=== PATIENT | female | born 1980 | race Caucasian/White ===

== ENCOUNTER → 2020-01-25 11:24 | Outpatient (BNVA) | payer OTHER, SELFPAY | PROVIDERS: PCP Internal Medicine; Referring Provider Internal Medicine; Visit Provider Advanced Practice Midwife | DX: Z71.2 Person consulting for explanation of examination or test findings (principal) | CPT/HCPCS: 99212 ==

== ENCOUNTER 2020-03-11 12:07 | Outpatient (REF) | payer OTHER, SELFPAY | END 2020-03-11 12:08 | disposition home or self-care (01) | LOC: HO.LAB 12:07 | PROVIDERS: Visit Provider Internal Medicine | DX: Z20.828 Contact with and (suspected) exposure to other viral communicable diseases (principal) | CPT/HCPCS: C9803; U0003 ==

== ENCOUNTER 2020-03-18 12:52 | Outpatient (REF) | payer OTHER, SELFPAY ==
--- NOTE | 2020-03-18 12:59 | XR_ITS ---
EXAMINATION: XR CHEST CLINICAL INFORMATION: Chest pain COMPARISON: None TECHNIQUE: 2 views of the chest were obtained. FINDINGS: No significant abnormality is noted involving the heart, lungs, mediastinum, bony thorax or soft tissues. XR/XR chest 2V IMPRESSION: Unremarkable examination.
== END 2020-03-18 12:53 | disposition home or self-care (01) ==
LOC: HO.HMGCX 12:52
PROVIDERS: Visit Provider Hospitalist
DX: R07.89 Other chest pain (principal)
CPT/HCPCS: 71046

== ENCOUNTER 2020-03-25 09:05 | Outpatient (REF) | payer OTHER, SELFPAY ==
--- NOTE | 2020-03-25 09:09 | XR_ITS ---
EXAMINATION: XR KNEE, RIGHT CLINICAL INFORMATION: Right lower leg injury. COMPARISON: None TECHNIQUE: Four views of the right knee. FINDINGS: No significant tricompartmental degenerative joint changes are seen. There is no acute fracture or dislocation. An eccentric, mildly expansile, sclerotic lesion is seen at the level the proximal fibular metadiaphysis. The cortex is intact. Mild prepatellar soft tissue swelling is seen. XR/XR knee RT 4V IMPRESSION: 1. Mild prepatellar soft tissue swelling. No acute right knee joint abnormality or significant degenerative changes. 2. 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 This could be monitored for change with tibia/fibular radiographs and 3-6 months.
== END 2020-03-25 09:06 | disposition home or self-care (01) ==
LOC: HO.HMGCX 09:05
PROVIDERS: PCP Internal Medicine; Visit Provider Nurse Practitioner Family
DX: S89.91XA Unspecified injury of right lower leg, initial encounter (principal)
CPT/HCPCS: 73564

== ENCOUNTER → 2020-04-28 08:45 | Outpatient (BNVA) | payer OTHER, SELFPAY | PROVIDERS: PCP Internal Medicine; Visit Provider Advanced Practice Midwife | DX: Z30.42 Encounter for surveillance of injectable contraceptive (principal) | CPT/HCPCS: 96372; J1050 ==

== ENCOUNTER → 2020-06-08 10:43 | Outpatient (BNVA) | payer OTHER, SELFPAY | PROVIDERS: PCP Internal Medicine; Visit Provider Nurse Practitioner ==

== ENCOUNTER 2020-06-13 16:29 | Outpatient (REF) | payer OTHER, SELFPAY | END 2020-06-13 16:30 | disposition home or self-care (01) | LOC: HO.HOSX 16:29 | PROVIDERS: Visit Provider Orthopaedic Surgery | DX: Z13.89 Encounter for screening for other disorder (principal) ==

== ENCOUNTER 2020-06-14 08:33 | Outpatient (REF) | payer OTHER, SELFPAY ==
--- NOTE | ~2020-06-14 | XR_ITS ---
EXAMINATION: XR WRIST, RIGHT CLINICAL INFORMATION: Right wrist pain. COMPARISON: None TECHNIQUE: PA, lateral, and oblique views of the right wrist. FINDINGS: The bones and soft tissues are normal. No fracture. Alignment is anatomic with normal joint spaces. No erosions or abnormal soft tissue calcifications. XR/XR wrist RT min 3V IMPRESSION: Unremarkable right wrist.
== END 2020-06-14 08:34 | disposition home or self-care (01) ==
LOC: HO.HOSX 08:33
PROVIDERS: PCP Internal Medicine; Visit Provider Orthopaedic Surgery
DX: M77.8 Other enthesopathies, not elsewhere classified (principal)
CPT/HCPCS: 20550; 73110; 99202; J1100

== ENCOUNTER 2020-07-01 11:06 | Outpatient (REF) | payer OTHER, SELFPAY | END 2020-07-01 11:07 | disposition home or self-care (01) | LOC: HO.LNP 11:06 | PROVIDERS: Visit Provider Hospitalist | DX: R30.0 Dysuria (principal) | CPT/HCPCS: 87086 ==

== ENCOUNTER → 2020-07-14 08:56 | Outpatient (BNVA) | payer OTHER, SELFPAY | PROVIDERS: PCP Internal Medicine; Visit Provider Advanced Practice Midwife | DX: Z30.42 Encounter for surveillance of injectable contraceptive (principal) | CPT/HCPCS: 96372; 99211; J1050 ==

== ENCOUNTER → 2020-10-04 08:49 | Outpatient (BNVA) | payer OTHER, SELFPAY | PROVIDERS: Visit Provider Advanced Practice Midwife | DX: Z30.42 Encounter for surveillance of injectable contraceptive (principal) | CPT/HCPCS: 96372; 99211 ==

== ENCOUNTER 2020-10-06 09:10 | Outpatient (REF) | payer OTHER, SELFPAY ==
--- NOTE | ~2020-10-06 | XR_ITS ---
EXAMINATION: XR RIBS, LEFT CLINICAL INFORMATION: Pain COMPARISON: Chest radiographs 03/08/2020 TECHNIQUE: 3 views of the left ribs were obtained. AP chest FINDINGS: Lungs are clear. No consolidation, pneumothorax, or pleural effusion. The cardiomediastinal silhouette and pulmonary vasculature are normal. Osseous structures are unremarkable. Ribs are intact. No fractures are identified. XR/XR ribs LT min 3V w CXR1V IMPRESSION: Unremarkable examination.
== END 2020-10-06 09:11 | disposition home or self-care (01) ==
LOC: HO.HMGCX 09:10
PROVIDERS: PCP Internal Medicine; Visit Provider Hospitalist
DX: R07.81 Pleurodynia (principal)
CPT/HCPCS: 71101

== ENCOUNTER → 2020-12-29 13:31 | Outpatient (BNVA) | payer OTHER, SELFPAY | PROVIDERS: PCP Internal Medicine; Visit Provider Advanced Practice Midwife | DX: Z30.42 Encounter for surveillance of injectable contraceptive (principal) | CPT/HCPCS: 96372; 99211 ==

== ENCOUNTER → 2021-03-06 11:50 | Outpatient (BNVA) | payer OTHER, SELFPAY | PROVIDERS: PCP Internal Medicine; Referring Provider Internal Medicine; Visit Provider Nurse Practitioner | DX: K82.8 Other specified diseases of gallbladder (principal); A04.8 Other specified bacterial intestinal infections; R10.11 Right upper quadrant pain | CPT/HCPCS: 99212 ==

== ENCOUNTER 2021-03-20 08:54 | Outpatient (REF) | payer OTHER, SELFPAY ==
--- NOTE | ~2021-03-20 | US_ITS ---
EXAMINATION: US ABDOMEN LIMITED CLINICAL INFORMATION: Gallbladder sludge. Right upper quadrant pain. COMPARISON: Ultrasound abdomen 05/05/2019. X-ray abdomen KUB 09/25/2018. CT abdomen and pelvis 02/17/2006. TECHNIQUE: Real-time imaging of the right upper quadrant abdominal viscera. FINDINGS: PANCREAS: The head of the pancreas is normal. The body and tail are not well visualized due to bowel gas. LIVER: Normal. The liver is normal in size. The liver contour is normal. Parenchymal echogenicity is normal. No focal hepatic lesion. There is no intrahepatic biliary duct dilatation seen. GALLBLADDER: The gallbladder is normal in size. There is minimal echogenic dependent material in the neck of the gallbladder. This is similar to previous exam. This may represent sludge. A gallbladder polyp cannot be excluded given this is similar in appearance. This measures approximately 6 x 12 mm. No gallstones are seen. The gallbladder wall is normal. There is no pericholecystic fluid. COMMON BILE DUCT: Normal in caliber measuring 0.6 cm in diameter. RIGHT KIDNEY: Normal. No hydronephrosis. No renal calculi or focal parenchymal lesions. The kidney measures 10.3 cm in maximum dimension. FREE FLUID: None. US/US abdomen limited IMPRESSION: Dependent echogenic material in the neck of the gallbladder, similar to prior exam April 2019. This may represent sludge. A gallbladder wall polyp cannot be excluded given its similar location to previous exam and ultrasound follow-up recommended. No gallstone seen. Limited visualization of the pancreas.
== END 2021-03-20 08:55 | disposition home or self-care (01) ==
LOC: HO.HMGCX 08:54
PROVIDERS: Visit Provider Nurse Practitioner
DX: R10.11 Right upper quadrant pain (principal); K82.8 Other specified diseases of gallbladder
CPT/HCPCS: 76705

== ENCOUNTER 2021-03-23 08:36 | Outpatient (REF) | payer OTHER, SELFPAY | END 2021-03-23 08:37 | disposition home or self-care (01) | LOC: HO.LAB 08:36 | PROVIDERS: PCP Internal Medicine; Visit Provider Internal Medicine | DX: Z20.822 Contact with and (suspected) exposure to COVID-19 (principal) | CPT/HCPCS: C9803; U0003; U0005 ==

== ENCOUNTER → 2021-03-24 10:59 | Outpatient (BNVA) | payer OTHER, SELFPAY | PROVIDERS: PCP Internal Medicine; Visit Provider Advanced Practice Midwife | DX: Z30.42 Encounter for surveillance of injectable contraceptive (principal) | CPT/HCPCS: 96372; 99211 ==

== ENCOUNTER → 2021-05-17 11:18 | Outpatient (BNVA) | payer OTHER, SELFPAY | PROVIDERS: PCP Internal Medicine; Visit Provider Orthopaedic Surgery | DX: M77.8 Other enthesopathies, not elsewhere classified (principal) | CPT/HCPCS: 99212; J1100 ==

== ENCOUNTER → 2021-06-21 10:29 | Outpatient (BNVA) | payer OTHER, SELFPAY | PROVIDERS: Visit Provider Advanced Practice Midwife | DX: Z01.419 Encounter for gynecological examination (general) (routine) without abnormal findings (principal); Z30.42 Encounter for surveillance of injectable contraceptive; Z12.39 Encounter for other screening for malignant neoplasm of breast | CPT/HCPCS: 96372 ==

== ENCOUNTER 2021-07-20 11:17 | Outpatient (REF) | payer OTHER, SELFPAY ==
--- NOTE | ~2021-07-20 | MM_ITS ---
EXAMINATION: MM SCREENING DIGITAL BREAST TOMOSYNTHESIS, BILATERAL CLINICAL INFORMATION: Screening. Asymptomatic. Age 40. No prior breast imaging. No known family history breast cancer. The lifetime risk of breast cancer based on the Tyrer-Cuzick Model is 7%. COMPARISON: None (current study represents initial baseline exam). TECHNIQUE: Digital breast tomosynthesis is performed in both the craniocaudal and mediolateral oblique views along with computer-aided detection (CAD). Synthesized 2D images are generated from the tomosynthesis. Additional right CC view is provided. FINDINGS: The breasts are almost entirely fatty (ACR BI-RADS breast composition Category a). Background stromal markings are normal. There are no significant masses, abnormal calcifications, or other abnormalities. Axillary nodes appear normal. Skin contours are smooth. MM/MM tomosynthesis screening BI IMPRESSION: No mammographic evidence of malignancy. ASSESSMENT: BI-RADS 1: Negative RECOMMENDATION: Routine annual mammography screening. This patient's information was entered into a reminder system with a target due date for their next mammogram.
== END 2021-07-20 11:18 | disposition home or self-care (01) ==
LOC: HO.MAMMO 11:17
PROVIDERS: Visit Provider Advanced Practice Midwife
DX: Z12.31 Encounter for screening mammogram for malignant neoplasm of breast (principal)
CPT/HCPCS: 77063; 77067

== ENCOUNTER 2022-02-06 08:23 | Outpatient (REF) | payer OTHER, SELFPAY ==
--- NOTE | ~2022-02-06 | MM_ITS ---
EXAMINATION: MM DIAGNOSTIC DIGITAL BREAST TOMOSYNTHESIS, BILATERAL US DIAGNOSTIC ULTRASOUND BREAST, BILATERAL CLINICAL INFORMATION: 41-year-old with bilateral anterior breast pain for several weeks. No erythema, palpable mass, or discharge. The lifetime risk of breast cancer based on the Tyrer-Cuzick Model is 10%. COMPARISON: Mammography: 07/20/2021 (baseline). TECHNIQUE: Digital breast tomosynthesis is performed in both the craniocaudal and mediolateral oblique views along with computer-aided detection (CAD). Synthesized 2D images are generated from the tomosynthesis. Ultrasound bilateral breasts is performed using grayscale imaging and color Doppler without and with harmonics. The bilateral breasts are imaged retroareolar and circumferential anterior breasts. FINDINGS: The breasts are almost entirely fatty (ACR BI-RADS breast composition Category a). Stromal markings are similar to baseline exam. There is no skin thickening or coarsening of the Ronan's ligaments. No interval mass or architectural abnormality or abnormal calcifications. The axilla are unremarkable. Skin contours are smooth. Ultrasound demonstrates no cystic or solid mass or architectural abnormality on either side. There is no skin thickening or edema tracking in soft tissue planes. No hyperemia on color Doppler. Results are discussed with the patient at time of visit. MM/MM tomosynthesis diagnostic BI IMPRESSION: -No mammographic evidence of malignancy or inflammatory changes. -Unremarkable bilateral breast ultrasound. ASSESSMENT: BI-RADS 1: Negative RECOMMENDATION: 1. Patient's bilateral breast pain should be managed based on the clinical impression. 2. Otherwise, routine annual screening mammography. This patient's information was entered into a reminder system with a target due date for their next mammogram.
== END 2022-02-06 08:24 | disposition home or self-care (01) ==
LOC: HO.MAMMO 08:23
PROVIDERS: PCP Internal Medicine; Visit Provider Internal Medicine
DX: N64.4 Mastodynia (principal)
CPT/HCPCS: 76642; 77062; 77066

== ENCOUNTER → 2022-09-05 09:36 | Outpatient (BNVA) | payer OTHER, SELFPAY | PROVIDERS: PCP Internal Medicine; Visit Provider Advanced Practice Midwife ==

== ENCOUNTER 2022-11-03 09:46 | Emergency (ER) | payer OTHER, SELFPAY ==
--- NOTE | ~2022-11-03 | US_ITS ---
EXAM: Pelvic Ultrasound CLINICAL INDICATION: Left-sided abdominal pain with COMPARISON: CT abdomen pelvis earlier today TECHNIQUE: The pelvis was evaluated using transabdominal and transvaginal imaging. The patient was not amenable to endovaginal interrogation. Color Doppler imaging and spectral analysis of the bilateral ovaries was also performed. FINDINGS: The uterus measures 8.2 x 3.9 x 4.0 cm in longitudinal by AP by transverse dimension. The endometrial stripe is not thickened and measures 0.8 cm. The left ovary measures approximately 1.8 x 2.7 x 1.7 cm and is normal. The right ovary measures approximately 2.7 x 2.0 x 1.8 cm and is also normal. Spectral analysis reveals normal arterial and venous waveforms in the bilateral ovaries. There are no abnormal adnexal masses. There is no free fluid in the pelvis. US/US pelvic ovarian doppler IMPRESSION: Unremarkable sonographic imaging of the pelvis.
--- NOTE | ~2022-11-03 | CT_ITS ---
EXAMINATION: CT ABDOMEN AND PELVIS WITHOUT CONTRAST CLINICAL INFORMATION: Left flank pain. Question stone. COMPARISON: Abdominal ultrasound March 20, [address] abdomen pelvis February 17, 2006 TECHNIQUE: Multidetector volumetric imaging was performed from the superior aspect of the liver through the pubic symphysis. Sagittal and coronal reformatted images were obtained on the technologist's workstation. This CT examination was performed using dose optimization techniques as appropriate, variously including the following: *Automated exposure control *Adjustment of mA and/or kV according to patient size (this includes techniques or standardized protocols for targeted exams where dose is matched to indication/reason for exam; i.e. extremities or head) *Use of iterative reconstruction technique DLP: 754 mGy-cm FINDINGS: Visualized lung bases are well aerated. The liver is normal in size but demonstrates diffusely decreased attenuation. A few small gallstones are noted dependently within an otherwise unremarkable appearing gallbladder. The pancreas, spleen and adrenal glands are unremarkable. Small inferior splenule. Symmetrically sized kidneys. No renal calculi or hydronephrosis of either kidney. 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 Postsurgical changes of the stomach consistent with gastric bypass. Normal caliber loops of small and large bowel. Normal appendix. Normal caliber abdominal aorta. No retroperitoneal lymphadenopathy. Surgical changes of the ventral abdominal wall. The bladder is normal in appearance. Unremarkable CT appearance of the uterus. No gross free pelvic fluid. No acute osseous abnormality. CT/CT abdomen pelvis wo IV con IMPRESSION: 1. No renal calculi or hydronephrosis of either kidney. 2. Diffusely decreased liver attenuation suggesting hepatic steatosis. Correlation with liver enzymes recommended. 3. Cholelithiasis. Fleischner guidelines were followed.
--- NOTE | ~2022-11-03 | US_ITS ---
EXAM: Pelvic Ultrasound CLINICAL INDICATION: Left-sided abdominal pain with COMPARISON: CT abdomen pelvis earlier today TECHNIQUE: The pelvis was evaluated using transabdominal and transvaginal imaging. The patient was not amenable to endovaginal interrogation. Color Doppler imaging and spectral analysis of the bilateral ovaries was also performed. FINDINGS: The uterus measures 8.2 x 3.9 x 4.0 cm in longitudinal by AP by transverse dimension. The endometrial stripe is not thickened and measures 0.8 cm. The left ovary measures approximately 1.8 x 2.7 x 1.7 cm and is normal. The right ovary measures approximately 2.7 x 2.0 x 1.8 cm and is also normal. Spectral analysis reveals normal arterial and venous waveforms in the bilateral ovaries. There are no abnormal adnexal masses. There is no free fluid in the pelvis. US/US pelvic and transvaginal IMPRESSION: Unremarkable sonographic imaging of the pelvis.
[2022-11-03 10:01] VITALS: BP 123/55; PULSE 87; RESP 18; TEMP 36.8; O2SAT 98; BMI 34.3
[2022-11-03 10:16] LABS: MANUAL DIFF FLAG NO
[2022-11-03 10:32] LABS: Alanine Aminotransferase 15 U/L (0-31); Albumin Level 3.9 g/dL (3.5-5.0); Alkaline Phosphatase 97 U/L (39-117); Anion Gap 16 (12-20); Aspartate Amino Transferase 18 U/L (5-31); Bilirubin Total 0.6 mg/dL (0.0-1.0); Blood Urea Nitrogen 8 mg/dL (9-16); Calcium 9.7 mg/dL (8.4-10.2); Carbon Dioxide 19 mmol/L (22-29); Chloride 108 mmol/L (96-108); Creatinine Clr Calc Pharmacy 112.5; Estimated Glomerular Filt Rate > 60; Glucose Random 91 mg/dL (60-115); Potassium 3.6 mmol/L (3.3-5.1); Sodium 139 mmol/L (135-145); Total Protein 7.4 g/dL (6.5-8.0)
[2022-11-03 10:35] LABS: Appearance Urine Clear; Color Urine Yellow; Glucose Urine UA Negative (Negative); Leukocyte Esterase Urine Negative (Negative); Nitrite Urine Negative (Negative); Specific Gravity - Urine <= 1.005 (1.005-1.025); Urine Blood Negative (Negative); Urine Ketones Negative (Negative); Urine Protein Negative (Neg-Trace)
[2022-11-03 10:36] LABS: Basophils Percent Auto 0.3 % (0-2); Eosinophils Percent Auto 0.5 % (0-4); Hematocrit 37.8 % (37.0-47.0); Hemoglobin 11.6 g/dl (12.0-16.0); Imm Gran Abs Auto 0.03 X10*3/uL (0.00-0.03); Imm Gran Pct Auto 0.4 % (0.0-0.4); Lymphocytes Absolute Auto 1.9 X10*3/uL (1.2-4.9); Lymphocytes Percent Auto 24.4 % (20-40); Mean Corpuscular HGB Conc 30.7 g/dl (31.0-35.0); Mean Corpuscular Hemoglobin 24.2 pg (27.0-33.0); Mean Corpuscular Volume 78.8 fL (80.0-98.0); Mean Platelet Volume 10.4 fL (9.4-12.3); Monocytes Absolute Auto 0.6 X10*3/uL (0.1-1.2); Monocytes Percent Auto 8.1 % (2-11); Neutrophils Absolute Auto 5.2 x10*3/uL (2.0-8.3); Neutrophils Percent Auto 66.3 % (45-73); Platelet Count 359 X10*3/uL (160-400); Red Cell Distribution Width 13.5 % (11.0-16.0); White Blood Count 7.8 X10*3/uL (4.8-10.8)
[2022-11-03 10:54] LABS: UPreg QC Valid YES; Urine Pregnancy NEGATIVE (NEGATIVE)
[2022-11-03 10:56] LABS: Bacteria Urine None Seen (None Seen); Hyaline Casts Urine 0-2 /LPF (0-2); RBC Urine 0-2 /HPF (0-2); Squamous Epithelial Cell Urine 0-2 /HPF (0-2); WBC Urine 0-5 /HPF (0-5)
[2022-11-03 11:14] VITALS: BP 120/44; PULSE 78; RESP 16; O2SAT 100
--- NOTE | 2022-11-03 11:17 | PC.NURSE ---
pt axox4, vss, respirations even and unlabored, sats 100% RA, skin warm and dry color appropriate to ethnicity. pt reports lower abd./L. sided flank pain x 3 days. denies/n/v/d. pt states blood in urine denies other urinary sx. pt denies recent abx use/hx kidney stones. +bs x 4. last bm today. no abd. distention, tenderness noted on lower abd. upon palpation. +flank tenderness to percussion on L. side. pt reports last period 09/27/22; reports not sexually active x 4 years. awaiting primary eval; call [facility] within reach.
--- NOTE | 2022-11-03 11:51 | ED_ITS ---
HPI - Abdominal Pain General Chief Complaint: Abdominal Pain Stated Complaint: sent from urgent care Time Seen by Provider: 11/03/22 11:26 Source: patient Mode of arrival: ambulatory Limitations: no limitations History of Present Illness HPI narrative: 42-year-old female with history a gallbladder disease and obesity presents today from urgent care for evaluation of the lower abdominal pain and left flank pain x4 days. She was evaluated at urgent care earlier today reporting a decreased urine stream, worsening lower abdominal pain with radiation to the left flank and blood upon wiping after urination and was advised to come to the ED for further workup concern of kidney stone versus obstruction. She has been taking Tylenol at home without relief. Denies chance of . Denies concern for STDs. Denies fatigue, weakness, fever, chills, chest pain, shortness of breath, nausea, vomiting, diarrhea, constipation, rash. Related Data Home Medications Medication Instructions Recorded Confirmed multivitamin (One-A-Day Essential 1 tab PO DAILY 01/25/20 05/24/22 tablet) Previous Rx's Medication Instructions Recorded cyclobenzaprine 10 mg tablet 10 mg PO BEDTIME PRN muscle spasm 11/03/22 #7 tabs ketorolac 10 mg tablet 10 mg PO TID PRN pain 5 days #15 11/03/22 tabs lidocaine 5 % topical patch 1 patch topical DAILY PRN pain #15 11/03/22 ea Allergies Allergy/AdvReac Type Severity Reaction Status Date / Time oxycodone Allergy Mild Nausea Verified 09/05/22 09:51 Review of Systems Review of Systems Constitutional : No Weight loss, No Fever, No Chills, No Fatigue, No Malaise ENT/Mouth : No sore throat, No Rhinorrhea Eyes: No Eye Pain, No Swelling, No Redness Cardiovascular : No Chest Pain, No SOB, No Dyspnea on Exertion, No Orthopnea, No Edema, No Palpitations Respiratory : No Cough, No Sputum, No Wheezing Gastrointestinal : no Nausea, No Vomiting, No Diarrhea, No Constipation, + abdominal Pain, No Hematochezia, No Melena Genitourinary : No Dysuria, No Urinary Frequency, + Hematuria, + urinary hesitancy + flank pain Musculoskeletal : No joint pain, No Myalgias, No Joint Swelling Skin : No Skin Lesions, No rash Neuro : No Weakness, No Numbness, No Dizziness, No Headache All other systems reviewed and are negative PMFSH Past Medical History Attestation statement: The following information was validated with the patient. Source: old records reviewed and nursing notes reviewed Medical History Depot contraception Environmental and seasonal allergies History of vitamin D deficiency Hx of iron deficiency Hx of menorrhagia Hx of non anemic vitamin B12 deficiency Hx of obesity Obesity (BMI 35.0-39.9 without comorbidity) Recurrent abdominal aortic aneurysm Surgical History History of esophagogastroduodenoscopy (EGD) (~03/2019) History of removal of laparoscopic gastric banding device Hx of abdominoplasty Hx of appendectomy Hx of gastric bypass Family History Family History Father Stroke HTN (hypertension) Diabetes mellitus Mother Diabetes mellitus with nephropathy Kidney failure HTN (hypertension) Brother Diabetes mellitus Sister Fibromyalgia Arthritis Depression Sister No problems noted. Son No problems noted. Son No problems noted. Son No problems noted. Daughter No problems noted. 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 Oriented X3.? No acute distress.? Head: Normocephalic, atraumatic, no step-offs or deformities Eyes: Pupils equal, round and reactive to light.? ENT: Pharynx normal.? Neck: Normal inspection.? Neck supple.? CVS: Normal heart rate and rhythm.? Pulses normal.? Respiratory: No respiratory distress.? Breath sounds normal.? Abdomen: Soft, nondistended tender to palpation to the left upper and left lower quadrant, no rebound tenderness or guarding, active bowel sounds throughout. ? Skin: Skin warm and dry.? Normal skin color.? Normal skin turgor.? Extremities: No lower extremity edema.? No calf ttp. 5/5 strength to bilateral upper and lower extremities Back: No midline tenderness, no C-spine tenderness, full range of motion, positive CVA tenderness to the left. Neuro: Oriented X 3.? No motor deficit.? No sensory deficit. CN 2-12 intact Course Reevaluation(s) Reevaluation #1: CBC notable for microcytic anemia. CMP without any electrolyte abnormalities re quiring intervention. UA without infection or blood. Urine negative. CT of the abdomen and pelvis without renal calculi or hydronephrosis of bilateral kidneys, decreased liver attenuation suggestive of hepatic steatosis, and cholelithiasis. Will refer patient to outpatient GI follow-up. Time: 12:46 Reevaluation #2: On re-evaluation patient states her abdominal pain is down to a 6/10 with medication. She was informed of her CT/ lab results and informed me that she missed her period this month however denies any chance of as she has not had intercourse in 2 years. Does not wish to be tested for . Discussed ordering a pelvic ultrasound to rule out pelvic pathology as patient reports blood when she wipes. Patient is agreeable to plan and will stay for pelvic ultrasound. Time: 13:42 Reevaluation #3: Unremarkable ultrasound pelvic and transvaginal. Normal venous and arterial flow bilaterally to ovaries. Cholelithiasis noted on abdominal CT however, negative Cagle's on exam unlikely acute cholecystitis. Plan is for discharge home with Toradol, Lidoderm patch and cyclobenzaprine likely musculoskeletal n ature peer Educated patient on diagnosis and treatment plan, answered all question, patient verbalizes understanding. At this time patient will be discharged home, advised to return with new or worsening symptoms. Educated on worrisome signs and symptoms and when to return. At this time I feel co mfortable discharge home. Time: 14:35 Medical Decision Making Medical Decision Making [facility] Narrative: 1154 42-year-old female presents from UC with lower abdominal pain, left flank pain x4 days. UC concern for kidney stone a versus obstruction. Physical exam notable for left lower and left upper tenderness to palpation, with left CVA tenderness, no rebound or guarding. Clinical suspicion for nephrolithiasis versus hydronephrosis versus UTI vs cystitis. Unlikely ovarian torsion, ruptured ovarian cyst, ectopic . No signs of appendicitis, cholecystitis, diverticulitis, obstruction, acute abdomen. Differential Diagnosis Differential Diagnoses: The differential diagnosis associated with the present ation includes Clinical suspicion for nephrolithiasis versus hydronephrosis versus UTI vs cystitis. Unlikely ovarian torsion, ruptured ovarian cyst, ectopic . No signs of appendicitis, cholecystitis, diverticulitis, obstruction, acute abdomen. Admission/Observation Consideration of admission/observation: Escalation of care including admission/observation considered Unlikely Lab Data MDM Lab Attestation statement: I reviewed the patient's lab results. 11/03/22 10:10 11/03/22 10:10 Labs: Lab Results 11/03/22 11/03/22 11/03/22 Range/Units 10:10 10:10 10:10 WBC 7.8 (4.8-10.8) X10*3/uL RBC 4.80 (4.20-5.50) X10*6/uL Hgb 11.6 L (12.0-16.0) g/dl Hct 37.8 (37.0-47.0) % MCV 78.8 L (80.0-98.0) fL MCH 24.2 L (27.0-33.0) pg MCHC 30.7 L (31.0-35.0) g/dl RDW 13.5 (11.0-16.0) % Plt Count 359 (160-400) X10*3/uL MPV 10.4 (9.4-12.3) fL Immature Gran % (Auto) 0.4 (0.0-0.4) % Neut % (Auto) 66.3 (45-73) % Lymph % (Auto) 24.4 (20-40) % [place] % (Auto) 8.1 (2-11) % Eos % (Auto) 0.5 (0-4) % Baso % (Auto) 0.3 (0-2) % Lymph # (Auto) 1.9 (1.2-4.9) X10*3/uL [place] # (Auto) 0.6 (0.1-1.2) X10*3/uL Eos # (Auto) 0.0 (0.0-0.4) X10*3/uL Baso # (Auto) 0.0 (0.0-0.2) X10*3/uL Abs Immat Gran (auto) 0.03 (0.00-0.03) X10*3/uL Absolute Neuts (auto) 5.2 (2.0-8.3) x10*3/uL Absolute Nucleated RBC 0.000 (0.0-0.012) X10*3/uL Nucleated RBC % (auto) 0.0 (0.0-0.2) /100WBC Sodium 139 (135-145) mmol/L Potassium 3.6 (3.3-5.1) mmol/L Chloride 108 (96-108) mmol/L Carbon Dioxide 19 L (22-29) mmol/L Anion Gap 16 (12-20) BUN 8 L (9-16) mg/dL Creatinine 0.71 (0.5-1.4) mg/dL Estim Creat Clear Calc 112.5 Estimated GFR > 60 Random Glucose 91 (60-115) mg/dL Calcium 9.7 (8.4-10.2) mg/dL Total Bilirubin 0.6 (0.0-1.0) mg/dL AST 18 (5-31) U/L ALT 15 (0-31) U/L Alkaline Phosphatase 97 (39-117) U/L Troponin I High Sens < 2.7 (<3.5-17.0) ng/L Total Protein 7.4 (6.5-8.0) g/dL Albumin 3.9 (3.5-5.0) g/dL Lipase 23 (8-78) U/L Urine Color Urine Appearance Urine pH (5.0-9.0) Ur Specific [place] (1.005-1.025) Urine Protein (Neg-Trace) mg/dL Urine Glucose (UA) (Negative) mg/dL Urine Ketones (Negative) mg/dL Urine Blood (Negative) Urine Nitrite (Negative) Ur Leukocyte Esterase (Negative) Urine RBC (0-2) /HPF Urine WBC (0-5) /HPF Ur Squamous Epith Cells (0-2) /HPF Urine Bacteria (None Seen) Hyaline Casts (0-2) /LPF Urine Test (NEGATIVE) 11/03/22 11/03/22 Range/Units 10:16 10:16 WBC (4.8-10.8) X10*3/uL RBC (4.20-5.50) X10*6/uL Hgb (12.0-16.0) g/dl Hct (37.0-47.0) % MCV (80.0-98.0) fL MCH (27.0-33.0) pg MCHC (31.0-35.0) g/dl RDW (11.0-16.0) % Plt Count (160-400) X10*3/uL MPV (9.4-12.3) fL Immature Gran % (Auto) (0.0-0.4) % Neut % (Auto) (45-73) % Lymph % (Auto) (20-40) % [place] % (Auto) (2-11) % Eos % (Auto) (0-4) % Baso % (Auto) (0-2) % Lymph # (Auto) (1.2-4.9) X10*3/uL [place] # (Auto) (0.1-1.2) X10*3/uL Eos # (Auto) (0.0-0.4) X10*3/uL Baso # (Auto) (0.0-0.2) X10*3/uL Abs Immat Gran (auto) (0.00-0.03) X10*3/uL Absolute Neuts (auto) (2.0-8.3) x10*3/uL Absolute Nucleated RBC (0.0-0.012) X10*3/uL Nucleated RBC % (auto) (0.0-0.2) /100WBC Sodium (135-145) mmol/L Potassium (3.3-5.1) mmol/L Chloride (96-108) mmol/L Carbon Dioxide (22-29) mmol/L Anion Gap (12-20) BUN (9-16) mg/dL Creatinine (0.5-1.4) mg/dL Estim Creat Clear Calc Estimated GFR Random Glucose (60-115) mg/dL Calcium (8.4-10.2) mg/dL Total Bilirubin (0.0-1.0) mg/dL AST (5-31) U/L ALT (0-31) U/L Alkaline Phosphatase (39-117) U/L Troponin I High Sens (<3.5-17.0) ng/L Total Protein (6.5-8.0) g/dL Albumin (3.5-5.0) g/dL Lipase (8-78) U/L Urine Color Yellow Urine Appearance Clear Urine pH 6.0 (5.0-9.0) Ur Specific [place] <= 1.005 (1.005-1.025) Urine Protein Negative (Neg-Trace) mg/dL Urine Glucose (UA) Negative (Negative) mg/dL Urine Ketones Negative (Negative) mg/dL Urine Blood Negative (Negative) Urine Nitrite Negative (Negative) Ur Leukocyte Esterase Negative (Negative) Urine RBC 0-2 (0-2) /HPF Urine WBC 0-5 (0-5) /HPF Ur Squamous Epith Cells 0-2 (0-2) /HPF Urine Bacteria None Seen (None Seen) Hyaline Casts 0-2 (0-2) /LPF Urine Test NEGATIVE (NEGATIVE) Independent Interpretation I performed an independent interpretation of an: Ultrasound and CT Scan Interpretation: CT abdomen pelvis without renal calculi or hydronephrosis, agree with radiologist's interpretation. Pelvic ultrasound without ovarian mass, agree with radiologist's interpretation. Radiology Impression Discussion of test interpretation with radiology: I have reviewed the radiologist's reading. Radiologist Impression: CT abdomen pelvis wo IV con IMPRESSION: 1.? No renal calculi or hydronephrosis of either kidney. 2.? Diffusely decreased liver attenuation suggesting hepatic steatosis. Correlation with liver enzymes recommended. US pelvic and transvaginal IMPRESSION: Unremarkable sonographic imaging of the pelvis. External Record Review External record reviewed: Inpatient record, Office record, Outpatient record, Prior outpatient labs, Prior outpatient radiology, Primary care record and Outside ED record Prescription Management I considered prescription management with: Pain Medication Chronic Conditions Patient?s care impacted by: Other (Anemia, gallbladder disease) Core Measures AMI core measures followed: Yes Measure exclusions: not indicated Medications Administered Discontinued Medications Generic Name Dose Route Start Last Admin Trade Name Freq PRN Reason Stop Dose Admin Acetaminophen 650 mg 11/03/22 14:31 11/03/22 14:55 Acetaminophen 325 Mg Tablet PO 11/03/22 14:32 650 mg ONCE ONE Administration Sodium Chloride 1,000 mls @ 999 mls/hr 11/03/22 12:00 11/03/22 14:06 Ns IV 11/03/22 13:00 Infused .Q1H1M ANITHA Infusion Ketorolac Tromethamine 15 mg 11/03/22 12:26 11/03/22 12:30 Ketorolac Tromethamine 15 Mg/Ml Vial IVPUSH 11/03/22 12:27 15 mg ONCE ONE Administration Lidocaine 1 patch 11/03/22 14:31 11/03/22 14:55 Lidocaine 4 % Patch Adh..Patch TRANSDERMA 11/03/22 14:32 1 patch ONCE ONE Administration Protocol Morphine Sulfate 4 mg 11/03/22 11:57 11/03/22 13:19 Morphine Sulfate 4 Mg/Ml Cartridge IVPUSH 11/03/22 11:58 Not Given ONCE ONE Protocol Ondansetron HCl 4 mg 11/03/22 11:57 11/03/22 12:30 Ondansetron Hcl 4 Mg/2 Ml Vial IVPUSH 11/03/22 11:58 4 mg ONCE ONE Administration Critical Care Time Critical Care Time Critical Care Time: No Discharge Plan Discharge Clinical Impression: Abdominal pain, Flank pain Patient Disposition: Home, Self-Care Instructions: Abdominal Pain (ED) Additional Instructions: Take your medications as prescribed. If you were prescribed antibiotics today, it is important that you take your medication to their entirety, do not skip any doses, do not finish them early. Follow-up with your primary care provider this week. Return to the emergency department with new or worsening symptoms. Such as fevers, chills, chest pain, shortness of breath, nausea, vomiting, dizziness, headache, vision changes, lethargy In case of emergency call 911 Toradol has been sent to your pharmacy, you tolerated this well in the department. Please take this as prescribed do not take this with ibuprofen, or other NSAIDs, do not mix this with alcohol. Side effects of this medication including increased risk for bleeding and possible kidney injury. ?CT/CT abdomen pelvis wo IV con IMPRESSION: 1.? No renal calculi or hydronephrosis of either kidney. 2.? Diffusely decreased liver attenuation suggesting hepatic steatosis. Correlation with liver enzymes recommended. 3.? Cholelithiasis. ? Fleischner guidelines were followed. US/US pelvic ovarian doppler IMPRESSION: Unremarkable sonographic imaging of the pelvis. ? Prescriptions: New cyclobenzaprine 10 mg tablet 10 mg PO BEDTIME PRN (Reason: muscle spasm) Qty: 7 0RF ketorolac 10 mg tablet 10 mg PO TID PRN (Reason: pain) 5 Days Qty: 15 0RF lidocaine 5 % adhesive patch,medicated 1 patch topical DAILY PRN (Reason: pain) Qty: 15 0RF Rx Instructions: leave on most painful area for up to 12 hrs No Action multivitamin [One-A-Day Essential] Tablet 1 tab PO DAILY Referrals: [facility] [place] [facility] [Provider Group] - 1 week [facility] [place] Urology Services [Provider Group] - 2 days Stand Alone Forms: Work/School Release Interventions: ED Discharge Assessment Last Done: 11/03/22 15:00 Discharge Date/Time: 11/03/22 15:03
[2022-11-03] MEDS: ondansetron HCL 4 MG/2 ML VIAL IVPUSH (12:30)
[2022-11-03] MEDS: 0.9 % Sodium Chloride 1,000 ML 999 ML IV (12:30)
[2022-11-03] MEDS: Ketorolac Tromethamine 15 MG/ML VIAL IVPUSH (12:30)
--- NOTE | 2022-11-03 12:40 | PC.NURSE ---
Pt did not want morphine d/t being nervous about driving home, pt given education we do ot know if she will be leaving yet vs chance of admission post scan reading, provider aware, new order placed for Toradol, morphine held for now. Will continue to monitor pain levels.
--- NOTE | 2022-11-03 13:41 | MHC.EDTECH ---
Brought patient a pillow and adjusted the bed for patient.
[2022-11-03] MEDS: Lidocaine 4 % Patch ADH..PATCH 1 PATCH TRANSDERMA (14:55)
[2022-11-03] MEDS: Acetaminophen 325 MG TABLET 650 MG PO (14:55)
[2022-11-03 14:58] VITALS: BP 122/71; PULSE 86; RESP 16; O2SAT 100
[2022-11-03 14:59] LABS: Lipase 23 U/L (8-78)
[2022-11-03 15:08] LABS: Troponin-I High Sensitivity < 2.7 ng/L (<3.5-17.0)
== END 2022-11-03 15:03 | disposition home or self-care (01) ==
PROVIDERS: Physician Assistant; Emergency Provider Student in an Organized Health Care Education/Training Program; PCP Internal Medicine
DX: R10.30 Lower abdominal pain, unspecified (principal); R10.9 Unspecified abdominal pain
CPT/HCPCS: 36415; 74176; 76830; 76856; 80053; 81001; 81025; 83690; 84484; 85025; 93975; 96361; 96374; 96375; 99284; 99285; J1885; J2405

== ENCOUNTER 2022-11-30 07:25 | Outpatient (AMB) | payer OTHER, SELFPAY ==
[2022-11-30 07:37] VITALS: BP 104/66; PULSE 82; O2SAT 100; BMI 34.5
--- NOTE | 2022-11-30 07:37 | MHC.PC.OV ---
Vital Signs 11/30/22 07:37 Height 5 ft 4 in Weight 201 lb BMI 34.5 BP 104/66 Blood Pressure Location Rt brachial Position Sitting Pulse 82 Pulse Source Pulse Oximeter Pulse Oximetry (%) 100 Oxygen Delivery Method Room Air Intake Visit Reasons: LT shoulder pain Intake Note: Pt is here today for a sick visit. Pt c/o L shoulder pain that goes down her arm for a month. Allergies oxycodone Allergy (Mild, Verified 11/30/22 07:47) Nausea Medication List - Last Reconciled 11/30/22 by Tracey Goff MD multivitamin (One-A-Day Essential tablet) 1 tab PO DAILY Tobacco use date assessed: 11/30/22 Dental Screening Dental Screen Date: 11/30/22 Did you have a dental visit in the last 12 months?: Yes Did you have a dental problem in the last 6 months where you did not have access to dental care?: No Was dental information given to patient?: Patient has dentist HPI LT shoulder pain HPI Details 42-year-old lady here today complaining of sudden onset left upper back pain accompanied by numbness and tingling going down left arm up to fingers, this has started approximately a month ago. No history of any strenuous activity, trauma no history of fall. Unable to raise left arm more than 90 degrees, unable to carry anything or left any thing heavy with her left hand due to pain, has pain with sometimes wakes her up at night described as a throbbing sensation on left upper back. Has been taking Motrin, try Tylenol arthritis, applied Aleve gel to left upper back and applied heat ice which has afforded only temporary relief. [facility] Medical History Depot contraception Environmental and seasonal allergies History of vitamin D deficiency Hx of iron deficiency Hx of menorrhagia Hx of non anemic vitamin B12 deficiency Hx of obesity Obesity (BMI 35.0-39.9 without comorbidity) Recurrent abdominal aortic aneurysm Shoulder blade pain Surgical History History of esophagogastroduodenoscopy (EGD) (~03/2019) History of removal of laparoscopic gastric banding device Hx of abdominoplasty Hx of appendectomy Hx of gastric bypass Family History Father Stroke HTN (hypertension) Diabetes mellitus Mother Diabetes mellitus with nephropathy Kidney failure HTN (hypertension) Brother Diabetes mellitus Sister Fibromyalgia Arthritis Depression Sister No problems noted. Son No problems noted. Son No problems noted. Son No problems noted. Daughter No problems noted. 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 1. Little interest or pleasure in doing things: not at all 2. Feeling down, depressed, or hopeless: not at all 3. Trouble falling or staying asleep, or sleeping too much: several days 4. Feeling tired or having little energy: several days 5. Poor appetite or overeating: not at all 6. Feeling bad about yourself - or that you are a failure or have let yourself or your family down: not at all 7. Trouble concentrating on things, such as reading the newspaper or watching television: not at all 8. Moving or speaking so slowly that other people could have noticed. Or the opposite - being so fidgety or restless that you have been moving around a lot more than usual: not at all 9. Thoughts that you would be better off or of hurting yourself in some way: not at all Total score: 2 Depression Screening Interpretation: Negative 84471 - PHQ-9 Billing: Yes Source: Developed by Drs. Kimani Powell, Tanya Maria, Shoaib Howe and colleagues, with an educational elodia from [employer]. Thrive Questionnaire Date Thrive assessed: 11/30/22 I am a: Patient What is your living situation today?: I have a steady place to live Within the past 12 months, did the food you bought not last and you didn't have the money to get more?: Never true Within the past 12 months, did you worry whether your food would run out before you got money to buy more?: Never true Do you have trouble paying for medicines?: No Do you have trouble getting transportation to medical appointments?: No Do you have trouble paying your heating and electricity bill?: No Do you have trouble taking care of your child, family member or friend?: No Do you have trouble with day-to-day activities such as bathing, preparing meals, shopping, managing finances, etc.?: No Are you currently unemployed and looking for a job?: No Are you interested in more education?: No AUDIT C Alcohol Use Questionnaire (AUDIT-C) 1. How often do you have a drink containing alcohol?: Never 3. How often do you have six or more drinks on one occasion?: Never Total Score: 0 SUE-7 AMB Questionnaire SUE-7 Date SUE - 7 assessed: 01/19/22 Source: Developed by Drs. Kimani Powell, Tanya Maria, Shoaib Howe and colleagues, with an educational elodia from [employer]. Review of Systems Const All systems reviewed & are unremarkable except as noted in HPI and below Physical exam (Primary Care) Vital Signs: Last Vital Signs Pulse 82 11/30/22 07:37 BP 104/66 11/30/22 07:37 Pulse Ox 100 11/30/22 07:37 Oxygen Delivery Method Room Air 11/30/22 07:37 BMI result Body Mass Index 34.5 Tobacco/Smoking Status: Tobacco use Status Tobacco use date assessed 11/30/22 11/30/22 07:41 Patient Tobacco Use Status Never used Tobacco 11/30/22 07:41 e-Cigarette/Vaping Use Never Used 11/30/22 07:41 PHQ-9: PHQ-9 Score PHQ-9: Total score 2 11/30/22 07:41 Depression Screening Interpretation: Negative Thrive Assessment: Date of Thrive Assessment Date Thrive assessed 01/19/22 11/30/22 07:41 Const Other: Alert oriented x3, no acute distress noted ambulatory normal gait Orientation/consciousness: patient oriented x3 HENMT Head: Yes normocephalic Neck Neck: Yes full ROM, Yes no lymphadenopathy and Yes supple Back/Spine/Pelvis Other: Swelling and tenderness on palpation over left trapezius and anterior border of left scapula Cervical Spine: cervical ROM normal and cervical muscular tenderness (Left) Skin General skin exam: no rashes or lesions noted Neuro General: patient oriented x3, gait normal, tone normal, Normal light touch and pain sensation and no focal motor deficits Extrem Other: Decreased abduction and forward extension, backward extension, of left arm due to pain, pain elicited on supination and pronation of left arm Assessment and Plan Assessment & Plan (1) Shoulder blade pain: Code(s): M89.8X1 - Other specified disorders of bone, shoulder Plan: X-ray left shoulder joint ordered, prescription sent for nabumetone 500 mg to take 1 every 12 hours with food or milk as needed for pain. Referred for physical therapy, also try applying Salonpas patch to affected area twice a day (2) Neck pain on left side: Code(s): M54.2 - Cervicalgia Plan: X-ray cervical spine ordered Rx nabumetone ordered, take as directed, referral to physical therapy done (3) Numbness and tingling in left arm: Code(s): R20.0 - Anesthesia of skin; R20.2 - Paresthesia of skin Orders: Orders XR cervical spine 2V Today M54.2 - Cervicalgia, M89.8X1 - Other specified disorders of bone, shoulder XR shoulder LT min 2V Today M89.8X1 - Other specified disorders of bone, shoulder PT Evaluation and Treatment Today M54.2 - Cervicalgia, M89.8X1 - Other specified disorders of bone, shoulder, R20.0 - Anesthesia of skin, R20.2 - Paresthesia of skin Medications: New nabumetone 500 mg PO BID PRN 30 tabs 0RF left ipper back pain Coding Level of Care Code Est Pt Level 3 (19943) Diagnoses Shoulder blade pain M89.8X1 Neck pain on left side M54.2 Numbness and tingling in left arm R20.0; R20.2
== END 2022-11-30 08:59 | disposition home or self-care (01) ==
PROVIDERS: PCP Internal Medicine; Visit Provider Internal Medicine
DX: M89.8X1 Other specified disorders of bone, shoulder (principal); M54.2 Cervicalgia; R20.0 Anesthesia of skin; R20.2 Paresthesia of skin
CPT/HCPCS: 99213

== ENCOUNTER 2022-12-03 09:32 | Outpatient (REF) | payer OTHER, SELFPAY ==
--- NOTE | ~2022-12-03 | XR_ITS ---
EXAMINATION: XR CERVICAL SPINE CLINICAL INFORMATION: Neck pain COMPARISON: None available. TECHNIQUE: 3 views of the cervical spine were obtained. FINDINGS: Straightening of the normal cervical lordosis. Visualization of C7 limited due to overlying soft tissues. Mild multilevel spondylosis. Cervical disc space heights are preserved. XR/XR cervical spine 2V IMPRESSION: Mild multilevel cervical spondylosis.
--- NOTE | ~2022-12-03 | XR_ITS ---
EXAMINATION: XR SHOULDER, LEFT CLINICAL INFORMATION: Left shoulder pain COMPARISON: 04/28/2018 TECHNIQUE: Three views of the left shoulder. FINDINGS: Mild to moderate osteoarthritis acromioclavicular joint. Glenohumeral alignment is anatomic. No abnormal soft tissue calcifications identified adjacent to the humeral head. XR/XR shoulder LT min 2V IMPRESSION: Kyul-[id number] osteoarthritis acromioclavicular joint.
== END 2022-12-03 09:33 | disposition home or self-care (01) ==
LOC: HO.HMGCX 09:32
PROVIDERS: PCP Internal Medicine; Visit Provider Internal Medicine
DX: M89.8X1 Other specified disorders of bone, shoulder (principal); M54.2 Cervicalgia
CPT/HCPCS: 72040; 73030

== ENCOUNTER 2022-12-21 07:48 | Outpatient (REF) | payer OTHER, SELFPAY ==
[2022-12-21 11:18] LABS: MANUAL DIFF FLAG NO
[2022-12-21 11:40] LABS: Basophils Percent Auto 0.5 % (0-2); Eosinophils Percent Auto 0.4 % (0-4); Hematocrit 37.7 % (37.0-47.0); Hemoglobin 11.5 g/dl (12.0-16.0); Imm Gran Abs Auto 0.03 X10*3/uL (0.00-0.03); Imm Gran Pct Auto 0.4 % (0.0-0.4); Lymphocytes Absolute Auto 1.9 X10*3/uL (1.2-4.9); Lymphocytes Percent Auto 23.4 % (20-40); Mean Corpuscular HGB Conc 30.5 g/dl (31.0-35.0); Mean Corpuscular Hemoglobin 24.1 pg (27.0-33.0); Mean Platelet Volume 11.1 fL (9.4-12.3); Monocytes Absolute Auto 0.4 X10*3/uL (0.1-1.2); Monocytes Percent Auto 5.3 % (2-11); Neutrophils Absolute Auto 5.6 x10*3/uL (2.0-8.3); Platelet Count 339 X10*3/uL (160-400); Red Blood Count 4.77 X10*6/uL (4.20-5.50); Red Cell Distribution Width 14.5 % (11.0-16.0); White Blood Count 7.9 X10*3/uL (4.8-10.8)
[2022-12-21 13:09] LABS: Folate 10.1 ng/mL (> or = 4.0); Vitamin B12 179 pg/mL (200-900)
[2022-12-21 15:44] LABS: Alanine Aminotransferase 14 U/L (0-31); Anion Gap 11 (12-20); Aspartate Amino Transferase 19 U/L (5-31); Blood Urea Nitrogen 8 mg/dL (9-16); Calcium 8.9 mg/dL (8.4-10.2); Carbon Dioxide 25 mmol/L (22-29); Chloride 106 mmol/L (96-108); Cholesterol 90 mg/dL (<200); Estimated Glomerular Filt Rate > 60; Glucose Fasting 113 mg/dL (60-99); HDL Cholesterol 34 mg/dL (>40); LDL Cholesterol Calculated 48 mg/dL (<100); Potassium 3.7 mmol/L (3.3-5.1); Sodium 138 mmol/L (135-145); TSH reflex Free T4 0.13 uIU/mL (0.32-4.0); Triglycerides 42 mg/dL (<150); Vitamin D 25-OH Total 22.7 ng/mL (>30)
[2022-12-21 16:42] LABS: Free T4 (Free Thyroxine) 0.79 ng/dL (0.71-1.85)
== END 2022-12-21 07:49 | disposition home or self-care (01) ==
LOC: HO.HMGCLDS 07:48
PROVIDERS: PCP Internal Medicine; Visit Provider Internal Medicine
DX: Z00.01 Encounter for general adult medical examination with abnormal findings (principal); E66.9 Obesity, unspecified; Z86.39 Personal history of other endocrine, nutritional and metabolic disease
CPT/HCPCS: 36415; 80048; 80061; 82306; 82607; 82746; 84439; 84443; 84450; 84460; 85025

== ENCOUNTER 2023-01-15 15:00 | Outpatient (RCR) | payer OTHER, SELFPAY ==
--- NOTE | 2022-12-21 09:16 | MHC.PT.EP ---
[facility] [place] Office [place] Office [place] Office [address] Chirag Reyes [address] [phone] F: [phone] F: [phone] F: [phone] F: [phone] Physical Therapy Plan of Care Date of Evaluation: 12/21/22 Date of Surgery: Diagnosis: This is a 42 yo female presenting to skilled PT with a script for shoulder blade pain, neck pain L side. Assessment: This is a 42 yo female presenting to skilled PT with a script for shoulder blade pain, neck pain L side. Patient reporting ongoing symptoms for about 3 months, no injury or trauma noted. Pain starts at the L upper trap and then radiates into the LUE to the wrist. Pain is described as achy at the UT and into the arm, numbness at the elbow and tingling in the fingers (all except the thumb). She has tried a muscle relaxer which was helpful to start but then this stopped being helpful. She has also tried pain patches and Motrin. Pain increases with UB ADLs, sleeping on the L side, lifting lightly, driving and arm hanging by the side. She is RHD. Assessment reveals pain that ranges from up to an 8/10 at the worst. Patient demos decreased L shoulder and cervical ROM, strength of L shoulder, TTP throughout [id number], UT and LUE/GHJ and impaired posture with forward head and rounded shoulders. She compensates with UT elevation during UE movements and holds arm in IR and adduction at times. Based on functional limitations, impaired QOL and pain tolerance patient is a good candidate for skilled PT 2x/wk for 4wks. Frequency and Duration: The patient will be seen 2x/wk for 4wks Short Term Goals: Demo I with HEP in 1 visit Centralize symptoms in 1 week Improve shoulder AROM by at least 10 degs in 2 wks Demo proper scapular recruitment with appropriate shoulder strengthening exercises in 2 wks Radiology Transcriptionist Goals: (in 4 wks) Improve shoulder and cervical nonpainful AROM to almost near equal B Demo at least 1 grade improvement in MMT for shoulder Improve SPADI and NDI by at least 10 points Improve overall functional QOL and sleep by at least 25% Treatment Plan: Modalities to reduce pain, spasms and effusion. Manual therapy to restore motion and function. Therapeutic exercise to improve strength and flexibility. Neuromuscular re-education for posture and balance. Therapeutic activities to return to functional activities of daily living. Electronically signed by: Brii Woods PT Please sign and return to therapist. Thank you for your referral.
--- NOTE | 2023-02-14 14:47 | MHC.PT.DC ---
[facility] [place] Office [place] Office [place] Office [address] Reyes [address] [phone] F: [phone] F: [phone] F: [phone] F: [phone] Physical Therapy Discharge Report Diagnosis: This is a 42 yo female presenting to skilled PT with a script for shoulder blade pain, neck pain L side. Date of Surgery: Date of Evaluation: 12/21/22 Date of Discharge: 02/14/23 Treatments to Date: 5 Cancellations to Date: 0 No Shows to Date: 0 Discharge Status: Patient Elected to Stop Discharge Summary: Patient came to 5 visits of PT, cancelled and no showed the remaining scheduled appointments. DC due to visit noncompliance/no more scheduled appointments. Chart was closed after 30 days and patient did not call or return to PT. Electronically signed by: Brii Woods PT Please sign and return to therapist. Thank you for your referral.
== END 2023-02-14 14:47 | disposition home or self-care (01) ==
LOC: HO.PTCHIC 15:00
PROVIDERS: PCP Internal Medicine; Visit Provider Internal Medicine
DX: M89.8X1 Other specified disorders of bone, shoulder (principal); M54.2 Cervicalgia; R20.2 Paresthesia of skin; R20.0 Anesthesia of skin; M25.512 Pain in left shoulder
CPT/HCPCS: 97014; 97110; 97140; 97162

== ENCOUNTER 2023-02-08 09:22 | Outpatient (AMB) | payer OTHER, SELFPAY ==
[2023-02-08 09:26] VITALS: BMI 34.5
--- NOTE | 2023-02-08 09:26 | A.OFFVIS_ITS ---
Intake Vital Signs 02/08/23 09:26 Height 5 ft 4 in Weight 201 lb BMI 34.5 Handedness Right Intake Visit Reasons: new prob- Pain in left shoulder Intake Note: Amber is a 42 year old right hand dominant female who presents today for a evaluation for her left shoulder pain. Patient reports ongoing pain for a couple months. She states going to PT since December for 6 weeks and she feels like it helped her. Patient reports that her pain goes from the posterior aspect of the shoulder down to her left ring and pinky finger making them feel numb, however her numbness is off and on. Allergies oxycodone Allergy (Mild, Verified 02/08/23 09:31) Nausea HPI new prob- Pain in left shoulder HPI Details 37-year-old right hand dominant female krzysztof lakhani presents in the office today for an evaluation of left shoulder pain. The patient reports ongoing pain for a couple of months. She confirms participating in physical therapy since 12/2022 for 6 weeks and feels it has helped her left shoulder. She claims her pain is radiating from posterior aspect of the left shoulder down to her ring and pinky fingers. She reports intermittent numbness in the ring and pinky digits. [facility] Medical History Depot contraception Environmental and seasonal allergies History of vitamin D deficiency Hx of iron deficiency Hx of menorrhagia Hx of non anemic vitamin B12 deficiency Hx of obesity Obesity (BMI 35.0-39.9 without comorbidity) Recurrent abdominal aortic aneurysm Shoulder blade pain Surgical History History of esophagogastroduodenoscopy (EGD) (~03/2019) History of removal of laparoscopic gastric banding device Hx of abdominoplasty Hx of appendectomy Hx of gastric bypass Family History Father Stroke HTN (hypertension) Diabetes mellitus Mother Diabetes mellitus with nephropathy Kidney failure HTN (hypertension) Brother Diabetes mellitus Sister Fibromyalgia Arthritis Depression Sister No problems noted. Son No problems noted. Son No problems noted. Son No problems noted. Daughter No problems noted. 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 Sexual orientation: Straight/Heterosexual Gender identity: Female Cognitive needs: No Hearing needs: No Vision needs: Yes Female Reproductive History Menstrual Age of Menarche: 14 Review of Systems Const All systems reviewed & are unremarkable except as noted in HPI and below Physical Exam Vital Signs: BMI result Body Mass Index 34.5 Const General: cooperative, healthy appearing and no acute distress Resp Effort & Inspection: normal respiratory effort and able to speak in complete sentences Cardio Rate: regular rate Peripheral pulses: Peripheral pulses 2+ throughout GI Palpation (GI): Soft to palpation Skin Lesions: no lesions Rashes: no rashes Extrem Other: Left shoulder: Normal to inspection. No ecchymosis, erythema, or edema. Full shoulder ROM in all planes. Pain with cross-body reach. 4/5 strength with empty can. Negative drop arm. Intermittent numbness and tingling in the thumb, ring, and middle fingers. Assessment & Plan Assessment & Plan (1) Numbness and tingling of left upper extremity: Code(s): R20.0 - Anesthesia of skin; R20.2 - Paresthesia of skin (2) Painful arc syndrome of left shoulder: Code(s): M75.102 - Unspecified rotator cuff tear or rupture of left shoulder, not specified as traumatic Plan Ms. Pritchett is a 37-year-old right hand dominant female who presents in the office today for an evaluation of left shoulder pain. The patient reports ongoing pain for a couple of months. She confirms participating in physical therapy since 12/2022 for 6 weeks and feels it has helped her left shoulder. She claims her pain is radiating from posterior aspect of the left shoulder down to her ring and pinky fingers. She reports intermittent numbness in the ring and pinky digits. The patient will be referred for an EMG study to further evaluate the integrity of the nerve. Follow up will be with physiatry after the EMG is obtained, or sooner if needed. X-rays of the left shoulder, obtained on 12/03/2022 which were reviewed by me, revealed no acute fracture or dislocation. Orders: Orders NE electromyogram (EMG) Today R20.0 - Anesthesia of skin, R20.2 - Paresthesia of skin Patient Instructions: Scribed for Chana Morrell PA-C by Ashley Rodeen, director medical safety, on 02/08/2023 at 9:27 am, EST. Coding Level of Care Code New Pt Level 4 (94041) Diagnoses Numbness and tingling of left upper extremity R20.0; R20.2 Painful arc syndrome of left shoulder M75.102
== END 2023-02-08 09:54 | disposition home or self-care (01) ==
PROVIDERS: PCP Internal Medicine; Visit Provider Physician Assistant
DX: R20.0 Anesthesia of skin (principal); R20.2 Paresthesia of skin; M75.102 Unspecified rotator cuff tear or rupture of left shoulder, not specified as traumatic
CPT/HCPCS: 99203

== ENCOUNTER 2023-02-08 15:39 | Outpatient (REF) | payer OTHER, SELFPAY ==
--- NOTE | ~2023-02-08 | MM_ITS ---
EXAMINATION: MM SCREENING DIGITAL BREAST TOMOSYNTHESIS, BILATERAL CLINICAL INFORMATION: Screening. Asymptomatic. COMPARISON: Mammography: This study is compared with prior exams dating back to 2021. TECHNIQUE: Digital breast tomosynthesis is performed in both the craniocaudal and mediolateral oblique views along with computer-aided detection (CAD). Synthesized 2D images are generated from the tomosynthesis. FINDINGS: The breasts are almost entirely fatty (ACR BI-RADS breast composition Category a). There are no significant masses, abnormal calcifications, or other abnormalities. MM/MM tomosynthesis screening BI IMPRESSION: No mammographic evidence of malignancy. ASSESSMENT: BI-RADS BI-RADS 1 - Negative RECOMMENDATION: Routine annual mammography screening. 1 year F/U This examination should not preclude the clinical evaluation of a suspicious palpable abnormality. This patient's information was entered into a reminder system with a target due date for their next mammogram.
== END 2023-02-08 15:40 | disposition home or self-care (01) ==
LOC: HO.MAMMO 15:39
PROVIDERS: PCP Internal Medicine; Visit Provider Advanced Practice Midwife
DX: Z12.31 Encounter for screening mammogram for malignant neoplasm of breast (principal)
CPT/HCPCS: 77063; 77067; 99202

== ENCOUNTER → 2023-02-08 15:45 | Outpatient (BNV) | payer OTHER, SELFPAY | PROVIDERS: PCP Internal Medicine; Visit Provider Radiology Diagnostic Radiology | DX: Z12.31 Encounter for screening mammogram for malignant neoplasm of breast (principal) | CPT/HCPCS: 77063; 77067 ==

== ENCOUNTER 2023-03-14 08:56 | Outpatient (REF) | payer OTHER, SELFPAY ==
--- NOTE | 2023-03-14 09:00 | EMG_ITS ---
Left median and ulnar motor and sensory studies were performed. Left radial sensory study was performed and median and lateral antecubital brachial sensory studies were performed. Needle examination was performed. IMPRESSION: Mild left ulnar neuropathy across cubital tunnel. MD RADHA Masters/JERRY / [id number]
== END 2023-03-14 08:57 | disposition home or self-care (01) ==
LOC: HO.NEURO 08:56
PROVIDERS: PCP Internal Medicine; Visit Provider Physician Assistant
DX: R20.0 Anesthesia of skin (principal); R20.2 Paresthesia of skin
CPT/HCPCS: 95886; 95910

== ENCOUNTER 2023-03-21 08:34 | Outpatient (AMB) | payer OTHER, SELFPAY ==
--- NOTE | 2023-03-21 08:36 | A.OFFVIS_ITS ---
Intake Vital Signs 03/21/23 08:39 Height 5 ft 4 in Weight 201 lb BMI 34.5 Intake Visit Reasons: OV- EMG Review LT shoulder Intake Note: Amber is a 42 year old female who presents today for a EMG review of her left shoulder. Allergies oxycodone Allergy (Mild, Verified 03/21/23 08:37) Nausea HPI OV- EMG Review LT shoulder HPI Details 42-year-old right hand dominant female w lesvia presents in the office today for a follow up of left shoulder pain and review of her EMG study. The patient has a history of completing 6 weeks of physical therapy which she states gave he r some relief. [facility] Medical History Depot contraception Environmental and seasonal allergies History of vitamin D deficiency Hx of iron deficiency Hx of menorrhagia Hx of non anemic vitamin B12 deficiency Hx of obesity Obesity (BMI 35.0-39.9 without comorbidity) Recurrent abdominal aortic aneurysm Shoulder blade pain Surgical History History of esophagogastroduodenoscopy (EGD) (~03/2019) History of removal of laparoscopic gastric banding device Hx of abdominoplasty Hx of appendectomy Hx of gastric bypass Family History Father Stroke HTN (hypertension) Diabetes mellitus Mother Diabetes mellitus with nephropathy Kidney failure HTN (hypertension) Brother Diabetes mellitus Sister Fibromyalgia Arthritis Depression Sister No problems noted. Son No problems noted. Son No problems noted. Son No problems noted. Daughter No problems noted. 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 Sexual orientation: Straight/Heterosexual Gender identity: Female Cognitive needs: No Hearing needs: No Vision needs: Yes Female Reproductive History Menstrual Age of Menarche: 14 Review of Systems Const All systems reviewed & are unremarkable except as noted in HPI and below Physical Exam Vital Signs: BMI result Body Mass Index 34.5 Const General: cooperative, healthy appearing and no acute distress Resp Effort & Inspection: normal respiratory effort and able to speak in complete sentences Cardio Rate: regular rate Peripheral pulses: Peripheral pulses 2+ throughout GI Palpation (GI): Soft to palpation Skin Lesions: no lesions Rashes: no rashes Extrem Other: Left shoulder: Normal to inspection. No ecchymosis, erythema, or edema. Full sh oulder ROM in all planes. Pain with cross-body reach. 4/5 strength with empty can. Negative drop arm. Intermittent numbness and tingling in the thumb, ring, and middle fingers. Capillary refill is brisk. Assessment & Plan Assessment & Plan (1) Cubital tunnel syndrome on left: Code(s): G56.22 - Lesion of ulnar nerve, left upper limb Plan Ms. Paz is a 42-year-old right hand dominant female who presents in the office today for a follow up of left shoulder pain and review of her EMG study. The patient has a history of completing 6 weeks of physical therapy which she states gave her some relief. We discussed the role of surgical intervention of left cubital tunnel release. I will place a referral to physiatry for further evaluation of her left shoulder numbness and tingling. In the event physiatry does not have an alternative solution then the patient can call the office and we will schedule her with Dr. De Los Santos for further discussion of surgical intervention. Follow up will be PRN, or sooner if needed. EMG of the left shoulder, obtained on 03/14/2023, revealed: Mild left ulnar neuropathy across cubital tunnel. Patient Instructions: Scribed for Chana Morrell PA-C by Ashley Dimas medical reviewer, on 03/21/2023 at 9:03 am, EST. Coding Level of Care Code Est Pt Level 3 (08895) Diagnoses Cubital tunnel syndrome on left G56.22
[2023-03-21 08:39] VITALS: BMI 34.5
== END 2023-03-21 09:43 | disposition home or self-care (01) ==
PROVIDERS: PCP Internal Medicine; Visit Provider Physician Assistant
DX: G56.22 Lesion of ulnar nerve, left upper limb (principal)
CPT/HCPCS: 99213

== ENCOUNTER → 2023-03-21 08:34 | Outpatient (BNVA) | payer OTHER, SELFPAY | PROVIDERS: PCP Internal Medicine; Visit Provider Physician Assistant | DX: G56.22 Lesion of ulnar nerve, left upper limb (principal) | CPT/HCPCS: 99212 ==

== ENCOUNTER 2023-04-24 09:05 | Outpatient (AMB) | payer OTHER, SELFPAY ==
[2023-04-24 09:09] VITALS: BMI 34.5
--- NOTE | 2023-04-24 09:09 | MHC.OFFVIS ---
Intake Vital Signs 04/24/23 09:09 Height 5 ft 4 in Weight 201 lb BMI 34.5 Intake Visit Reasons: OV- Pain in left shoulder Intake Note: Amber is a 42 year old right hand female who presents today for a follow up of her left shoulder. She was last seen with Chana for an EMG review. The role of Cubital Tunnel Release was discussed for her present symptoms, but she is not interested in surgical intervention just yet. She has completed physical therapy with no significant improvements, she would like to discuss other conservative treatment options Allergies oxycodone Allergy (Mild, Verified 03/21/23 08:37) Nausea Medication List - Last Reconciled 04/24/23 by Bita Rubio MD multivitamin (One-A-Day Essential tablet) 1 tab PO DAILY HPI HPI Comments History of Present Illness Details Was seen by Chana CARLOS for left shoulder pain. Then sent for EMG, done by Dr. Metz, showing left ulnar neuropathy. Denies inciting injuries. Started in October, woke up, usually lies down on left shoulder. [place] numb . Pain progressed, to point that ROM limited. ROM has seemed to improve except for strapping bra and taking off shirt. Points to back of shoulder down to upper arm. She also has numbness on medial elbow down to 4th and 5th digits. 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 Treatment done so far: therapy - Dec-2022 She is right handed. Caters. [facility] Medical History Depot contraception Environmental and seasonal allergies History of vitamin D deficiency Hx of iron deficiency Hx of menorrhagia Hx of non anemic vitamin B12 deficiency Hx of obesity Obesity (BMI 35.0-39.9 without comorbidity) Recurrent abdominal aortic aneurysm Shoulder blade pain Surgical History History of esophagogastroduodenoscopy (EGD) (~03/2019) History of removal of laparoscopic gastric banding device Hx of abdominoplasty Hx of appendectomy Hx of gastric bypass Family History Father Stroke HTN (hypertension) Diabetes mellitus Mother Diabetes mellitus with nephropathy Kidney failure HTN (hypertension) Brother Diabetes mellitus Sister Fibromyalgia Arthritis Depression Sister No problems noted. Son No problems noted. Son No problems noted. Son No problems noted. Daughter No problems noted. 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 MSK: Inspection reveals appropriate head and neck positioning. No pain with palpation over the neck musculature. Tender left upper trapezius, subacromial area, deltoid. Cervical ROM was full. Spurling's sign negative. Bilateral shoulder ROM despite pain on left. No ligamentous laxity or crepitance. No increased effusion. Hawkin's test is positive left. Negative left empty can sign. Negative drop sign. No joint effusion noted. No deformity noted. No intrinsic hand weakness noted. No atrophy noted. Reymundo test negative. Carpal compression test negative. Tinel sign positive left elbow. Strength is 5/5 in all muscle groups tested. No increased tone noted. Neurological: Neurologic examination of the upper and lower extremities was nonfocal with intact sensation, muscle stretch reflexes and without focal motor deficits . Galarza?s negative bilaterally. Gait is non-antalgic without loss of balance. Office Procedures Joint Injection/Drain Joint Injection/Drain Details: Consent was obtained. The distal, lateral, and posterior edges of the left acromion are palpated. Area is cleansed with betadine solution. A [25] gauge needle is inserted just inferior to the posterolateral edge of the acromion. The needle is directed toward the opposite chest. A solution containing [40 mg] Kenalog and [3 ml] of 2% Lidocaine is injected. Patient tolerated procedure well without complications. Post-injection instructions given. Primary Site: left shoulder Injected: 40 mg of, Kenalog and with 3 mL of (2% lidocaine) Procedure: The patient tolerated the procedure well Coding 24502 - Large joint Procedure code (CPT) selection complete Results Reviewed Results Reviewed: I independently reviewed results of the following: Left shoulder xray - shows normal GH EMG done by Dr. Metz-slow left ulnar motor nerve conduction velocity across the elbow, drop in amplitude above the elbow, signifying ulnar neuropathy at the elbow left I reviewed records from the following: Orthopedic Assessment & Plan Assessment & Plan (1) Impingement syndrome of left shoulder region: Code(s): M75.42 - Impingement syndrome of left shoulder (2) Subacromial bursitis of left shoulder joint: Code(s): M75.52 - Bursitis of left shoulder (3) Tendinitis of left rotator cuff: Code(s): M75.82 - Other shoulder lesions, left shoulder (4) DJD of left AC (acromioclavicular) joint: Code(s): M19.012 - Primary osteoarthritis, left shoulder (5) Cubital tunnel syndrome on left: Code(s): G56.22 - Lesion of ulnar nerve, left upper limb Plan I think she has 2 things going on here. First she is probably impinging her left shoulder, causing some tendinitis or bursitis. She has done physical therapy for this. We could trial steroid injection to lessen the inflammation. Patient was eager to proceed. Secondary, she does have symptoms of ulnar neuropathy at the elbow, as seen on EMG. Would recommend she sees Dr. De Los Santos, as she was inquiring about surgical options. She also mentions recurrence of right wrist pain, for which she had injection done by Dr. De Los Santos in 2021. She did tolerate left shoulder injection without complications. Assessment and plan discussed with patient, and patient was agreeable. All questions were answered thoroughly. Bita Rubio MD, DANIA Board Certified, [place] [employer] and [employer] (ABPMR) Board Certified, [place] [employer] Electro[employer] (ABEM) Orders: Orders AMB Joint Injection/Aspiration Today M19.012 - Primary osteoarthritis, left shoulder, M75.42 - Impingement syndrome of left shoulder, M75.52 - Bursitis of left shoulder, M75.82 - Other shoulder lesions, left shoulder Coding Level of Care Code New Pt Level 4 (16558) Diagnoses Impingement syndrome of left shoulder region M75.42 Subacromial bursitis of left shoulder joint M75.52 Tendinitis of left rotator cuff M75.82 DJD of left AC (acromioclavicular) joint M19.012 Cubital tunnel syndrome on left G56.22 CPT Codes Coding - 11023 Large joint: 85782 - Large joint ([id number])
== END 2023-04-24 09:42 | disposition home or self-care (01) ==
PROVIDERS: PCP Internal Medicine; Visit Provider Physical Medicine & Rehabilitation
DX: M75.42 Impingement syndrome of left shoulder (principal); M75.52 Bursitis of left shoulder; M75.82 Other shoulder lesions, left shoulder; M19.012 Primary osteoarthritis, left shoulder; G56.22 Lesion of ulnar nerve, left upper limb
CPT/HCPCS: 20610; 99204

== ENCOUNTER → 2023-04-24 09:05 | Outpatient (BNVA) | payer OTHER, SELFPAY | PROVIDERS: PCP Internal Medicine; Visit Provider Physical Medicine & Rehabilitation | DX: M75.42 Impingement syndrome of left shoulder (principal); M75.52 Bursitis of left shoulder; M75.82 Other shoulder lesions, left shoulder; M19.012 Primary osteoarthritis, left shoulder; G56.22 Lesion of ulnar nerve, left upper limb | CPT/HCPCS: 20610; 99202; J3301 ==

== ENCOUNTER 2023-05-07 09:49 | Outpatient (AMB) | payer OTHER, SELFPAY ==
[2023-05-07 09:56] VITALS: BP 110/76; PULSE 85; TEMP 36.2; O2SAT 99; BMI 34.2
--- NOTE | 2023-05-07 09:56 | MHC.OFFWIV ---
Intake Vital Signs 05/07/23 09:56 Height 5 ft 4 in Weight 199 lb BMI 34.2 BP 110/76 Blood Pressure Location Lt brachial Position Sitting Pulse 85 Pulse Source Pulse Oximeter Temp 97.2 F Temp Source Temporal Artery Scan Pulse Oximetry (%) 99 Oxygen Delivery Method Room Air Intake Visit Reasons: ETS/cough([phone]) Intake Note: pt is here today for cough started 4 days ago Patient Tobacco Use Status: Never used Tobacco Allergies oxycodone Allergy (Mild, Verified 05/07/23 09:56) Nausea Do you need a note to return to daycare/school/sports/work: No HPI HPI Comments History of Present Illness Details Patient is a 42-year-old female in today for a sick visit. Patient states that over the past week she has developed chest tightness, cough, and the feeling like she needs to take a deep breath after speaking at length. Patient has distant history of childhood asthma. Has not tried using any medication for relief. Denies chest pain, dyspnea on exertion, dizziness, numbness, nausea, vomiting, diarrhea. [facility] Medical History Shoulder blade pain Obesity (BMI 35.0-39.9 without comorbidity) Environmental and seasonal allergies Recurrent abdominal aortic aneurysm Depot contraception History of vitamin D deficiency Hx of non anemic vitamin B12 deficiency Hx of iron deficiency Hx of menorrhagia Hx of obesity Surgical History Hx of abdominoplasty History of removal of laparoscopic gastric banding device History of esophagogastroduodenoscopy (EGD) (~03/2019) Hx of gastric bypass Hx of appendectomy Family History Father Stroke HTN (hypertension) Diabetes mellitus Mother Diabetes mellitus with nephropathy Kidney failure HTN (hypertension) Brother Diabetes mellitus Sister Fibromyalgia Arthritis Depression Sister No problems noted. Son No problems noted. Son No problems noted. Son No problems noted. Daughter No problems noted. 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 Sexual orientation: Straight/Heterosexual Gender identity: Female Cognitive needs: No Hearing needs: No Vision needs: Yes Female Reproductive History Menstrual Age of Menarche: 14 Review of Systems Const Details: Constitutional : No Weight loss, No Fever, No Chills, No Fatigue, No Malaise ENT/Mouth : No sore throat, No Rhinorrhea Eyes: No Eye Pain, No Swelling, No Redness Cardiovascular : No Chest Pain, No SOB, No Dyspnea on Exertion, No Orthopnea, No Edema, No Palpitations Respiratory : Admits Cough, No Sputum, Admits Wheezing Gastrointestinal : No Nausea, No Vomiting, No Diarrhea, No Constipation, No abdominal Pain, No Hematochezia, No Melena Genitourinary : No Dysuria, No Urinary Frequency, No Hematuria, Musculoskeletal : No joint pain, No Myalgias, No Joint Swelling Skin : No Skin Lesions, No rash Neuro : No Weakness, No Numbness, No Dizziness, No Headache Psych : No Anxiety/Panic, No Depression Heme/Lymph: No Bruising, No Bleeding,No Lymphadenopathy Endocrine : No Polyuria, No Polydipsia All other systems reviewed and are negative Physical Exam Vital Signs: Last Vital Signs Temp 97.2 F 05/07/23 09:56 Pulse 85 05/07/23 09:56 BP 110/76 05/07/23 09:56 Pulse Ox 99 05/07/23 09:56 Oxygen Delivery Method Room Air 05/07/23 09:56 BMI result Body Mass Index 34.2 Vital signs reviewed and stable Const Other: Appearance: Alert.? Oriented X3.? No acute distress.? ENT: Pharynx normal.?TM intact and pearly fulton. Neck: Normal inspection.? Neck supple. Full ROM. ? CVS: Normal heart rate and rhythm.? Pulses normal.? Respiratory: No respiratory distress.? Bilateral wheeze of upper lobes. Deep breathes triggered cough. ? Back: No midline tenderness, no C-spine tenderness, full range of motion, no CVA tenderness bilaterally Neuro: Oriented X 3.? No motor deficit.? No sensory deficit. CN 2-12 intact Office Procedures Nebulizer Treatment Nebulizer Treatment [id number] RX initial, or Nebulizer Subsequent Treatment Assessment & Plan Assessment & Plan (1) Reactive airway disease: Comment: Patient likely has reactive airway disease. Will also obtain upper respiratory viral swab. Will prescribe albuterol inhaler, prednisone, benzonatate. Patient has been educated on signs of worsening symptoms and when to report back to the walk-in or when to present to the emergency room. Patient had in office nebulizer treatment with good effect. Code(s): J45.909 - Unspecified asthma, uncomplicated Qualifiers: Asthma severity: mild Asthma persistence: intermittent Asthma complication type: uncomplicated Qualified Code(s): J45.20 - Mild intermittent asthma, uncomplicated Plan: Take your medications as prescribed. If you were prescribed antibiotics today, it is important that you take your medication to their entirety, do not skip any doses, do not finish them early. Follow-up with your primary care provider this week. Return to the emergency department with new or worsening symptoms. Such as fevers, chills, chest pain, shortness of breath, nausea, vomiting, dizziness, headache, vision changes, lethargy In case of emergency call 911 Plan Follow-up with PCP. Orders: Orders SARS-CoV2/FLU/RSV Today J06.9 - Acute upper respiratory infection, unspecified Medications: New prednisone 40 mg (2 x 20 mg) PO DAILY 10 tabs 0RF albuterol sulfate 90 mcg/actuation 2 puffs inhalation Q6H PRN 6.7 grams 0RF shortness of breath or wheezing benzonatate 100 mg PO BID PRN 30 caps 0RF cough Coding Level of Care Code Est Pt Level 3 (45820) Diagnoses Mild intermittent reactive airway disease without complication J45.20 Asthma severity: mild Asthma persistence: intermittent Asthma complication type: uncomplicated CPT Codes Nebulizer Treatment - Nebulizer Treatment, initial or subsequent: [id number]/[id number] RX initial, or Nebulizer Subsequent Treatment ([id number]) Time Spent (min) 30
== END 2023-05-07 11:32 | disposition home or self-care (01) ==
PROVIDERS: PCP Internal Medicine; Visit Provider Nurse Practitioner Primary Care
DX: J45.20 Mild intermittent asthma, uncomplicated (principal)
CPT/HCPCS: 94640; 99213; J7620

== ENCOUNTER 2023-05-07 14:16 | Outpatient (REF) | payer OTHER, SELFPAY ==
[2023-05-07 14:59] LABS: Influenza A PCR NEGATIVE (Negative); Influenza B PCR NEGATIVE (Negative); Resp Syncy Virus RNA Qual PCR NEGATIVE (Negative); SARS COV2 PCR INHOUSE NEGATIVE (Negative)
== END 2023-05-07 14:17 | disposition home or self-care (01) ==
LOC: HO.HMGCLNP 14:16
PROVIDERS: Visit Provider Nurse Practitioner Primary Care
DX: J06.9 Acute upper respiratory infection, unspecified (principal); Z11.52 Encounter for screening for COVID-19
CPT/HCPCS: 0241U

== ENCOUNTER 2023-05-22 10:10 | Outpatient (AMB) | payer OTHER, SELFPAY ==
[2023-05-22 10:30] VITALS: BP 100/70; PULSE 84; O2SAT 98; BMI 33.5
--- NOTE | 2023-05-22 10:30 | A.OFFPC_ITS ---
Vital Signs 05/22/23 10:30 Height 5 ft 4 in Weight 195 lb BMI 33.5 BP 100/70 Blood Pressure Location Rt brachial Position Sitting Pulse 84 Pulse Source Pulse Oximeter Pulse Oximetry (%) 98 Oxygen Delivery Method Room Air Intake Visit Reasons: Lt arm on going issues/ wgt concerns resched. Intake Note: Pt is here today discuss on going Lt arm pain/ also wgt concerns Allergies oxycodone Allergy (Mild, Verified 05/22/23 10:57) Nausea Medication List - Last Reconciled 05/22/23 by Tracey Goff MD albuterol sulfate 90 mcg/actuation 2 puffs inhalation Q6H PRN Tobacco use date assessed: 05/22/23 Dental Screening Dental Screen Date: 05/22/23 Did you have a dental visit in the last 12 months?: Yes Did you have a dental problem in the last 6 months where you did not have access to dental care?: No Was dental information given to patient?: Patient has dentist HPI Lt arm on going issues/ wgt concerns resched. HPI Details 42-year-old lady here today for follow-u p. She states that the pain on her left upper arm is starting to improve, denies any accompanying weakness. Complains of difficulty with losing weight. She has had gastric bypass and had removal of gastric banding in the past . She goes to the gym, has been following a healthy diet, but unable to lose any more. Would like to see if she can try Wegovy. Is still also having nocturnal cough accompanied by occasional wheezing. Has been using her albuterol inhaler which affords only temporary relief. Cough is usually triggered by inhaling certain fragrances, with moderate exertion, her or sudden changes in temperature. Has history of childhood asthma. [facility] Medical History (Updated 05/23/23 @ 01:14 by Tracey Goff MD) Impingement syndrome of left shoulder region Cubital tunnel syndrome on left Vaccine refused by patient Mild intermittent asthma Iron deficiency anemia Obesity (BMI 35.0-39.9 without comorbidity) Environmental and seasonal allergies Recurrent abdominal aortic aneurysm Depot contraception History of vitamin D deficiency Hx of non anemic vitamin B12 deficiency Hx of iron deficiency Hx of menorrhagia Hx of obesity Surgical History Hx of abdominoplasty History of removal of laparoscopic gastric banding device History of esophagogastroduodenoscopy (EGD) (~03/2019) Hx of gastric bypass Hx of appendectomy Family History Father Stroke HTN (hypertension) Diabetes mellitus Mother Diabetes mellitus with nephropathy Kidney failure HTN (hypertension) Brother Diabetes mellitus Sister Fibromyalgia Arthritis Depression Sister No problems noted. Son No problems noted. Son No problems noted. Son No problems noted. Daughter No problems noted. 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 1. Little interest or pleasure in doing things: not at all 2. Feeling down, depressed, or hopeless: not at all 3. Trouble falling or staying asleep, or sleeping too much: not at all 4. Feeling tired or having little energy: not at all 5. Poor appetite or overeating: not at all 6. Feeling bad about yourself - or that you are a failure or have let yourself or your family down: not at all 7. Trouble concentrating on things, such as reading the newspaper or watching television: not at all 8. Moving or speaking so slowly that other people could have noticed. Or the opposite - being so fidgety or restless that you have been moving around a lot more than usual: not at all 9. Thoughts that you would be better off or of hurting yourself in some way: not at all Total score: 0 Depression Screening Interpretation: Negative Depression Screening Done: Yes 02135 - PHQ-9 Billing: Yes Source: Developed by Drs. Kimani Powell, Tanya Maria, Shoaib Howe and colleagues, with an educational elodia from [employer]. Thrive Questionnaire Date Thrive assessed: 05/22/23 I am a: Patient What is your living situation today?: I have a steady place to live Within the past 12 months, did the food you bought not last and you didn't have the money to get more?: Never true Within the past 12 months, did you worry whether your food would run out before you got money to buy more?: Never true Do you have trouble paying for medicines?: No Do you have trouble getting transportation to medical appointments?: No Do you have trouble paying your heating and electricity bill?: No Do you have trouble taking care of your child, family member or friend?: No Do you have trouble with day-to-day activities such as bathing, preparing meals, shopping, managing finances, etc.?: No Are you currently unemployed and looking for a job?: No Are you interested in more education?: No THRIVE Score: 0 AUDIT C Alcohol Use Questionnaire (AUDIT-C) 1. How often do you have a drink containing alcohol?: Never Total Score: 0 SUE-7 AMB Questionnaire SUE-7 Date SUE - 7 assessed: 05/22/23 Feeling nervous, anxious, or on edge: 0 = Not at all Not being able to stop or control worryin = Not at all Worrying too much about different things: 0 = Not at all Trouble relaxin = Not at all Being so restless that it is hard to sit still: 0 = Not at all Becoming easily annoyed or irritable: 0 = Not at all Feeling afraid as if something awful might happen: 0 = Not at all Total SUE-7 score (0-4 normal; 5-9 mild; 10-14 moderate; 15-21 severe): 0 Source: Developed by Drs. Kimani Powell, Tanya Maria, Shoaib Howe and colleagues, with an educational elodia from [employer]. SUE-7 Assessment Billing SUE-7 Assessment Tool: SUE-7 Assessment 33272 Review of Systems Const Denies fever(s), Denies headache(s) and Denies weakness Eyes Denies change in vision ENT Denies dizziness, Denies headache(s), Denies nasal congestion and Denies nasal discharge Card Denies chest pain, Denies lightheadedness, Denies palpitations and Denies dyspnea Resp Denies dyspnea GI Denies abdominal pain, Denies change in bowel habits and Denies heartburn Denies urinary frequency, Denies dysuria and Denies urinary urgency Musc Reports as per HPI Skin/Breast Denies breast pain, Denies breast mass, Denies lesions and Denies rash Neuro Denies dizziness, Denies headache(s) and Denies weakness Psych Reports no additional complaints Endo Denies polydipsia, Denies polyuria and Denies palpitations Francois/Lymph Denies easy bruising Aller/Immun Denies seasonal rhinorrhea Physical exam (Primary Care) Vital Signs: Last Vital Signs Pulse 84 05/22/23 10:30 BP 100/70 05/22/23 10:30 Pulse Ox 98 05/22/23 10:30 Oxygen Delivery Method Room Air 05/22/23 10:30 BMI result Body Mass Index 33.5 Tobacco/Smoking Status: Tobacco use Status Tobacco use date assessed 05/22/23 05/22/23 10:35 Patient Tobacco Use Status Never used Tobacco 05/22/23 10:31 e-Cigarette/Vaping Use Never Used 05/22/23 10:31 PHQ-9: PHQ-9 Score PHQ-9: Total score 0 05/22/23 11:15 Depression Screening Interpretation: Negative Thrive Assessment: Date of Thrive Assessment Date Thrive assessed 05/22/23 05/22/23 10:38 Const Other: Alert oriented x3, no acute distress noted ambulatory normal gait Orientation/consciousness: patient oriented x3 [facility] Head: Yes normocephalic Eyes General: appearance normal, both eyes and all related structures Neck Neck: Yes full ROM, Yes no lymphadenopathy and Yes supple Resp Effort & Inspection: normal respiratory effort and able to speak in complete sentences Auscultation: clear to auscultation bilaterally Cardio Rate: regular rate Rhythm: regular rhythm Heart sounds: S1 normal heart sound present and S2 normal heart sound present GI Palpation (GI): Soft to palpation, nontender, no guarding and no masses Back/Spine/Pelvis Back: No back tenderness Skin General skin exam: no rashes or lesions noted Neuro General: patient oriented x3, gait normal, tone normal, Normal light touch and pain sensation and no focal motor deficits Extrem General: Yes full ROM, Yes no joint enlargement, Yes no clubbing, cyanosis or edema, Yes no calf tenderness and Yes normal gait Assessment and Plan Assessment & Plan (1) History of vitamin D deficiency: Code(s): Z86.39 - Personal history of other endocrine, nutritional and metabolic disease Plan: Will check vitamin-D left (2) Fatigue: Code(s): R53.83 - Other fatigue Plan: , vitamin-D, B12 folic acid TSH ordered (3) Mild intermittent asthma: Code(s): J45.20 - Mild intermittent asthma, uncomplicated Plan: Started on Dulera 100-5 mcg per actuation, to start initially with 2 puffs at night, patient instructed on proper use of inhaler and may increased to 2 inhalations in the morning and 2 inhalations at night depending on her symptoms. Has albuterol inhaler as a rescue for episodes of bronchospasm and wheezing. Patient advised to get flu vaccine COVID and pneumonia vaccine but declined (4) Iron deficiency anemia: Code(s): D50.9 - Iron deficiency anemia, unspecified Qualifiers: Iron deficiency anemia type: chronic blood loss Qualified Code(s): D50.0 - Iron deficiency anemia secondary to blood loss (chronic) Plan: Check CBC with differential in a profile (5) Vaccine refused by patient: Code(s): Z28.20 - Immunization not carried out because of patient decision for unspecified reason (6) Obesity (BMI 35.0-39.9 without comorbidity): Code(s): E66.9 - Obesity, unspecified Plan: Prescribed Wegovy 0.25 mg, injected subcutaneously once a week. Directed on proper use of medication, discussed possible side effects of medication, reinforced importance of still following healthy eating habits and getting regular exercise. follow-up in 4 weeks Orders: Orders Hemoglobin A1c 05/22/23 D50.9 - Iron deficiency anemia, unspecified, D53.1 - Other megaloblastic anemias, not elsewhere classified, R53.83 - Other fatigue, Z86.39 - Personal history of other endocrine, nutritional and metabolic disease Thyroid Peroxidase Antibodies 05/22/23 D50.9 - Iron deficiency anemia, unspecified, D53.1 - Other megaloblastic anemias, not elsewhere classified, R53.83 - Other fatigue, Z86.39 - Personal history of other endocrine, nutritional and metabolic disease Vitamin B12 and Folate 05/22/23 D50.9 - Iron deficiency anemia, unspecified, D53.1 - Other megaloblastic anemias, not elsewhere classified, R53.83 - Other fatigue, Z86.39 - Personal history of other endocrine, nutritional and metabolic disease Vitamin D 25-OH Total 05/22/23 D50.9 - Iron deficiency anemia, unspecified, D53.1 - Other megaloblastic anemias, not elsewhere classified, R53.83 - Other fatigue, Z86.39 - Personal history of other endocrine, nutritional and metabolic disease Basic Metabolic Panel Fasting 05/22/23 D50.9 - Iron deficiency anemia, unspecified, D53.1 - Other megaloblastic anemias, not elsewhere classified, R53.83 - Other fatigue, Z86.39 - Personal history of other endocrine, nutritional and metabolic disease Lipid Panel 05/22/23 D50.9 - Iron deficiency anemia, unspecified, D53.1 - Other megaloblastic anemias, not elsewhere classified, R53.83 - Other fatigue, Z86.39 - Personal history of other endocrine, nutritional and metabolic disease Thyroid Stimulating Hormone 05/22/23 D50.9 - Iron deficiency anemia, unspecified, D53.1 - Other megaloblastic anemias, not elsewhere classified, R53.83 - Other fatigue, Z86.39 - Personal history of other endocrine, nutritional and metabolic disease Free T4 (Free Thyroxine) 05/22/23 D50.9 - Iron deficiency anemia, unspecified, D53.1 - Other megaloblastic anemias, not elsewhere classified, R53.83 - Other fatigue, Z86.39 - Personal history of other endocrine, nutritional and metabolic disease Complete Blood Count Auto Diff 05/22/23 D50.9 - Iron deficiency anemia, unspec ified, D53.1 - Other megaloblastic anemias, not elsewhere classified, R53.83 - Other fatigue, Z86.39 - Personal history of other endocrine, nutritional and metabolic disease IRON PROFILE 05/22/23 D50.9 - Iron deficiency anemia, unspecified, D53.1 - Other megaloblastic anemias, not elsewhere classified, R53.83 - Other fatigue, Z86.39 - Personal history of other endocrine, nutritional and metabolic disease Medications: New semaglutide (weight loss) (Erendira) administer weeks 1 through 4 of therapy 0.25 mg (0.5 mL) subcut QWEEK 2 mL 0RF mometasone-formoterol 100-5 mcg/actuation (Dulera) 2 puffs inhalation Q12H 8.8 grams 0RF Coding Level of Care Code Est Pt Level 4 (18137) Diagnoses History of vitamin D deficiency Z86.39 Fatigue R53.83 Mild intermittent asthma J45.20 Iron deficiency anemia due to chronic blood loss D50.0 Iron deficiency anemia type: chronic blood loss Vaccine refused by patient Z28.20 Obesity (BMI 35.0-39.9 without comorbidity) E66.9 Additional Codes SUE-7 Assessment Billing - SUE-7 Assessment Tool: SUE-7 Assessment [id number] ([id number])
== END 2023-05-22 11:20 | disposition home or self-care (01) ==
LOC: HO.HMGC 10:10
PROVIDERS: PCP Internal Medicine; Visit Provider Internal Medicine
DX: R53.83 Other fatigue (principal); Z86.39 Personal history of other endocrine, nutritional and metabolic disease; E66.9 Obesity, unspecified; Z68.33 Body mass index [BMI] 33.0-33.9, adult; J45.20 Mild intermittent asthma, uncomplicated; D50.0 Iron deficiency anemia secondary to blood loss (chronic); Z28.20 Immunization not carried out because of patient decision for unspecified reason
CPT/HCPCS: 99214

== ENCOUNTER 2023-06-17 08:30 | Outpatient (REF) | payer OTHER, SELFPAY ==
[2023-06-17 11:16] LABS: MANUAL DIFF FLAG NO
[2023-06-17 11:38] LABS: Basophils Percent Auto 0.5 % (0-2); Eosinophils Absolute Auto 0.1 X10*3/uL (0.0-0.4); Eosinophils Percent Auto 1.3 % (0-4); Hematocrit 34.4 % (37.0-47.0); Hemoglobin 10.2 g/dl (12.0-16.0); Imm Gran Abs Auto 0.01 X10*3/uL (0.00-0.03); Imm Gran Pct Auto 0.2 % (0.0-0.4); Lymphocytes Absolute Auto 1.4 X10*3/uL (1.2-4.9); Lymphocytes Percent Auto 22.1 % (20-40); Mean Corpuscular HGB Conc 29.7 g/dl (31.0-35.0); Mean Corpuscular Hemoglobin 22.6 pg (27.0-33.0); Mean Corpuscular Volume 76.1 fL (80.0-98.0); Mean Platelet Volume 10.6 fL (9.4-12.3); Monocytes Absolute Auto 0.4 X10*3/uL (0.1-1.2); Monocytes Percent Auto 7.1 % (2-11); Neutrophils Absolute Auto 4.3 x10*3/uL (2.0-8.3); Neutrophils Percent Auto 68.8 % (45-73); Platelet Count 383 X10*3/uL (160-400); Red Blood Count 4.52 X10*6/uL (4.20-5.50); Red Cell Distribution Width 14.8 % (11.0-16.0); White Blood Count 6.2 X10*3/uL (4.8-10.8)
[2023-06-17 12:06] LABS: Estimated Average Glucose 100 mg/dL; Hemoglobin A1c % 5.1 % (<6.0)
[2023-06-17 12:30] LABS: Vitamin B12 < 148 pg/mL (200-900)
[2023-06-17 13:01] LABS: Anion Gap 11 (12-20); Blood Urea Nitrogen 8 mg/dL (9-16); Calcium 8.8 mg/dL (8.4-10.2); Carbon Dioxide 26 mmol/L (22-29); Chloride 107 mmol/L (96-108); Cholesterol 100 mg/dL (<200); Estimated Glomerular Filt Rate > 60; Glucose Fasting 108 mg/dL (60-99); HDL Cholesterol 39 mg/dL (>40); Iron 21 mcg/dL (30-160); LDL Cholesterol Calculated 52 mg/dL (<100); Percent Iron Saturation 6 % (15-50); Potassium 3.6 mmol/L (3.3-5.1); Sodium 140 mmol/L (135-145); Total Iron Binding Capacity 377 mcg/dL (228-428); Triglycerides 45 mg/dL (<150); Unsaturated Iron Binding 356 ug/dL
[2023-06-17 13:03] LABS: Free T4 (Free Thyroxine) 0.83 ng/dL (0.71-1.85); Vitamin D 25-OH Total 9.5 ng/mL (>30)
[2023-06-18 22:43] LABS: Thyroid Peroxidase Antibodies <1 IU/mL (<9)
== END 2023-06-17 08:31 | disposition home or self-care (01) ==
LOC: HO.HMGCLDS 08:30
PROVIDERS: PCP Internal Medicine; Visit Provider Internal Medicine
DX: D53.1 Other megaloblastic anemias, not elsewhere classified (principal); R53.83 Other fatigue; D50.9 Iron deficiency anemia, unspecified; Z86.39 Personal history of other endocrine, nutritional and metabolic disease
CPT/HCPCS: 36415; 80048; 80061; 82306; 82607; 82746; 83036; 83540; 84439; 84443; 85025; 86376

== ENCOUNTER 2023-06-19 09:51 | Outpatient (AMB) | payer OTHER, SELFPAY ==
[2023-06-19 10:08] VITALS: BMI 33.5
--- NOTE | 2023-06-19 10:08 | MHC.OFFVIS ---
Intake Vital Signs 06/19/23 10:08 Height 5 ft 4 in Weight 195 lb BMI 33.5 Intake Visit Reasons: OV- RT Hand CTS Intake Note: Amber 42 yr old female presents today for her right hand CTS/cubital. States she has numbness and tinging mainly in her pinky and ring finger and is on and off thought out the past 20+ years. Currently its not as bad as it was when seen with Dr. Nicole on 04/24/23. No EMG done for her right hand. Hx of right hand tendonitis in April. Patient also had an EMG of her left hand. Allergies oxycodone Allergy (Mild, Verified 05/22/23 10:57) Nausea HPI OV- RT Hand CTS HPI Details Amber is a 42 year old right hand dominant woman who presents with complaints of numbness, tingling & cramping in her right hand. Her current complaint is of numbness in the right small finger and ulnar-sided in the hand. This began perhaps 2 months ago. She also had pain and cramping in the ulnar aspect of her hand but that has improved and is not bothering her today. She has a hx of right ECU tendinitis, and received an injected by ri on 05/17/21, with good relief. 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 She had a left NCS performed, showing left cubital tunnel syndrome. She denies having trouble with numbness in the ulnar aspect of the left hand at this time. [facility] Medical History (Updated 06/19/23 @ 11:00 by Octavio Lin) Cubital tunnel syndrome on left Impingement syndrome of left shoulder region Vaccine refused by patient Mild intermittent asthma Iron deficiency anemia Obesity (BMI 35.0-39.9 without comorbidity) Environmental and seasonal allergies Recurrent abdominal aortic aneurysm Depot contraception History of vitamin D deficiency Hx of non anemic vitamin B12 deficiency Hx of iron deficiency Hx of menorrhagia Hx of obesity Surgical History Hx of abdominoplasty History of removal of laparoscopic gastric banding device History of esophagogastroduodenoscopy (EGD) (~03/2019) Hx of gastric bypass Hx of appendectomy Family History Father Stroke HTN (hypertension) Diabetes mellitus Mother Diabetes mellitus with nephropathy Kidney failure HTN (hypertension) Brother Diabetes mellitus Sister Fibromyalgia Arthritis Depression Sister No problems noted. Son No problems noted. Son No problems noted. Son No problems noted. Daughter No problems noted. 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 Sexual orientation: Straight/Heterosexual Gender identity: Female Cognitive needs: No Hearing needs: No Vision needs: Yes Female Reproductive History Menstrual Age of Menarche: 14 Review of Systems Const All systems reviewed & are unremarkable except as noted in HPI and below Physical Exam Vital Signs: BMI result Body Mass Index 33.5 Const General: cooperative, healthy appearing and no acute distress Orientation/consciousness: patient oriented x3 HEENT Head: Yes normocephalic and Yes atraumatic Eyes EOM: EOMs intact bilaterally Resp Effort & Inspection: normal respiratory effort and able to speak in complete sentences Cardio Jugular venous distension: no JVD Skin General skin exam: turgor normal Rashes: no rashes Neuro General: patient oriented x3 Extrem Other: Evaluation of Right Upper Extremity: The patient is alert, oriented, and in no acute distress Neuro: Normal sensation in the median nerve distribution. Decreased subjective sensation in the ulnar nerve distribution of her right hand today in clinic No thenar or intrinsic wasting Good APB muscle belly firing and good finger cross Vascular: Cap refill brisk ROM: She can make a fist and extend all her digits No locking or catching She can hold her right wrist extended against resistance without pain. No tenderness along the radial or ulnar wrist extensors. No tenderness anywhere about the right wrist. Skin: No lacerations or abrasions. General: No Ecchymosis. No Erythema or evidence of infection. Nerve Conduction Study: Left side only IMPRESSION: Mild left ulnar neuropathy across cubital tunnel. Fern Metz MD 03/14/2023 Psych Appearance: grossly normal Affect: normal affect Attitude: cooperative Assessment & Plan Assessment & Plan (1) Cubital tunnel syndrome on left: Code(s): G56.22 - Lesion of ulnar nerve, left upper limb (2) Numbness and tingling in right hand: Code(s): R20.0 - Anesthesia of skin; R20.2 - Paresthesia of skin Plan Assessment & Plan: 1. Right hand numbness In the ulnar nerve distribution Symptoms intermittent & occasional, though with numbness in the ulnar nerve distribution today. I ordered a NCS of her right side to assess for peripheral nerve compression She will follow up when completed for review 2. Right wrist ECU tendinitis, S/P injection Date of Injection: 05/17/21 Completely resolved 3. Left Cubital tunnel syndrome, mild She denies having any problems with numbness and tingling in her left hand. I educated her about cubital tunnel syndrome. if she begins to develop symptoms that are intermittent, but daily, she can follow up to discuss treatment options. Scribed for Cherrie De Los Santos MD by Octavio Lin, pesticide use medical coordinator, on 06/19/23 at 11:05 AM, EST. Orders: Orders NE nerve conduction velocity Today R20.0 - Anesthesia of skin, R20.2 - Paresthesia of skin Coding Level of Care Code Est Pt Level 3 (14798) Diagnoses Cubital tunnel syndrome on left G56.22 Numbness and tingling in right hand R20.0; R20.2
== END 2023-06-19 11:05 | disposition home or self-care (01) ==
PROVIDERS: PCP Internal Medicine; Visit Provider Orthopaedic Surgery
DX: M79.641 Pain in right hand (principal); G56.22 Lesion of ulnar nerve, left upper limb; R20.0 Anesthesia of skin; R20.2 Paresthesia of skin
CPT/HCPCS: 99213

== ENCOUNTER → 2023-06-19 09:51 | Outpatient (BNVA) | payer OTHER, SELFPAY | PROVIDERS: PCP Internal Medicine; Visit Provider Orthopaedic Surgery | DX: G56.22 Lesion of ulnar nerve, left upper limb (principal); M77.8 Other enthesopathies, not elsewhere classified; R20.0 Anesthesia of skin; R20.2 Paresthesia of skin | CPT/HCPCS: 99212 ==

== ENCOUNTER 2023-06-20 11:19 | Outpatient (AMB) | payer OTHER, SELFPAY ==
--- NOTE | 2023-06-20 11:30 | A.OFFPC_ITS ---
Vital Signs 06/20/23 11:33 Height 5 ft 4 in Weight 196 lb BMI 33.6 BP 100/70 Blood Pressure Location Rt brachial Position Sitting Pulse 71 Pulse Source Pulse Oximeter Pulse Oximetry (%) 99 Oxygen Delivery Method Room Air Intake Visit Reasons: f/u labs Intake Note: Pt is here today for her lab f/u Allergies oxycodone Allergy (Mild, Verified 06/20/23 16:25) Nausea Medication List - Last Reconciled 06/20/23 by Tracey Goff MD albuterol sulfate 90 mcg/actuation 2 puffs inhalation Q6H PRN BD Integra Syringe (syringe with needle, safety) Use IM once a week, then once a month thereafter NS cholecalciferol (vitamin D3) 1,250 mcg PO QWEEK 3 months cyanocobalamin (vitamin B-12) Inject 1 mL once a week for 4 weeks, then once a month thereafter 1 week ferrous sulfate 325 mg PO DAILY mometasone-formoterol 100-5 mcg/actuation (Dulera) 2 puffs inhalation Q12H Wegovy (semaglutide (weight loss)) 0.25 mg (0.5 mL) subcut QWEEK NS Tobacco use date assessed: 06/20/23 Dental Screening Dental Screen Date: 06/20/23 Did you have a dental visit in the last 12 months?: Yes Did you have a dental problem in the last 6 months where you did not have access to dental care?: No Was dental information given to patient?: Patient has dentist HPI f/u labs HPI Details 42-year-old lady here today for follow-u p. She has history of anemia, with recent labs showing mild anemia with low iron levels, was also noted that her vitamin B12 is very low and swell as her vitamin-D. Has been experiencing intermittent episodes of numbness tingling in her fingers and lower extremities. He started taking we go be on last visit here but has just been taking it every other week. Would like to continue has not had any adverse effects from taking the medication. Has been combining this with a healthy diet, but admits to not getting any regular exercise lately. No weight loss noted. Has mild intermittent asthma, now better controlled since starting Dulera inhaler [facility] Medical History (Updated 06/20/23 @ 16:39 by Tracey Goff MD) Vitamin D deficiency Vitamin B12 deficiency Iron deficiency anemia Cubital tunnel syndrome on left Impingement syndrome of left shoulder region Vaccine refused by patient Mild intermittent asthma Obesity (BMI 35.0-39.9 without comorbidity) Environmental and seasonal allergies Recurrent abdominal aortic aneurysm Depot contraception History of vitamin D deficiency Hx of non anemic vitamin B12 deficiency Hx of iron deficiency Hx of menorrhagia Surgical History Hx of abdominoplasty History of removal of laparoscopic gastric banding device History of esophagogastroduodenoscopy (EGD) (~03/2019) Hx of gastric bypass Hx of appendectomy Family History Father Stroke HTN (hypertension) Diabetes mellitus Mother Diabetes mellitus with nephropathy Kidney failure HTN (hypertension) Brother Diabetes mellitus Sister Fibromyalgia Arthritis Depression Sister No problems noted. Son No problems noted. Son No problems noted. Son No problems noted. Daughter No problems noted. 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 Depression Screening Interpretation: Negative Depression Screening Done: Yes Source: Developed by Drs. Kimani Powell, Tanya Maria, Shoaib Howe and colleagues, with an educational elodia from [employer]. Thrive Questionnaire Date Thrive assessed: 05/22/23 SUE-7 AMB Questionnaire SUE-7 Date SUE - 7 assessed: 05/22/23 Source: Developed by Drs. Kimani Powell, Tanya Maria, Shoaib Howe and colleagues, with an educational elodia from [employer]. ACT Questionnaire In the past 4 weeks, how much of the time did your asthma keep you from getting as much done at work, school or at home?: Some of the time During the past 4 weeks, how often have you had shortness of breath?: 1-2 times a week During the past 4 weeks, how often did your asthma symptoms wake you up at night or earlier than usual in the morning?: Once a week During the past 4 weeks, how often have you had to use your rescue inhaler or nebulizer medication?: 2-3 times a week How would you rate your asthma control during the past 4 weeks?: Somewhat controlled Score: 16 Review of Systems Const Reports fatigue, Denies fever(s), Denies headache(s), Reports lethargy, Reports malaise and Denies weakness Eyes Denies change in vision ENT Denies headache(s), Denies nasal congestion and Denies nasal discharge Card Denies chest pain, Denies lightheadedness, Denies palpitations and Denies dyspnea Resp Details: Some shortness of breath on moderate exertion Denies dyspnea GI Denies abdominal pain, Denies change in bowel habits and Denies heartburn Denies urinary frequency, Denies dysuria and Denies urinary urgency Neuro Details: Occasional lightheadedness Denies headache(s) and Denies weakness Endo Reports fatigue, Denies polydipsia, Denies polyuria and Denies palpitations Francois/Lymph Denies easy bruising Aller/Immun Denies seasonal rhinorrhea Physical exam (Primary Care) Vital Signs: Last Vital Signs Pulse 71 06/20/23 11:33 BP 100/70 06/20/23 11:33 Pulse Ox 99 06/20/23 11:33 Oxygen Delivery Method Room Air 06/20/23 11:33 BMI result Body Mass Index 33.6 Tobacco/Smoking Status: Tobacco use Status Tobacco use date assessed 06/20/23 06/20/23 11:34 Patient Tobacco Use Status Never used Tobacco 06/20/23 11:30 e-Cigarette/Vaping Use Never Used 06/20/23 11:30 Depression Screening Interpretation: Negative Thrive Assessment: Date of Thrive Assessment Date Thrive assessed 05/22/23 06/20/23 11:30 Const Other: Alert oriented x3, no acute distress noted ambulatory normal gait Orientation/consciousness: patient oriented x3 HENMT Head: Yes normocephalic Eyes General: appearance normal, both eyes and all related structures Neck Neck: Yes full ROM, Yes no lymphadenopathy and Yes supple Resp Effort & Inspection: normal respiratory effort and able to speak in complete sentences Auscultation: clear to auscultation bilaterally Cardio Rate: regular rate Rhythm: regular rhythm Heart sounds: S1 normal heart sound present and S2 normal heart sound present GI Palpation (GI): Soft to palpation, nontender, no guarding and no masses Neuro General: patient oriented x3, gait normal, tone normal, Normal light touch and pain sensation and no focal motor deficits Extrem General: Yes full ROM, Yes no joint enlargement, Yes no clubbing, cyanosis or edema, Yes no calf tenderness and Yes normal gait Results Reviewed Results Reviewed: Name: Amber Paz Age/Sex: 42/F : 1980 Unit#: [id number] Attend Dr: Tracey Goff MD Re06/17/23 Status: DEP REF Location: [facility] Disch: SPEC : [id number] MONICA: 06/17/23 STATUS: COMP REQ : [id number] RECD: 06/17/[address]: Tracey Goff MD COMP: 06/17/23 ENTERED: 06/17/[address] [facility] [address]: ORDERED: CBC Auto Diff Test Result Flag Reference WBC 6.2 4.8-10.8 X10*3/uL RBC 4.52 4.20-5.50 X10*6/uL HGB 10.2 L 12.0-16.0 g/dl HCT 34.4 L 37.0-47.0 % MCV 76.1 L 80.0-98.0 fL MCH 22.6 L 27.0-33.0 pg MCHC 29.7 L 31.0-35.0 g/dl RDW 14.8 11.0-16.0 % PLT 383 160-400 X10*3/uL MPV 10.6 9.4-12.3 fL Neut Pct Auto 68.8 45-73 % ImGran Pct Auto 0.2 0.0-0.4 % Lymp Pct Auto 22.1 20-40 % [place] Pct Auto 7.1 2-11 % Eos Pct Auto 1.3 0-4 % Baso Pct Auto 0.5 0-2 % NRBC Pct Auto 0.0 0.0-0.2 /100WBC ANC Neut Abs # 4.3 2.0-8.3 x10*3/uL ImGran Abs Auto 0.01 0.00-0.03 X10*3/uL Lymph Abs Auto 1.4 1.2-4.9 X10*3/uL [place] Abs Auto 0.4 0.1-1.2 X10*3/uL Eos Abs Auto 0.1 0.0-0.4 X10*3/uL Baso Abs Auto 0.0 0.0-0.2 X10*3/uL NRBC Abs Auto 0.000 0.0-0.012 X10*3/uL ENTERED: 06/17/[address] [facility] [address]: ORDERED: Met Prof Fast, IRON PROF, Lipid Panel, Vitamin D 25-OH, Free T4, TSH Test Result Flag Reference Sodium 140 135-145 mmol/L Potassium 3.6 3.3-5.1 mmol/L CL 107 96-108 mmol/L CO2 26 22-29 mmol/L Gap 11 L 12-20 BUN 8 L 9-16 mg/dL Creat 0.72 0.5-1.4 mg/dL EGFR > 60 NOTE: For -[place] individuals, multiply the result by 1.210. Chronic Kidney Disease: Estimated GFR < 60 mL/min/1.73m2 Severe Kidney Disease: Estimated GFR < 15 mL/min/1.73m2 FBS 108 H 60-99 mg/dL A fasting glucose from 100-125 mg/dl is considered impaired (pre-diabetes). CA 8.8 8.4-10.2 mg/dL Iron 21 L 30-160 mcg/dL TIBC 377 228-428 mcg/dL Saturation 6 L 15-50 % UIBC 356 ug/dL Triglyceride 45 <150 mg/dL Desirable Triglyceride: less than 150 mg/dL Borderline High Triglyceride 150-199 mg/dL High Triglyceride: 200-499 mg/dL Very High Triglyceride: greater than or equal to 5OO mg/dL Cholesterol 100 <200 mg/dL Desirable Cholesterol: less than 200 mg/dL Borderline High Cholesterol: 200-239 mg/dL High Cholesterol: greater than 239 mg/dL LDL Calculated 52 <100 mg/dL Desirable LDL: less than 100 mg/dL Near Optimal/Above Optimal LDL: 110-129 mg/dL Borderline High LDL: 130-159 mg/dL High LDL: 160-189 mg/dL Very High LDL: greater than or equal to 190 mg/dL HDL 39 L >40 mg/dL Desirable HDL: greater than 40 mg/dL Note: This HDL assay may give artificially low results in patients with liver disease. Vit D 25-OH Tot 9.5 L >30 ng/mL Health Based Reference Values* < 20 ng/mL Deficient 20-30 ng/mL Insufficient > 30 ng/mL Sufficient *Melissa RAI. N Engl J Med. 2007;357:266-280 Care must be taken in interpreting Vitamin D results from different laboratories and methodologies. Published data demonstrated that results from patients undergoing hemodialysis may show a negative bias when tested with various automated 25-OH vitamin D assays when compared to LC-MS/MS. When testing samples from patients whose predominant form of Vitamin D is Vitamin D2, such as patients receiving Vitamin D2 supplementation, results that are subtherapeutic should be confirmed with another method such as LC-MS/MS. Free T4 0.83 0.71-1.85 ng/dL TSH 3rd Gen. 0.40 0.32-4.0 uIU/mL Laboratory Tests 06/17/23 08:34 Estimat Average Glucose 100 Hemoglobin A1c % 5.1 Assessment and Plan Assessment & Plan (1) Vitamin D deficiency: Code(s): E55.9 - Vitamin D deficiency, unspecified Plan: Started on cholecalciferol 50890 units per capsule to take once a week for the next 3 months, with 1 refill, repeat another vitamin-D level in 3 month (2) Vitamin B12 deficiency: Code(s): E53.8 - Deficiency of other specified B group vitamins Plan: Will start her on vitamin B12 injections a 1000 units per mL, inject 1 mL IM to thighs, upper arm once a week for the next 4 weeks and then once a month thereafter. Rotate sitesRepeat another vitamin B12 level in 3 month (3) Iron deficiency anemia: Code(s): D50.9 - Iron deficiency anemia, unspecified Qualifiers: Iron deficiency anemia type: chronic blood loss Qualified Code(s): D50.0 - Iron deficiency anemia secondary to blood loss (chronic) Plan: Started on ferrous sulfate 325 mg per tablet take 1 tablet once a day, take it with vitamin-C or orange juice for better absorption, repeat another CBC and iron profile in 3 month (4) Mild intermittent asthma: Code(s): J45.20 - Mild intermittent asthma, uncomplicated Plan: Better controlled on Dulera, uses albuterol as needed, patient does not want to get any vaccination (5) Obesity (BMI 35.0-39.9 without comorbidity): Code(s): E66.9 - Obesity, unspecified Plan: Continued on we go be at the same dose 0.25 mg injected once a week as directed, combined this with diet and exercise for weight loss, follow-up in 3 months Orders: Orders Vitamin B12 and Folate 3 Months D50.9 - Iron deficiency anemia, unspecified, E53.8 - Deficiency of other specified B group vitamins, E55.9 - Vitamin D deficiency, unspecified Vitamin D 25-OH Total 3 Months D50.9 - Iron deficiency anemia, unspecified, E53.8 - Deficiency of other specified B group vitamins, E55.9 - Vitamin D deficiency, unspecified Complete Blood Count Auto Diff 3 Months D50.9 - Iron deficiency anemia, unspecified, E53.8 - Deficiency of other specified B group vitamins, E55.9 - Vitamin D deficiency, unspecified IRON PROFILE 3 Months D50.9 - Iron deficiency anemia, unspecified, E53.8 - Deficiency of other specified B group vitamins, E55.9 - Vitamin D deficiency, unspecified Hemoglobin A1c 3 Months D50.9 - Iron deficiency anemia, unspecified, E53.8 - Deficiency of other specified B group vitamins, E55.9 - Vitamin D deficiency, unspecified Glucose Fasting 3 Months D50.9 - Iron deficiency anemia, unspecified, E53.8 - Deficiency of other specified B group vitamins, E55.9 - Vitamin D deficiency, unspecified Medications: New ferrous sulfate 325 mg PO DAILY 90 tabs 1RF D50.9 - Iron deficiency anemia, unspecified, E53.8 - Deficiency of other specified B group vitamins, E55.9 - Vitamin D deficiency, unspecified cholecalciferol (vitamin D3) 1,250 mcg PO QWEEK 3 months 13 caps 1RF E55.9 - Vitamin D deficiency, unspecified cyanocobalamin (vitamin B-12) Inject 1 mL once a week for 4 weeks, then once a month thereafter 1 week 10 mL 1RF E53.8 - Deficiency of other specified B group vitamins BD Integra Syringe (syringe with needle, safety) Use IM once a week, then once a month thereafter 100 ea 0RF NS E53.8 - Deficiency of other specified B group vitamins Changed From semaglutide (weight loss) (Wegovy) administer weeks 1 through 4 of therapy 0.25 mg (0.5 mL) subcut QWEEK 2 mL 0RF To Wegovy (semaglutide (weight loss)) administer weeks 1 through 4 of therapy 0.25 mg (0.5 mL) subcut QWEEK 2 mL 2RF NS Coding Level of Care Code Est Pt Level 4 (27920) Diagnoses Vitamin D deficiency E55.9 Vitamin B12 deficiency E53.8 Iron deficiency anemia due to chronic blood loss D50.0 Iron deficiency anemia type: chronic blood loss Mild intermittent asthma J45.20 Obesity (BMI 35.0-39.9 without comorbidity) E66.9
[2023-06-20 11:33] VITALS: BP 100/70; PULSE 71; O2SAT 99; BMI 33.6
== END 2023-06-20 12:28 | disposition home or self-care (01) ==
PROVIDERS: PCP Internal Medicine; Visit Provider Internal Medicine
DX: E55.9 Vitamin D deficiency, unspecified (principal); E66.9 Obesity, unspecified; Z68.33 Body mass index [BMI] 33.0-33.9, adult; E53.8 Deficiency of other specified B group vitamins; D50.0 Iron deficiency anemia secondary to blood loss (chronic); J45.20 Mild intermittent asthma, uncomplicated
CPT/HCPCS: 99214

== ENCOUNTER 2023-07-05 08:39 | Outpatient (REF) | payer OTHER, SELFPAY ==
--- NOTE | 2023-07-05 08:42 | EMG_ITS ---
Chief complaint: Right wrist pain . Reason for referral: Evaluate for ulnar neuropathy Referred by: Dr. De Los Santos Procedure done: Right upper extremity NCS/EMG Precautions and/or limitations: None The limb temperature was monitored continuously and remained between 32-36 degrees C during the performance of the NCS. Nerve Conduction Studies Anti Sensory Summary Table ?Stim Site NR Onset (ms) Norm Onset (ms) Peak (ms) Norm Peak (ms) O-P Amp (?V) Norm O-P Amp Site1 Site2 Delta-0 (ms) Dist (cm) Mani (m/s) Norm Mani (m/s) Right Median Anti Sensory (2nd Digit) Wrist ? 2.3 3.0 <3.6 66.0 >10 Wrist 2nd Digit 2.3 14.0 61 Right Ulnar Anti Sensory (5th Digit) Wrist ? 2.4 3.0 <3.7 36.8 >15.0 Wrist 5th Digit 2.4 14.0 58 Motor Summary Table ?Stim Site NR Onset (ms) Norm Onset (ms) O-P Amp (mV) Norm O-P Amp iAmp (mV) Amp (1st) (%) Site1 Site2 Delta-0 (ms) Dist (cm) Mani (m/s) Norm Mani (m/s) Right Median Motor (Abd Poll Brev) Wrist ? 3.0 <3.9 11.1 >4.5 12.6 100.0 Elbow Wrist 4.0 21.0 53 >45 Elbow ? 7.0 10.0 11.7 90.1 Right Ulnar Motor (Abd Dig Minimi) Wrist ? 2.3 <3.0 10.3 >5 12.5 100.0 B Elbow Wrist 4.1 20.0 49 >45 B Elbow ? 6.4 9.3 11.5 90.3 A Elbow B Elbow 1.7 10.0 59 >45 A Elbow ? 8.1 8.3 10.5 80.6 Comparison Summary Table ?Stim Site NR Peak (ms) Norm Peak (ms) P-T Amp (?V) Site1 Site2 Delta-P (ms) Norm Delta (ms) Right Median/Radial Dig I Comparison (Digit 1 - 10cm) Median ? 2.3 <2.9 151.4 Median Radial 0.1 Radial ? 2.4 <2.8 37.0 EMG ?Side Muscle Nerve Root Ins Act Fibs Psw Amp Dur Poly Recrt Int Pat Comment Right 1stDorInt Ulnar C8-T1 Nml Nml Nml Nml Nml 0 Nml Complete Right FlexCarRad Median C6-7 Nml Nml Nml Nml Nml 0 Nml Complete Right Biceps Musculocut C5-6 Nml Nml Nml Nml Nml 0 Nml Complete Right Triceps Radial C6-7-8 Nml Nml Nml Nml Nml 0 Nml Complete Right Deltoid Axillary C5-6 Nml Nml Nml Nml Nml 0 Nml Complete FINDINGS: All motor and sensory nerves tested showed normal latencies, amplitudes and conduction velocities. Concentric needle EMG was performed in selected muscles of the right upper extremity. Study did not reveal signs of electric abnormalities as shown in the table below. IMPRESSION: 1. This is a normal study. 2. There is no electrodiagnostic evidence for median neuropathy, ulnar neuropathy, brachial plexopathy, or cervical radiculopathy. Thank you for your kind referral. Bita Rubio MD, DANIA Board Certified, [place] Board [employer] Physical [employer] and Rehabilitation (ABPMR) Board Certified, [place] Board of Electrodiagnostic Medicine (ABEM) CODIN [id number] MTDD
== END 2023-07-05 08:40 | disposition home or self-care (01) ==
LOC: HO.NEURO 08:39
PROVIDERS: PCP Internal Medicine; Visit Provider Orthopaedic Surgery
DX: R20.0 Anesthesia of skin (principal); R20.2 Paresthesia of skin
CPT/HCPCS: 95886; 95909

== ENCOUNTER → 2023-07-05 08:42 | Outpatient (BNV) | payer OTHER, SELFPAY | PROVIDERS: PCP Internal Medicine; Visit Provider Physical Medicine & Rehabilitation | DX: M25.531 Pain in right wrist (principal) | CPT/HCPCS: 95886; 95909 ==

== ENCOUNTER 2023-09-13 09:29 | Outpatient (AMB) | payer OTHER, SELFPAY ==
--- NOTE | 2023-09-13 09:36 | A.OFFVIS_ITS ---
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 Doing well with no concerns. She tries to eat healthy and stays active with exercise. Regular monthly menses, HMB 3-4/6d took Depo for a long time due to heavy menstrual bleeding and it worked well. She had IUD in the past in twice it had fallen out. She denies any contraindications to control such as: migraines with aura, history of DVT or pulmonary emboli, high blood pressure, liver disease, thrombolic disorders, Lupus, +TIESHA, breast cancer, or smoking. Currently is not sexually active. She denies vaginal itching and irritation. STI screening offered; she declines. Denies family history of breast, ovarian or colon cancer. Last pap smear 2019, negative. Mammogram: 2022. [facility] Medical History Vitamin D deficiency Vitamin B12 deficiency Iron deficiency anemia Cubital tunnel syndrome on left Impingement syndrome of left shoulder region Vaccine refused by patient Mild intermittent asthma Obesity (BMI 35.0-39.9 without comorbidity) Environmental and seasonal allergies Recurrent abdominal aortic aneurysm Depot contraception History of vitamin D deficiency Hx of non anemic vitamin B12 deficiency Hx of iron deficiency Hx of menorrhagia Surgical History Hx of abdominoplasty History of removal of laparoscopic gastric banding device History of esophagogastroduodenoscopy (EGD) (~03/2019) Hx of gastric bypass Hx of appendectomy Family History Father Stroke HTN (hypertension) Diabetes mellitus Mother Diabetes mellitus with nephropathy Kidney failure HTN (hypertension) Brother Diabetes mellitus Sister Fibromyalgia Arthritis Depression Sister No problems noted. Son No problems noted. Son No problems noted. Son No problems noted. Daughter No problems noted. 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[employer] Sexual orientation: Straight/Heterosexual Gender identity: Female Cognitive needs: No Hearing needs: No Vision needs: Yes Female Reproductive History Menstrual Age of Menarche: 14 Date of last menstrual period: 08/27/23 control method: none Total pregnancies: 4 Full term: 4 Number of Living Children: 4 Date of last pap smear: 12/24/19 Date of Mammogram: 02/08/23 Review of Systems Const All systems reviewed & are unremarkable except as noted in HPI and below Reports as per HPI Eyes Reports no additional complaints ENT Reports no additional complaints Card Reports no additional complaints Resp Reports no additional complaints GI Reports as per HPI and Reports no additional complaints Reports as per HPI Musc Reports no additional complaints Skin/Breast Reports as per HPI Neuro Reports no additional complaints Psych Reports no additional complaints Endo Reports no additional complaints Francois/Lymph Reports no additional complaints Aller/Immun Reports no additional complaints Physical Exam Vital Signs: Last Vital Signs BP 104/60 09/13/23 09:38 BMI result Body Mass Index 32.1 Const General: cooperative, healthy appearing, no acute distress, well developed and alert Orientation/consciousness: patient oriented x3 HEENT Head: Yes normal to inspection Eyes General: appearance normal, both eyes and all related structures Neck Neck: Yes normal visual inspection Thyroid: Thyroid normal Chest Chest palpation & inspection: normal inspection of the chest and other (no puckering, dimpling, peau de orange, retraction, discharge, masses) Breast/axilla inspection: normal inspection of the breasts Breast/axilla palpation: normal palpation of the breasts Resp Effort & Inspection: normal respiratory effort GI Inspection: Yes normal to inspection Palpation (GI): Soft to palpation Rectal Exam - Female: deferred General: Yes bladder normal to palpation External Female Exam: normal external appearance and normal appearance of the urethra Speculum Exam - Vagina: normal appearance of the vagina, normal palpation and normal vaginal discharge Speculum Exam - Cervix: normal appearance of the cervix and normal palpation Bimanual exam- vagina & uterus: normal bimanual exam, normal palpation, uterine size normal, bladder normal to palpation, normal palpation and non-tender Bimanual Exam- Adnexa, other: no masses Skin General skin exam: no rashes or lesions noted Rashes: no rashes Neuro General: patient oriented x3 Cognition (Neuro): normal cognition Extrem General: Yes normal to inspection Psych Attitude: cooperative Thought process: Normal thought process present Assessment & Plan Assessment & Plan (1) Encounter for well woman exam with routine gynecological exam: Code(s): Z01.419 - Encounter for gynecological examination (general) (routine) without abnormal findings Category: Medical (2) BCP ( control pills) initiation: Code(s): Z30.011 - Encounter for initial prescription of contraceptive pills Plan Discussed: Current recommendations for pap smears per ASCCP guidelines. Breast awareness and periodic breast exams. Maintain a healthy lifestyle including a well balanced diet and routine exercise. Use condoms for STI and prevention. control hormone use warnings: go to ER if and loss of vision, blindness, severe headache, chest pain or difficulty breathing, severe abdominal pain, or any pain or swelling in an extremity. Pill check in person 3 months. Mammogram yearly. Patient verbalizes understanding and agrees to the plan of care. She was given opportunity to ask questions and all questions were answered to the best of my ability. RTO in one year for annual fire prevention chief examination. This note is constructed using voice recognition software. While every effort has been made to ensure accuracy, hanging flags decorator errors may have been included. Orders: Orders MM tomosynthesis screening BI Today Z12.31 - Encounter for screening mammogram for malignant neoplasm of breast Medications: New levonorgestrel-ethinyl estrad 0.15 mg-30 mcg (91) (Jolessa) 1 tab PO DAILY 91 ea 0RF Coding Level of Care Code Est Pt Prev Care 40-64y(50514) Diagnoses Encounter for well woman exam with routine gynecological exam Z01.419 BCP ( control pills) initiation Z30.011
[2023-09-13 09:38] VITALS: BP 104/60; BMI 32.1
== END 2023-09-13 10:34 | disposition home or self-care (01) ==
PROVIDERS: Visit Provider Advanced Practice Midwife
DX: Z01.419 Encounter for gynecological examination (general) (routine) without abnormal findings (principal); Z30.011 Encounter for initial prescription of contraceptive pills
CPT/HCPCS: 99396

== ENCOUNTER → 2023-09-13 09:29 | Outpatient (BNVA) | payer OTHER, SELFPAY | PROVIDERS: Visit Provider Advanced Practice Midwife | DX: Z01.419 Encounter for gynecological examination (general) (routine) without abnormal findings (principal); Z30.011 Encounter for initial prescription of contraceptive pills | CPT/HCPCS: 99396 ==

== ENCOUNTER 2023-09-24 10:59 | Outpatient (AMB) | payer OTHER, SELFPAY ==
[2023-09-24 11:34] VITALS: BP 100/70; PULSE 87; O2SAT 98; BMI 33.0
--- NOTE | 2023-09-24 11:34 | MHC.PC.OV ---
Vital Signs 09/24/23 11:34 Height 5 ft 4 in Weight 192 lb BMI 33.0 BP 100/70 Blood Pressure Location Lt brachial Position Sitting Pulse 87 Pulse Source Pulse Oximeter Pulse Oximetry (%) 98 Oxygen Delivery Method Room Air Intake Visit Reasons: F/UP anemia,b12, vit d deficiency/weight loss Intake Note: Pt is here today for her f/u anemia,B12 vit D def and weigh loss Allergies oxycodone Allergy (Mild, Verified 09/25/23 03:33) Nausea Medication List - Last Reconciled 09/25/23 by Tracey Goff MD albuterol sulfate 90 mcg/actuation 2 puffs inhalation Q6H PRN BD Integra Syringe (syringe with needle, safety) Use IM once a week, then once a month thereafter NS cyanocobalamin (vitamin B-12) Inject 1 mL once a week for 4 weeks, then once a month thereafter 1 week ferrous sulfate 325 mg PO DAILY levonorgestrel-ethinyl estrad 0.15 mg-30 mcg (91) (Jolessa) 1 tab PO DAILY mometasone-formoterol 100-5 mcg/actuation (Dulera) 2 puffs inhalation Q12H Wegovy (semaglutide (weight loss)) 0.5 mg (0.5 mL) subcut QWEEK 3 days NS Tobacco use date assessed: 09/24/23 Dental Screening Dental Screen Date: 09/24/23 Did you have a dental visit in the last 12 months?: Yes Did you have a dental problem in the last 6 months where you did not have access to dental care?: No Was dental information given to patient?: Patient has dentist HPI F/UP anemia,b12, vit d deficiency/weight loss HPI Details [age] year old lady here today for follow-up on her anemia, vitamin B12 vitamin-D deficiency. Has been taking her iron supplements, and trying to incorporate more green leafy vegetables in her diet. She has been feeling well, with no new complaints at present time. Also here today for follow-up on her weight after being on me COVID now for at least 4 months. Currently taking only 0.25 mg once weekly. Has lost approximately 9 lb since beginning of the year. Would like to see if she can go higher on the dose. Has been compliant with her diet and gets regular exercise. Denies any side effects from taking the medication. Requesting titers to be checked for MMR, varicella and hepatitis-B , which she needs to submit to her work. [facility] Medical History Vitamin D deficiency Vitamin B12 deficiency Iron deficiency anemia Cubital tunnel syndrome on left Impingement syndrome of left shoulder region Vaccine refused by patient Mild intermittent asthma Obesity (BMI 35.0-39.9 without comorbidity) Environmental and seasonal allergies Recurrent abdominal aortic aneurysm [place] contraception History of vitamin D deficiency Hx of non anemic vitamin B12 deficiency Hx of iron deficiency Hx of menorrhagia Surgical History Hx of abdominoplasty History of removal of laparoscopic gastric banding device History of esophagogastroduodenoscopy (EGD) (~03/2019) Hx of gastric bypass Hx of appendectomy Family History Father Stroke HTN (hypertension) Diabetes mellitus Mother Diabetes mellitus with nephropathy Kidney failure HTN (hypertension) Brother Diabetes mellitus Sister Fibromyalgia Arthritis Depression Sister No problems noted. Son No problems noted. Son No problems noted. Son No problems noted. Daughter No problems noted. 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 Depression Screening Interpretation: Negative Depression Screening Done: Yes Source: Developed by Drs. Kimani Powell, Shoaib Cloud and colleagues, with an educational elodia from [employer]. Thrive Questionnaire Date Thrive assessed: 05/22/23 SUE-7 AMB Questionnaire SUE-7 Date SUE - 7 assessed: 05/22/23 Source: Developed by Drs. Kimani Powell, Shoaib Cloud and colleagues, with an educational elodia from [employer]. Review of Systems Const All systems reviewed & are unremarkable except as noted in HPI and below Reports as per HPI Eyes Reports no additional complaints ENT Reports no additional complaints Card Reports no additional complaints Resp Reports no additional complaints GI Reports as per HPI and Reports no additional complaints Reports as per HPI Musc Reports no additional complaints Skin/Breast Reports as per HPI Neuro Reports no additional complaints Psych Reports no additional complaints Endo Reports no additional complaints Francois/Lymph Reports no additional complaints Aller/Immun Reports no additional complaints Physical exam (Primary Care) Vital Signs: Last Vital Signs Pulse 87 09/24/23 11:34 BP 100/70 09/24/23 11:34 Pulse Ox 98 09/24/23 11:34 Oxygen Delivery Method Room Air 09/24/23 11:34 BMI result Body Mass Index 33.0 Tobacco/Smoking Status: Tobacco use Status Tobacco use date assessed 09/24/23 09/24/23 11:39 Patient Tobacco Use Status Never used Tobacco 09/24/23 11:34 e-Cigarette/Vaping Use Never Used 09/24/23 11:34 Depression Screening Interpretation: Negative Thrive Assessment: Date of Thrive Assessment Date Thrive assessed 05/22/23 09/24/23 11:34 Const Other: Alert oriented x3, no acute distress noted ambulatory normal gait Orientation/consciousness: patient oriented x3 [facility] Head: Yes normocephalic Eyes General: appearance normal, both eyes and all related structures Neck Neck: Yes full ROM, Yes no lymphadenopathy and Yes supple Resp Effort & Inspection: normal respiratory effort and able to speak in complete sentences Auscultation: clear to auscultation bilaterally Cardio Rate: regular rate Rhythm: regular rhythm Heart sounds: S1 normal heart sound present and S2 normal heart sound present GI Palpation (GI): Soft to palpation, nontender, no guarding and no masses Neuro General: patient oriented x3, gait normal, tone normal, Normal light touch and pain sensation and no focal motor deficits Extrem General: Yes full ROM, Yes no joint enlargement, Yes no clubbing, cyanosis or edema, Yes no calf tenderness and Yes normal gait Assessment and Plan Assessment & Plan (1) Immunity status testing: Code(s): Z01.84 - Encounter for antibody response examination (2) Iron deficiency anemia: Code(s): D50.9 - Iron deficiency anemia, unspecified Qualifiers: Iron deficiency anemia type: chronic blood loss Qualified Code(s): D50.0 - Iron deficiency anemia secondary to blood loss (chronic) (3) Vitamin D deficiency: Code(s): E55.9 - Vitamin D deficiency, unspecified (4) Vitamin B12 deficiency: Code(s): E53.8 - Deficiency of other specified B group vitamins (5) Obesity (BMI 35.0-39.9 without comorbidity): Code(s): E66.9 - Obesity, unspecified Plan Patient reminded to get her fasting labs done, already ordered together with her labs to check for titers for MMR, varicella and hepatitis-B . Will continue on Wegovy with dose increased 0.5 mg injected subcutaneously once a week. Continue with adherence to healthy eating diet and getting regular exercise. Orders: Orders MMR IgG Measles Mumps Rubella 09/24/23 Z01.84 - Encounter for antibody response examination Hepatitis B Surface Antibody 09/24/23 Z01.84 - Encounter for antibody response examination Varicella IgG Antibody 09/24/23 Z01.84 - Encounter for antibody response examination Medications: Changed From Wegovy (semaglutide (weight loss)) administer weeks 1 through 4 of therapy 0.25 mg (0.5 mL) subcut QWEEK 2 mL 2RF NS To Wegovy (semaglutide (weight loss)) administer weeks 1 through 4 of therapy 0.5 mg (0.5 mL) subcut QWEEK 3 days 2 mL 4RF NS Coding Level of Care Code Est Pt Level 4 (63361) Diagnoses Immunity status testing Z.84 Iron deficiency anemia due to chronic blood loss D50.0 Iron deficiency anemia type: chronic blood loss Vitamin D deficiency E55.9 Vitamin B12 deficiency E53.8 Obesity (BMI 35.0-39.9 without comorbidity) E66.9
== END 2023-09-24 16:51 | disposition home or self-care (01) ==
PROVIDERS: PCP Internal Medicine; Visit Provider Internal Medicine
DX: D50.0 Iron deficiency anemia secondary to blood loss (chronic) (principal); Z01.84 Encounter for antibody response examination; E66.9 Obesity, unspecified; Z68.33 Body mass index [BMI] 33.0-33.9, adult; E55.9 Vitamin D deficiency, unspecified; E53.8 Deficiency of other specified B group vitamins
CPT/HCPCS: 99214

== ENCOUNTER 2023-09-27 10:18 | Outpatient (REF) | payer OTHER, SELFPAY ==
[2023-09-27 10:31] LABS: MANUAL DIFF FLAG NO
[2023-09-27 10:59] LABS: Basophils Percent Auto 0.7 % (0-2); Eosinophils Percent Auto 0.5 % (0-4); Hematocrit 30.6 % (37.0-47.0); Hemoglobin 9.2 g/dl (12.0-16.0); Imm Gran Abs Auto 0.01 X10*3/uL (0.00-0.03); Imm Gran Pct Auto 0.2 % (0.0-0.4); Lymphocytes Absolute Auto 1.8 X10*3/uL (1.2-4.9); Lymphocytes Percent Auto 30.4 % (20-40); Mean Corpuscular HGB Conc 30.1 g/dl (31.0-35.0); Mean Corpuscular Hemoglobin 21.5 pg (27.0-33.0); Mean Corpuscular Volume 71.5 fL (80.0-98.0); Mean Platelet Volume 10.6 fL (9.4-12.3); Monocytes Absolute Auto 0.5 X10*3/uL (0.1-1.2); Monocytes Percent Auto 7.9 % (2-11); Neutrophils Absolute Auto 3.6 x10*3/uL (2.0-8.3); Neutrophils Percent Auto 60.3 % (45-73); Platelet Count 400 X10*3/uL (160-400); Red Blood Count 4.28 X10*6/uL (4.20-5.50); Red Cell Distribution Width 15.6 % (11.0-16.0); White Blood Count 5.9 X10*3/uL (4.8-10.8)
[2023-09-27 11:09] LABS: Estimated Average Glucose 105 mg/dL; Hemoglobin A1c % 5.3 % (<6.0)
[2023-09-27 12:01] LABS: Glucose Fasting 91 mg/dL (60-99); Iron 17 mcg/dL (30-160); Percent Iron Saturation 4 % (15-50); Total Iron Binding Capacity 398 mcg/dL (228-428); Unsaturated Iron Binding 381 ug/dL
[2023-09-27 12:23] LABS: Folate 12.7 ng/mL (> or = 4.0); Vitamin B12 176 pg/mL (200-900)
[2023-09-27 12:25] LABS: Vitamin D 25-OH Total 17.6 ng/mL (>30)
[2023-09-29 22:53] LABS: TS Negative Control Passed; TS Panel A 0; TS Panel B 0; TS Positive Control Passed; TSpotTB Negative (Negative)
[2023-09-30 08:45] LABS: HBS Num1 10.39 mIU/mL (0-7.99)
[2023-09-30 10:59] LABS: HBS Num2 10.55 mIU/mL (0-7.99); HBS Num3 11.16 mIU/mL (0-7.99); ~Hepatitis B Surface Antibody GRAYZONE (Nonreactive)
[2023-09-30 21:34] LABS: Rubella IgG Antibody 3.79 Index; Rubeola IgG (Measles) <13.50 AU/mL
== END 2023-09-27 10:19 | disposition home or self-care (01) ==
LOC: HO.LAB 10:18
PROVIDERS: PCP Internal Medicine; Visit Provider Registered Nurse
DX: Z02.1 Encounter for pre-employment examination (principal); Z01.84 Encounter for antibody response examination; D50.9 Iron deficiency anemia, unspecified; E55.9 Vitamin D deficiency, unspecified; E53.8 Deficiency of other specified B group vitamins
CPT/HCPCS: 36415; 82306; 82607; 82746; 82947; 83036; 83540; 85025; 86481; 86706; 86735; 86762; 86765; 86787

== ENCOUNTER 2023-09-27 10:19 | Outpatient (REF) | payer OTHER, SELFPAY | END 2023-09-27 10:20 | disposition home or self-care (01) | LOC: HO.LAB 10:19 | PROVIDERS: PCP Internal Medicine; Visit Provider Internal Medicine | DX: Z13.89 Encounter for screening for other disorder (principal) ==

== ENCOUNTER 2023-10-07 08:21 | Outpatient (AMB) | payer OTHER, SELFPAY ==
--- NOTE | 2023-10-07 08:49 | AM.OFFVISNUR ---
Intake Visit Reasons: vaccines Intake Note: Pt arrived for MMR and Hep B vaccines. Allergies oxycodone Allergy (Mild, Verified 09/25/23 03:33) Nausea Assessment & Plan Assessment & Plan Orders: Orders MMR Immunization Today Z23 - Encounter for immunization Hepatitis B Adult Immunization Today Z23 - Encounter for immunization
== END 2023-10-07 09:26 | disposition home or self-care (01) ==
PROVIDERS: PCP Internal Medicine; Visit Provider Internal Medicine
DX: Z23 Encounter for immunization (principal)
CPT/HCPCS: 90471; 90472; 90707; 90746

== ENCOUNTER 2024-01-31 12:12 | Outpatient (REF) | payer OTHER, SELFPAY ==
[2024-02-01 08:26] LABS: HBS Num1 > 1000.00 mIU/mL (0-7.99); ~Hepatitis B Surface Antibody REACTIVE (Nonreactive)
== END 2024-01-31 12:13 | disposition home or self-care (01) ==
LOC: HO.LAB 12:12
PROVIDERS: PCP Internal Medicine; Visit Provider Internal Medicine
DX: Z78.9 Other specified health status (principal)
CPT/HCPCS: 36415; 86706; 86765

== ENCOUNTER 2024-03-22 03:41 | Emergency (ER) | payer OTHER, SELFPAY ==
--- NOTE | ~2024-03-22 | CT_ITS ---
EXAMINATION: CT ABDOMEN AND PELVIS WITHOUT CONTRAST CLINICAL INFORMATION: Left flank pain COMPARISON: CT abdomen and pelvis 11/03/2022. TECHNIQUE: Multidetector volumetric imaging was performed from the superior aspect of the liver through the pubic symphysis. Sagittal and coronal reformatted images were obtained on the technologist's workstation. This CT examination was performed using dose optimization techniques as appropriate, variously including the following: *Automated exposure control *Adjustment of mA and/or kV according to patient size (this includes techniques or standardized protocols for targeted exams where dose is matched to indication/reason for exam; i.e. extremities or head) *Use of iterative reconstruction technique DLP: 657 mGy-cm FINDINGS: LUNG BASES: The visualized lung bases are unremarkable. LIVER, GALLBLADDER, AND BILIARY TREE: The liver is normal in size, shape, and attenuation. No focal hepatic lesion or biliary ductal dilatation is present. Punctate hyperdensity and associated gas is noted dependently within the gallbladder lumen and is consistent with partially visualized cholelithiasis. No pericholecystic fluid collections or inflammatory changes noted. PANCREAS: Unremarkable. SPLEEN: Unremarkable. ADRENAL GLANDS: Unremarkable. KIDNEYS AND URETERS: No hydronephrosis or perinephric inflammatory changes. No nephrolithiasis. No ureteral calculi identified. note is made of scattered pelvic phleboliths which are distinct from the course of the ureters. Canal note made of a duplicated collecting system in the left renal pelvis. A single left renal moiety is present. BLADDER: Partially decompressed GASTROINTESTINAL TRACT: Suture material is present at the base of the cecum. The appendix is not visualized. Findings may represent prior appendectomy. No free intraperitoneal fluid or gas collections noted. No inflammatory changes of the sigmoid mesentery or small bowel mesentery visualized. An enterocolic Jossie-en-Y gastric bypass is identified. ABDOMINAL WALL: Scattered lower abdominal wall surgical clips are present. No abdominal wall intestinal hernias. LYMPH NODES: Normal. VASCULAR: Minimal scattered calcific atherosclerotic plaques. PELVIC VISCERA: The exophytic partially calcified 1 cm focus is noted along the left lateral aspect of the uterine fundus and may represent calcified, exophytic degenerated uterine fibroid are noted adjacent inflammatory changes. The uterus is otherwise normal in appearance. No adnexal lesions. OSSEOUS STRUCTURES: No suspicious skeletal lesions. CT/CT abdomen pelvis wo IV con IMPRESSION: 1. No acute abnormalities identified. No urolithiasis. No hydronephrosis. 2. Cholelithiasis. 3. Status post Jossie-en-Y gastric bypass. 4. 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 Electronically signed by: Seferino Nevarez MD 03/22/2024 06:32 AM AMIN[facility]
[2024-03-22 03:52] VITALS: BP 109/40; PULSE 91; RESP 18; TEMP 36.6; O2SAT 100; BMI 31.0
--- NOTE | 2024-03-22 05:09 | PC.NURSE ---
this rn to bedside pt calm and cooperative ambulatory denies new needs at this time awaiting to be seen by ed provider
[2024-03-22 06:32] LABS: MANUAL DIFF FLAG NO
[2024-03-22 06:33] LABS: Basophils Percent Auto 0.4 % (0-2); Eosinophils Percent Auto 0.1 % (0-4); Hematocrit 27.4 % (37.0-47.0); Hemoglobin 8.1 g/dl (12.0-16.0); Imm Gran Abs Auto 0.03 X10*3/uL (0.00-0.03); Imm Gran Pct Auto 0.4 % (0.0-0.4); Lymphocytes Percent Auto 13.9 % (20-40); Mean Corpuscular HGB Conc 29.6 g/dl (31.0-35.0); Mean Corpuscular Hemoglobin 20.3 pg (27.0-33.0); Mean Corpuscular Volume 68.7 fL (80.0-98.0); Monocytes Absolute Auto 0.6 X10*3/uL (0.1-1.2); Monocytes Percent Auto 7.4 % (2-11); Neutrophils Absolute Auto 5.8 x10*3/uL (2.0-8.3); Neutrophils Percent Auto 77.8 % (45-73); Platelet Count 326 X10*3/uL (160-400); Red Blood Count 3.99 X10*6/uL (4.20-5.50); Red Cell Distribution Width 16.6 % (11.0-16.0); White Blood Count 7.4 X10*3/uL (4.8-10.8)
[2024-03-22 06:39] LABS: Appearance Urine Clear; Color Urine Dark Yellow; Glucose Urine UA Negative (Negative); Leukocyte Esterase Urine Trace (Negative); Nitrite Urine Negative (Negative); Specific Gravity - Urine >= 1.030 (1.005-1.025); UMIC TRIGGER UACC YES; Urine Blood Negative (Negative); Urine Ketones Trace mg/dL (Negative); Urine Protein Trace mg/dL (Neg-Trace)
[2024-03-22 06:42] LABS: Bacteria Urine None Seen (None Seen); Hyaline Casts Urine 0-2 /LPF (0-2); RBC Urine 0-2 /HPF (0-2); WBC Urine 0-5 /HPF (0-5)
[2024-03-22 06:55] LABS: Alanine Aminotransferase 137 U/L (0-31); Albumin Level 3.7 g/dL (3.5-5.0); Alkaline Phosphatase 128 U/L (39-117); Anion Gap 9 (12-20); Aspartate Amino Transferase 370 U/L (5-31); Bilirubin Direct 0.2 mg/dL (0.0-0.5); Bilirubin Total 0.4 mg/dL (0.0-1.0); Blood Urea Nitrogen 12 mg/dL (9-16); Calcium 8.2 mg/dL (8.4-10.2); Carbon Dioxide 23 mmol/L (22-29); Chloride 110 mmol/L (96-108); Creatinine Clr Calc Pharmacy 105.8; Estimated Glomerular Filt Rate > 60; Glucose Random 101 mg/dL (60-115); Potassium 4.2 mmol/L (3.3-5.1); Sodium 138 mmol/L (135-145); Total Protein 6.9 g/dL (6.5-8.0)
--- NOTE | 2024-03-22 07:05 | ED.BACK ---
HPI - Back Pain/Injury General Chief Complaint: Back Pain/Injury Stated Complaint: back pain Time Seen by Provider: 03/22/24 05:03 Source: patient Mode of arrival: ambulatory Limitations: no limitations History of Present Illness ED Provider: Dr. Leyla Junior HPI Narrative: Patient comes to the emergency room complaining of left back pain. Patient states it started approximately 5 days ago. Patient denies hematuria or dysuria. Patient states that maybe she pulled a muscle lifting an air conditioning unit. No obvious injuries at the time Related Data Previous Rx's ?Medication ?Instructions ?Recorded albuterol sulfate 90 mcg/actuation 2 puff inhalation Q6H PRN 05/31/23 aerosol inhaler shortness of breath or wheezing #6.7 grams BD Integra Syringe 3 mL 25 gauge x #100 ea 06/25/23 1 (syringe with needle, safety) levonorgestrel 0.15 mg-ethinyl 1 tab PO DAILY #91 ea 09/13/23 estradiol 30 mcg tablets,3 mos pack(91) (Jolessa) Wegovy 0.5 mg/0.5 mL subcutaneous 0.5 mg (0.5 mL) subcut QWEEK 3 09/24/23 pen injector (semaglutide (weight days #2 mL loss)) cholecalciferol (vitamin D3) 1,250 1,250 mcg PO QWEEK 3 months #13 10/01/23 mcg (50,000 unit) capsule caps mometasone-formoterol HFA 100 2 puff inhalation Q12H #26.4 grams 11/25/23 mcg-5 mcg/actuation aerosol inhaler (Dulera) ferrous sulfate 325 mg (65 mg 325 mg PO DAILY #90 tabs 12/02/23 iron) tablet,delayed release cyanocobalamin (vitamin B-12) 1,000 mcg IM .COMPLEX 1 week #10 mL 01/08/24 1,000 mcg/mL injection solution cyclobenzaprine 5 mg tablet 5 mg PO TID PRN muscle spasm #10 03/22/24 tabs Allergies Allergy/AdvReac Type Severity Reaction Status Date / Time oxycodone Allergy Mild Nausea Verified 03/22/24 03:58 Review of Systems Review of Systems: Constitutional : No Weight loss, No Fever, No Chills, No Night Sweats, No Fatigue, No Malaise ENT/Mouth : No Hearing loss, No Ear Pain, No Nasal Congestion, No Sinus Pain, No Hoarseness, No sore throat, No Rhinorrhea, No Swallowing Difficulty Eyes: No Eye Pain, No Swelling, No Redness, No Foreign Body, No Discharge, No Vision Changes Cardiovascular : No Chest Pain, No SOB, No Dyspnea on Exertion, No Orthopnea, No Edema, No Palpitations Respiratory : No Cough, No Sputum, No Wheezing, No Smoke Exposure, No Dyspnea Gastrointestinal : No Nausea, No Vomiting, No Diarrhea, No Constipation, No abdominal Pain, No Hematochezia, No Melena Genitourinary : no irregular bleeding, No Dysuria, No Urinary Frequency, No Hematuria, No Urinary Incontinence, No Urgency, No Flank Pain, No Urinary Flow Changes, No Hesitancy Musculoskeletal : Complaining of musculoskeletal pain in the back on the left side, radiating towards her left flank, No joint pain, No Myalgias, No Joint Swelling Skin : No Skin Lesions, No rash Neuro : No Weakness, No Numbness, No Paresthesias, No Loss of Consciousness, No Dizziness, No Headache Psych : No Anxiety/Panic, No Depression, No SI/HI/AH/VH, No Social Issues, Heme/Lymph: No Bruising, No Bleeding,No Lymphadenopathy Endocrine : No Polyuria, No Polydipsia, No Temperature Intolerance PMFSH Past Medical History Medical History Vitamin D deficiency Vitamin B12 deficiency Iron deficiency anemia Cubital tunnel syndrome on left Impingement syndrome of left shoulder region Vaccine refused by patient Mild intermittent asthma Obesity (BMI 35.0-39.9 without comorbidity) Environmental and seasonal allergies Recurrent abdominal aortic aneurysm [place] contraception History of vitamin D deficiency Hx of non anemic vitamin B12 deficiency Hx of iron deficiency Hx of menorrhagia Surgical History Hx of abdominoplasty History of removal of laparoscopic gastric banding device History of esophagogastroduodenoscopy (EGD) (~03/2019) Hx of gastric bypass Hx of appendectomy Family History Family History Father Stroke HTN (hypertension) Diabetes mellitus Mother Diabetes mellitus with nephropathy Kidney failure HTN (hypertension) Brother Diabetes mellitus Sister Fibromyalgia Arthritis Depression Sister No problems noted. Son No problems noted. Son No problems noted. Son No problems noted. Daughter No problems noted. 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 Oriented X3. No acute distress. Eyes: Pupils equal, round and reactive to light. ENT: Pharynx normal. Neck: Normal inspection. Neck supple. No lymph nodes noted. No crepitus CVS: Normal heart rate and rhythm. Pulses normal. Normal S1 and S2 Respiratory: No respiratory distress. Breath sounds normal. No Wheezing. No rales Abdomen: Soft and nontender. No rigidity. No distention. Back: Pain to palpation on the left side of the back and CVA tenderness on the left. Skin: Skin warm and dry. Normal skin color. Normal skin turgor. Extremities: No lower extremity edema. No Lacerations. No Rash Neuro: Oriented X 3. No motor deficit. No sensory deficit. Moving all extremities. No slurred speech. CN 2 through 12 grossly intact Psych: calm, cooperative, normal affect Medical Decision Making Medical Decision Making MDM Narrative: My interpretation of labs: It was noted that patient has a hemoglobin level of 8.1. Over last year and a half, hemoglobin has gradually been dropping. Patient states that she is aware of this, takes iron at home. Patient will follow-up with the primary care physician. Also, it was noted that patient's AST is almost a double of ALT. Patient denies drinking alcohol other than occasionally. Patient denies any right upper quadrant pain or epigastric pain. CT scan: No acute abnormality Differential Diagnosis Differential Diagnoses: The differential diagnosis associated with the presentation includes (Ureterolithiasis, pyelonephritis, musculoskeletal pain) Lab Data MDM Lab Attestation statement: I reviewed the patient's lab results. 03/22/24 06:26 03/22/24 06:26 Labs: Lab Results 03/22/24 03/22/24 Range/Units 06:26 06:34 WBC 7.4 (4.8-10.8) X10*3/uL RBC 3.99 L (4.20-5.50) X10*6/uL Hgb 8.1 L (12.0-16.0) g/dl Hct 27.4 L (37.0-47.0) % MCV 68.7 L (80.0-98.0) fL MCH 20.3 L (27.0-33.0) pg MCHC 29.6 L (31.0-35.0) g/dl RDW 16.6 H (11.0-16.0) % Plt Count 326 (160-400) X10*3/uL MPV 10.0 (9.4-12.3) fL Immature Gran % (Auto) 0.4 (0.0-0.4) % Neut % (Auto) 77.8 H (45-73) % Lymph % (Auto) 13.9 L (20-40) % [place] % (Auto) 7.4 (2-11) % Eos % (Auto) 0.1 (0-4) % Baso % (Auto) 0.4 (0-2) % Lymph # (Auto) 1.0 L (1.2-4.9) X10*3/uL [place] # (Auto) 0.6 (0.1-1.2) X10*3/uL Eos # (Auto) 0.0 (0.0-0.4) X10*3/uL Baso # (Auto) 0.0 (0.0-0.2) X10*3/uL Abs Immat Gran (auto) 0.03 (0.00-0.03) X10*3/uL Absolute Neuts (auto) 5.8 (2.0-8.3) x10*3/uL Absolute Nucleated RBC 0.000 (0.0-0.012) X10*3/uL Nucleated RBC % (auto) 0.0 (0.0-0.2) /100WBC Sodium 138 (135-145) mmol/L Potassium 4.2 (3.3-5.1) mmol/L Chloride 110 H (96-108) mmol/L Carbon Dioxide 23 (22-29) mmol/L Anion Gap 9 L (12-20) BUN 12 (9-16) mg/dL Creatinine 0.71 (0.5-1.4) mg/dL Estim Creat Clear Calc 105.8 Estimated GFR > 60 Random Glucose 101 (60-115) mg/dL Calcium 8.2 L D (8.4-10.2) mg/dL Total Bilirubin 0.4 (0.0-1.0) mg/dL Direct Bilirubin 0.2 (0.0-0.5) mg/dL AST 370 H (5-31) U/L ALT 137 H (0-31) U/L Alkaline Phosphatase 128 H (39-117) U/L Total Protein 6.9 (6.5-8.0) g/dL Albumin 3.7 (3.5-5.0) g/dL Urine Color Dark Yellow Urine Appearance Clear Urine pH 6.0 (5.0-9.0) Ur Specific [place] >= 1.030 H (1.005-1.025) Urine Protein Trace (Neg-Trace) mg/dL Urine Glucose (UA) Negative (Negative) mg/dL Urine Ketones Trace (Negative) mg/dL Urine Blood Negative (Negative) Urine Nitrite Negative (Negative) Ur Leukocyte Esterase Trace H (Negative) Urine RBC 0-2 (0-2) /HPF Urine WBC 0-5 (0-5) /HPF Ur Squamous Epith Cells 3-5 (0-2) /HPF Urine Bacteria None Seen (None Seen) Hyaline Casts 0-2 (0-2) /LPF Independent Interpretation I performed an independent interpretation of an: CT Scan Radiology Impression Discussion of test interpretation with radiology: I have reviewed the radiologist's reading. Radiologist Impression: 1. No acute abnormalities identified. No urolithiasis. No hydronephrosis. 2. Cholelithiasis. 3. Status post Jossie-en-Y gastric bypass. 4. 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 Critical Care Time Critical Care Time Critical Care Time: Yes Total Critical Care Time: 35 Attestation: I have personally provided critical care time. Time includes review of lab data, radiology results, discussion with consultants, and monitoring for potential decompensation. Intervention performed as documented. Discharge Plan Discharge Clinical Impression: Musculoskeletal back pain Patient Disposition: Home, Self-Care Instructions: Back Pain (ED) Additional Instructions: Please follow-up with your primary care physician tomorrow. If you have any worsening or new symptoms, please return to the emergency room or call 911 Prescriptions: New cyclobenzaprine 5 mg tablet 5 mg PO TID PRN (Reason: muscle spasm) Qty: 10 0RF No Action albuterol sulfate 90 mcg/actuation HFA aerosol inhaler 2 puff inhalation Q6H PRN (Reason: shortness of breath or wheezing) Qty: 6.7 0RF (DME) BD Integra Syringe 3 mL 25 gauge x 1 syringe See Rx Instructions .Route Qty: 100 0RF Rx Instructions: Use IM once a week, then once a month thereafter cholecalciferol (vitamin D3) 1,250 mcg (50,000 unit) capsule 1,250 mcg PO QWEEK 90 Days Qty: 13 0RF Dulera 100-5 mcg/actuation HFA aerosol inhaler 2 puff inhalation Q12H Qty: 26.4 1RF ferrous sulfate 325 mg (65 mg iron) tablet,delayed release (DR/EC) 325 mg PO DAILY Qty: 90 1RF cyanocobalamin (vitamin B-12) 1,000 mcg/mL solution 1,000 mcg IM .COMPLEX 7 Days Qty: 10 1RF Rx Instructions: Inject 1 mL once a week for 4 weeks, then once a month thereafter Wegovy 0.5 mg/0.5 mL pen injector 0.5 mg subcut QWEEK 3 Days Qty: 2 4RF Rx Instructions: administer weeks 1 through 4 of therapy levonorgestrel-ethinyl estrad [Jolessa] 0.15 mg-30 mcg (91) tablets,dose pack,3 month 1 tab PO DAILY Qty: 91 0RF Print Language: Mongolian
[2024-03-22 07:10] LABS: HCG Quantitative < 2 mIU/mL
[2024-03-22 07:16] VITALS: BP 106/41; PULSE 75; RESP 18; TEMP 36.5; O2SAT 99
[2024-03-22] MEDS: Ketorolac Tromethamine 30 MG/ML VIAL IM (07:21)
[2024-03-22 07:28] VITALS: BP 106/41; PULSE 75; RESP 18; TEMP 36.5; O2SAT 99
== END 2024-03-22 07:35 | disposition home or self-care (01) ==
PROVIDERS: Emergency Provider Emergency Medicine
DX: M54.50 Low back pain, unspecified (principal); R10.2 Pelvic and perineal pain; Z98.84 Bariatric surgery status; Z79.899 Other long term (current) drug therapy
CPT/HCPCS: 36415; 74176; 80048; 80076; 81001; 84702; 85025; 96372; 99284; J1885

== ENCOUNTER 2024-05-23 07:17 | Outpatient (REF) | payer MEDICAID, SELFPAY ==
--- OUTSIDE RECORDS SUMMARY | 2024-05-23 07:21 | XMS_ITS | Clinical Summary ---
Author Organization [facility] Address [address] [place] [address] Care Team Providers Care Power Saw Operator Name Role Phone Jennifer Sotomayor APRN Primary Care Provider Allergies Active Allergy Reactions Criticality Noted Date Comments Oxycodone-Acetaminophen Palpitations,Photosensitivity High 05/03/2017 Medications Medication Sig Dispensed Refills Start Date End Date Status Cyanocobalamin (NASCOBAL) 500 MCG/0.1ML SOLN spray or apply inside Nose once a week. 0 Active fluticasone (FLONASE) 50 MCG/ACT nasal spray fluticasone 50 mcg/actuation nasal spray,suspension 0 Active lidocaine (LIDODERM) 5 % Place onto the skin as needed. 0 03/13/2018 Active Multiple Vitamins-Minerals (MULTIVITAMIN ADULT) CHEW Chew by mouth daily. 0 Active trimethoprim-polym yxin b (POLYTRIM) ophthalmic solution 1 drop as needed. 0 10/07/2017 Active thiamine 100 MG tablet Take 100 mg by mouth daily. 0 04/23/2018 Active Multiple Vitamins-Minerals (ZINC PO) Take by mouth. 0 Active cetirizine (ZyrTEC ALLERGY) 10 MG tablet Take 10 mg by mouth daily. 0 Active Pyridoxine HCl (B-6) 100 MG TABS Take 1 tablet by mouth daily. 90 tablet 0 10/06/2018 Active Zinc 50 MG TABS Take 1 tablet by mouth daily. 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 07/12/2018 S/P gastric bypass ([facility], 04/05/2018) 2018 Gastric bypass status for obesity with J-tube (1 ) 04/17/2018 Type 2 diabetes mellitus wit hout complication, without long-term current use of insulin 12/02/2017 Back pain 12/02/2017 Iron deficiency anemia secon delgado to inadequate dietary iron intake 09/26/2017 Hiatal hernia with GERD 05/24/2017 Hx of laparoscopic adjustabl e gastric banding ([facility], 2010) 05/24/2017 [facility] 05/24/2017 Obesity (BMI 30-39.9) 02/09/2016 Resolved Problems Problem Noted Date Diagnosed Date Resolved Date Pain of jejunostomy tube site 04/25/2018 07/02/2018 Adult BMI 39.0-39.9 kg/sq m 03/19/2018 04/25/2018 H. pylori infection 12/23/2017 04/25/19 19 RUQ abdominal pain 09/23/2017 9 Severe obesity (BMI 35.0-35. 9 with comorbidity) 05/24/2017 04/25/2018 Mechanical dysphagia 05/24/2017 019 Obstructive sleep apnea 05/24/201704/08 Complication of gastric band procedure 05/24/2017 07/02/2018 GERD (gastroesophageal reflux disease) 01/01/2011 07/02/2018 Family History Medical History Relation Name Comments Diabetes Brother Hypertension Brother Obesity Brother Sleep apnea Brother Diabetes Father Heart disease Father Hyperlipidemia Father Hypertension Father Obesity Father Stroke Father Diabetes Mother Heart disease Mother Hyperlipidemia Mother Hypertension Mother Stroke Mother Diabetes Sister Fibromyalgia Sister Relation Name Status Comments Brother Alive Daughter Alive Father Alive Mother Alive Sister Alive Son 1 Alive Son 2 Alive Son 3 Alive Social History Tobacco Use Types Packs/Day Years Used Date Smoking Tobacco: Never Smokeless Tobacco: Never Alcohol Use Standard Drinks/Week Comments No 0 (1 standard drink = 0.6 oz pur e alcohol) Sex and Gender Information Value Date Recorded Sex Assigned at Female 03/21/2018 1:35 PM EST Gender Identity Female 03/28/2018 4:08 PM EST Sexual Orientation Not on file Last Filed Vital Signs Vital Sign Reading Time Taken Comments Blood Pressure 92/70 10/06/2018 9:26 AM EDT Pulse 88 10/06/2018 9:26 AM EDT Temperature 37 ??C (98.6 ??F) 10/06/2018 9:26 AM EDT Respiratory Rate 16 08/26/2018 3:28 PM EDT Oxygen Saturation 99% 10/06/2018 9:26 AM EDT Inhaled Oxygen Concentration - - Weight 78.4 kg (172 lb 14.4 oz) 10/06/2018 9:26 AM EDT Height 162.6 cm (5' 4 ) 10/06/2018 9:26 AM EDT Body Mass Index 29.68 10/06/2018 9:26 AM EDT Plan of Treatment Health Maintenance Due Date Last Done Comments Hepatitis B Vaccines (1 of 3 - 3-dose series) 1980 Hepatitis C Screening 1980 COVID-19 Vaccine (#1) 05/04/1981 Pneumococcal Vaccine (1 of 2 - PCV) 1986 Depression Screening 1992 Preventative Health Evaluation 1998 Cervical Cancer Screening (Pap Smear) 2001 BMI Counseling 05/19/2019 05/19/2018 DTap / Tdap / Td (2 - Td or Tdap) 12/18/2022 12/18/2012 Influenza Vaccine (#1) 2023 2, 01/01/2011 RSV Ped < 20 months Aged Out No longe r eligible based on patient's age to complete this topic Medical Devices Implanted Type Area Retort Setter Device Identifier Shelf Expiration Date Model / Serial / Lot Kit Evicel 40sq Cm 2ml Sealant Fibrin Tissue Closure - [id number] - [id number] Implanted:Qty: 1 on 04/05/2018 by Vinayak Deutsch Jr., MD at [facility] [place] [facility] [place] N/A: Abdomen [employer] 07/08/2019 [id number] / / [id number] Advance Directives For more information, please contact: [phone] Latest Code Status on File Code Status Date Activated Date Inactivated Comments Full Code 04/03/2018 7:45 PM 04/13/2018 2:27 AM This code status was ascertained in the following way: discussion with patient . Care Teams Power Saw Operator Relationship Specialty Start Date End Date Jennifer Sotomayor APRN PCP - General Internal Medicine 12/23/17
--- OUTSIDE RECORDS SUMMARY | 2024-05-23 07:21 | XMS_ITS | Data Portability ---
Author Organization [place] - [facility], [facility] Address [address] [place] [address] Assessment No assessment recorded. Plan of Treatment Reminders Order Date Submit Date Provider Last Modified By Organization Details Last Modified Time Details Appointments None recorded. Lab test, urine 2018 019 [email or web address] 1 In-Office Order, Internal Use Only DO Not Attach Compendium DO Not Attach Compendium, Do Not Delete/merge, [id number] 09:36:35 urinalysis , dipstick 2018 019 [email or web address] 6 In-Office Order, Internal Use Only DO Not Attach Compendium DO Not Attach Compendium, Do Not Delete/merge, [id number] 9 09:13:27 beta-HCG, quantitati ve, serum or plasma 2018 019 [facility], [address] [place], [address] 9 09:05:07 Referral None recorded. Procedures None recorded. Surgeries None recorded. Imaging None recorded. Medication Orders medroxypro gesterone 150 mg/mL intramuscu lar syringe 2018 019 [email or web address] [id number], [address] [place], [address], 9 09:52:47 medroxypro gesterone 150 mg/mL intramuscu lar suspension 2018 019 [email or web address] [id number], [address] [place], [address], 9 09:36:35 medroxypro gesterone 150 mg/mL intramuscu lar syringe 2018 019 [email or web address] 6 Not available 9 09:57:49 Depo-Prove ra 150 mg/mL intramuscu lar syringe 2018 019 INTERFACE [id number], [address] [place], [address], 9 09:13:22 Depo-Prove ra 150 mg/mL intramuscu lar suspension 2017 018 [email or web address] [id number], [address] [place], [address], 9 08:41:42 Patient TargetsNo targets recorded. Patient InstructionsNo instructions recorded. Reason for Referral None Reported. Results Created Date Observation Date Name Description Value Unit Range Abnormal Flag Note LastModifiedBy Organization Detail LastModifiedTime 11/15/1911/14/2018 pregn sommer test, urine Result negati ve Not Available In-Office Order Internal Use Only DO Not Attach Compendium DO Not Attach Compendium, Do Not Delete/merge, [id number] 11/14/2018 08:48:13 09/12/19 18 09/12/2017 beta- HCG, quant itati ve, serum or plasm a beta-HCG, quantitative <5 mIU/m L <5 Not Available [facility] [address] [place], [address] 09/12/2017 10:21:14 06/25/19 19 06/24/2018 urina lysis , dipst ick Interpretati on negati ve Not Available In-Office Order Internal Use Only DO Not Attach Compendium DO Not Attach Compendium, Do Not Delete/merge, [id number] 06/24/2018 08:47:52 08/13/19 19 08/13/2018 beta- HCG, quant itati ve, serum or plasm a beta-HCG, quantitative <5 mIU/m L <5 Not Available [facility] [address] [facility] [place], [address] 08/13/2018 09:05:07 Result Notes None recorded. Problems Name Problem SNOMED Code Status Onset Date Resolution Date Notes Provider Name and Address Organization Details Recorded Time Abscess of Bartholin' s gland 07147523 Active 2017 s/p I&D of Bartholins x 2 (2011, 2016) FRANC SANDHU, DO [address] [facility], [address] Floor, [place], [address] [place] [address] 8 10:31:57 Diabetes mellitus 52340277 Active 2017 Type 2 Andreina Hale [facility], [facility] 8 08:22:08 Depressive disorder 36025679 Active 2017 Andreina Hale null, [facility] 8 08:22:27 Acid reflux 776288803 Active 2017 Andreina Hale null, [facility] 8 08:22:51 Problem Notes None recorded. Procedures Surgical History Date Name Laterality Status Provider Name and Address Organization Details Recorded Time 04/05/20 18 Gastric Bypass completed Kristi Alas [facility] 06/24/2018 08:44:34 05/28/19 18 D6A-RLI completed Sierrablair Rand [facility] 05/28/2017 09:06:24 05/28/19 18 Date of Last Pap Smear completed Kristi Alas [facility] 06/23/2018 11:41:04 04/08/19 15 Abdominoplasty completed Sierra Rand [facility] 05/28/2017 09:04:06 04/08/19 14 Appendectomy completed Sierra Rand [facility] 05/28/2017 09:03:53 04/08/19 11 Other completed Sierra Rand [facility] 05/28/2017 09:03:39 Imaging Results None recorded. Procedure Notes None recorded. Medical Equipment None Reported. Allergies Allergen ID Allergen Name Allergen Category Reaction Reaction Severity Criticality Documentation Date Start Date Code Code System Note Provider Name and Address Organization Details Recorded Time 7197867 acetamino phen / oxycodone medicatio n hives Not available Not available 05/28/2017 38887 3 RxNorm Sierra Rand [facility], [place] - [facility] 8 09:00:49 Medications Name Sig Start Date Stop Date Status Note LastModified by Organization Details LastModified Time BD Luer-Igor Syringe 3 mL 23 x 1 01/29 completed Not Available Not Available Not Available cyclobenz aprine 10 mg tablet active Not Available Not Available No t Available methocarb genny 500 mg tablet 09/13 completed Not Available Not Available Not Available promethaz ine-DM 6.25 mg-15 mg/5 mL oral syrup active Not Available Not Available Not Available prednison e 10 mg tablet 01/29 completed Not Available Not Available Not Available Carafate 100 mg/mL oral suspensio n 01/29 completed Not Available Not Available Not Available loperamid e 2 mg capsule active Not Available Not Available Not Available cetirizin e 10 mg tablet active Not Available Not Available Not Available fluconazo le 150 mg tablet Take 1 tablet by oral route for 1 day. 09/13 completed Not Available Not Available Not Available sulfameth oxazole 400 mg-trimet hoprim 80 mg tablet 01/29 completed Not Available Not Available Not Available hydrocodo ne 5 mg-acetam inophen 325 mg tablet 01/29 completed Not Available Not Available Not Available promethaz ine 25 mg rectal supposito ry 01/29 completed Not Available Not Available Not Available fluconazo le 200 mg tablet 01/29 completed Not Available Not Available Not Available ondansetr on HCl 4 mg tablet active Not Available Not Available No t Available clonazepa m 0.5 mg tablet active Not Available Not Available Not Available thiamine HCl (vitamin B1) 100 mg tablet active Not Available Not Available No t Available metronida zole 500 mg tablet 01/29 completed Not Available Not Available Not Available ciproflox acin 500 mg tablet 01/29 completed Not Available Not Available Not Available sulfameth oxazole 800 mg-trimet hoprim 160 mg tablet 09/13 completed Not Available Not Available Not Available ofloxacin 0.3 % ear drops 09/13 completed Not Available Not Available Not Available amoxicill in 875 mg tablet 01/29 completed Not Available Not Available Not Available vitamin A 3,000 mcg (10,000 unit) capsule active Not Available Not Available Not Available dexametha sone 2 mg tablet active Not Available Not Available Not Available hydrocodo ne 7.5 mg-acetam inophen 325 mg tablet 01/29 completed Not Available Not Available Not Available pantopraz ole 40 mg tablet,de layed release active Not Available Not Available Not Available cyanocoba carolina (vit B-12) 1,000 mcg/mL injection solution 01/29 completed Not Available Not Available Not Available ferrous sulfate 325 mg (65 mg iron) tablet 06/24 completed Not Available Not Available Not Available dexametha sone 4 mg tablet 09/13 completed Not Available Not Available Not Available lidocaine 5 % topical patch 01/29 completed Not Available Not Available Not Available polymyxin B sulfate 10,000 unit-trim ethoprim 1 mg/mL eye drops 01/29 completed Not Available Not Available Not Available fluoxetin e 10 mg capsule 09/13 completed Not Available Not Available Not Available Senna Laxative 8.6 mg tablet 06/24 completed Not Available Not Available Not Available ergocalci ferol (vitamin D2) 1,250 mcg (50,000 unit) capsule active Not Available Not Available Not Available fluticaso ne propionat e 50 mcg/actua tion nasal spray,candelario pension 09/13 completed Not Available Not Available Not Available medroxypr ogesteron e 150 mg/mL intramusc ular suspensio n Inject 1 mL every 3 months by intramus cular route. 2018 active Not Available Not Available Not Avai lable doxycycli ne hyclate 100 mg tablet 01/29 completed Not Available Not Available Not Available naproxen 500 mg tablet 01/29 completed Not Available Not Available Not Available enoxapari n 40 mg/0.4 mL subcutane ous syringe active Not Available Not Available Not Available medroxypr ogesteron e 150 mg/mL intramusc ular syringe Inject 1 mL every 3 months by intramus cular route. 2018 active Not Available Not Available Not Avai lable hydrocodo ne 7.5 mg-acetam inophen 325 mg/15 mL oral solution 01/29 completed Not Available Not Available Not Available amoxicill in 500 mg-clarit hromycin 500 mg-lansop razole 30 mg combo pack 01/29 completed Not Available Not Available Not Available Fiber Therapy Laxative (psyllium husk) 0.52 gram capsule 06/24 completed Not Available Not Available Not Available iron active infusion s Not Available Not Available Not Available multivita min active Not Available Not Available Not Available hydrocodo ne 5 mg-acetam inophen 300 mg tablet 01/29 completed Not Available Not Available Not Available ProAir HFA 90 mcg/actua tion aerosol inhaler 01/29 completed Not Available Not Available Not Available Nascobal 500 mcg/spray nasal spray active Not Available Not Available Not Available Symbicort 160 mcg-4.5 mcg/actua tion HFA aerosol inhaler active Not Available Not Available Not Available B12 active Not Available Not Availa ble Not Available BD Ultra-Fin e Juanita Pen Needle 32 gauge x 5/32 06/24 completed Not Available Not Available Not Available Vitron-C 65 mg iron-125 mg tablet,de layed release 01/29 completed Not Available Not Available Not Available Victoza 3-Jim 0.6 mg/0.1 mL (18 mg/3 mL) subcutane ous pen injector 09/13 completed Not Available Not Available Not Available Pazeo 0.7 % eye drops 01/29 completed Not Available Not Available Not Available Vitals Date Recorded Body height Body mass index (BMI) Body weight Systolic blood pressure Diastolic blood pressure Provider Name and Address Organization Details Last Updated DateTime 09/13/2017 163.83 cm 37.7 kg/m2 192170.1 g 110 mm[Hg] 76 mm[Hg] Sierra Rand [facility] 8 12:57:58 Date Recorded Body height Body mass index (BMI) Body weight Systolic blood pressure Diastolic blood pressure Provider Name and Address Organization Details Last Updated DateTime 06/24/2018 163.83 cm 31.8 kg/m2 93106.37 g 122 mm[Hg] 68 mm[Hg] Kristi Alas [facility] 9 08:41:32 Date Recorded Body height Body mass index (BMI) Body weight Systolic blood pressure Diastolic blood pressure Provider Name and Address Organization Details Last Updated DateTime 02/11/2019 163.83 cm 31.4 kg/m2 44421.18 g 120 mm[Hg] 78 mm[Hg] Alma Archer [facility] 9 09:38:28 Social History Question Answer Notes LastModified by [employer] Details LastModified Time Tobacco Smoking Status Never Smoker Sierra Stinsonalbina [place], [place] - [facility] 05/27/2017 06:44:00 What Is Your Level Of Alcohol Consumption? None Information not available 05/28/2017 Does Your Partner Physically Hurt You Or Threaten To Hurt You? No Information not available 05/27/2017 Has Your Partner Forced You To Have Sex Or Perform Sex Acts When You Did Not Want To? No Information not available 05/27/2017 Does Your Partner Insult, Scream At Or Talk Down To You? No Information not available 05/27/2017 Does Your Partner Control You Or Any Part Of Your Life? No Information not available 05/27/2017 Are You Afraid Of Your Partner? No Information not available 05/27/2017 Drug Use? No Information no t available 05/27/2017 Do You Feel Safe At Home? Yes Information not available 05/27/2017 What Was The Date Of Your Most Recent Tobacco Screening? 06/24/2018 Information not available 10/29/2018 Sex: Unknown Functional Status Question Answer Note LastModified by [employer] Details LastModified Time What is your exercise level? Occasional Information not available 05/27/2017 Mental Status None recorded. Family History Relationship Description Onset Age of this Age Resolved Age Notes LastModified by Organization Details LastModified Time Father Malignant tumor of colon 76 cbinette Not available 2017 09:01:54 Father Diabetes mellitus cbinette Not available 2017 09:02:09 Father Hypertensive disorder cbinette Not available 2017 09:02:23 Mother Diabetes mellitus cbinette Not available 2017 09:02:09 Mother Hypertensive disorder cbinette Not available 2017 09:02:23 Mother Heart disease cbinette Not available 2017 09:02:32 Mother Hyperlipidem ia cbinette Not available 2017 09:02:40 Sister Diabetes mellitus cbinette Not available 2017 09:02:51 Medical History Condition Response Other N *No Diseases or Conditions N Breast Cancer N Blood clots N Benign breast disease N Colon cancer N Depression Y Lung Disease N Defects or Inherited Disease N Anesthesia Complications N Headaches/Migraines N Have you ever been on isolation N Anxiety Disorder N HSV N Arthritis N Infertility N Abnormal pap N Interstitial Cystitis N Acid Reflux (GERD) Y Cancer N Stroke N Endometriosis N Fibromyalgia N Spina Bifida N HIV N Heart Problems N Sexual Dysfunction N Autoimmune disorder N Thyroid Problems N Kidney or Bladder Problems N GI Problems N Eating Disorder N Anemia N Multiple Sclerosis N Psychiatric Illness N Ovarian Cancer N Diabetes Y Blood Transfusions N Bladder disease N History of MRSA N Abnormal Uterine Bleeding N Hyperlipidemia N BrCa positive N Diverticulitis N Abuse/Domestic Violence N Asthma N Hepatitis N Hypertension N Osteoporosis N Thrombophilias N Gynecological History Statement/Question Response Benign Breast Disease N Flow Heavy Date of Last Mammogram Date of LMP 06/06/2018 Breast Biopsy N IPV Screen Done 06/24/2018 [facility] Biopsy N Post Menopausal Bleeding STIs/STDs N PID N Cervical Cancer N History of Endometrial Biopsy? N If Post Menopausal, Age at Menopause Ovarian Cancer N Date of Last Colonoscopy Breast Cancer N Date of last DEXA Bladder Problems N Abnormal Uterine Bleeding N Last HPV Result Negative Abnormal Pap N Infertility N Breast Ultrasound N Leep N Sexual Orientation heterosexual HPV Vaccine N Duration of Flow (days) 7 Endometriosis N Age at First Child Fibroids N Uterine Cancer N Current Control Method None Sexually Active? Y Sexual Problems? N Date of Last Pap Smear 05/28/2017 Hormone Replacement Therapy Obstetrics History GPAL:G 4 P 4 0 0 4 Type Value Full Term 4 Living 4 Total 4 Past Encounters Encounter ID Performer Location Encounter Start Date Encounter Closed Date Diagnosis/Indication Diagnosis SNOMED-CT Code Diagnosis ICD10 Code Diagnosis Note [id number] FRANC SANDHU DO [facility] [address] [place] [address] 05/28/2017 08:56:05 05/29/2017 10:21:03 Gynecologic examination 20767696 Z01.419 Normal NON DESTRUCTIVE TESTER 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 CA Risk Assessment reviewed at length - normal risk. Return for annual in one year. Vaginitis 57106065 N76.0 One day vaginal itching, will check Affirm, treat any positive findings. Venereal d isease screening 750208105 Z11.3 GC/CL, Affirm sent today. Lab slip given for serum screening. Menorrhagia 730448263 N9 2.0 Periods heavier and more painful x 1 year. Will schedule pelvic USN for evaluation . Patient planning to begin depo for contracept ion, aware this will help with cycle control as well. Contraception care 42718 5005 Z30.40 Reviewed available forms of contracept ion (OCPs, patch, Nuvaring, Nexplanon, Mirena/Darnell la/Kyleena /Liletta, Paraguard, DMPA) as well as risks and benefits of each. Patient has tried OCPs in the past but forgets to take these, has had 2 IUDs but these were expelled both times. Has used Depo in the past, liked this method, wishes to restart. Risks/bene fits/side effects reviewed, aware of risk to bone density, advised to begin calcium, vit D. One year prescribed . Patient to return with next period for first injection. [id number] RICHAR POOLE APRN [address] [place] [address] 06/11/2017 10:23:03 06/12/2017 11:10:42 Uses depot contraception 801543274 Z30.42 Here for Depo F/up 12 weeks [id number] RICHAR POOLE APRN [facility] [address] [place] [address] 09/13/2017 12:50:01 09/16/2017 08:01:09 Contraception care 302164221 Z30.40 F/up 12 weeks for Depo [id number] FRANC SANDHU DO [facility] [address] [place] [address] 06/24/2018 08:32:59 06/24/2018 10:37:22 Gynecologic examination 87209590 Z01.419 Normal NON DESTRUCTIVE TESTER exam - pap deferred (pap/HPV neg 05/2017), reviewed self breast exam. CA Risk Assessment reviewed at length - normal risk. Return for annual in one year. Amenorrhea 60136550 N91. 2 Planning depo injection, LMP 06/06/18, may wait until next menses for injection or may go to lab to confirm negative BHCG then return for injection. Contraception care 97312 5005 Z30.40 Reviewed available forms of contracept ion (OCPs, patch, Nuvaring, Nexplanon, Mirena/Darnell la/Kyleena /Liletta, Paraguard, DMPA) as well as risks and benefits of each. Patient has tried OCPs in the past but forgets to take these, has had 2 IUDs but these were expelled both times. Has used Depo in the past, liked this method, wishes to restart. Risks/bene fits/side effects reviewed, aware of risk to bone density, advised to begin calcium, vit D. One year prescribed . [id number] FRANC SANDHU DO [address] [place] [address] 08/14/2018 09:32:52 08/15/2018 12:18:01 Surveillance of depot contraception done 5182305388 9104 Z30.42 [id number] HAIDER SMALL DO [address] [place] [address] 11/14/2018 08:44:33 11/20/2018 13:09:24 Surveillance of depot contraception done 0768231044 9104 Z30.42 Depo injection given. Negative Preg Test. [id number] RICHAR POOLE APRN [address] [place] [address] 02/11/2019 09:17:01 02/12/2019 08:08:49 Surveillance of depot contraception done 8585816546 9104 Z30.42 Depo 150mg given F/up 12 weeks for next injection Health Concerns Section Related Observation LastModified by Organization Detai ls LastModified Time None Recorded Concern Status LastModified by Organization Details LastModified Time None Recorded Advance Directives Directive None Recorded Payers Encounter Date Sequence Insurance Name Policy Number Policy Roth Covered Member ID Roth Member ID Guarantor Name 09/13/2017 1 [place] SAVAN[place]H Paz [id number] Amber Paz 06/24/2018 1 [place] Paz [id number] Amber Paz 08/14/2018 1 [place] Paz [id number] Amber Paz 11/14/2018 1 [place] Paz [id number] Amber Paz 02/11/2019 1 [place] Jesse Paz [id number] Amber Paz Notes Date Note Type Note Provider Name and Address Organization Details Recorded Time 06/24/2018 text/html [facility] Annual GYNReported bypatient.History:n o gynecologic complaints; no change in interval history Menstrual cycle:Normal menses Urinary symptoms:No hematuria; No incontinence Vulva:No genital lesion Vagina:Normal vaginal discharge Breast:No breast pain; No breast lump; No nipple discharge Current Contraception:Condo ms; Requests testing for sexually transmitted infections Sexual activity:No sexual complaints; No pain during intercourse; Normal libido Menopausal symptoms:No menopausal symptoms; Normal vaginal lubrication Psychological symptoms:No depression; No anxiety; No PMDD Preventive measures:Encourage self breast examination; Encourage regular exercise; Followed with Q3 year pap smear and high risk HPV typingNotes:New patient here for annual exam. No NON DESTRUCTIVE TESTER complaints. + sexually active, using condoms, interested in restarting depo (used this years ago with good results). Periods regular Q 4 weeks (two periods in Mar 2018 but these were 25 days apart) no IMB, pelvic pain, vaginal discharge. Periods continue to be heavy, unchanged from previous, s/p normal pelvic USN 06/2017. Has 4 children, ages 21, 18, 13 and 11. 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 FRANC SANDHU, [address] [facility], [address] [place] [address], [phone], [place] - [facility] 06/24/2018 09:13:24 02/11/2019 text/html Patient present for depo provera injection, administered and tolerated well. TR CARTON LINER RICHAR POOLE APRN [address] [facility], [address] [place] [address], [phone], [place] - [facility] 02/11/2019 10:54:51 OBGyn Episode No OBEpisode recorded.
--- OUTSIDE RECORDS SUMMARY | 2024-05-23 07:21 | XMS_ITS | Clinical Summary ---
Author Organization [facility] Address [address] [place] [address] Care Team Providers Care Janitor Supervisor Name Role Phone Brock Downing Primary Care Provider [phone] Allergies Active Allergy Reactions Criticality Noted Date Comments Oxycodone-Acetaminophen Benign arrhythmia High 05/03 Medications Medication Sig Dispensed Refills Start Date End Date Status Multiple Vitamins-Minerals (MULTIVITAMIN WITH MINERALS) tablet Take 1 tablet by mouth daily. Active ferrous gluconate (FERGON) 324 MG tablet Take 324 mg by mouth every morning with breakfast. Take 2 hours before or 4 hours after acid reducers. Active trimethoprim-polymyxin b (POLYTRIM) ophthalmic solutionIndications:Ac circle conjunctivitis of right eye, unspecified acute conjunctivitis type Administer 1 drop to the right eye every 4 (four) hours. 1 drop in eye every 4 hours for 7-10 days 10 mL 10/07/2017 Active trimethoprim-polymyxin b (POLYTRIM) ophthalmic solutionIndications:Ac circle conjunctivitis of right eye, unspecified acute conjunctivitis type Administer 1 drop to the right eye every 4 (four) hours. 1 drop in eye every 4 hours for 7-10 days 10 mL 10/22/2017 Active PANTOprazole (PROTONIX) 40 MG EC tablet Take 40 mg by mouth. 04/17/2018 Active thiamine (thiamine) 100 MG tablet Take 100 mg by mouth. 04/23/2018 Active ondansetron (ZOFRAN) 4 MG tablet Take 4 mg by mouth every 4 (four) hours as needed. 05/05/2018 Active cetirizine (ZyrTEC) 10 MG tablet Take 10 mg by mouth. Active fluticasone (FloNASE) 50 mcg/spray nasal spray fluticasone 50 mcg/actuation nasal spray,suspension Active lidocaine (LIDODERM) 5 % patch Place on the skin. 03/13/2018 Active Ergocalciferol (VITAMIN D2 PO) Take by mouth. Activ e Cyanocobalamin 500 MCG/0.1ML Solution into each nostril. Active Multiple Vitamins-Minerals (MULTIVITAMIN ADULT) Chew Tab Chew. Active Social History Tobacco Use Types Packs/Day Years Used Date Smoking Tobacco: Never Smokeless Tobacco: Never Tobacco Cessation:Counseling Given: Yes Alcohol Use Standard Drinks/Week Comments No 0 (1 standard drink = 0.6 oz pur e alcohol) AUDIT-C Answer Date Recorded Frequency of Alcohol Consumption Never 10/07/2017 Average Number of Drinks Not on file 018 Frequency of Binge Drinking Not on file 05/2017 Sex and Gender Information Value Date Recorded Sex Assigned at Not on file Gender Identity Not on file Sexual Orientation Not on file Last Filed Vital Signs Vital Sign Reading Time Taken Comments Blood Pressure 117/81 05/23/2018 6:47 PM EST Pulse 141 05/23/2018 6:47 PM EST Temperature 36.8 ??C (98.3 ??F) 05/23/2018 6:47 PM ES T Respiratory Rate 18 05/03/2017 3:25 PM EST Oxygen Saturation 97% 05/23/2018 6:47 PM EST Inhaled Oxygen Concentration - - Weight 98.9 kg (218 lb) 10/22/2017 11:23 AM EDT Height 162.6 cm (5' 4 ) 10/22/2017 11:23 AM EDT Body Mass Index 37.42 10/22/2017 11:23 AM EDT Plan of Treatment Health Maintenance Due Date Last Done Comments Hepatitis C Virus Screening 1980 HIV Screening 1993 DTaP/Tdap/Td Vaccines (1 - Tdap) 11/02/1999 Hepatitis B Vaccines (1 of 3 - 19+ 3-dose series) 11/02/1999 Pap Smear (Ages 21-65) 2001 Mammogram 2020 Influenza Vaccine 11/07/2023 COVID-19 Vaccine ( - 2023-2 5 season) 2023 HPV Vaccines Aged Out No longer eligi ble based on patient's age to complete this topic Pneumococcal Vaccine: Pediat lidia (0-5 Years) and At-Risk Patients (6 to 49 Years) Aged Out No longer eligible b ased on patient's age to complete this topic Care Teams Janitor Supervisor Relationship Specialty Start Date End Date Brock Downing DO [address] [facility] [address] [place] [address] PCP - General Internal Medicine 10/30/16
--- OUTSIDE RECORDS SUMMARY | 2024-05-23 07:21 | XMS_ITS | Clinical Summary ---
Author Organization [email or web address] Address [address] [facility] [address] [place] [address] Care Team Providers Care Bindery Machine Feeder Offbearer Name Role Phone Unavailable Primary Care Provider Unavailabl e Immunizations Name Administration Dates Next Due Pfizer Covid-19 Vaccine 12+ Bivalent 03/27/2022 Social History Tobacco Use Types Packs/Day Years Used Date Smoking Tobacco: Never Assessed Comments Unknown Sex and Gender Information Value Date Recorded Sex Assigned at Female 03/27/2022 1:14 PM EST Legal Sex Female 1:12 PM EST Gender Identity Female 03/27/2022 1:14 PM EST Sexual Orientation Choose not to disclose 2021 1:14 PM EST Plan of Treatment Health Maintenance Due Date Last Done Comments Depression Screening 1980 HIV Screening 1980 Lipid Panel 1980 SDOH Screening 1980 Alcohol/Substance Use Screening 1992 Tobacco Screening 1992 Family Planning (PISQ) 11/02/1995 DTaP/Tdap/Td Vaccines (6 - Tdap) 06/17/1996 06/16/1996, 11/06/1986, 07/08/1983, Additional history exists Hepatitis C Screening 1998 Pap Smear 2001 Cervical Cancer Screening 2010 HPV/Cotest 2010 Mammogram 2020 COVID-19 Vaccine ( season) 2023 03/27/2022 Influenza Vaccine (#1) 2023 Zoster Vaccines (1 of 2) 2030 RSV Patients and Patients Aged 60 years or older (1 - 1-dose 75+ series) 11/02/2055 IPV Vaccines Completed 11/06/1986, 04/0 04/1983, 12/07/1981, Additional history exists Hepatitis B Vaccines Completed 06/16/1996, 12/10/1995, 11/08/1995 HIB Vaccines Aged Out No longer eligi ble based on patient's age to complete this topic HPV Vaccines Aged Out No longer eligi ble based on patient's age to complete this topic Hepatitis A Vaccines Aged Out No long er eligible based on patient's age to complete this topic Meningococcal Vaccine Aged Out No almita richard eligible based on patient's age to complete this topic Pneumococcal Vaccine: Pediatrics (0 to 5 Years) and At-Risk Patients (6 to 49) Years) Aged Out No longer eligible based on patient's age to complete this topic RSV under 20 months Aged Out No longe r eligible based on patient's age to complete this topic Rotavirus Vaccines Aged Out No longer eligible based on patient's age to complete this topic Insurance [facility]
[2024-05-23 07:51] LABS: MANUAL DIFF FLAG NO
[2024-05-23 08:10] LABS: Basophils Percent Auto 0.7 % (0-2); Eosinophils Percent Auto 0.7 % (0-4); Hematocrit 30.2 % (37.0-47.0); Hemoglobin 8.8 g/dl (12.0-16.0); Imm Gran Abs Auto 0.02 X10*3/uL (0.00-0.03); Imm Gran Pct Auto 0.3 % (0.0-0.4); Lymphocytes Absolute Auto 1.7 X10*3/uL (1.2-4.9); Lymphocytes Percent Auto 27.4 % (20-40); Mean Corpuscular HGB Conc 29.1 g/dl (31.0-35.0); Mean Corpuscular Hemoglobin 20.5 pg (27.0-33.0); Mean Corpuscular Volume 70.2 fL (80.0-98.0); Mean Platelet Volume 10.3 fL (9.4-12.3); Monocytes Absolute Auto 0.5 X10*3/uL (0.1-1.2); Monocytes Percent Auto 7.6 % (2-11); Neutrophils Absolute Auto 3.9 x10*3/uL (2.0-8.3); Neutrophils Percent Auto 63.3 % (45-73); Platelet Count 397 X10*3/uL (160-400); Red Cell Distribution Width 16.3 % (11.0-16.0); White Blood Count 6.1 X10*3/uL (4.8-10.8)
[2024-05-23 08:38] LABS: Alanine Aminotransferase 15 U/L (0-31); Albumin Level 3.9 g/dL (3.5-5.0); Alkaline Phosphatase 94 U/L (39-117); Anion Gap 11 (12-20); Aspartate Amino Transferase 23 U/L (5-31); Bilirubin Total 0.3 mg/dL (0.0-1.0); Blood Urea Nitrogen 9 mg/dL (9-16); Calcium 8.6 mg/dL (8.4-10.2); Carbon Dioxide 25 mmol/L (22-29); Chloride 110 mmol/L (96-108); Estimated Glomerular Filt Rate > 60; Glucose Fasting 94 mg/dL (60-99); Iron 10 mcg/dL (30-160); Percent Iron Saturation 3 % (15-50); Potassium 3.9 mmol/L (3.3-5.1); Sodium 142 mmol/L (135-145); Total Iron Binding Capacity 375 mcg/dL (228-428); Total Protein 7.4 g/dL (6.5-8.0); Unsaturated Iron Binding 365 ug/dL
[2024-05-23 08:54] LABS: TSH reflex Free T4 0.67 uIU/mL (0.32-4.0); Vitamin D 25-OH Total 8.3 ng/mL (>30)
[2024-05-23 09:03] LABS: Folate 13.6 ng/mL (> or = 4.0); Vitamin B12 178 pg/mL (200-900)
[2024-05-25 16:13] LABS: Homocysteine 17.3 umol/L (<10.4)
[2024-05-26 21:29] LABS: Intrinsic Factor Antibodies Negative (Negative)
[2024-05-27 12:43] LABS: Methylmalonic Acid 2066 nmol/L (55-335)
== END 2024-05-23 07:18 | disposition home or self-care (01) ==
LOC: HO.HMGCLDS 07:17
PROVIDERS: PCP Internal Medicine; Visit Provider Internal Medicine
DX: R74.01 Elevation of levels of liver transaminase levels (principal); K80.20 Calculus of gallbladder without cholecystitis without obstruction; E66.9 Obesity, unspecified; E53.8 Deficiency of other specified B group vitamins; E55.9 Vitamin D deficiency, unspecified; D50.0 Iron deficiency anemia secondary to blood loss (chronic)
CPT/HCPCS: 36415; 80053; 82306; 82607; 82746; 83090; 83540; 83921; 84443; 85025; 86340

== ENCOUNTER 2024-05-25 13:10 | Outpatient (AMB) | payer SELFPAY ==
--- OUTSIDE RECORDS SUMMARY | 2024-05-25 13:12 | XMS_ITS | Clinical Summary ---
Author Organization [facility] Address [address] [place] [address] Care Team Providers Care Stage Producer Name Role Phone Jennifer Sotomayor APRN Primary [...] 0 11/14/2018 Active ergocalciferol (VITAMIN D2) capsule 56120 units TAKE ONE CAPSULE BY MOUTH ONE [...] Hx of laparoscopic adjustabl e gastric banding ([facility], 2010) 05/24/2017 [facility] 05/24/2017 Obesity (BMI 30-39.9) [...] this topic Medical Devices Implanted Type Area Buzzle Buffer Device Identifier Shelf Expiration Date Model / Serial / Lot Kit Evicel 40sq Cm 2ml Sealant Fibrin Tissue Closure - [id number] - [id number] Implanted:Qty: 1 on 04/05/2018 by Vinayak Deutsch Jr., MD at [facility] Med N/A: Abdomen [employer] 07/08/2019 [id number] / / [id number] Advance Directives For more information, please contact: [phone] Latest Code Status on File Code Status Date Activated Date Inactivated Comments Full Code 04/03/2018 7:45 PM 04/13/2018 2:27 AM This code status was ascertained in the following way: discussion with patient . Care Teams Stage Producer Relationship Specialty Start Date End Date Jennifer Sotomayor APRN PCP - General Internal Medicine 12/23/17
--- OUTSIDE RECORDS SUMMARY | 2024-05-25 13:12 | XMS_ITS | Clinical Summary ---
Author Organization [facility] Address [address] [place] [address] Care Team Providers Care Pediatric Cardiologist Name Role Phone Brock Downing Primary Care Provider [phone] Allergies Active Allergy Reactions Criticality Noted Date [...] reducers. Active trimethoprim-polymyxin b (POLYTRIM) ophthalmic solutionIndications:Ac [place] conjunctivitis of right eye, unspecified acute conjunctivitis type Administer 1 drop to the right eye every 4 (four) hours. 1 drop in eye every 4 hours for 7-10 days 10 mL 10/07/2017 Active trimethoprim-polymyxin b (POLYTRIM) ophthalmic solutionIndications:Ac [place] conjunctivitis of right eye, unspecified acute conjunctivitis [...] age to complete this topic Care Teams Pediatric Cardiologist Relationship Specialty Start Date End Date Brock Downing DO [address] [facility] [address] [place] [address] PCP - General Internal Medicine 10/30/16
--- OUTSIDE RECORDS SUMMARY | 2024-05-25 13:12 | XMS_ITS | Data Portability ---
Author Organization [place] [facility], [facility] Address [address] [place] [address] Assessment No assessment recorded. Plan of Treatment Reminders Order Date Submit Date Provider Last Modified By Organization Details Last Modified Time Details Appointments None recorded. Lab test, urine 2018 019 [email or web address] 1 In-Office Order, Internal Use Only DO Not Attach Compendium DO Not Attach Compendium, Do Not Delete/merge, [id number] 9 09:36:35 urinalysis , dipstick 2018 019 [email or web address] 6 In-Office Order, Internal Use Only DO Not Attach Compendium DO Not Attach Compendium, Do Not Delete/merge, [id number] 9 09:13:27 beta-HCG, quantitati ve, serum or plasma 2018 019 [facility], [address] [place], [address] 9 09:05:07 Referral None recorded. Procedures None recorded. Surgeries None recorded. Imaging None recorded. Medication Orders medroxypro gesterone 150 mg/mL intramuscu lar syringe 2018 019 [email or web address] [id number], [address] [place], [address], 9 09:52:47 medroxypro gesterone 150 mg/mL intramuscu lar suspension 2018 019 [email or web address] 1 [id number], [address] [place], [address], 9 09:36:35 medroxypro gesterone 150 mg/mL intramuscu lar syringe 2018 019 [email or web address] 6 Not available 9 09:57:49 Depo-Prove ra 150 mg/mL intramuscu lar syringe 2018 019 INTERFACE [id number], [address] [place], [address], 9 09:13:22 Depo-Prove ra 150 mg/mL intramuscu lar suspension 2017 018 [email or web address] [id number], [address] [place], [address], 9 08:41:42 Patient TargetsNo targets recorded. Patient InstructionsNo instructions recorded. Reason for Referral None Reported. Results Created Date Observation Date Name Description Value Unit Range Abnormal Flag Note LastModifiedBy Organization Detail LastModifiedTime 11/15/1911/14/2018 pregn sommer test, urine Result negati ve Not Available In-Office Order Internal Use Only DO Not Attach Compendium DO Not Attach Compendium, Do Not Delete/merge, [id number] 11/14/2018 08:48:13 09/12/19 18 09/12/2017 beta- HCG, quant itati ve, serum or plasm a beta-HCG, quantitative <5 mIU/m L <5 Not Available [facility] [address] [place], [address] 09/12/2017 10:21:14 06/25/19 19 06/24/2018 urina lysis , dipst ick Interpretati on negati ve Not Available In-Office Order Internal Use Only DO Not Attach Compendium DO Not Attach Compendium, Do Not Delete/merge, [id number] 06/24/2018 08:47:52 08/13/19 19 08/13/2018 beta- HCG, quant itati ve, serum or plasm a beta-HCG, quantitative <5 mIU/m L <5 Not Available [facility] [address] [facility], [place], [address] 08/13/2018 09:05:07 Result Notes None recorded. Problems Name Problem SNOMED Code Status Onset Date Resolution Date Notes Provider Name and Address Organization Details Recorded Time Abscess of Bartholin' s gland 09311024 Active 2017 s/p I&D of Bartholins x 2 (2011, 2016) FRANC SANDHU, DO [address] [facility], [address], [place], [address] [place] [address] 8 10:31:57 Diabetes mellitus 06283494 Active 2017 Type 2 Andreina Hale [facility], [facility] 8 08:22:08 Depressive disorder 92882062 Active 2017 Andreina Hale null, [facility] 8 08:22:27 Acid reflux 409419983 Active 2017 Andreina Hale null, [facility] 8 08:22:51 Problem Notes None recorded. Procedures Surgical History Date Name Laterality Status Provider Name and Address Organization Details Recorded Time 04/05/20 18 Gastric Bypass completed Kristi Alas [facility] 06/24/2018 08:44:34 05/28/19 18 H2E-AWA completed Sierrablair Rand [facility] 05/28/2017 09:06:24 05/28/19 18 Date of Last Pap Smear completed Kristi Alas [facility] 06/23/2018 11:41:04 04/08/19 15 Abdominoplasty completed Sierra Rand [facility] 05/28/2017 09:04:06 04/08/19 14 Appendectomy completed Sierra Rand [facility] 05/28/2017 09:03:53 04/08/19 11 Other completed Sierra [address] [facility] 05/28/2017 09:03:39 Imaging Results None recorded. Procedure Notes None recorded. Medical Equipment None Reported. Allergies Allergen ID Allergen Name Allergen Category Reaction Reaction Severity Criticality Documentation Date Start Date Code Code System Note Provider Name and Address Organization Details Recorded Time 3123365 acetamino phen / oxycodone medicatio n hives Not available Not available 05/28/2017 11264 3 RxNorm Sierra Rand [facility], [place] [facility] 8 09:00:49 Medications Name Sig Start Date [...] Updated DateTime 09/13/2017 163.83 cm 37.7 kg/m2 004967.1 g 110 mm[Hg] 76 mm[Hg] Sierra Rand [facility] 8 12:57:58 Date Recorded Body height Body mass index (BMI) Body weight Systolic blood pressure Diastolic blood pressure Provider Name and Address Organization Details Last Updated DateTime 06/24/2018 163.83 cm 31.8 kg/m2 52430.37 g 122 mm[Hg] 68 mm[Hg] Kristi Alas [facility] 9 08:41:32 Date Recorded Body height Body mass index (BMI) Body weight Systolic blood pressure Diastolic blood pressure Provider Name and Address Organization Details Last Updated DateTime 02/11/2019 163.83 cm 31.4 kg/m2 18384.18 g 120 mm[Hg] 78 mm[Hg] Alma Archer [facility] 9 09:38:28 Social History Question Answer Notes LastModified by [employer] Details LastModified Time Tobacco Smoking Status Never Smoker Sierra Stinsonalbina [place], [place] - [facility] 05/27/2017 06:44:00 What Is Your Level Of [...] Status Question Answer Note LastModified by Organizat [employer] Details LastModified Time What is your exercise [...] N Breast Cancer N Blood clots N Colon cancer N Benign breast disease N Lung Disease N Depression Y Defects or Inherited Disease N Anesthesia Complications N Headaches/Migraines N Have you ever been on isolation N Anxiety Disorder N HSV N Arthritis N Infertility N Interstitial Cystitis N Abnormal pap N Acid Reflux (GERD) Y Cancer N [...] SNOMED-CT Code Diagnosis ICD10 Code Diagnosis Note [id number] FRANC SANDHU DO WHG[address] [place] [address] 05/28/2017 08:56:05 05/29/2017 10:21:03 Gynecologic examination 96606427 Z01.419 Normal FINANCE LECTURER 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 CA Risk Assessment reviewed at length - normal risk. Return for annual in one year. Vaginitis 38220426 N76.0 One day vaginal itching, will check Affirm, treat any positive findings. Venereal d isease screening 538737601 Z11.3 GC/CL, Affirm sent today. Lab slip given for serum screening. Menorrhagia 914988320 N9 2.0 Periods heavier and more painful x 1 year. Will schedule pelvic USN for evaluation . Patient planning to begin depo for contracept ion, aware this will help with cycle control as well. Contraception care 53588 5005 Z30.40 Reviewed available forms of contracept [...] return with next period for first injection. [id number] RCIHAR POOLE APRN [address] [place] [address] 06/11/2017 10:23:03 06/12/2017 11:10:42 Uses depot contraception 823038738 Z30.42 Here for Depo F/up 12 weeks [id number] RICHAR POOLE APRN WHG[address] [place] [address] 09/13/2017 12:50:01 09/16/2017 08:01:09 Contraception care 677812870 Z30.40 F/up 12 weeks for Depo [id number] FRANC SANDHU DO [address] [place] [address] 06/24/2018 08:32:59 06/24/2018 10:37:22 Gynecologic examination 47690484 Z01.419 Normal FINANCE LECTURER exam - pap deferred (pap/HPV neg 05/2017), reviewed self breast exam. CA Risk Assessment reviewed at length - normal risk. Return for annual in one year. Amenorrhea 22789668 N91. 2 Planning depo injection, LMP 06/06/18, may wait until next menses for injection or may go to lab to confirm negative BHCG then return for injection. Contraception care 76872 5005 Z30.40 Reviewed available forms of contracept [...] calcium, vit D. One year prescribed . [id number] FRANC SANDHU DO [address] [place] [address] 08/14/2018 09:32:52 08/15/2018 12:18:01 Surveillance of depot contraception done 6923966434 9104 Z30.42 [id number] HAIDER SMALL DO [address] [place] [address] 11/14/2018 08:44:33 11/20/2018 13:09:24 Surveillance of depot contraception done 4806273175 9104 Z30.42 Depo injection given. Negative Preg Test. [id number] RICHAR POOLE APRN [address] [place] [address] 02/11/2019 09:17:01 02/12/2019 08:08:49 Surveillance of depot contraception done 2186031073 9104 Z30.42 Depo 150mg given F/up 12 weeks for next injection Health Concerns Section Related Observation LastModified by Organization Detai ls LastModified Time None Recorded Concern Status LastModified by Organization Details LastModified Time None Recorded Advance Directives Directive None Recorded Payers Encounter Date Sequence Insurance Name Policy Number Policy Roth Covered Member ID Roth Member ID Guarantor Name 09/13/2017 1 [place] SAV[place]H Paz [id number] Amber Paz 06/24/2018 1 [place] Paz [id number] Amber Paz 08/14/2018 1 [place] Paz [id number] Amber Paz 11/14/2018 1 [place] Paz [id number] Amber Paz 02/11/2019 1 [place] Jesse Paz [id number] Amber Paz Notes Date Note Type Note Provider Name and Address Organization Details Recorded Time 06/24/2018 text/html [facility] Annual GYNReported bypatient.History:n o gynecologic complaints; [...] typingNotes:New patient here for annual exam. No FINANCE LECTURER complaints. + sexually active, using condoms, interested [...] still not healing well. FRANC SANDHU, [address] [facility], [address] [place] [address], [address], [place] [facility] 06/24/2018 09:13:24 02/11/2019 text/html Patient present for depo provera injection, administered and tolerated well. TR SUPERVISOR REMELT RICHAR POOLE APRN [address] [facility], [address] [place] [address], [phone], [place] [facility] 02/11/2019 10:54:51 OBGyn Episode No OBEpisode recorded.
--- OUTSIDE RECORDS SUMMARY | 2024-05-25 13:12 | XMS_ITS | Clinical Summary ---
Author Organization [employer] Address [address] [facility] [address] [place] [address] Care Team Providers Care Reference Services Head Name Role Phone Unavailable Primary Care Provider [...] patient's age to complete this topic Insurance [facility]
--- OUTSIDE RECORDS SUMMARY | 2024-05-25 13:12 | XMS_ITS | Clinical Summary ---
Author Organization [employer] [facility] Address [address] [place] [address] Care Team Providers Care Child Study Team Director Name Role Phone Drea Mckeon MD Primary Care Provider Unava ilable Surgical History Surgery Date Site/Laterality Comments LAPAROSCOPIC GASTRIC BANDING 07/2011 PROCEDURE: LAP ADJUSTABLE GASTRIC BAND BELT ABDOMINOPLASTY 08/2013 PROCEDURE: HISTORICAL TUMMY TUCK; COMMENT: [facility] Family History Medical History Relation Name Comments Diabetes Brother 1 Arthritis Father Diabetes Father Hypertension Father Coronary artery disease Mother Diabetes Mother Hypertension Mother Other: CKD Mother Stroke Mother Breast cancer Neg Hx Colon cancer Neg Hx Ovarian cancer Neg Hx Uterine cancer Neg Hx Relation Name Status Comments Brother 1 Brother 2 Alive DM Daughter Alive 2004; Angelique; mimi casperhy Father Alive DM, HTN Maternal Grandfather Maternal Grandmother Mother DM, CKD, HTN, s troke, CAD, Arthritis/ Passed Jan 2014 Paternal Grandfather Paternal Grandmother Sister Alive x 2; fibromyalg ia Son 1 Alive 1997; [place]; mimi ealthy Son 2 Alive 1999; Shiraz calvo ild CP Son 3 Alive 2006; Adis; healthy Social History Tobacco Use Types Packs/Day Years Used Date Smoking Tobacco: Never Smokeless Tobacco: Never Alcohol Use Standard Drinks/Week Comments No 0 (1 standard drink = 0.6 oz pur e alcohol) Comments Unknown Sex and Gender Information Value Date Recorded Sex Assigned at Not on file Legal Sex Female 5:42 PM EST Gender Identity Not on file Sexual Orientation Not on file Obstetrics History Plan of Treatment Health Maintenance Due Date Last Done Comments Breast Cancer Screening 1980 Hepatitis B Vaccines (1 of 3 - 19+ 3-dose series) 11/02/1999 Cervical Cancer Screening: P ap Smear 2001 DTaP,Tdap,and Td Vaccines (3 - Td or Tdap) 12/18/2022 12/18/2012, 04/08/2008 COVID-19 Vaccine (1 - 2023-2 5 season) 2023 Influenza Vaccine (#1) 2023 2, 01/01/2011 HIB Vaccines Aged Out No longer eligi ble based on patient's age to complete this topic HPV Vaccines Aged Out No longer eligi ble based on patient's age to complete this topic Hepatitis A Vaccines Aged Out No long er eligible based on patient's age to complete this topic IPV Vaccines Aged Out No longer eligi ble based on patient's age to complete this topic MMR Vaccines Aged Out No longer eligi ble based on patient's age to complete this topic Meningococcal ACWY Vaccine Aged Out N o longer eligible based on patient's age to complete this topic Meningococcal B Vacine Aged Out No lo nger eligible based on patient's age to complete this topic Pneumococcal Vaccine: Pediatrics (0 to 5 Years) and At-Risk Patients (6 to 64 Years) Aged Out No longer eligible b ased on patient's age to complete this topic RSV Immunization Patients Under 20 months Aged Out No longer eligible b ased on patient's age to complete this topic Varicella Vaccines Aged Out No longer eligible based on patient's age to complete this topic Medical Devices Implanted Type Area Complementary Health Therapists Device Identifier Shelf Expiration Date Model / Serial / Lot Kit Evicel 40sq Cm 2ml Sealant Fibrin Tissue Closure - [id number] Implanted:Qty: 1 on 04/05/2018 by Vinayak Deutsch MD N/A: Abdomen [employer] 07/08/2019 [id number] / / [id number] Care Teams Child Study Team Director Relationship Specialty Start Date End Date Drea Mckeon MD PCP - General Internal Medicine 05/04/11
[2024-05-25 13:14] VITALS: BP 100/70; PULSE 83; RESP 15; TEMP 36.7; O2SAT 99; BMI 31.6
--- NOTE | 2024-05-25 13:14 | A.OFFPC_ITS ---
Vital Signs 05/25/24 13:14 Height 5 ft 4 in Weight 184 lb BMI 31.6 BP 100/70 Blood Pressure Location Rt brachial Position Sitting Respiration 15 Pulse 83 Pulse Source Pulse Oximeter Temp 98.1 F Temp Source Oral Pulse Oximetry (%) 99 Oxygen Delivery Method Room Air Intake Visit Reasons: [facility] f/u Intake Note: Pt is here today f/u [facility] Allergies oxycodone Allergy (Mild, Verified 06/01/24 00:01) Nausea Medication List - Last Reconciled 06/01/24 by Tracey Goff MD BD Integra Syringe (syringe with needle, safety) Use IM once a week, then once a month thereafter NS cholecalciferol (vitamin D3) 1,250 mcg PO QWEEK 3 months cyanocobalamin (vitamin B-12) 1,000 mcg IM QWEEK 3 months ferrous sulfate 325 mg PO DAILY Tobacco use date assessed: 05/25/24 Dental Screening Dental Screen Date: 05/25/24 HPI [facility] f/u HPI Details 43-year-old lady with history of Jossie-en -Y surgery in 2019, here today for follow-up. She was seen at the ER 03/2024 complaining of back pain on the left side. She was found to be anemic and elevation in transaminase levels, and a CT of the abdomen and pelvis done during that time showed presence of cholelithiasis. At that time patient denies any abdominal pain but at present she has been experiencing intermittent episodes of epigastric and right upper quadrant pain sometimes radiating to right upper back. She also has been experiencing intermittent episodes of nausea after eating. She had repeat fasting labs done 05/23/2024 she had which still showed p resence of microcytic hypochromic anemia, low iron levels, low vitamin B12 levels , elevated methylmalonic acid and homocystine levels , with normal free T4 and folic acid levels. Liver enzymes have normalized [facility] Medical History (Updated 06/01/24 @ 00:16 by Tracey Goff MD) Cholelithiasis Vitamin D deficiency Vitamin B12 deficiency Iron deficiency anemia Cubital tunnel syndrome on left Impingement syndrome of left shoulder region Vaccine refused by patient Mild intermittent asthma Obesity (BMI 35.0-39.9 without comorbidity) Environmental and seasonal allergies Recurrent abdominal aortic aneurysm Depot contraception History of vitamin D deficiency Hx of non anemic vitamin B12 deficiency Hx of menorrhagia Surgical History Hx of abdominoplasty History of removal of laparoscopic gastric banding device History of esophagogastroduodenoscopy (EGD) (~03/2019) Hx of gastric bypass Hx of appendectomy Family History Father Stroke HTN (hypertension) Diabetes mellitus Mother Diabetes mellitus with nephropathy Kidney failure HTN (hypertension) Brother Diabetes mellitus Sister Fibromyalgia Arthritis Depression Sister No problems noted. Son No problems noted. Son No problems noted. Son No problems noted. Daughter No problems noted. 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 1. Little interest or pleasure in doing things: not at all 2. Feeling down, depressed, or hopeless: not at all 3. Trouble falling or staying asleep, or sleeping too much: not at all 4. Feeling tired or having little energy: not at all 5. Poor appetite or overeating: not at all 6. Feeling bad about yourself - or that you are a failure or have let yourself or your family down: not at all 7. Trouble concentrating on things, such as reading the newspaper or watching television: not at all 8. Moving or speaking so slowly that other people could have noticed. Or the opposite - being so fidgety or restless that you have been moving around a lot more than usual: not at all 9. Thoughts that you would be better off or of hurting yourself in some way: not at all Total score: 0 Depression Screening Interpretation: Negative Depression Screening Done: Yes 15917 - PHQ-9 Billing: Yes Source: Developed by Drs. Kimani L. SherryTanya herman Kurt Kroenke and colleagues, with an educational elodia from [employer]. Thrive Questionnaire Date Thrive assessed: 05/25/24 I am a: Patient What is your living situation today?: I have a steady place to live Within the past 12 months, did the food you bought not last and you didn't have the money to get more?: Never true Within the past 12 months, did you worry whether your food would run out before you got money to buy more?: Never true Do you have trouble paying for medicines?: No Do you have trouble getting transportation to medical appointments?: No Do you have trouble paying your heating and electricity bill?: No Do you have trouble taking care of your child, family member or friend?: No Do you have trouble with day-to-day activities such as bathing, preparing meals, shopping, managing finances, etc.?: No Are you currently unemployed and looking for a job?: No Are you interested in more education?: No THRIVE Score: 0 AUDIT C Alcohol Use Questionnaire (AUDIT-C) 1. How often do you have a drink containing alcohol?: Never Total Score: 0 SUE-7 AMB Questionnaire SUE-7 Date SUE - 7 assessed: 05/25/24 Feeling nervous, anxious, or on edge: 0 = Not at all Not being able to stop or control worryin = Not at all Worrying too much about different things: 0 = Not at all Trouble relaxin = Not at all Being so restless that it is hard to sit still: 0 = Not at all Becoming easily annoyed or irritable: 0 = Not at all Feeling afraid as if something awful might happen: 0 = Not at all Total SUE-7 score (0-4 normal; 5-9 mild; 10-14 moderate; 15-21 severe): 0 Source: Developed by Drs. Kimani Powell, Shoaib Cloud and colleagues, with an educational elodia from [employer]. SUE-7 Assessment Billing SUE-7 Assessment Tool: SUE-7 Assessment 83131 Review of Systems Const Reports fatigue and Denies fever(s) Eyes Reports no additional complaints ENT Reports no additional complaints Card Denies chest pain, Denies rapid heart rate, Denies irregular heart rhythm, Reports lightheadedness (Occasional) and Reports dyspnea on exertion Resp Denies cough and Reports dyspnea on exertion GI Reports as per HPI and Denies melena Reports menorrhagia and Reports dysmenorrhea Musc Reports no additional complaints Skin/Breast Reports as per HPI Neuro Reports no additional complaints Psych Reports no additional complaints Endo Reports no additional complaints and Reports fatigue Francois/Lymph Reports no additional complaints Aller/Immun Reports no additional complaints Physical exam (Primary Care) Vital Signs: Last Vital Signs Temp 98.1 F 05/25/24 13:14 Pulse 83 05/25/24 13:14 Resp 15 05/25/24 13:14 BP 100/70 05/25/24 13:14 Pulse Ox 99 05/25/24 13:14 Oxygen Delivery Method Room Air 05/25/24 13:14 BMI result Body Mass Index 31.6 Tobacco/Smoking Status: Tobacco use Status Tobacco use date assessed 05/25/24 05/25/24 13:16 Patient Tobacco Use Status Never used Tobacco 05/25/24 13:16 e-Cigarette/Vaping Use Never Used 05/25/24 13:16 PHQ-9: PHQ-9 Score PHQ-9: Total score 0 05/25/24 14:06 Depression Screening Interpretation: Negative Thrive Assessment: Date of Thrive Assessment Date Thrive assessed 05/25/24 05/25/24 13:23 Const Other: Alert oriented x3, no acute distress noted ambulatory normal gait Orientation/consciousness: patient oriented x3 HENMD Head: Yes normocephalic Eyes Other: Pale palpebral conjunctivae, anicteric General: appearance normal, both eyes and all related structures Neck Neck: Yes full ROM, Yes no lymphadenopathy and Yes supple Resp Effort & Inspection: normal respiratory effort and able to speak in complete sentences Auscultation: clear to auscultation bilaterally Cardio Rate: regular rate Rhythm: regular rhythm Heart sounds: S1 normal heart sound present and S2 normal heart sound present GI Palpation (GI): Soft to palpation, Tenderness to palpation present (GI) in the epigastrum and in the RUQ, no guarding and no masses Back/Spine/Pelvis Back: No back tenderness Skin General skin exam: no rashes or lesions noted Neuro General: patient oriented x3, gait normal, tone normal, Normal light touch and pain sensation and no focal motor deficits Extrem General: Yes full ROM, Yes no joint enlargement, Yes no clubbing, cyanosis or edema, Yes no calf tenderness and Yes normal gait Results Reviewed Results Reviewed: Name: Amber Paz Age/Sex: 43/F : 1980 Unit#: [id number] Attend Dr: Tracey Goff MD Re05/23/24 Status: DEP REF Location: [facility] Disch: SPEC : [id number] MONICA: 05/23/24 STATUS: COMP REQ : [id number] RECD: 05/23/[address]: Tracey Goff MD COMP: 05/23/24 ENTERED: 05/23/[address]: ORDERED: CMP Fast, IRON PROF, Vitamin D 25-OH, TSH Rflx Test Result Flag Reference Sodium 142 135-145 mmol/L Potassium 3.9 3.3-5.1 mmol/L CL 110 H 96-108 mmol/L CO2 25 22-29 mmol/L Gap 11 L 12-20 BUN 9 9-16 mg/dL Creat 0.68 0.5-1.4 mg/dL eGFR > 60 Chronic Kidney Disease: Estimated GFR < 60 mL/min/1.73m2 Severe Kidney Disease: Estimated GFR < 15 mL/min/1.73m2 FBS 94 60-99 mg/dL CA 8.6 8.4-10.2 mg/dL Iron 10 L 30-160 mcg/dL TIBC 375 228-428 mcg/dL Saturation 3 L 15-50 % UIBC 365 ug/dL Total Bili 0.3 0.0-1.0 mg/dL AST (GOT) 23 5-31 U/L ALT (GPT) 15 0-31 U/L Protein, Total 7.4 6.5-8.0 g/dL Alb 3.9 3.5-5.0 g/dL Alk Phos 94 39-117 U/L Vit D 25-OH Tot 8.3 L >30 ng/mL Health Based Reference Values* < 20 ng/mL Deficient 20-30 ng/mL Insufficient > 30 ng/mL Sufficient *Melissa RAI. N Engl J Med. 2007;357:266-280 Care must be taken in interpreting Vitamin D results from different laboratories and methodologies. Published data demonstrated that results from patients undergoing hemodialysis may show a negative bias when tested with various automated 25-OH vitamin D assays when compared to LC-MS/MS. When testing samples from patients whose predominant form of Vitamin D is Vitamin D2, such as patients receiving Vitamin D2 supplementation, results that are subtherapeutic should be confirmed with another method such as LC-MS/MS. TSH 0.67 0.32-4.0 uIU/mL Name: Amber Paz Age/Sex: 43/F : 1980 Unit#: [id number] Attend Dr: Tracey Goff MD Re05/23/24 Status: DEP REF Location: [facility] Disch: SPEC : [id number] MONICA: 05/23/24 STATUS: COMP REQ : [id number] RECD: 05/23/[address] [facility] [address]: Tracey Goff MD COMP: 05/23/24 ENTERED: 05/23/[address] [facility] [address]: ORDERED: CBC Auto Diff Test Result Flag Reference WBC 6.1 4.8-10.8 X10*3/ uL RBC 4.30 4.20-5.50 X10*6/uL HGB 8.8 L 12.0-16.0 g/dl HCT 30.2 L 37.0-47.0 % MCV 70.2 L 80.0-98.0 fL MCH 20.5 L 27.0-33.0 pg MCHC 29.1 L 31.0-35.0 g/dl RDW 16.3 H 11.0-16.0 % PLT 397 160-400 X10*3/uL MPV 10.3 9.4-12.3 fL Neut Pct Auto 63.3 45-73 % ImGran Pct Auto 0.3 0.0-0.4 % Lymp Pct Auto 27.4 20-40 % Baker Pct Auto 7.6 2-11 % Eos Pct Auto 0.7 0-4 % Baso Pct Auto 0.7 0-2 % NRBC Pct Auto 0.0 0.0-0.2 /100WBC ANC Neut Abs # 3.9 2.0-8.3 x10*3/uL ImGran Abs Auto 0.02 0.00-0.03 X10*3/uL Lymph Abs Auto 1.7 1.2-4.9 X10*3/uL Baker Abs Auto 0.5 0.1-1.2 X10*3/uL Eos Abs Auto 0.0 0.0-0.4 X10*3/uL Baso Abs Auto 0.0 0.0-0.2 X10*3/uL NRBC Abs Auto 0.000 0.0-0.012 X10*3/uL Laboratory Tests 05/23/24 07:49 Vitamin B12 178 L Methylmalonic Acid 2066 H 25-OH Vitamin D Total 8.3 L Folate 13.6 Homocysteine 17.3 H Coding Level of Care Code Est Pt Level 4 (50612) Diagnoses Vitamin B12 deficiency E53.8 Vitamin D deficiency E55.9 Cholelithiasis K80.20 Iron deficiency anemia due to chronic blood loss D50.0 Iron deficiency anemia type: chronic blood loss Additional Codes PHQ-9 - 19143 - PHQ-9 Billing: Yes ([id number]) SUE-7 Assessment Billing - SUE-7 Assessment Tool: SUE-7 Assessment 30472 ([id number]) Assessment & Plan Assessment & Plan (1) Vitamin B12 deficiency: Comment: With high methylmalonic acid and homocystine level Code(s): E53.8 - Deficiency of other specified B group vitamins Category: Medical Plan: Will start vitamin B12 supplementation with injecting a 1000 mcg or 1 mL IM a week for the next 4 weeks and then monthly thereafter schedule nurse visit for teaching regarding injections (2) Vitamin D deficiency: Code(s): E55.9 - Vitamin D deficiency, unspecified Category: Medical Plan: Prescription sent for cholecalciferol 20326 units per capsule to take once a week for the next 3 months. Once finished taking prescription, to take [id number] vitamin D3 at 1000 units daily (3) Cholelithiasis: Code(s): K80.20 - Calculus of gallbladder without cholecystitis without obstruction Category: Medical Plan: Surgical consult obtained (4) Iron deficiency anemia: Code(s): D50.9 - Iron deficiency anemia, unspecified Category: Medical Qualifiers: Iron deficiency anemia type: chronic blood loss Qualified Code(s): D50.0 - Iron deficiency anemia secondary to blood loss (chronic) Plan: Likely brought about by her numerous gastric surgery. Prescription sent for ferrous sulfate 325 mg to be taken 1 tablet once a day, advised to take it with orange juice or vitamin-C tablets for better absorption. Takes stool softeners if medication makes her constipated. Orders: Referrals General Surgery Referral K80.20 - Calculus of gallbladder without cholecystitis without obstruction Medications: New cyanocobalamin (vitamin B-12) Inject 1000 mcg or 1 mL intramuscularly once a week for 4 weeks and then once a month thereafter 1,000 mcg IM QWEEK 3 months 10 mL 1RF E53.8 - Deficiency of other specified B group vitamins cholecalciferol (vitamin D3) 1,250 mcg PO QWEEK 3 months 13 caps 1RF E55.9 - Vitamin D deficiency, unspecified Refilled ferrous sulfate 325 mg PO DAILY 90 tabs 1RF D50.9 - Iron deficiency anemia, unspecified, E53.8 - Deficiency of other specified B group vitamins, E55.9 - Vitamin D deficiency, unspecified BD Integra Syringe (syringe with needle, safety) Use IM once a week, then once a month thereafter 100 ea 0RF NS E53.8 - Deficiency of other specified B group vitamins
== END 2024-05-25 14:13 | disposition home or self-care (01) ==
PROVIDERS: PCP Internal Medicine; Visit Provider Internal Medicine
DX: E53.8 Deficiency of other specified B group vitamins (principal); E55.9 Vitamin D deficiency, unspecified; K80.20 Calculus of gallbladder without cholecystitis without obstruction; D50.0 Iron deficiency anemia secondary to blood loss (chronic)

== ENCOUNTER → 2024-05-25 13:10 | Outpatient (BNVA) | payer OTHER, SELFPAY | PROVIDERS: PCP Internal Medicine; Visit Provider Internal Medicine | DX: E53.8 Deficiency of other specified B group vitamins (principal); E55.9 Vitamin D deficiency, unspecified; D50.0 Iron deficiency anemia secondary to blood loss (chronic); K80.20 Calculus of gallbladder without cholecystitis without obstruction | CPT/HCPCS: 96127; 99212 ==

== ENCOUNTER 2024-06-09 09:32 | Outpatient (AMB) | payer OTHER, SELFPAY ==
--- NOTE | 2024-06-09 09:36 | A.OFFVIS_ITS ---
Intake Visit Reasons: Calculus of GB Intake Note: Patient referred by pcp Dr. Goff for Cholelithiasis. Patient c/o: RUQ pain that spreads to back. ABD/ pelvis CT: 03-22-2024 Air Bag Builder Required: No Accompanied by: Self / Same As Patient Allergies oxycodone Allergy (Mild, Verified 06/09/24 09:42) Nausea HPI Comments Details: Patient presents with several bouts/episodes of epigastric/right upper quadrant pain radiating around to her back. It is going on for few months time. Because of progression of symptoms she underwent CT scan of the abdomen and pelvis was demonstrates cholelithiasis. Patient has never been jaundiced before. She otherwise tolerating a diet. She has regular bowel habits. Patient was status post sleeve gastrectomy as well as having a jejunostomy tube placed at that time which has since removed 8 weeks postprocedure. Chart was reviewed and patient evaluated COUNTS INCLUDE 234 BEDS AT THE [facility] Medical History (Updated 06/01/24 @ 00:16 by Tracey Goff MD) Vitamin D deficiency Vitamin B12 deficiency Iron deficiency anemia Cubital tunnel syndrome on left Impingement syndrome of left shoulder region Vaccine refused by patient Mild intermittent asthma Obesity (BMI 35.0-39.9 without comorbidity) Environmental and seasonal allergies Recurrent abdominal aortic aneurysm [place] contraception History of vitamin D deficiency Hx of non anemic vitamin B12 deficiency Hx of menorrhagia Surgical History Hx of abdominoplasty History of removal of laparoscopic gastric banding device History of esophagogastroduodenoscopy (EGD) (~03/2019) Hx of gastric bypass Hx of appendectomy Family History Father Stroke HTN (hypertension) Diabetes mellitus Mother Diabetes mellitus with nephropathy Kidney failure HTN (hypertension) Brother Diabetes mellitus Sister Fibromyalgia Arthritis Depression Sister No problems noted. Son No problems noted. Son No problems noted. Son No problems noted. Daughter No problems noted. 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 Multiple scars well healed Assessment & Plan Assessment & Plan (1) Recurrent biliary colic: Code(s): K80.50 - Calculus of bile duct without cholangitis or cholecystitis without obstruction Category: Surgical (2) Cholelithiasis: Code(s): K80.20 - Calculus of gallbladder without cholecystitis without obstruction Category: Surgical Plan Risks, benefits, alternatives laparoscopic possible open cholecystectomy reviewed with the patient and included but not limited to bleeding, infection, recurrence of symptoms, numbness, pain, scarring, bowel or bile duct injury or leak and the patient wishes to proceed. All questions answered. Arrangements will be made for this on a day which is convenient for her. Coding Level of Care Code New Pt Level 5 (47219) Diagnoses Recurrent biliary colic K80.50 Cholelithiasis K80.20
--- OUTSIDE RECORDS SUMMARY | 2024-06-09 10:41 | XMS_ITS | Clinical Summary ---
Author Organization [employer] [facility] Address [address] [place] [address] Care Team Providers Care Nutrition Partner Name Role Phone Drea Mckeon MD Primary Care Provider Unava ilable Surgical History Surgery Date Site/Laterality Comments LAPAROSCOPIC GASTRIC BANDING 07/2011 PROCEDURE: LAP ADJUSTABLE GASTRIC BAND BELT ABDOMINOPLASTY 08/2013 PROCEDURE: HISTORICAL TUMMY TUCK; COMMENT: [facility] Family History Medical History Relation Name Comments [...] this topic Medical Devices Implanted Type Area Range Aide Device Identifier Shelf Expiration Date Model / Serial / Lot Kit Evicel 40sq Cm 2ml Sealant Fibrin Tissue Closure - [id number] Implanted:Qty: 1 on 04/05/2018 by Vinayak Deutsch MD N/A: Abdomen [employer] 07/08/2019 [id number] / / [id number] Care Teams Nutrition Partner Relationship Specialty Start Date End Date Drea Mckeon MD PCP - General Internal Medicine 05/04/11
--- OUTSIDE RECORDS SUMMARY | 2024-06-09 10:42 | XMS_ITS | Clinical Summary ---
Author Organization [employer] Address [address] [place] [address] Care Team Providers Care Airframe Technical Officer Name Role Phone Unavailable Primary Care Provider [...] Tobacco Screening 1992 Family Planning (PISQ) 11/02/1995 Hepatitis C Screening 1998 Pap Smear 2001 Cervical Cancer Screening 2010 HPV/Cotest 2010 Mammogram 2020 COVID-19 Vaccine ( season) 2023 03/27/2022, 08/11/2020, 07/20/2020 Influenza Vaccine (#1) 2023 , 05/23/2020, 03/06/2015, Additional history exists DTaP/Tdap/Td Vaccines (8 - Td or Tdap) 04/23/2029 04/23/2019, 12/18/2012, 04/08/2008, Additional history exists Zoster Vaccines (1 of 2) 2030 RSV Patients and Patients Aged 60 years or older (1 - 1-dose 75+ series) 11/02/2055 IPV Vaccines Completed 11/06/1986, 0404/1983, 12/07/1981, Additional history exists Hepatitis B Vaccines Completed 10/07/2023, 06/16/1996, 12/10/1995, Additional history exists HIB Vaccines Aged Out No longer eligi [...] patient's age to complete this topic Insurance [facility]
--- OUTSIDE RECORDS SUMMARY | 2024-06-09 10:42 | XMS_ITS | Clinical Summary ---
Author Organization [facility] Address [address] [place] [address] Care Team Providers Care Bleach Boiler Puller Name Role Phone Brock Downing Primary Care Provider [phone] Allergies Active Allergy Reactions Criticality Noted Date [...] reducers. Active trimethoprim-polymyxin b (POLYTRIM) ophthalmic solutionIndications:[place] conjunctivitis of right eye, unspecified acute conjunctivitis type Administer 1 drop to the right eye every 4 (four) hours. 1 drop in eye every 4 hours for 7-10 days 10 mL 10/07/2017 Active trimethoprim-polymyxin b (POLYTRIM) ophthalmic solutionIndications:[place] conjunctivitis of right eye, unspecified acute conjunctivitis [...] age to complete this topic Care Teams Bleach Boiler Puller Relationship Specialty Start Date End Date Brock Downing DO [address] [place] [address] PCP - General Internal Medicine 10/30/16
--- OUTSIDE RECORDS SUMMARY | 2024-06-09 10:42 | XMS_ITS | Data Portability ---
Author Organization [place] - [facility], [facility] Address [address] [place] [address] Assessment No assessment recorded. Plan of Treatment Reminders Order Date Submit Date Provider Last Modified By Organization Details Last Modified Time Details Appointments None recorded. Lab test, urine 2018 019 [email or web address] 1 In-Office Order, Internal Use Only DO Not Attach Compendium DO Not Attach Compendium, Do Not Delete/merge, [id number] 9 09:36:35 urinalysis , dipstick 2018 019 [email or web address] 6 In-Office Order, Internal Use Only DO Not Attach Compendium DO Not Attach Compendium, Do Not Delete/merge, [id number] 9 09:13:27 beta-HCG, quantitati ve, serum or plasma 2018 019 [facility], [address] [place], [address] 9 09:05:07 Referral None recorded. Procedures None recorded. Surgeries None recorded. Imaging None recorded. Medication Orders medroxypro gesterone 150 mg/mL intramuscu lar syringe 2018 019 [email or web address] [facility], [address] [place], [address], 9 09:52:47 medroxypro gesterone 150 mg/mL intramuscu lar suspension 2018 019 [email or web address] 1 [facility], [address] [place], [address], 9 09:36:35 medroxypro gesterone 150 mg/mL intramuscu lar syringe 2018 019 [email or web address] 6 Not available 9 09:57:49 Depo-Prove ra 150 mg/mL intramuscu lar syringe 2018 019 INTERFACE [facility], [address] [place], [address], 9 09:13:22 Depo-Prove ra 150 mg/mL intramuscu lar suspension 2017 018 [email or web address] [facility], [address] [place], [address], 9 08:41:42 Patient TargetsNo targets recorded. Patient InstructionsNo instructions recorded. Reason for Referral None Reported. Results Created Date Observation Date Name Description Value Unit Range Abnormal Flag Note LastModifiedBy Organization Detail LastModifiedTime 11/15/1911/14/2018 pregn sommer test, urine Result negati ve Not Available In-Office Order Internal Use Only DO Not Attach Compendium DO Not Attach Compendium, Do Not Delete/merge, [id number] 11/14/2018 08:48:13 09/12/19 18 09/12/2017 beta- HCG, quant itati ve, serum or plasm a beta-HCG, quantitative <5 mIU/m L <5 Not Available [facility] [address] [place], [address] 09/12/2017 10:21:14 06/25/19 19 06/24/2018 urina lysis , dipst ick Interpretati on negati ve Not Available In-Office Order Internal Use Only DO Not Attach Compendium DO Not Attach Compendium, Do Not Delete/merge, [id number] 06/24/2018 08:47:52 08/13/19 19 08/13/2018 beta- HCG, quant itati ve, serum or plasm a beta-HCG, quantitative <5 mIU/m L <5 Not Available [facility] [address] [facility], [place], [address] 08/13/2018 09:05:07 Result Notes None recorded. Problems Name Problem SNOMED Code Status Onset Date Resolution Date Notes Provider Name and Address Organization Details Recorded Time Abscess of Bartholin' s gland 36634865 Active 2017 s/p I&D of Bartholins x 2 (2011, 2016) FRANC SANDHU, DO [address] [facility], 3rd Floor, [place], [address] [place] [address] 8 10:31:57 Diabetes mellitus 87332371 Active 2017 Type 2 Andreina Hale [facility], [facility] 8 08:22:08 Depressive disorder 76376752 Active 2017 Andreina Hale null, [facility] 8 08:22:27 Acid reflux 673422142 Active 2017 Andreina Hale null, [facility] 8 08:22:51 Problem Notes None recorded. Procedures Surgical History Date Name Laterality Status Provider Name and Address Organization Details Recorded Time 04/05/20 18 Gastric Bypass completed Kristi Alas [facility] 06/24/2018 08:44:34 05/28/19 18 [id number] completed Sierrablair Rand [facility] 05/28/2017 09:06:24 05/28/19 18 Date of Last Pap Smear completed Kristi Alas [facility] 06/23/2018 11:41:04 04/08/19 15 Abdominoplasty completed Sierra Rand [facility] 05/28/2017 09:04:06 04/08/19 14 Appendectomy completed Sierra Rand [facility] 05/28/2017 09:03:53 04/08/19 11 Other completed Sierra Rnad [facility] 05/28/2017 09:03:39 Imaging Results None recorded. Procedure Notes None recorded. Medical Equipment None Reported. Allergies Allergen ID Allergen Name Allergen Category Reaction Reaction Severity Criticality Documentation Date Start Date Code Code System Note Provider Name and Address Organization Details Recorded Time 1408597 acetamino phen / oxycodone medicatio n hives Not available Not available 05/28/2017 79885 3 RxNorm Sierra Rand [facility], [place] - [facility] 8 09:00:49 Medications Name Sig Start [...] Updated DateTime 09/13/2017 163.83 cm 37.7 kg/m2 911396.1 g 110 mm[Hg] 76 mm[Hg] Sierra Rand [facility] 8 12:57:58 Date Recorded Body height Body mass index (BMI) Body weight Systolic blood pressure Diastolic blood pressure Provider Name and Address Organization Details Last Updated DateTime 06/24/2018 163.83 cm 31.8 kg/m2 06547.37 g 122 mm[Hg] 68 mm[Hg] Kristi Alas [facility] 9 08:41:32 Date Recorded Body height Body mass index (BMI) Body weight Systolic blood pressure Diastolic blood pressure Provider Name and Address Organization Details Last Updated DateTime 02/11/2019 163.83 cm 31.4 kg/m2 22671.18 g 120 mm[Hg] 78 mm[Hg] Alma Archer [facility] 9 09:38:28 Social History Question Answer Notes LastModified by [employer] Details LastModified Time Tobacco Smoking Status Never Smoker Sierra Stinsonalbina [place], [place] - [facility] 05/27/2017 06:44:00 What Is Your Level [...] Status Question Answer Note LastModified by Organizat [employer] Details LastModified Time What is your exercise [...] Other N *No Diseases or Conditions N Blood clots N Breast Cancer N Benign breast disease N Colon cancer N Lung Disease N Depression Y Defects or Inherited Disease N Anesthesia Complications N Headaches/Migraines N Have you ever been on isolation N Anxiety Disorder N Arthritis N HSV N Infertility N Interstitial Cystitis N Abnormal pap N Acid Reflux (GERD) Y Cancer N Stroke N Endometriosis N Fibromyalgia N Spina Bifida N HIV N Heart Problems N Sexual Dysfunction N Autoimmune disorder N Thyroid Problems N Kidney or Bladder Problems N GI Problems N Eating Disorder N Anemia N Multiple Sclerosis N Psychiatric Illness N Diabetes Y Ovarian Cancer N Blood Transfusions N Bladder disease N History of MRSA N Abnormal Uterine Bleeding N Hyperlipidemia N BrCa positive N Abuse/Domestic Violence N Diverticulitis N Asthma N Hepatitis N Hypertension N [...] SNOMED-CT Code Diagnosis ICD10 Code Diagnosis Note [id number] FRANC SANDHU DO WHG[address] [place] [address] 05/28/2017 08:56:05 05/29/2017 10:21:03 Gynecologic examination 71707947 Z01.419 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 CA Risk Assessment reviewed at length - normal risk. Return for annual in one year. Vaginitis 47335680 N76.0 One day vaginal itching, will check Affirm, treat any positive findings. Venereal d isease screening 049106238 Z11.3 GC/CL, Affirm sent today. Lab slip given for serum screening. Menorrhagia 731691854 N9 2.0 Periods heavier and more painful x 1 year. Will schedule pelvic USN for evaluation . Patient planning to begin depo for contracept ion, aware this will help with cycle control as well. Contraception care 58299 5005 Z30.40 Reviewed available forms of contracept [...] return with next period for first injection. [id number] RICHAR POOLE APRN [address] [facility] [address] 06/11/2017 10:23:03 06/12/2017 11:10:42 Uses depot contraception 989224269 Z30.42 Here for Depo F/up 12 weeks [id number] RICHAR POOLE APRN WH[address] [facility] [address] 09/13/2017 12:50:01 09/16/2017 08:01:09 Contraception care 190669424 Z30.40 F/up 12 weeks for Depo [id number] FRANC SANDHU DO WH[address] [facility] [address] 06/24/2018 08:32:59 06/24/2018 10:37:22 Gynecologic examination 00821136 Z01.419 Normal PAD MACHINE FEEDER exam - pap deferred (pap/HPV neg 05/2017), reviewed self breast exam. CA Risk Assessment reviewed at length - normal risk. Return for annual in one year. Amenorrhea 46769674 N91. 2 Planning depo injection, LMP 06/06/18, may wait until next menses for injection or may go to lab to confirm negative BHCG then return for injection. Contraception care 49218 5005 Z30.40 Reviewed available forms of contracept [...] calcium, vit D. One year prescribed . [id number] FRANC SANDHU DO [address] [place] [address] 08/14/2018 09:32:52 08/15/2018 12:18:01 Surveillance of depot contraception done 6738740760 9104 Z30.42 [id number] HAIDER SMALL DO [address] [place] [address] 11/14/2018 08:44:33 11/20/2018 13:09:24 Surveillance of depot contraception done 5950237990 9104 Z30.42 Depo injection given. Negative Preg Test. [id number] RICHAR POOLE APRN [address] [place] [address] 02/11/2019 09:17:01 02/12/2019 08:08:49 Surveillance of depot contraception done 1680368222 9104 Z30.42 Depo 150mg given F/up 12 weeks for next injection Health Concerns Section Related Observation LastModified by Organization Detai ls LastModified Time None Recorded Concern Status LastModified by Organization Details LastModified Time None Recorded Advance Directives Directive None Recorded Payers Encounter Date Sequence Insurance Name Policy Number Policy Roth Covered Member ID Roth Member ID Guarantor Name 09/13/2017 1 [place] SAVAN[place]H Paz [id number] Amber Paz 06/24/2018 1 [place] Paz [id number] Amber Paz 08/14/2018 1 [place] Paz [id number] Amber Paz 11/14/2018 1 [place] Paz [id number] Amber Paz 02/11/2019 1 [place] Jesse Paz [id number] Amber Paz Notes Date Note Type Note Provider Name and Address Organization Details Recorded Time 06/24/2018 text/html [facility] Annual GYNReported bypatient.History:n o gynecologic complaints; no [...] typingNotes:New patient here for annual exam. No PAD MACHINE FEEDER complaints. + sexually active, using condoms, interested [...] reports she is still not healing well. FARNC SANDHU, 175 [facility], [address] [place] [address], [address], [place] - [facility] 06/24/2018 09:13:24 02/11/2019 text/html Patient present for depo provera injection, administered and tolerated well. TR COMMERCIAL DRONE PILOT RICHAR POOLE APRN [address] [facility], [address] [place] [address], [address], [place] - [facility] 02/11/2019 10:54:51 OBGyn Episode No OBEpisode recorded.
--- OUTSIDE RECORDS SUMMARY | 2024-06-09 10:42 | XMS_ITS | Clinical Summary ---
Author Organization [facility] Address [address] [place] [address] Care Team Providers Care Receptionist Doctor'S Office Name Role Phone Jennifer Sotomayor APRN Primary [...] 0 11/14/2018 Active ergocalciferol (VITAMIN D2) capsule 28256 units TAKE ONE CAPSULE BY MOUTH ONE [...] Hx of laparoscopic adjustabl e gastric banding ([facility], 2010) 05/24/2017 [facility] of [facility]aro [facility] 05/24/2017 Obesity (BMI 30-39.9) [...] this topic Medical Devices Implanted Type Area Steel Handler Device Identifier Shelf Expiration Date Model / Serial / Lot Kit Evicel 40sq Cm 2ml Sealant Fibrin Tissue Closure - [id number] - [id number] Implanted:Qty: 1 on 04/05/2018 by Vinayak Deutsch Jr., [place] at [facility] Med N/A: Abdomen [employer] 07/08/2019 [id number] / / [id number] Advance Directives For more information, please contact: [phone] Latest Code Status on File Code Status Date Activated Date Inactivated Comments Full Code 04/03/2018 7:45 PM 04/13/2018 2:27 AM This code status was ascertained in the following way: discussion with patient . Care Teams Receptionist Doctor'S Office Relationship Specialty Start Date End Date Jennifer Sotomayor APRN PCP - General Internal Medicine 12/23/17
== END 2024-06-09 09:55 | disposition home or self-care (01) ==
PROVIDERS: PCP Internal Medicine; Referring Provider Internal Medicine; Visit Provider Surgery
DX: K80.50 Calculus of bile duct without cholangitis or cholecystitis without obstruction (principal); K80.20 Calculus of gallbladder without cholecystitis without obstruction
CPT/HCPCS: 99204

== ENCOUNTER → 2024-06-09 09:32 | Outpatient (BNVA) | payer OTHER, SELFPAY | PROVIDERS: PCP Internal Medicine; Referring Provider Internal Medicine; Visit Provider Surgery | DX: K80.50 Calculus of bile duct without cholangitis or cholecystitis without obstruction (principal); K80.20 Calculus of gallbladder without cholecystitis without obstruction | CPT/HCPCS: 99202 ==

== ENCOUNTER 2024-07-02 08:56 | Day surgery (SDC) | payer OTHER, SELFPAY ==
--- OUTSIDE RECORDS SUMMARY | 2024-06-12 06:45 | XMS_ITS | Clinical Summary ---
Author Organization [facility] Address [address] [facility] [address] [place] [address] Care Team Providers Care Computer Graphic Designer Name Role Phone Unavailable Primary Care Provider [...] patient's age to complete this topic Insurance [facility]
--- OUTSIDE RECORDS SUMMARY | 2024-06-12 06:45 | XMS_ITS | Data Portability ---
Author Organization [place] - [facility]'s [facility], [facility] Address [address] [place] [address] Assessment No assessment recorded. Plan of Treatment Reminders Order Date Submit Date Provider Last Modified By Organization Details Last Modified Time Details Appointments None recorded. Lab test, urine 2018 019 [email or web address] 1 In-Office Order, Internal Use Only DO Not Attach Compendium DO Not Attach Compendium, Do Not Delete/merge, [id number] 9 09:36:35 urinalysis , dipstick 2018 019 [email or web address] 6 In-Office Order, Internal Use Only DO Not Attach Compendium DO Not Attach Compendium, Do Not Delete/merge, [id number] 9 09:13:27 beta-HCG, quantitati ve, serum or plasma 2018 019 [facility], [address] [place], [address] 9 09:05:07 Referral None recorded. Procedures None recorded. Surgeries None recorded. Imaging None recorded. Medication Orders medroxypro gesterone 150 mg/mL intramuscu lar syringe 2018 019 [email or web address] [facility], [address] [place], [address], 9 09:52:47 medroxypro gesterone 150 mg/mL intramuscu lar suspension 2018 019 [email or web address] 1 [facility], [address] [place], [address], 9 09:36:35 medroxypro gesterone 150 mg/mL intramuscu lar syringe 2018 019 [email or web address] 6 Not available 9 09:57:49 Depo-Prove ra 150 mg/mL intramuscu lar syringe 2018 019 INTERFACE [facility], [address] [place], [address], 9 09:13:22 Depo-Prove ra 150 mg/mL intramuscu lar suspension 2017 018 [email or web address] [facility], [address] [place], [address], 9 08:41:42 Patient TargetsNo targets recorded. Patient InstructionsNo instructions recorded. Reason for Referral None Reported. Results Created Date Observation Date Name Description Value Unit Range Abnormal Flag Note LastModifiedBy Organization Detail LastModifiedTime 11/15/1911/14/2018 pregn sommer test, urine Result negati ve Not Available In-Office Order Internal Use Only DO Not Attach Compendium DO Not Attach Compendium, Do Not Delete/merge, [id number] 11/14/2018 08:48:13 09/12/19 18 09/12/2017 beta- HCG, quant itati ve, serum or plasm a beta-HCG, quantitative <5 mIU/m L <5 Not Available [facility] [address] [place], [address] 09/12/2017 10:21:14 06/25/19 19 06/24/2018 urina lysis , dipst ick Interpretati on negati ve Not Available In-Office Order Internal Use Only DO Not Attach Compendium DO Not Attach Compendium, Do Not Delete/merge, [id number] 06/24/2018 08:47:52 08/13/19 19 08/13/2018 beta- HCG, quant itati ve, serum or plasm a beta-HCG, quantitative <5 mIU/m L <5 Not Available [facility] [address] [facility], [place], [address] 08/13/2018 09:05:07 Result Notes None recorded. Problems Name Problem SNOMED Code Status Onset Date Resolution Date Notes Provider Name and Address Organization Details Recorded Time Abscess of Bartholin' s gland 80012831 Active 2017 s/p I&D of Bartholins x 2 (2011, 2016) FRANC SANDHU, DO 175 [facility], 3rd Floor, [place], [address] [place] [address] 8 10:31:57 Diabetes mellitus 49302663 Active 2017 Type 2 Andreina Hale [facility], [facility] 8 08:22:08 Depressive disorder 98879990 Active 2017 Andreina Hale null, [facility] 8 08:22:27 Acid reflux 502148785 Active 2017 Andreina Hale null, [facility] 8 08:22:51 Problem Notes None recorded. Procedures Surgical History Date Name Laterality Status Provider Name and Address Organization Details Recorded Time 04/05/20 18 Gastric Bypass completed Kristi Alas [facility] 06/24/2018 08:44:34 05/28/19 18 [id number] completed Sierrablair Rand [facility] 05/28/2017 09:06:24 05/28/19 18 Date of Last Pap Smear completed Kristi Alas [facility] 06/23/2018 11:41:04 04/08/19 15 Abdominoplasty completed Sierra Rand [facility] 05/28/2017 09:04:06 04/08/19 14 Appendectomy completed Sierra Rand [facility] 05/28/2017 09:03:53 04/08/19 11 Other completed Sierra Rand [facility] 05/28/2017 09:03:39 Imaging Results None recorded. Procedure Notes None recorded. Medical Equipment None Reported. Allergies Allergen ID Allergen Name Allergen Category Reaction Reaction Severity Criticality Documentation Date Start Date Code Code System Note Provider Name and Address Organization Details Recorded Time 3935348 acetamino phen / oxycodone medicatio n hives Not available Not available 05/28/2017 46495 3 RxNorm Sierra Rand [facility], [place] - [facility] 8 09:00:49 Medications Name Sig Start [...] Updated DateTime 09/13/2017 163.83 cm 37.7 kg/m2 818573.1 g 110 mm[Hg] 76 mm[Hg] Sierra Rand [facility] 8 12:57:58 Date Recorded Body height Body mass index (BMI) Body weight Systolic blood pressure Diastolic blood pressure Provider Name and Address Organization Details Last Updated DateTime 06/24/2018 163.83 cm 31.8 kg/m2 52325.37 g 122 mm[Hg] 68 mm[Hg] Kristi Alas [facility] 9 08:41:32 Date Recorded Body height Body mass index (BMI) Body weight Systolic blood pressure Diastolic blood pressure Provider Name and Address Organization Details Last Updated DateTime 02/11/2019 163.83 cm 31.4 kg/m2 23588.18 g 120 mm[Hg] 78 mm[Hg] Alma Archer [facility] 9 09:38:28 Social History Question Answer Notes LastModified by [employer] Details LastModified Time Tobacco Smoking Status Never Smoker Sierra Stinsonalbina [place], [place] - [facility] 05/27/2017 06:44:00 What Is Your Level [...] Status Question Answer Note LastModified by Organizat [employer] Details LastModified Time What is your exercise [...] SNOMED-CT Code Diagnosis ICD10 Code Diagnosis Note [id number] FRANC SANDHU DO WHG[address] [place] [address] 05/28/2017 08:56:05 05/29/2017 10:21:03 Gynecologic examination 15557353 Z01.419 Normal PRACTICAL NURSING TEACHER 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 CA Risk Assessment reviewed at length - normal risk. Return for annual in one year. Vaginitis 64544726 N76.0 One day vaginal itching, will check Affirm, treat any positive findings. Venereal d isease screening 127829866 Z11.3 GC/CL, Affirm sent today. Lab slip given for serum screening. Menorrhagia 421680152 N9 2.0 Periods heavier and more painful x 1 year. Will schedule pelvic USN for evaluation . Patient planning to begin depo for contracept ion, aware this will help with cycle control as well. Contraception care 32378 5005 Z30.40 Reviewed available forms of contracept [...] return with next period for first injection. [id number] RICHAR POOLE APRN [address] [place] [address] 06/11/2017 10:23:03 06/12/2017 11:10:42 Uses depot contraception 065580299 Z30.42 Here for Depo F/up 12 weeks [id number] RICHAR POOLE APRN WH[address] [place] [address] 09/13/2017 12:50:01 09/16/2017 08:01:09 Contraception care 222198494 Z30.40 F/up 12 weeks for Depo [id number] FRANC SANDHU DO WHG[address] [place] [address] 06/24/2018 08:32:59 06/24/2018 10:37:22 Gynecologic examination 74853870 Z01.419 Normal PRACTICAL NURSING TEACHER exam - pap deferred (pap/HPV neg 05/2017), reviewed self breast exam. CA Risk Assessment reviewed at length - normal risk. Return for annual in one year. Amenorrhea 96935812 N91. 2 Planning depo injection, LMP 06/06/18, may wait until next menses for injection or may go to lab to confirm negative BHCG then return for injection. Contraception care 46925 5005 Z30.40 Reviewed available forms of contracept [...] calcium, vit D. One year prescribed . [id number] FRANC SANDHU DO G[address] [place] [address] 08/14/2018 09:32:52 08/15/2018 12:18:01 Surveillance of depot contraception done 4949632519 9104 Z30.42 [id number] HAIDER SMALL DO G5 [address] [place] [address] 11/14/2018 08:44:33 11/20/2018 13:09:24 Surveillance of depot contraception done 5406196438 9104 Z30.42 Depo injection given. Negative Preg Test. [id number] RICHAR POOLE APRN G[address] [place] [address] 02/11/2019 09:17:01 02/12/2019 08:08:49 Surveillance of depot contraception done 2617543575 9104 Z30.42 Depo 150mg given F/up 12 weeks for next injection Health Concerns Section Related Observation LastModified by Organization Detai ls LastModified Time None Recorded Concern Status LastModified by Organization Details LastModified Time None Recorded Advance Directives Directive None Recorded Payers Encounter Date Sequence Insurance Name Policy Number Policy Roth Covered Member ID Roth Member ID Guarantor Name 09/13/2017 1 [place]AV[place]H Paz [id number] Amber Paz 06/24/2018 1 [place] Paz [id number] Amber Paz 08/14/2018 1 [place] Paz [id number] Amber Paz 11/14/2018 1 [place]AV[place] Paz [id number] Amber Paz 02/11/2019 1 [place] Jesse Paz [id number] Amber Paz Notes Date Note Type Note Provider Name and Address Organization Details Recorded Time 06/24/2018 text/html [facility] Annual GYNReported bypatient.History:n o gynecologic complaints; no [...] typingNotes:New patient here for annual exam. No PRACTICAL NURSING TEACHER complaints. + sexually active, using condoms, interested [...] still not healing well. FRANC SANDHU, 175 [facility], [address] [place] [address], [phone], [place] - [facility] 06/24/2018 09:13:24 02/11/2019 text/html Patient present for depo provera injection, administered and tolerated well. TR PEDIATRIC DENTAL ASSISTANT RICHAR POOLE APRN 175 [facility], [address] [place] [address], [address], [place] - [facility] 02/11/2019 10:54:51 OBGyn Episode No OBEpisode recorded.
--- OUTSIDE RECORDS SUMMARY | 2024-06-12 06:45 | XMS_ITS | Clinical Summary ---
Author Organization [facility] Address [address] [place] [address] Care Team Providers Care Horse Exerciser Name Role Phone Jennifer Sotomayor APRN Primary [...] 0 11/14/2018 Active ergocalciferol (VITAMIN D2) capsule 31277 units TAKE ONE CAPSULE BY MOUTH ONE [...] Hx of laparoscopic adjustabl e gastric banding ([facility], 2010) 05/24/2017 [facility] 05/24/2017 Obesity (BMI 30-39.9) [...] this topic Medical Devices Implanted Type Area Lab Aide Device Identifier Shelf Expiration Date Model / Serial / Lot Kit Evicel 40sq Cm 2ml Sealant Fibrin Tissue Closure - [id number] - [id number] Implanted:Qty: 1 on 04/05/2018 by Vinayak Deutsch Jr., MD at [facility] and Med N/A: Abdomen [employer] 07/08/2019 [id number] / / [id number] Advance Directives For more information, please contact: [phone] Latest Code Status on File Code Status Date Activated Date Inactivated Comments Full Code 04/03/2018 7:45 PM 04/13/2018 2:27 AM This code status was ascertained in the following way: discussion with patient . Care Teams Horse Exerciser Relationship Specialty Start Date End Date Jennifer Sotomayor APRN PCP - General Internal Medicine 12/23/17
--- OUTSIDE RECORDS SUMMARY | 2024-06-12 06:45 | XMS_ITS | Clinical Summary ---
Author Organization [facility] Address [address] [place] [address] Care Team Providers Care State Epidemiologist Name Role Phone Brock Downing Primary Care Provider [phone] Allergies Active Allergy Reactions Criticality Noted Date [...] reducers. Active trimethoprim-polymyxin b (POLYTRIM) ophthalmic solutionIndications:Ac [place] conjunctivitis of right eye, unspecified acute conjunctivitis type Administer 1 drop to the right eye every 4 (four) hours. 1 drop in eye every 4 hours for 7-10 days 10 mL 10/07/2017 Active trimethoprim-polymyxin b (POLYTRIM) ophthalmic solutionIndications:Ac [place] conjunctivitis of right eye, unspecified acute conjunctivitis [...] age to complete this topic Care Teams State Epidemiologist Relationship Specialty Start Date End Date Brock Downing DO [address] [facility] [address] [place] [address] PCP - General Internal Medicine 10/30/16
--- NOTE | 2024-07-01 08:13 | P.HPSUR_ITS ---
Pre-Procedural Eval Section A - 24 Hr Update-Section A only Date of Service: 07/02/24 The patient is an INPATIENT: No Changes since office visit: No Cold of Flu in the past 2 weeks, No New Medical Problems, No Changes in Medication and No Patient answered all questions Section B - Complete if H&P > 30 days Chief Complaint: Calculus of bile duct without cholangitis Allergies: Allergies Allergy/AdvReac Type Severity Reaction Status Date / Time oxycodone Allergy Mild Nausea Verified 06/09/24 09:42 Review of Systems Sugical H&P ROS: Negative: Constitution, Cardiovascular, Respiratory, Neurological, Psychiatric, Hem-Onc, Allergic/Immunologic, Gastrointestinal, Genitourinary, Musculoskeletal, Integumentary, Endocrine and Eyes/Ear s/Nose/Throat Exam Surgical H&P Exam: Normal: HEENT, Normal: Heart, Normal: Lungs, Normal: Extremities, Normal: Abdomen, Normal: Skin and Normal: Neurological Plan I have reviewed the history and physical and performed a pertinent physical examination on my patient. No changes have occurred unless specified. Time Spent With Patient Time: Total time managing care of this patient today ____ minutes.
[2024-07-02] VITALS (11 sets, daily range): BP systolic 97–147; BP diastolic 47–74; PULSE 72–102; RESP 16–18; TEMP 36.5–36.9; O2SAT 95–129; BMI 38.6; BMI 31.2
[2024-07-02 09:29] LABS: UPreg QC Valid YES; Urine Pregnancy NEGATIVE (NEGATIVE)
[2024-07-02] MEDS: Lactated Ringers 1,000 ML 100 ML IVCONT (09:34)
--- NOTE | 2024-07-02 13:30 | HO.ANESPROP2 ---
Documented by User: Kelly Lyle NP 07/01/24 09:54 HPI - Anesthesia Eval Consult details Narrative: 43yo F for Cholecystectomy Laparoscopic Low H&H post gastric bypass 2018 - started on Fe and Vit B supplement by PCP at 05/2024 office visit [facility] Active Problems Active Problems: All Active Problems Recurrent biliary colic (Acute) Numbness and tingling in right hand (Acute) Numbness and tingling of left upper extremity (Acute) Cholelithiasis (Acute) Iron deficiency anemia (Acute) Vitamin D deficiency (Acute) Vitamin B12 deficiency (Acute) Vaccine refused by patient (Acute) Mild intermittent asthma (Acute) Obesity (BMI 35.0-39.9 without comorbidity) (Acute) Environmental and seasonal allergies (Acute) Past Medical History Medical History Vitamin D deficiency Vitamin B12 deficiency Vaccine refused by patient Mild intermittent asthma Iron deficiency anemia Impingement syndrome of left shoulder region Cubital tunnel syndrome on left Obesity (BMI 35.0-39.9 without comorbidity) Environmental and seasonal allergies Depot contraception History of vitamin D deficiency Hx of non anemic vitamin B12 deficiency Hx of menorrhagia Family History Family History Father Stroke HTN (hypertension) Diabetes mellitus Mother Diabetes mellitus with nephropathy Kidney failure HTN (hypertension) Brother Diabetes mellitus Sister Fibromyalgia Arthritis Depression Sister No problems noted. Son No problems noted. Son No problems noted. Son No problems noted. Daughter No problems noted. Surgical History Surgical History Cholelithiasis Hx of abdominoplasty History of removal of laparoscopic gastric banding device History of esophagogastroduodenoscopy (EGD) (~03/2019) Hx of gastric bypass (2019) Hx of appendectomy Social History Social History Household Members: Children Housing: House Are you a primary healthcare administrative assistant to a significant other at home: No Do you presently have visiting nurse or other home services: No Alcohol intake: never Patient Tobacco Use Status: Never used Tobacco e-Cigarette/Vaping Use: Never Used Have you been hit, kicked, punched, or otherwise hurt by someone within the past year? 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 Sexual orientation: Straight/Heterosexual Gender identity: Female Cognitive needs: No Hearing needs: No Vision needs: Yes Meds Allergies Allergy/AdvReac Type Severity Reaction Status Date / Time oxycodone Allergy Mild Nausea Verified 07/02/24 09:04 Exam Pertinent Lab Results Pertinent Lab Results: Laboratory Tests 05/23/24 07:49 WBC 6.1 Hgb 8.8 L Hct 30.2 L Plt Count 397 Sodium 142 Potassium 3.9 Chloride 110 H Carbon Dioxide 25 BUN 9 Creatinine 0.68 Assessment and Plan Assessment Anesthesia Assessment: Chart Reviewed Documented by User: Stefanie Bruner DO 07/02/24 14:16 PMFSH Past Medical History Medical History Vitamin D deficiency Vitamin B12 deficiency Vaccine refused by patient Mild intermittent asthma Iron deficiency anemia Impingement syndrome of left shoulder region Cubital tunnel syndrome on left Obesity (BMI 35.0-39.9 without comorbidity) Environmental and seasonal allergies Depot contraception History of vitamin D deficiency Hx of non anemic vitamin B12 deficiency Hx of menorrhagia Family History Family History Father Stroke HTN (hypertension) Diabetes mellitus Mother Diabetes mellitus with nephropathy Kidney failure HTN (hypertension) Brother Diabetes mellitus Sister Fibromyalgia Arthritis Depression Sister No problems noted. Son No problems noted. Son No problems noted. Son No problems noted. Daughter No problems noted. Family history of problems with anesthesia: No Surgical History Surgical History Cholelithiasis Hx of abdominoplasty History of removal of laparoscopic gastric banding device History of esophagogastroduodenoscopy (EGD) (~03/2019) Hx of gastric bypass (2019) Hx of appendectomy History of Problems with Anesthesia: No Social History Social History Household Members: Children Housing: House Are you a primary healthcare administrative assistant to a significant other at home: No Do you presently have visiting nurse or other home services: No Alcohol intake: never Patient Tobacco Use Status: Never used Tobacco e-Cigarette/Vaping Use: Never Used Have you been hit, kicked, punched, or otherwise hurt by someone within the past year? 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 Sexual orientation: Straight/Heterosexual Gender identity: Female Cognitive needs: No Hearing needs: No Vision needs: Yes Meds Allergies Allergy/AdvReac Type Severity Reaction Status Date / Time oxycodone Allergy Mild Nausea Verified 07/02/24 09:04 Exam Exam Date and Time: 07/02/24 1330 Height,Weight and Vital Signs: Vital Signs Temperature 98.0 F 07/02/24 09:44 Pulse Rate 72 07/02/24 09:44 Respiratory Rate 18 07/02/24 09:44 Blood Pressure 112/53 L 07/02/24 09:44 Pulse Oximetry 99 07/02/24 09:44 Oxygen Delivery Method Room Air 07/02/24 09:44 Temperature 98.0 F 07/02/24 09:44 Pulse Rate 72 07/02/24 09:44 Respiratory Rate 18 07/02/24 09:44 Blood Pressure 112/53 L 07/02/24 09:44 Pulse Oximetry 99 07/02/24 09:44 Oxygen Delivery Method Room Air 07/02/24 09:44 Height 5 ft 4 in Weight 82.554 kg Airway Mallampati Class: I TM Dist: >3cm Neck ROM: Full Loose/Missing/Broken Teeth: Yes (missing molars top left and bottom left jaw) Heart: S1S2 Lungs: CTAB Assessment and Plan Assessment Anesthesia Assessment: Anesthesia Plan Discussed and Chart Reviewed Final Anesthetic Review Family History of Problems with Anesthesia: No History of Problems with Anesthesia: No NPO: Yes ASA Class: II Final Preanesthetic Review: No Changes in Pt Med Stat, Meds/Allgs Chart Reviewed, Consent Obtained/Reviewed and Anes Risks/Benef Reviewed Patient Risk: Low Procedure Risk: Intermediate Anesthetic Plan Anesthetic Plan: GA and Agree w/ Assess. and Plan Disposition: Standard PACU
--- NOTE | 2024-07-02 14:34 | W.PM.OPN ---
Operative Note Operative Note Date of Service: 07/02/24 Narrative: Preoperative diagnosis: [] Symptomatic gallbladder Postop diagnosis: [] The same Procedure [] laparoscopic cholecystectomy Surgeon: [] Kal [employer] And [employer]ames Prescription Clerk: [] Miesha Type of Anesthesia: [] General Indication for surgery: [] Gallbladder with omental adhesions to it. Moderately intrahepatic gallbladder. Findings: [] Patient brought to the operating room, placed on operative table supine position, after an adequate level of general anesthesia was induced, the patient's abdomen was prepped and draped in usual sterile fashion. Using a supraumbilical curvilinear incision, Wei technique was used to insufflate abdominal cavity to 15 mm of CO2. Upper midline and right subcostal ports were placed under direct laparoscopic view, and the patient placed in reverse Trendelenburg position, and tilted to the left. Findings were as noted above. Gallbladder was grasped using laparoscopic graspers and retracted superiorly and laterally. Soft omental adhesions were swept off the gallbladder and the hilum was approached. Common bile duct, Cystic artery and cystic duct were each identified, the latter 2 were circumferentially skeletonized, traced directly into the gallbladder, and critical view obtained. Each was clipped proximally x2, distally x1, and transected. The gallbladder which was moderately intrahepatic was then cauterized from the gallbladder fossa using Bovie. Specimen placed in an Endo-Catch bag, and retrieved through the umbilical port. Abdominal cavity was copiously irrigated and secured hemostasis. All ports removed under direct laparoscopic view. Wounds were closed in the following manner; umbilical wound had its fascia reapproximated using interrupted 0 Vicryl sutures. Skin wounds were closed using subcuticular 4-0 Vicryl sutures followed by Steri-Strips and sterile dressings. Wounds were infiltrated 0.5% Marcaine at completion. Sponge, needle, and instrument counts reported correct. Patient tolerated the procedure well and emerged from anesthesia stable condition. EBL minimal
[2024-07-02] MEDS: fentaNYL citrate/PF 100 MCG/2 ML VIAL 50 MCG IVPUSH (15:15)
[2024-07-02] MEDS: Haloperidol Lactate 5 MG/ML VIAL 1 MG IVPUSH (15:25)
== END 2024-07-02 16:53 | disposition home or self-care (01) ==
PROVIDERS: Nurse Practitioner; PCP Internal Medicine; Visit Provider Surgery
PROC: 0FT44ZZ Resection of Gallbladder, Percutaneous Endoscopic Approach (ICD-10-PCS; CPT 47562; principal; 2024-07-02 11:50)
DX: K80.12 Calculus of gallbladder with acute and chronic cholecystitis without obstruction (principal); K82.8 Other specified diseases of gallbladder; Q44.1 Other congenital malformations of gallbladder; E55.9 Vitamin D deficiency, unspecified; E53.8 Deficiency of other specified B group vitamins; D50.9 Iron deficiency anemia, unspecified; J45.20 Mild intermittent asthma, uncomplicated; E66.9 Obesity, unspecified; Z79.899 Other long term (current) drug therapy; Z88.5 Allergy status to narcotic agent; Z98.84 Bariatric surgery status; Z90.3 Acquired absence of stomach [part of]
CPT/HCPCS: 47562; 81025; 88304; J0131; J0690; J1100; J1630; J1885; J2003; J2250; J2405; J2704; J2795; J3010; Q9967

== ENCOUNTER → 2024-07-02 08:56 | Outpatient (BNV) | payer OTHER, SELFPAY | PROVIDERS: PCP Internal Medicine; Visit Provider Surgery | DX: K81.2 Acute cholecystitis with chronic cholecystitis (principal) | CPT/HCPCS: 47562 ==

== ENCOUNTER 2024-07-13 10:38 | Outpatient (AMB) | payer OTHER, SELFPAY ==
--- NOTE | 2024-07-13 10:39 | A.OFFVIS_ITS ---
Intake Visit Reasons: S/P lap jd, poss open Intake Note: Patient here s/p laparoscopic cholecystectomy. Reports incision healing well. Patient c/o: steri strips in placed. Experienced severe pain for the first three days after surgery. Getting fatigue when walking. Surgery: 07-02-2024 Sales And Training Specialist Required: No Accompanied by: Self / Same As Patient Allergies oxycodone Allergy (Mild, Verified 07/13/24 10:44) Nausea HPI Comments Details: Patient was status post laparoscopic cholecystectomy. All things considered she is doing well patient was tolerating diet. Having regular bowel habits. He is increasing arterial level. Her incisional discomfort is slowly but steadily improving. [facility] Medical History Vitamin D deficiency Vitamin B12 deficiency Vaccine refused by patient Mild intermittent asthma Iron deficiency anemia Impingement syndrome of left shoulder region Cubital tunnel syndrome on left Obesity (BMI 35.0-39.9 without comorbidity) Environmental and seasonal allergies Depot contraception History of vitamin D deficiency Hx of non anemic vitamin B12 deficiency Hx of menorrhagia Surgical History (Updated 07/13/24 @ 11:07 by David Bowden MD) Cholelithiasis Hx of abdominoplasty History of removal of laparoscopic gastric banding device History of esophagogastroduodenoscopy (EGD) (~03/2019) Hx of gastric bypass (2018) Hx of appendectomy Family History Father Stroke HTN (hypertension) Diabetes mellitus Mother Diabetes mellitus with nephropathy Kidney failure HTN (hypertension) Brother Diabetes mellitus Sister Fibromyalgia Arthritis Depression Sister No problems noted. Son No problems noted. Son No problems noted. Son No problems noted. Daughter No problems noted. 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 All incisions clean dry and intact healing well Assessment & Plan Assessment & Plan (1) Status post laparoscopic cholecystectomy: Code(s): Z90.49 - Acquired absence of other specified parts of digestive tract Category: Medical Plan Patient was been given local instructions will otherwise follow-up p.r.n.. Note for work to commencing 1 week from now would be provided. All questions answered. Coding Level of Care Code Global (70451) Diagnoses Status post laparoscopic cholecystectomy Z90.49
--- OUTSIDE RECORDS SUMMARY | 2024-07-13 12:33 | XMS_ITS | Clinical Summary ---
Author Organization [employer] Address [address] [facility] [address] [place] [address] Care Team Providers Care Bobcat Operator Name Role Phone Unavailable Primary Care Provider [...] patient's age to complete this topic Insurance [facility] A[facility]
--- OUTSIDE RECORDS SUMMARY | 2024-07-13 12:33 | XMS_ITS | Clinical Summary ---
Author Organization [facility] Address [address] [place] [address] Care Team Providers Care Sewing Machine Repairer Name Role Phone Jennifer Sotomayor APRN Primary [...] 0 11/14/2018 Active ergocalciferol (VITAMIN D2) capsule 54098 units TAKE ONE CAPSULE BY MOUTH ONE [...] Hx of laparoscopic adjustabl e gastric banding ([facility], 2010) 05/24/2017 History of [facility]aro sc[facility] 05/24/2017 Obesity (BMI 30-39.9) [...] this topic Medical Devices Implanted Type Area Shredded Filler Cigar Maker Machine Device Identifier Shelf Expiration Date Model / Serial / Lot Kit Evicel 40sq Cm 2ml Sealant Fibrin Tissue Closure - [id number] - [id number] Implanted:Qty: 1 on 04/05/2018 by Vinayak Deutsch Jr., [place] at [facility] [place] [facility] [place] N/A: Abdomen [employer] 07/08/2019 [id number] / / [id number] Advance Directives For more information, please contact: [phone] Latest Code Status on File Code Status Date Activated Date Inactivated Comments Full Code 04/03/2018 7:45 PM 04/13/2018 2:27 AM This code status was ascertained in the following way: discussion with patient . Care Teams Sewing Machine Repairer Relationship Specialty Start Date End Date Jennifer Sotomayor APRN PCP - General Internal Medicine 12/23/17
--- OUTSIDE RECORDS SUMMARY | 2024-07-13 12:33 | XMS_ITS | Clinical Summary ---
Author Organization [facility] Address [address] [place] [address] Care Team Providers Care Desktop Publishing Specialist Name Role Phone Drea Mckeon MD Primary Care Provider Unava ilable Surgical History Surgery Date Site/Laterality Comments LAPAROSCOPIC GASTRIC BANDING 07/2011 PROCEDURE: LAP ADJUSTABLE GASTRIC BAND BELT ABDOMINOPLASTY 08/2013 PROCEDURE: HISTORICAL TUMMY TUCK; COMMENT: [facility] Family History Medical History Relation Name Comments [...] this topic Medical Devices Implanted Type Area Drive Away Driver Device Identifier Shelf Expiration Date Model / Serial / Lot Kit Evicel 40sq Cm 2ml Sealant Fibrin Tissue Closure - [id number] Implanted:Qty: 1 on 04/05/2018 by Vinayak Deutsch MD N/A: Abdomen [employer] 07/08/2019 [id number] / / [id number] Care Teams Desktop Publishing Specialist Relationship Specialty Start Date End Date Drea Mckeon MD PCP - General Internal Medicine 05/04/11
--- OUTSIDE RECORDS SUMMARY | 2024-07-13 12:34 | XMS_ITS | Clinical Summary ---
Author Organization [facility] Address [address] [place] [address] Care Team Providers Care Administrative Processor Name Role Phone Brock Downing Primary Care Provider [phone] Allergies Active Allergy Reactions Criticality Noted Date [...] reducers. Active trimethoprim-polymyxin b (POLYTRIM) ophthalmic solutionIndications:Ac [place] conjunctivitis of right eye, unspecified acute conjunctivitis type Administer 1 drop to the right eye every 4 (four) hours. 1 drop in eye every 4 hours for 7-10 days 10 mL 10/07/2017 Active trimethoprim-polymyxin b (POLYTRIM) ophthalmic solutionIndications:Ac [place] conjunctivitis of right eye, unspecified acute conjunctivitis [...] age to complete this topic Care Teams Administrative Processor Relationship Specialty Start Date End Date Brock Downing DO [address] [facility] [address] [place] [address] PCP - General Internal Medicine 10/30/16
--- OUTSIDE RECORDS SUMMARY | 2024-07-13 12:34 | XMS_ITS | Data Portability ---
Author Organization [place] - [facility], [facility] Address [id number] [place] [address] Assessment No assessment recorded. Plan of Treatment Reminders Order Date Submit Date Provider Last Modified By Organization Details Last Modified Time Details Appointments None recorded. Lab test, urine 2018 019 [email or web address] 1 In-Office Order, Internal Use Only DO Not Attach Compendium DO Not Attach Compendium, Do Not Delete/merge, [id number] 9 09:36:35 urinalysis , dipstick 2018 019 [email or web address] 6 In-Office Order, Internal Use Only DO Not Attach Compendium DO Not Attach Compendium, Do Not Delete/merge, [id number] 9 09:13:27 beta-HCG, quantitati ve, serum or plasma 2018 019 [facility], [address] [place], [address] 9 09:05:07 Referral None recorded. Procedures None recorded. Surgeries None recorded. Imaging None recorded. Medication Orders medroxypro gesterone 150 mg/mL intramuscu lar syringe 2018 019 [id number], [address] [place], [address], 9 09:52:47 medroxypro gesterone 150 mg/mL intramuscu lar suspension 2018 019 [email or web address] 1 [id number], [address] [place], [address], 9 09:36:35 medroxypro gesterone 150 mg/mL intramuscu lar syringe 2018 019 [email or web address] 6 Not available 9 09:57:49 Depo-Prove ra 150 mg/mL intramuscu lar syringe 2018 019 INTERFACE [id number], [address] [place], [address], 9 09:13:22 Depo-Prove ra 150 mg/mL intramuscu lar suspension 2017 018 [email or web address] [id number], [address] [place], [address], 9 08:41:42 Patient TargetsNo targets recorded. Patient InstructionsNo instructions recorded. Reason for Referral None Reported. Results Created Date Observation Date Name Description Value Unit Range Abnormal Flag Note LastModifiedBy Organization Detail LastModifiedTime 11/15/1911/14/2018 pregn sommer test, urine Result negati ve Not Available In-Office Order Internal Use Only DO Not Attach Compendium DO Not Attach Compendium, Do Not Delete/merge, [id number] 11/14/2018 08:48:13 09/12/19 18 09/12/2017 beta- HCG, quant itati ve, serum or plasm a beta-HCG, quantitative <5 mIU/m L <5 Not Available [facility] [address] [place], [address] 09/12/2017 10:21:14 06/25/19 19 06/24/2018 urina lysis , dipst ick Interpretati on negati ve Not Available In-Office Order Internal Use Only DO Not Attach Compendium DO Not Attach Compendium, Do Not Delete/merge, [id number] 06/24/2018 08:47:52 08/13/19 19 08/13/2018 beta- HCG, quant itati ve, serum or plasm a beta-HCG, quantitative <5 mIU/m L <5 Not Available [facility] [address] [facility] [place], [address] 08/13/2018 09:05:07 Result Notes None recorded. Problems Name Problem SNOMED Code Status Onset Date Resolution Date Notes Provider Name and Address Organization Details Recorded Time Abscess of Bartholin' s gland 87212945 Active 2017 s/p I&D of Bartholins x 2 (2011, 2016) FRANC SANDHU, DO [address] [facility], 3rd Floor, [place], [address] [place] [address] 8 10:31:57 Diabetes mellitus 67049890 Active 2017 Type 2 Andreina Hale [facility], [facility] 8 08:22:08 Depressive disorder 61522953 Active 2017 Andreina Hale null, [facility] 8 08:22:27 Acid reflux 956477591 Active 2017 Andreina Hale null, [facility] 8 08:22:51 Problem Notes None recorded. Procedures Surgical History Date Name Laterality Status Provider Name and Address Organization Details Recorded Time 04/05/20 18 Gastric Bypass completed Kristi Alas [facility] 06/24/2018 08:44:34 05/28/19 18 Z2G-GJC completed Sierrablair Rand [facility] 05/28/2017 09:06:24 05/28/19 18 Date of Last Pap Smear completed Kristi Alas [facility] 06/23/2018 11:41:04 04/08/19 15 Abdominoplasty completed Sierra Rand [facility] 05/28/2017 09:04:06 04/08/19 14 Appendectomy completed Sierra Rand [facility] 05/28/2017 09:03:53 04/08/19 11 Other completed Sierra Rand [facility] 05/28/2017 09:03:39 Imaging Results None recorded. Procedure Notes None recorded. Medical Equipment None Reported. Allergies Allergen ID Allergen Name Allergen Category Reaction Reaction Severity Criticality Documentation Date Start Date Code Code System Note Provider Name and Address Organization Details Recorded Time 1578278 acetamino phen / oxycodone medicatio n hives Not available Not available 05/28/2017 40469 3 RxNorm Sierra Rand [facility], [place] - [facility] 8 09:00:49 Medications Name Sig [...] Updated DateTime 09/13/2017 163.83 cm 37.7 kg/m2 822833.1 g 110 mm[Hg] 76 mm[Hg] Sierra Rand [facility] 8 12:57:58 Date Recorded Body height Body mass index (BMI) Body weight Systolic blood pressure Diastolic blood pressure Provider Name and Address Organization Details Last Updated DateTime 06/24/2018 163.83 cm 31.8 kg/m2 92192.37 g 122 mm[Hg] 68 mm[Hg] Kristi Alas [facility] 9 08:41:32 Date Recorded Body height Body mass index (BMI) Body weight Systolic blood pressure Diastolic blood pressure Provider Name and Address Organization Details Last Updated DateTime 02/11/2019 163.83 cm 31.4 kg/m2 12859.18 g 120 mm[Hg] 78 mm[Hg] Alma Archer [facility] 9 09:38:28 Social History Question Answer Notes LastModified by Tu [employer] Mi [employer] Details LastModified Time Tobacco Smoking Status Never Smoker Sierra Stinsonalbina [place], [place] - [facility] 05/27/2017 06:44:00 What Is Your [...] Status Question Answer Note LastModified by Organizat [employer] Details LastModified Time What is your exercise [...] SNOMED-CT Code Diagnosis ICD10 Code Diagnosis Note [id number] FRANC SANDHU DO WHG[address] [place] [address] 05/28/2017 08:56:05 05/29/2017 10:21:03 Gynecologic examination 54239817 Z01.419 Normal SENIOR TREASURY CONSULTANT 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 CA Risk Assessment reviewed at length - normal risk. Return for annual in one year. Vaginitis 39128322 N76.0 One day vaginal itching, will check Affirm, treat any positive findings. Venereal d isease screening 911275921 Z11.3 GC/CL, Affirm sent today. Lab slip given for serum screening. Menorrhagia 252144028 N9 2.0 Periods heavier and more painful x 1 year. Will schedule pelvic USN for evaluation . Patient planning to begin depo for contracept ion, aware this will help with cycle control as well. Contraception care 24667 5005 Z30.40 Reviewed available forms of contracept [...] return with next period for first injection. [id number] RICHAR POOLE APRN G[address] [facility] [address] 06/11/2017 10:23:03 06/12/2017 11:10:42 Uses depot contraception 445446083 Z30.42 Here for Depo F/up 12 weeks [id number] RICHAR POOLE APRN WHG[address] [facility] [address] 09/13/2017 12:50:01 09/16/2017 08:01:09 Contraception care 294395852 Z30.40 F/up 12 weeks for Depo [id number] FRANC SANDHU DO WHG[address] [facility] [address] 06/24/2018 08:32:59 06/24/2018 10:37:22 Gynecologic examination 26849772 Z01.419 Normal SENIOR TREASURY CONSULTANT exam - pap deferred (pap/HPV neg 05/2017), reviewed self breast exam. CA Risk Assessment reviewed at length - normal risk. Return for annual in one year. Amenorrhea 86731977 N91. 2 Planning depo injection, LMP 06/06/18, may wait until next menses for injection or may go to lab to confirm negative BHCG then return for injection. Contraception care 15205 5005 Z30.40 Reviewed available forms of contracept [...] calcium, vit D. One year prescribed . [id number] FRANC SANDHU DO G[address] [place] [address] 08/14/2018 09:32:52 08/15/2018 12:18:01 Surveillance of depot contraception done 5672279399 9104 Z30.42 [id number] HAIDER SMALL DO G5 [address] [place] [address] 11/14/2018 08:44:33 11/20/2018 13:09:24 Surveillance of depot contraception done 8194252019 9104 Z30.42 Depo injection given. Negative Preg Test. [id number] RICHAR POOLE APRN G[address] [place] [address] 02/11/2019 09:17:01 02/12/2019 08:08:49 Surveillance of depot contraception done 1834668538 9104 Z30.42 Depo 150mg given F/up 12 weeks for next injection Health Concerns Section Related Observation LastModified by Organization Detai ls LastModified Time None Recorded Concern Status LastModified by Organization Details LastModified Time None Recorded Advance Directives Directive None Recorded Payers Encounter Date Sequence Insurance Name Policy Number Policy Roth Covered Member ID Roth Member ID Guarantor Name 09/13/2017 1 [place] SAVAN[place]H Paz [id number] Amber Paz 06/24/2018 1 [place] P[place] [id number] mAber Paz 08/14/2018 1 [place]az [id number] Amber Paz 11/14/2018 1 [place] Paz [id number] Amber Paz 02/11/2019 1 [place] Jesse Paz [id number] Amber Paz Notes Date Note Type Note Provider Name and Address Organization Details Recorded Time 06/24/2018 text/html [facility] Annual GYNReported bypatient.History:n o gynecologic complaints; [...] typingNotes:New patient here for annual exam. No SENIOR TREASURY CONSULTANT complaints. + sexually active, using condoms, interested [...] still not healing well. FRANC SANDHU, [address] [facility], [address] [place] [address], [phone], [place] - [facility] 06/24/2018 09:13:24 02/11/2019 text/html Patient present for depo provera injection, administered and tolerated well. [employer] RICHAR POOLE APRN [address] [facility], [address] [place] [address], [phone], [place] - [facility] 02/11/2019 10:54:51 OBGyn Episode No OBEpisode recorded.
== END 2024-07-13 10:59 | disposition home or self-care (01) ==
LOC: HO.HGS 10:38
PROVIDERS: PCP Internal Medicine; Visit Provider Surgery
DX: Z90.49 Acquired absence of other specified parts of digestive tract (principal)
CPT/HCPCS: 99024

== ENCOUNTER → 2024-07-13 10:38 | Outpatient (BNVA) | payer OTHER, SELFPAY | PROVIDERS: PCP Internal Medicine; Visit Provider Surgery | DX: Z09 Encounter for follow-up examination after completed treatment for conditions other than malignant neoplasm (principal); Z90.49 Acquired absence of other specified parts of digestive tract | CPT/HCPCS: 99212 ==

== ENCOUNTER 2024-07-20 13:11 | Outpatient (AMB) | payer OTHER, SELFPAY ==
--- NOTE | 2024-07-20 13:45 | A.OFFPC_ITS ---
Vital Signs 07/20/24 13:46 Height 5 ft 4 in Weight 182 lb BMI 31.2 BP 100/62 Blood Pressure Location Rt brachial Position Sitting Respiration 16 Pulse 83 Pulse Source Pulse Oximeter Temp 97.4 F Temp Source Oral Pulse Oximetry (%) 96 Oxygen Delivery Method Room Air Intake Visit Reasons: Body pain Intake Note: Pt is here today c/o LUQ pain: patient states had gallbladder removed 2wks ago Allergies oxycodone Allergy (Mild, Verified 07/20/24 13:50) Nausea Medication List - Last Reconciled 07/21/24 by Tracey Goff MD BD Integra Syringe (syringe with needle, safety) Use IM once a week, then once a month thereafter NS cholecalciferol (vitamin D3) 1,250 mcg PO QWEEK 3 months cyanocobalamin (vitamin B-12) 1,000 mcg IM QWEEK 3 months ferrous sulfate 325 mg PO DAILY Tobacco use date assessed: 07/20/24 Dental Screening Dental Screen Date: 07/20/24 Did you have a dental visit in the last 12 months?: Yes Did you have a dental problem in the last 6 months where you did not have access to dental care?: Yes Was dental information given to patient?: Patient has dentist HPI Body pain HPI Details 43-year-old lady with history of choleli thiasis, status post laparoscopic cholecystectomy on 07/02/2024, has iron-deficiency anemia currently on ferrous sulfate supplements, vitamin B12 deficiency mild intermittent asthma, presents today complaining of severe abdominal pain mainly in lower quadrants, which is more pronounced on the left lower quadrant, which started about 10 days ago. Patient states that she has been passing gas, moving her bowels every other day , denies urinary symptoms, no fever, no chills, but has been feeling nauseous, but no episodes of vomiting reported. She has been taking Tylenol and ibuprofen which has not afforded complete resolution of pain. Patient states that pain has been progressively getting worse, sometimes making it difficult to walk. She was seen in the ER in 2022 with similar symptoms, and at that time CT of the abdomen and pelvis done which showed no renal calculi or hydronephrosis , hepatic steatosis, and cholelithiasis. Unremarkable findings pelvic and transvaginal ultrasound. [facility] Medical History (Updated 07/21/24 @ 02:26 by Tracey Goff MD) History of cholelithiasis Vitamin D deficiency Vitamin B12 deficiency Vaccine refused by patient Mild intermittent asthma Iron deficiency anemia Impingement syndrome of left shoulder region Cubital tunnel syndrome on left Obesity (BMI 35.0-39.9 without comorbidity) Environmental and seasonal allergies Depot contraception History of vitamin D deficiency Hx of non anemic vitamin B12 deficiency Hx of menorrhagia Surgical History (Updated 07/21/24 @ 02:26 by Tracey Goff MD) History of laparoscopic cholecystectomy Hx of abdominoplasty History of removal of laparoscopic gastric banding device History of esophagogastroduodenoscopy (EGD) (~03/2019) Hx of gastric bypass (2019) Hx of appendectomy Family History Father Stroke HTN (hypertension) Diabetes mellitus Mother Diabetes mellitus with nephropathy Kidney failure HTN (hypertension) Brother Diabetes mellitus Sister Fibromyalgia Arthritis Depression Sister No problems noted. Son No problems noted. Son No problems noted. Son No problems noted. Daughter No problems noted. 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 Kimani Powell, Tanya Maria, Shoaib Howe and colleagues, with an educational elodia from [employer]. Review of Systems Const All systems reviewed & are unremarkable except as noted in HPI and below Physical exam (Primary Care) Vital Signs: Last Vital Signs Temp 97.4 F 07/20/24 13:46 Pulse 83 07/20/24 13:46 Resp 16 07/20/24 13:46 BP 100/62 07/20/24 13:46 Pulse Ox 96 07/20/24 13:46 Oxygen Delivery Method Room Air 07/20/24 13:46 BMI result Body Mass Index 31.2 Tobacco/Smoking Status: Tobacco use Status Tobacco use date assessed 07/20/24 07/20/24 13:50 Patient Tobacco Use Status Never used Tobacco 07/20/24 13:50 e-Cigarette/Vaping Use Never Used 07/20/24 13:50 Thrive Assessment: Date of Thrive Assessment Date Thrive assessed 05/25/24 07/20/24 13:50 Const Orientation/consciousness: patient oriented x3 Eyes Other: Pale palpebral conjunctivae, anicteric General: appearance normal, both eyes and all related structures Neck Neck: Yes full ROM, Yes no lymphadenopathy and Yes supple Resp Effort & Inspection: normal respiratory effort and able to speak in complete sentences Auscultation: clear to auscultation bilaterally Cardio Rate: regular rate Rhythm: regular rhythm Heart sounds: S1 normal heart sound present and S2 normal heart sound present GI Palpation (GI): Soft to palpation, Tenderness to palpation present (GI) in the LLQ and in the RLQ, no guarding and no masses Percussion: Yes tympanic to percussion Auscultation: Hyperactive bowel sounds present General: Yes no CVA tenderness Back/Spine/Pelvis Back: no CVA tenderness and No back tenderness Skin General skin exam: no rashes or lesions noted Neuro General: patient oriented x3, gait normal, tone normal, Normal light touch and pain sensation and no focal motor deficits Extrem General: Yes full ROM, Yes no joint enlargement, Yes no clubbing, cyanosis or edema, Yes no calf tenderness and Yes normal gait Coding Level of Care Code Est Pt Level 4 (90623) Diagnoses Left lower quadrant abdominal pain R10.32 Assessment & Plan Assessment & Plan (1) Left lower quadrant abdominal pain: Code(s): R10.32 - Left lower quadrant pain Category: Medical Plan: Patient noted to be in bidb-tj-sksagepm pain distress, but afebrile, with stable vital signs. There has not been any improvement in her pain however with taking Tylenol or NSAIDs. Ordered a CBC with differential, comprehensive metabolic panel and a urinalysis with reflex culture and since sensitivity with results still pending. Patient states she is not , declined test ,stating she has not been sexually active. Attempted to get a stat CT of abdo men and pelvis scheduled but unable to get an appointment in a reasonable amount of time. She was advised to go to the ER if pain progressively gets worse especially if accompanied by nausea, vomiting chills or fever. Call the general surgery clinic and spoke with nurse as physician unavailable, and was able to get an appointment for patient to be seen tomorrow at 10:45 in the morning. Orders: Orders Complete Blood Count Auto Diff 07/20/24 R10.32 - Left lower quadrant pain UA CC w/rflx Micro + Cult 07/20/24 R10.32 - Left lower quadrant pain Comprehensive [place]. Panel Fast 07/20/24 R10.32 - Left lower quadrant pain Referrals General Surgery Referral R10.32 - Left lower quadrant pain
[2024-07-20 13:46] VITALS: BP 100/62; PULSE 83; RESP 16; TEMP 36.3; O2SAT 96; BMI 31.2
--- OUTSIDE RECORDS SUMMARY | 2024-07-20 15:08 | XMS_ITS | Clinical Summary ---
Author Organization [employer] Address [address] [facility] [address] [place] [address] Care Team Providers Care Pneumatic Tool Operator Name Role Phone Unavailable Primary Care [...] patient's age to complete this topic Insurance [facility]
--- OUTSIDE RECORDS SUMMARY | 2024-07-20 15:08 | XMS_ITS | Data Portability ---
Author Organization [place] - [facility], [facility] Address [id number] [place] [address] Assessment No assessment recorded. Plan of Treatment Reminders Order Date Submit Date Provider Last Modified By Organization Details Last Modified Time Details Appointments None recorded. Lab test, urine 2018 019 [email or web address] 1 In-Office Order, Internal Use Only DO Not Attach Compendium DO Not Attach Compendium, Do Not Delete/merge, [id number] 9 09:36:35 urinalysis , dipstick 2018 019 [email or web address] 6 In-Office Order, Internal Use Only DO Not Attach Compendium DO Not Attach Compendium, Do Not Delete/merge, [id number] 9 09:13:27 beta-HCG, quantitati ve, serum or plasma 2018 019 [facility], [address] [place], [address] 9 09:05:07 Referral None recorded. Procedures None recorded. Surgeries None recorded. Imaging None recorded. Medication Orders medroxypro gesterone 150 mg/mL intramuscu lar syringe 2018 019 [email or web address] [id number], [address] [place], [address], 9 09:52:47 medroxypro gesterone 150 mg/mL intramuscu lar suspension 2018 019 [email or web address] 1 [facility], [address] [place], [address], 9 09:36:35 medroxypro gesterone 150 mg/mL intramuscu lar syringe 2018 019 [email or web address] 6 Not available 9 09:57:49 Depo-Prove ra 150 mg/mL intramuscu lar syringe 2018 019 INTERFACE [facility], [address] [place], [address], 9 09:13:22 Depo-Prove ra 150 mg/mL intramuscu lar suspension 2017 018 [email or web address] [facility], [address] [place], [address], 9 08:41:42 Patient TargetsNo targets recorded. Patient InstructionsNo instructions recorded. Reason for Referral None Reported. Results Created Date Observation Date Name Description Value Unit Range Abnormal Flag Note LastModifiedBy Organization Detail LastModifiedTime 11/15/1911/14/2018 pregn sommer test, urine Result negati ve Not Available In-Office Order Internal Use Only DO Not Attach Compendium DO Not Attach Compendium, Do Not Delete/merge, [id number] 11/14/2018 08:48:13 09/12/19 18 09/12/2017 beta- HCG, quant itati ve, serum or plasm a beta-HCG, quantitative <5 mIU/m L <5 Not Available [facility] [address] [place], [address] 09/12/2017 10:21:14 06/25/19 19 06/24/2018 urina lysis , dipst ick Interpretati on negati ve Not Available In-Office Order Internal Use Only DO Not Attach Compendium DO Not Attach Compendium, Do Not Delete/merge, [id number] 06/24/2018 08:47:52 08/13/19 19 08/13/2018 beta- HCG, quant itati ve, serum or plasm a beta-HCG, quantitative <5 mIU/m L <5 Not Available [facility] [address] [facility] [place], [address] 08/13/2018 09:05:07 Result Notes None recorded. Problems Name Problem SNOMED Code Status Onset Date Resolution Date Notes Provider Name and Address Organization Details Recorded Time Abscess of Bartholin' s gland 74680949 Active 2017 s/p I&D of Bartholins x 2 (2011, 2016) FRANC SANDHU, DO [address] [facility], 3[address] Floor, [place], [address] [place] [address] 8 10:31:57 Diabetes mellitus 01548721 Active 2017 Type 2 Andreina Hale [facility], [facility] 8 08:22:08 Depressive disorder 28806752 Active 2017 Andreina Hale null, [facility] 8 08:22:27 Acid reflux 440124752 Active 2017 Andreina Hale null, [facility] 8 08:22:51 Problem Notes None recorded. Procedures Surgical History Date Name Laterality Status Provider Name and Address Organization Details Recorded Time 04/05/20 18 Gastric Bypass completed Kristi Alas [facility] 06/24/2018 08:44:34 05/28/19 18 A2W-QNI completed Sierrablair Rand [facility] 05/28/2017 09:06:24 05/28/19 18 Date of Last Pap Smear completed Kristi Alas [facility] 06/23/2018 11:41:04 04/08/19 15 Abdominoplasty completed Sierra Rand [facility] 05/28/2017 09:04:06 04/08/19 14 Appendectomy completed Sierra Rand [facility] 05/28/2017 09:03:53 04/08/19 11 Other completed Sierra Rand [facility] 05/28/2017 09:03:39 Imaging Results None recorded. Procedure Notes None recorded. Medical Equipment None Reported. Allergies Allergen ID Allergen Name Allergen Category Reaction Reaction Severity Criticality Documentation Date Start Date Code Code System Note Provider Name and Address Organization Details Recorded Time 5057755 acetamino phen / oxycodone medicatio n hives Not available Not available 05/28/2017 97224 3 RxNorm Sierra Rand [facility], [place] - [facility] 8 09:00:49 Medications Name Sig Start [...] Updated DateTime 09/13/2017 163.83 cm 37.7 kg/m2 746874.1 g 110 mm[Hg] 76 mm[Hg] Sierra Rand [facility] 8 12:57:58 Date Recorded Body height Body mass index (BMI) Body weight Systolic blood pressure Diastolic blood pressure Provider Name and Address Organization Details Last Updated DateTime 06/24/2018 163.83 cm 31.8 kg/m2 10715.37 g 122 mm[Hg] 68 mm[Hg] Kristi Alas [facility] 9 08:41:32 Date Recorded Body height Body mass index (BMI) Body weight Systolic blood pressure Diastolic blood pressure Provider Name and Address Organization Details Last Updated DateTime 02/11/2019 163.83 cm 31.4 kg/m2 36086.18 g 120 mm[Hg] 78 mm[Hg] Alma Archer [facility] 9 09:38:28 Social History Question Answer Notes LastModified by [employer] Details LastModified Time Tobacco Smoking Status Never Smoker Sierra Stinsonalbina [place], [place] - [facility] 05/27/2017 06:44:00 What Is Your Level [...] Status Question Answer Note LastModified by Organizat [employer] Details LastModified Time What is your exercise [...] SNOMED-CT Code Diagnosis ICD10 Code Diagnosis Note [id number] FRANC SANDHU DO WHG[address] [place] [address] 05/28/2017 08:56:05 05/29/2017 10:21:03 Gynecologic examination 30127846 Z01.419 Normal MOTOR CARRIER INSPECTOR 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 CA Risk Assessment reviewed at length - normal risk. Return for annual in one year. Vaginitis 55241823 N76.0 One day vaginal itching, will check Affirm, treat any positive findings. Venereal d isease screening 884171325 Z11.3 GC/CL, Affirm sent today. Lab slip given for serum screening. Menorrhagia 452981909 N9 2.0 Periods heavier and more painful x 1 year. Will schedule pelvic USN for evaluation . Patient planning to begin depo for contracept ion, aware this will help with cycle control as well. Contraception care 75437 5005 Z30.40 Reviewed available forms of contracept [...] return with next period for first injection. [id number] RICHAR POOLE APRN [address] [place] [address] 06/11/2017 10:23:03 06/12/2017 11:10:42 Uses depot contraception 090168316 Z30.42 Here for Depo F/up 12 weeks [id number] RICHAR POOLE APRN [address] [facility] [address] 09/13/2017 12:50:01 09/16/2017 08:01:09 Contraception care 182900359 Z30.40 F/up 12 weeks for Depo [id number] FRANC SANDHU DO [address] [facility] [place] [address] 06/24/2018 08:32:59 06/24/2018 10:37:22 Gynecologic examination 45638877 Z01.419 Normal MOTOR CARRIER INSPECTOR exam - pap deferred (pap/HPV neg 05/2017), reviewed self breast exam. CA Risk Assessment reviewed at length - normal risk. Return for annual in one year. Amenorrhea 61367290 N91. 2 Planning depo injection, LMP 06/06/18, may wait until next menses for injection or may go to lab to confirm negative BHCG then return for injection. Contraception care 52738 5005 Z30.40 Reviewed available forms of contracept [...] calcium, vit D. One year prescribed . [id number] FRANC SANDHU DO [address] [place] [address] 08/14/2018 09:32:52 08/15/2018 12:18:01 Surveillance of depot contraception done 5637798453 9104 Z30.42 [id number] HAIDER SMALL DO [address] [place] [address] 11/14/2018 08:44:33 11/20/2018 13:09:24 Surveillance of depot contraception done 7023772001 9104 Z30.42 Depo injection given. Negative Preg Test. [id number] RICHAR POOLE APRN G[address] [place] [address] 02/11/2019 09:17:01 02/12/2019 08:08:49 Surveillance of depot contraception done 2359392283 9104 Z30.42 Depo 150mg given F/up 12 weeks for next injection Health Concerns Section Related Observation LastModified by Organization Detai ls LastModified Time None Recorded Concern Status LastModified by Organization Details LastModified Time None Recorded Advance Directives Directive None Recorded Payers Encounter Date Sequence Insurance Name Policy Number Policy Roth Covered Member ID Roth Member ID Guarantor Name 09/13/2017 1 [place] SAV[place]H Paz [id number] Amber Paz 06/24/2018 1 [place] P[place] [id number] Amber Paz 08/14/2018 1 [place] Paz [id number] Amber Paz 11/14/2018 1 [place] Paz [id number] Amber Paz 02/11/2019 1 [place] Jesse Paz [id number] Amber Paz Notes Date Note Type Note Provider Name and Address Organization Details Recorded Time 06/24/2018 text/html [facility] Annual GYNReported bypatient.History:n o gynecologic complaints; [...] typingNotes:New patient here for annual exam. No MOTOR CARRIER INSPECTOR complaints. + sexually active, using condoms, interested [...] still not healing well. FRANC SANDHU, [address] [facility], [address] [place] [address], [phone], [place] - [facility] 06/24/2018 09:13:24 02/11/2019 text/html Patient present for depo provera injection, administered and tolerated well. 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
--- OUTSIDE RECORDS SUMMARY | 2024-07-20 15:08 | XMS_ITS | Clinical Summary ---
Author Organization [facility] Address [address] [place] [address] Care Team Providers Care Camp Guard Name Role Phone Brock Downing Primary Care Provider [phone] Allergies Active Allergy Reactions Criticality Noted Date [...] reducers. Active trimethoprim-polymyxin b (POLYTRIM) ophthalmic solutionIndications:Ac [place] conjunctivitis of right eye, unspecified acute conjunctivitis type Administer 1 drop to the right eye every 4 (four) hours. 1 drop in eye every 4 hours for 7-10 days 10 mL 10/07/2017 Active trimethoprim-polymyxin b (POLYTRIM) ophthalmic solutionIndications:Ac [place] conjunctivitis of right eye, unspecified acute conjunctivitis [...] age to complete this topic Care Teams Camp Guard Relationship Specialty Start Date End Date Brock Downing DO [address] [facility] [address] [place] [address] PCP - General Internal Medicine 10/30/16
--- OUTSIDE RECORDS SUMMARY | 2024-07-20 15:08 | XMS_ITS | Clinical Summary ---
Author Organization [facility] Address [address] [place] [address] Care Team Providers Care Steam Cleaning Machine Operator Name Role Phone Jennifer Sotomayor APRN [...] 0 11/14/2018 Active ergocalciferol (VITAMIN D2) capsule 97013 units TAKE ONE CAPSULE BY MOUTH ONE [...] Hx of laparoscopic adjustabl e gastric banding ([facility], 2010) 05/24/2017 History of removal [facility]aro scopic [facility] 05/24/2017 Obesity [...] this topic Medical Devices Implanted Type Area Construction Cost Estimator Device Identifier Shelf Expiration Date Model / Serial / Lot Kit Evicel 40sq Cm 2ml Sealant Fibrin Tissue Closure - [id number] - [id number] Implanted:Qty: 1 on 04/05/2018 by Vinayak Deutsch Jr[place] [facility] [place] N/A: Abdomen [employer] 07/08/2019 [id number] / / [id number] Advance Directives For more information, please contact: [phone] Latest Code Status on File Code Status Date Activated Date Inactivated Comments Full Code 04/03/2018 7:45 PM 04/13/2018 2:27 AM This code status was ascertained in the following way: discussion with patient . Care Teams Steam Cleaning Machine Operator Relationship Specialty Start Date End Date Jennifer Sotomayor APRN PCP - General Internal Medicine 12/23/17
--- OUTSIDE RECORDS SUMMARY | 2024-07-20 15:08 | XMS_ITS | Clinical Summary ---
Author Organization [facility] Address [address] [place] [address] Care Team Providers Care Gold Miner Name Role Phone Drea Mckeon MD Primary Care Provider Unava ilable Surgical History Surgery Date Site/Laterality Comments LAPAROSCOPIC GASTRIC BANDING 07/2011 PROCEDURE: LAP ADJUSTABLE GASTRIC BAND BELT ABDOMINOPLASTY 08/2013 PROCEDURE: HISTORICAL TUMMY TUCK; COMMENT: [facility] Family History Medical History Relation Name [...] or Tdap) 12/18/2022 12/18/2012, 04/08/2008 COVID-19 Vaccine (2023-2 5 season) 2023 Influenza Vaccine (Season Ended) 2024 01/03/2012, 01/01/2011 HIB Vaccines Aged Out No longer [...] age to complete this topic Meningococcal B Vaccine Aged Out No l onger eligible based on patient's age to complete [...] this topic Medical Devices Implanted Type Area Polishing Wheel Setter Device Identifier Shelf Expiration Date Model / Serial / Lot Kit Evicel 40sq Cm 2ml Sealant Fibrin Tissue Closure - [id number] Implanted:Qty: 1 on 04/05/2018 by Vinayak Deutsch MD N/A: Abdomen [employer] 07/08/2019 [id number] / / [id number] Care Teams Gold Miner Relationship Specialty Start Date End Date Drea Mckeon MD PCP - General Internal Medicine 05/04/11
== END 2024-07-20 15:08 | disposition home or self-care (01) ==
LOC: HO.HMCC 13:11
PROVIDERS: PCP Internal Medicine; Visit Provider Internal Medicine
DX: R10.32 Left lower quadrant pain (principal)

== ENCOUNTER 2024-07-20 13:11 | Outpatient (REF) | payer OTHER, SELFPAY ==
[2024-07-20 16:06] LABS: MANUAL DIFF FLAG NO
[2024-07-20 16:07] LABS: Appearance Urine Clear; Color Urine Yellow; Glucose Urine UA Negative (Negative); Leukocyte Esterase Urine Small (1+) (Negative); Nitrite Urine Negative (Negative); UMIC TRIGGER UACC YES; Urine Blood Negative (Negative); Urine Ketones Trace mg/dL (Negative); Urine Protein Negative (Neg-Trace)
[2024-07-20 16:11] LABS: Basophils Absolute Auto 0.1 X10*3/uL (0.0-0.2); Basophils Percent Auto 0.7 % (0-2); Eosinophils Absolute Auto 0.1 X10*3/uL (0.0-0.4); Eosinophils Percent Auto 0.9 % (0-4); Hematocrit 32.2 % (37.0-47.0); Hemoglobin 9.5 g/dl (12.0-16.0); Imm Gran Abs Auto 0.01 X10*3/uL (0.00-0.03); Imm Gran Pct Auto 0.1 % (0.0-0.4); Lymphocytes Absolute Auto 2.2 X10*3/uL (1.2-4.9); Lymphocytes Percent Auto 31.9 % (20-40); Mean Corpuscular HGB Conc 29.5 g/dl (31.0-35.0); Mean Corpuscular Hemoglobin 21.4 pg (27.0-33.0); Mean Corpuscular Volume 72.5 fL (80.0-98.0); Mean Platelet Volume 10.6 fL (9.4-12.3); Monocytes Absolute Auto 0.6 X10*3/uL (0.1-1.2); Monocytes Percent Auto 8.3 % (2-11); Neutrophils Percent Auto 58.1 % (45-73); Platelet Count 581 X10*3/uL (160-400); Red Blood Count 4.44 X10*6/uL (4.20-5.50); Red Cell Distribution Width 18.4 % (11.0-16.0); White Blood Count 6.9 X10*3/uL (4.8-10.8)
[2024-07-20 16:23] LABS: Bacteria Urine 1+ (None Seen); Hyaline Casts Urine 0-2 /LPF (0-2); RBC Urine 0-2 /HPF (0-2); UACC Culture Trigger YES; WBC Urine 0-5 /HPF (0-5)
[2024-07-20 16:24] LABS: Alanine Aminotransferase 15 U/L (0-31); Albumin Level 3.9 g/dL (3.5-5.0); Alkaline Phosphatase 80 U/L (39-117); Anion Gap 11 (12-20); Aspartate Amino Transferase 23 U/L (5-31); Bilirubin Total 0.4 mg/dL (0.0-1.0); Blood Urea Nitrogen 9 mg/dL (9-16); Calcium 8.9 mg/dL (8.4-10.2); Carbon Dioxide 24 mmol/L (22-29); Chloride 108 mmol/L (96-108); Estimated Glomerular Filt Rate > 60; Glucose Fasting 87 mg/dL (60-99); Potassium 3.8 mmol/L (3.3-5.1); Sodium 139 mmol/L (135-145); Total Protein 7.1 g/dL (6.5-8.0)
--- OUTSIDE RECORDS SUMMARY | 2024-07-20 16:36 | XMS_ITS | Clinical Summary ---
Author Organization [facility] Address [address] [place] [address] Care Team Providers Care Rayon Coner Name Role Phone Jennifer Sotomayor APRN Primary [...] 0 11/14/2018 Active ergocalciferol (VITAMIN D2) capsule 82390 units TAKE ONE CAPSULE BY MOUTH ONE [...] Hx of laparoscopic adjustabl e gastric banding ([facility], 2010) 05/24/2017 [facility] of [facility]aro [facility] 05/24/2017 Obesity (BMI 30-39.9) [...] this topic Medical Devices Implanted Type Area Steward/Stewardess Wine Device Identifier Shelf Expiration Date Model / Serial / Lot Kit Evicel 40sq Cm 2ml Sealant Fibrin Tissue Closure - [id number] - [id number] Implanted:Qty: 1 on 04/05/2018 by Vinayak Deutsch Jr., MD at [facility] and Med N/A: Abdomen [employer] 07/08/2019 [id number] / / [id number] Advance Directives For more information, please contact: [phone] Latest Code Status on File Code Status Date Activated Date Inactivated Comments Full Code 04/03/2018 7:45 PM 04/13/2018 2:27 AM This code status was ascertained in the following way: discussion with patient . Care Teams Rayon Coner Relationship Specialty Start Date End Date Jennifer Sotomayor APRN PCP - General Internal Medicine 12/23/17
--- OUTSIDE RECORDS SUMMARY | 2024-07-20 16:36 | XMS_ITS | Clinical Summary ---
Author Organization [facility] [employer] Address [address] [facility] [address] [place] [address] Care Team Providers Care Furniture Stainer Name Role Phone Unavailable Primary Care Provider [...] patient's age to complete this topic Insurance [facility]
--- OUTSIDE RECORDS SUMMARY | 2024-07-20 16:36 | XMS_ITS | Clinical Summary ---
Author Organization [facility] Address [address] [place] [address] Care Team Providers Care Developmental Writing Instructor Name Role Phone Brock Downing Primary Care Provider [phone] Allergies Active Allergy Reactions Criticality Noted Date [...] reducers. Active trimethoprim-polymyxin b (POLYTRIM) ophthalmic solutionIndications:Ac [place] conjunctivitis of right eye, unspecified acute conjunctivitis type Administer 1 drop to the right eye every 4 (four) hours. 1 drop in eye every 4 hours for 7-10 days 10 mL 10/07/2017 Active trimethoprim-polymyxin b (POLYTRIM) ophthalmic solutionIndications:Ac [place] conjunctivitis of right eye, unspecified acute conjunctivitis [...] age to complete this topic Care Teams Developmental Writing Instructor Relationship Specialty Start Date End Date Brock Downing DO [address] [facility] [address] [place] [address] PCP - General Internal Medicine 10/30/16
--- OUTSIDE RECORDS SUMMARY | 2024-07-20 16:36 | XMS_ITS | Clinical Summary ---
Author Organization [facility] Address [address] [place] [address] Care Team Providers Care Abrasive Coating Machine Operator Name Role Phone Drea Mckeon MD Primary Care Provider Unava ilable Surgical History Surgery Date Site/Laterality Comments LAPAROSCOPIC GASTRIC BANDING 07/2011 PROCEDURE: LAP ADJUSTABLE GASTRIC BAND BELT ABDOMINOPLASTY 08/2013 PROCEDURE: HISTORICAL TUMMY TUCK; COMMENT: [facility] Family History Medical History Relation Name [...] this topic Medical Devices Implanted Type Area Decaler Device Identifier Shelf Expiration Date Model / Serial / Lot Kit Evicel 40sq Cm 2ml Sealant Fibrin Tissue Closure - [id number] Implanted:Qty: 1 on 04/05/2018 by Vinayak Deutsch MD N/A: Abdomen [employer] 07/08/2019 [id number] / / [id number] Care Teams Abrasive Coating Machine Operator Relationship Specialty Start Date End Date Drea Mckeon MD PCP - General Internal Medicine 05/04/11
== END 2024-07-20 13:12 | disposition home or self-care (01) ==
LOC: HO.HMGCLDS 13:11
PROVIDERS: PCP Internal Medicine; Visit Provider Internal Medicine
DX: R10.32 Left lower quadrant pain (principal); D50.9 Iron deficiency anemia, unspecified; E53.8 Deficiency of other specified B group vitamins; J45.20 Mild intermittent asthma, uncomplicated; Z79.899 Other long term (current) drug therapy; Z90.49 Acquired absence of other specified parts of digestive tract
CPT/HCPCS: 36415; 80053; 81001; 85025; 87086; 99212

== ENCOUNTER 2024-07-21 | Outpatient (REF) | payer OTHER, SELFPAY ==
--- OUTSIDE RECORDS SUMMARY | 2024-10-02 14:18 | XMS_ITS | Clinical Summary ---
Author Organization [facility] Address [address] [place] [address] Care Team Providers Care Lead Web Developer Name Role Phone Drea Mckeon MD Primary Care Provider Unava ilable Surgical History Surgery Date Site/Laterality Comments LAPAROSCOPIC GASTRIC BANDING 07/2011 PROCEDURE: LAP ADJUSTABLE GASTRIC BAND BELT ABDOMINOPLASTY 08/2013 PROCEDURE: HISTORICAL TUMMY TUCK; COMMENT: [facility] Family History Medical History Relation Name [...] fibromyalg ia Son 1 Alive 1997; [place]; miim ealthy Son 2 Alive 1999; [place] calvo [...] this topic Medical Devices Implanted Type Area Heat Treat Puller Device Identifier Shelf Expiration Date Model / Serial / Lot Kit Evicel 40sq Cm 2ml Sealant Fibrin Tissue Closure - [id number] Implanted:Qty: 1 on 04/05/2018 by Vinayak Deutsch MD N/A: Abdomen [employer] 07/08/2019 [id number] / / [id number] Care Teams Lead Web Developer Relationship Specialty Start Date End Date Drea Mckeon MD PCP - General Internal Medicine 05/04/11
== END 2024-07-21 00:01 | disposition home or self-care (01) ==
LOC: CF
PROVIDERS: Visit Provider Surgery
DX: R10.32 Left lower quadrant pain (principal)
CPT/HCPCS: 99212

== ENCOUNTER 2024-07-21 10:08 | Outpatient (AMB) | payer OTHER, SELFPAY ==
--- NOTE | 2024-07-21 10:15 | A.OFFVIS_ITS ---
Vital Signs 07/21/24 10:18 Height 5 ft 4 in Weight 187 lb BMI 32.1 BP 118/63 Blood Pressure Location Lt brachial Position Sitting Pulse 82 Intake Visit Reasons: abd pain (request of PCP) Intake Note: Patient is seen in office for abdominal pain, post lap jd. Pt c/o: one week after her last visit, has increase pain and nausea, taking Tylenol for the pain. Party Planner Required: No Accompanied by: Self / Same As Patient Allergies oxycodone Allergy (Mild, Verified 07/21/24 10:18) Nausea HPI Comments Details: Patient was known to me status post relatively recent laparoscopic cholecystectomy. She presents here with 1 week history of left lower quadrant abdominal pain. She is unclear if it is the abdominal wall or with the entire abdomen causing her symptoms. Because of progression of these complaints, she was seen by a medical doctor who apparently ordered a CT scan which was scheduled for next week. Patient otherwise is tolerating her diet. Having regular bowel habits. She does not recall any abdominal wall trauma although she does do occasional heavy lifting Patient was past surgical history includes gastric bypass/partial gast[place] [facility] [place] roughly. She had a laparoscopic cholecystectomy as noted above roughly a month ago. No history of diverticular disease. Chart was reviewed and patient evaluated [facility] Medical History History of cholelithiasis Vitamin D deficiency Vitamin B12 deficiency Vaccine refused by patient Mild intermittent asthma Iron deficiency anemia Impingement syndrome of left shoulder region Cubital tunnel syndrome on left Obesity (BMI 35.0-39.9 without comorbidity) Environmental and seasonal allergies Depot contraception History of vitamin D deficiency Hx of non anemic vitamin B12 deficiency Hx of menorrhagia Surgical History History of laparoscopic cholecystectomy Hx of abdominoplasty History of removal of laparoscopic gastric banding device History of esophagogastroduodenoscopy (EGD) (~03/2019) Hx of gastric bypass (2018) Hx of appendectomy Family History Father Stroke HTN (hypertension) Diabetes mellitus Mother Diabetes mellitus with nephropathy Kidney failure HTN (hypertension) Brother Diabetes mellitus Sister Fibromyalgia Arthritis Depression Sister No problems noted. Son No problems noted. Son No problems noted. Son No problems noted. Daughter No problems noted. 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 Multiple scars. Patient was left lower quadrant what appears to be abdominal wall tenderness but no evidence of any guarding, rebound, or rigidity. Assessment & Plan Assessment & Plan (1) Left lower quadrant abdominal pain: Code(s): R10.32 - Left lower quadrant pain Category: Surgical (2) Abdominal wall pain in left lower quadrant: Code(s): R10.32 - Left lower quadrant pain Category: Surgical Plan As noted, patient has CT scan of the abdomen and pelvis ordered by her medical doctor. We will see if we can expedite this process and she will see me after the study. All questions answered. Precise etiology is unclear Coding Level of Care Code Est Pt Level 4 (65974) Diagnoses Left lower quadrant abdominal pain R10.32 Abdominal wall pain in left lower quadrant R10.32
[2024-07-21 10:18] VITALS: BP 118/63; PULSE 82; BMI 32.1
--- OUTSIDE RECORDS SUMMARY | 2024-07-21 11:55 | XMS_ITS | Clinical Summary ---
Author Organization [email or web address] Address [address] [facility] [address] [place] [address] Care Team Providers Care Personnel Scheduler Name Role Phone Unavailable Primary Care Provider [...] patient's age to complete this topic Insurance [facility] ACO
--- OUTSIDE RECORDS SUMMARY | 2024-07-21 11:55 | XMS_ITS | Clinical Summary ---
Author Organization [employer] [facility] Address [address] [place] [address] Care Team Providers Care Cement Production Plant Operator Name Role Phone Drea Mckeon MD Primary Care Provider Unava ilable Surgical History Surgery Date Site/Laterality Comments LAPAROSCOPIC GASTRIC BANDING 07/2011 PROCEDURE: LAP ADJUSTABLE GASTRIC BAND BELT ABDOMINOPLASTY 08/2013 PROCEDURE: HISTORICAL TUMMY TUCK; COMMENT: [facility] Family History Medical History Relation Name [...] this topic Medical Devices Implanted Type Area Hot Dip Galvanizer Device Identifier Shelf Expiration Date Model / Serial / Lot Kit Evicel 40sq Cm 2ml Sealant Fibrin Tissue Closure - [id number] Implanted:Qty: 1 on 04/05/2018 by Vinayak Deutsch MD N/A: Abdomen [employer] 07/08/2019 [id number] / / [id number] Care Teams Cement Production Plant Operator Relationship Specialty Start Date End Date Drea Mckeon MD PCP - General Internal Medicine 05/04/11
--- OUTSIDE RECORDS SUMMARY | 2024-07-21 11:55 | XMS_ITS | Clinical Summary ---
Author Organization [facility] Address [address] [place] [address] Care Team Providers Care Door Slinger Name Role Phone Brock Downing Primary Care Provider Allergies Active Allergy Reactions [...] reducers. Active trimethoprim-polymyxin b (POLYTRIM) ophthalmic solutionIndications:Ac [place] conjunctivitis of right eye, unspecified acute conjunctivitis type Administer 1 drop to the right eye every 4 (four) hours. 1 drop in eye every 4 hours for 7-10 days 10 mL 10/07/2017 Active trimethoprim-polymyxin b (POLYTRIM) ophthalmic solutionIndications:Ac [place] conjunctivitis of right eye, unspecified acute conjunctivitis [...] age to complete this topic Care Teams Door Slinger Relationship Specialty Start Date End Date Brock Downing DO [address] [facility] [address] [place] [address] PCP - General Internal Medicine 10/30/16
--- OUTSIDE RECORDS SUMMARY | 2024-07-21 11:55 | XMS_ITS | Clinical Summary ---
Author Organization [facility] Address [address] [place] [address] Care Team Providers Care Alum Plant Operator Name Role Phone Jennifer Sotomayor APRN [...] 0 11/14/2018 Active ergocalciferol (VITAMIN D2) capsule 96391 units TAKE ONE CAPSULE BY MOUTH ONE [...] Hx of laparoscopic adjustabl e gastric banding ([facility], 2010) 05/24/2017 [facility] 05/24/2017 Obesity (BMI [...] this topic Medical Devices Implanted Type Area Dining Room Coordinator Device Identifier Shelf Expiration Date Model / Serial / Lot Kit Evicel 40sq Cm 2ml Sealant Fibrin Tissue Closure - [id number] - [id number] Implanted:Qty: 1 on 04/05/2018 by Vinayak Deutsch Jr., MD at [facility] [place] and Med N/A: Abdomen [employer] 07/08/2019 [id number] / / [id number] Advance Directives For more information, please contact: [phone] Latest Code Status on File Code Status Date Activated Date Inactivated Comments Full Code 04/03/2018 7:45 PM 04/13/2018 2:27 AM This code status was ascertained in the following way: discussion with patient . Care Teams Alum Plant Operator Relationship Specialty Start Date End Date Jennifer Sotomayor APRN PCP - General Internal Medicine 12/23/17
== END 2024-07-21 10:34 | disposition home or self-care (01) ==
LOC: HO.HGS 10:08
PROVIDERS: PCP Internal Medicine; Visit Provider Surgery
DX: R10.32 Left lower quadrant pain (principal)
CPT/HCPCS: 99213

== ENCOUNTER 2024-08-05 12:13 | Outpatient (REF) | payer OTHER, SELFPAY ==
--- NOTE | ~2024-08-05 | CT_ITS ---
CLINICAL HISTORY: R10.32 - Left lower quadrant pain --- Additional Notes or Special Instructions: sev ere left lower quadrant pain CT abdomen and pelvis with contrast Comparison: None Findings: No consolidation or effusion. Unremarkable gallbladder and solid organs. There are no abnormal findings in the gallbladder fossa. No urolithiasis. No bowel obstruction, pneumoperitoneum, or pneumatosis. Pelvic contents unremarkable. Normal appendix. The bones are intact. IMPRESSION: No acute findings. This document has been electronically signed by: Nick Sandoval MD on 08/07/2024 08:12:24
--- OUTSIDE RECORDS SUMMARY | 2024-08-05 13:37 | XMS_ITS | Clinical Summary ---
Author Organization [facility] Address [address] [place] [address] Care Team Providers Care Currency Examiner Name Role Phone Drea Mckeon MD Primary Care Provider Unava ilable Surgical History Surgery Date Site/Laterality Comments LAPAROSCOPIC GASTRIC BANDING 07/2011 PROCEDURE: LAP ADJUSTABLE GASTRIC BAND BELT ABDOMINOPLASTY 08/2013 PROCEDURE: HISTORICAL TUMMY TUCK; COMMENT: [facility] Family History Medical History Relation [...] this topic Medical Devices Implanted Type Area Final Assembler Device Identifier Shelf Expiration Date Model / Serial / Lot Kit Evicel 40sq Cm 2ml Sealant Fibrin Tissue Closure - [id number] Implanted:Qty: 1 on 04/05/2018 by Vinayak Deutsch MD N/A: Abdomen [employer] 07/08/2019 [id number] / / [id number] Care Teams Currency Examiner Relationship Specialty Start Date End Date Drea Mckeon MD PCP - General Internal Medicine 05/04/11
--- OUTSIDE RECORDS SUMMARY | 2024-08-05 13:37 | XMS_ITS | Clinical Summary ---
Author Organization [facility] Address [address] [place] [address] Care Team Providers Care Bundler Name Role Phone Jennifer Sotomayor APRN Primary Care Provider [phone] Allergies Active Allergy Reactions Criticality Noted Date [...] 0 11/14/2018 Active ergocalciferol (VITAMIN D2) capsule 60623 units TAKE ONE CAPSULE BY MOUTH ONE [...] [facility] 05/24/2017 Obesity [...] this topic Medical Devices Implanted Type Area Plant Assigner Device Identifier Shelf Expiration Date Model / Serial / Lot Kit Evicel 40sq Cm 2ml Sealant Fibrin Tissue Closure - [id number] - [id number] Implanted:Qty: 1 on 04/05/2018 by Vinayak Deutsch Jr., MD at [place] and Med N/A: Abdomen [employer] 07/08/2019 [id number] / / [id number] Advance Directives For more information, please contact: [phone] Latest Code Status on File Code Status Date Activated Date Inactivated Comments Full Code 04/03/2018 7:45 PM 04/13/2018 2:27 AM This code status was ascertained in the following way: discussion with patient . Care Teams Bundler Relationship Specialty Start Date End Date Jennifer Sotomayor APRN PCP - General Internal Medicine 12/23/17
--- OUTSIDE RECORDS SUMMARY | 2024-08-05 13:37 | XMS_ITS | Clinical Summary ---
Author Organization [facility] Address [address] [place] [address] Care Team Providers Care Social Scientist Name Role Phone Brock Downing Primary Care Provider [phone] Allergies Active Allergy Reactions Criticality Noted Date Comments Oxycodone-Acetaminophen Benign arrhythmia High 05/03 Medications Multiple Vitamins-Minerals (MULTIVITAMIN WITH MINERALS) tablet Take 1 tablet by mouth daily. Active ferrous gluconate (FERGON) 324 MG tablet Take 324 mg by mouth every morning with breakfast. Take 2 hours before or 4 hours after acid reducers. Active trimethoprim-polym yxin b (POLYTRIM) ophthalmic solutionIndication s:Acute conjunctivitis of right eye, unspecified acute conjunctivitis type Administer 1 drop to the right eye every 4 (four) hours. 1 drop in eye every 4 hours for 7-10 days 10 mL 10/08/19 18 Active trimethoprim-polym yxin b (POLYTRIM) ophthalmic solutionIndication s:Acute conjunctivitis of right eye, unspecified acute conjunctivitis type Administer 1 drop to the right eye every 4 (four) hours. 1 drop in eye every 4 hours for 7-10 days 10 mL 10/23/19 18 Active PANTOprazole (PROTONIX) 40 MG EC tablet Take 40 mg by mouth. 04/17/19 19 Active thiamine (thiamine) 100 MG tablet Take 100 mg by mouth. 04/23/19 19 Active ondansetron (ZOFRAN) 4 MG tablet Take 4 mg by mouth every 4 (four) hours as needed. 05/05/19 19 Active cetirizine (ZyrTEC) 10 MG tablet Take 10 mg by mouth. Active fluticasone (FloNASE) 50 mcg/spray nasal spray fluticasone 50 mcg/actuation nasal spray,suspensio n Active lidocaine (LIDODERM) 5 % patch Place on the skin. 03/13/20 Active Ergocalciferol (VITAMIN D2 PO) Take by mouth. Active Cyanocobalamin 500 MCG/0.1ML Solution into each nostril. Active Multiple Vitamins-Minerals (MULTIVITAMIN ADULT) Chew Tab Chew. Acti ve Social History Tobacco Use Types Packs/Day Years Used Date Smoking Tobacco: Never Smokeless Tobacco: Never Tobacco Cessation:Counseling Given: Yes Alcohol Use Standard Drinks/Week Comments No 0 (1 standard drink = 0.6 oz pur e alcohol) AUDIT-C Answer Date Recorded Frequency of Alcohol Consumption Never 10/07/2017 Average Number of Drinks Not on file 018 Frequency of Binge Drinking Not on file 05/2017 Comments No Sex and Gender Information Value Date Recorded Sex Assigned at Not on file Legal Sex Female 12:57 PM EDT Gender Identity Not on file Sexual Orientation [...] patient's age to complete this topic Insurance [facility] Care Teams Social Scientist Relationship Specialty Start Date End Date Brock Downing DO [address] [address] PCP - General Internal Medicine 10/30/16
--- OUTSIDE RECORDS SUMMARY | 2024-08-05 13:37 | XMS_ITS | Clinical Summary ---
Author Organization [facility] Address [address] [facility] [address] [place] [address] Care Team Providers Care Gardener Florist Name Role Phone Unavailable Primary Care Provider [...] patient's age to complete this topic Insurance [facility]
[2024-08-05] MEDS: iohexoL 350 MG/ML 100 ML INFUS..BTL IV (14:50)
[2024-08-05] MEDS: Barium Sulfate Oral (Berry) 450 ML ORAL.SUSP PO ×2 (14:51)
== END 2024-08-05 12:14 | disposition home or self-care (01) ==
LOC: HO.CT 12:13
PROVIDERS: PCP Internal Medicine; Visit Provider Surgery
DX: R10.32 Left lower quadrant pain (principal)
CPT/HCPCS: 74177; Q9967

== ENCOUNTER → 2024-08-05 12:16 | Outpatient (BNV) | payer OTHER, SELFPAY | PROVIDERS: PCP Internal Medicine; Visit Provider Specialist | DX: R10.32 Left lower quadrant pain (principal) | CPT/HCPCS: 74177 ==

== ENCOUNTER 2024-09-28 10:53 | Emergency (ER) | payer OTHER, SELFPAY ==
--- NOTE | ~2024-09-28 | XR_ITS ---
EXAMINATION: XR WRIST, RIGHT CLINICAL INFORMATION: pain s/p fall COMPARISON: None available. TECHNIQUE: PA, lateral, oblique, and scaphoid views of the right wrist. FINDINGS: The bones and soft tissues are normal. No fracture. Alignment is anatomic with normal joint spaces. No erosions or abnormal soft tissue calcifications. XR/XR wrist RT min 3V IMPRESSION: Normal right wrist. Electronically signed by: Shawn Lim MD 09/28/2024 12:01 PM EDT
--- NOTE | ~2024-09-28 | XR_ITS ---
EXAMINATION: XR HAND, RIGHT CLINICAL INFORMATION: pain s/p fall COMPARISON: None available. TECHNIQUE: PA, lateral, and oblique views of the right hand. FINDINGS: Joint spaces are preserved. There are no erosions. No osteophytes are present. There is no joint diastases or malalignment. No fracture line is evident. XR/XR hand RT min 3V IMPRESSION: Unremarkable right hand. Electronically signed by: Braxton Gaitan MD 09/28/2024 12:02 PM EDT
[2024-09-28 11:30] VITALS: BP 101/30; PULSE 90; RESP 16; TEMP 36.1; O2SAT 100; BMI 31.4
--- NOTE | 2024-09-28 11:30 | ED_ITS ---
HPI - Extremity Injury (Upper) General Chief Complaint: Extremity Injury, Upper Stated Complaint: Injured Finger R Hand 1 Day Ago Time Seen by Provider: 09/28/24 16:02 Source: patient Mode of arrival: ambulatory Limitations: no limitations History of Present Illness ED Provider: HOMERO REILLY PA-C HPI narrative: 43 year old [id number] female with pmhx significant for anemia, asthma presents to the ED today for evaluation of right 3rd and 4th digit pain s/p FOOSH occurring last night. Reports attempting to catch herself with her right hand/wrist during a trip and fall. Reports immediately feeling a pain in her right 3rd and 4th digits. Noticed increased swelling on waking this morning. Reports taking Motrin this morning. Now having pain and tingling up into her wrist. Denies sustaining any other injury during the fall. Related Data Previous Rx's ?Medication ?Instructions ?Recorded BD Integra Syringe 3 mL 25 gauge x #100 ea 05/25/24 1 (syringe with needle, safety) cholecalciferol (vitamin D3) 1,250 1,250 mcg PO QWEEK 3 months #13 05/25/24 mcg (50,000 unit) capsule caps cyanocobalamin (vitamin B-12) 1,000 mcg IM QWEEK 3 mon ths #10 mL 05/25/24 1,000 mcg/mL injection solution ferrous sulfate 325 mg (65 mg 325 mg PO DAILY #90 tabs 05/25/24 iron) tablet,delayed release hydrocodone 5 mg-acetaminophen 325 1 tab PO Q4-6H PRN pain #30 tabs 07/21/24 mg tablet Allergies Allergy/AdvReac Type Severity Reaction Status Date / Time oxycodone Allergy Mild Nausea Verified 09/28/24 11:32 Review of Systems Review of Systems: Constitutional: No fever, chills, fatigue, night sweats, weight changes ENT/Mouth: No ear pain, hearing loss, nasal congestion, sinus pain, rhinorrhea, sore throat Eyes: No eye pain, swelling, redness, vision changes, discharge Cardio: No chest pain, palpitations, JERONIMO, orthopnea, peripheral edema Pulm: No SOB, cough, sputum, wheezing, dyspnea, hemoptysis GI: No nausea, vomiting, hematemesis, abdominal pain, diarrhea, constipation, hematochezia, melena : No irregular bleeding, dysuria, frequency, urgency, hesitancy, hematuria, flank pain, urinary flow changes, urinary incontinence or retention MSK: No back pain, neck pain, joint pain, myalgias, +right finger pain Skin: No lesions, rashes Neuro: No weakness, numbness, paresthesias, LOC, dizziness, headache Psych: No anxiety/panic, depression, SI/HI, AH/VH All other systems reviewed and are negative. [facility] Past Medical History Attestation statement: The following information was validated with the patient. Source: old records reviewed and nursing notes reviewed Medical History History of cholelithiasis Vitamin D deficiency Vitamin B12 deficiency Vaccine refused by patient Mild intermittent asthma Iron deficiency anemia Impingement syndrome of left shoulder region Cubital tunnel syndrome on left Obesity (BMI 35.0-39.9 without comorbidity) Environmental and seasonal allergies Depot contraception History of vitamin D deficiency Hx of non anemic vitamin B12 deficiency Hx of menorrhagia Surgical History History of laparoscopic cholecystectomy Hx of abdominoplasty History of removal of laparoscopic gastric banding device History of esophagogastroduodenoscopy (EGD) (~03/2019) Hx of gastric bypass (2019) Hx of appendectomy Family History Family History Father Stroke HTN (hypertension) Diabetes mellitus Mother Diabetes mellitus with nephropathy Kidney failure HTN (hypertension) Brother Diabetes mellitus Sister Fibromyalgia Arthritis Depression Sister No problems noted. Son No problems noted. Son No problems noted. Son No problems noted. Daughter No problems noted. 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 Skin: Warm, dry, intact. No rashes or lesions. Head: Normocephalic, atraumatic. EENT: Hearing is intact b/l. Conjunctiva clear. PERRLA. EOM intact. Moist mucous membranes.? Cardiac: Chest wall symmetric Lungs: Normal respiratory effort without accessory muscle use Ext: + noted swelling and ecchymoses to proximal aspect of right 3rd and 4th digits, decreased range of motion secondary to pain and swelling. Full ROM int act to right wrist. No overlying deformity. Finger strength intact. 2+ radial pulse intact. Neuro: AOx3. Normal speech. Ambulating with steady gait. Course Course Course Narrative: This is an RME: Additional HPI, ROS, PE not included below will be deferred to primary provider. RME assessment and note performed by: Mili Alonzo PA-C This is a 77-dlas-bex-female, with a hx of asthma, who presents to the ER with complaints of right wrist pain since yesterday. Tripped and fell on outstretched hand. TTP overlying the fourth digit exending over the dorsum of the right hand. mild TTP overlying the distal radius/ulna. strong radial pulse Plan: xrays, further ER eval needed Reevaluation(s) Reevaluation #1: X-ray right wrist without fracture. X-ray right hand initially read as no acute fracture. There was concern for possible proximal to middle phalanx fracture of right 4th digit. I spoke with radiologist Dr. Rush regarding read - he now notes avulsion fracture to volar base middle phalanx of 4th digit. > discussed results with patient. patient medicated with Tylenol and Toradol in the ED. finger splint placed. Advised to follow up with ortho outpatient. referral provided. Patient has remained stable throughout ED visit today. Discussed worrisome signs and symptoms and when to return to the ED. All questions answered at this time. Patient is agreeable with disposition and stable for discharge. Medications Administered Discontinued Medications Generic Name Dose Route Start Last Admin Trade Name Kayleen PRN Reason Stop Dose Admin Acetaminophen 975 mg 09/28/24 13:41 09/28/24 13:43 Acetaminophen 325 Mg Tablet PO 09/28/24 13:42 975 mg ONCE ONE Administration Medical Decision Making Medical Decision Making MDM Narrative: 43 year old female with pmhx significant for anemia, asthma presents to the ED today for evaluation of right 3rd and 4th digit pain s/p FOOSH occurring last night. vital signs stable. on exam, noted swelling and ecchymoses to proximal aspect of right 3rd and 4th digits, decreased range of motion secondary to pain and swelling. Full ROM intact to right wrist. No overlying deformity. Finger strength intact. 2+ radial pulse intact. Differential diagnosis includes finger fracture, contusion. Lower suspicion for ligament/tendon injury Plan for xrs, pain control, re-eval. Differential Diagnosis Differential Diagnoses: The differential diagnosis associated with the presentation includes As above Admission/Observation Not indicated Independent Interpretation I performed an independent interpretation of an: Plain X-Ray Interpretation: X-ray right wrist without fracture X-ray right hand with avulsion fracture to middle phalanx 4th digit Radiology Impression Discussion of test interpretation with radiology: I have reviewed the radiologist's reading. Radiologist Impression: Date of Service: 09/28/24 Procedure(s): XR hand RT min 3V Accession Number(s): [id number] cc: Tracey Goff MD; Mili Meneses~ ADDENDUM ADDENDUM #1 Addendum: There is an avulsion fracture involving the volar base of the middle phalanx of fourth digit. Communicated with [facility] Electronically signed by: Braxton Gaitan MD 09/28/2024 04:17 PM EDT Addendum Dictated By: Braxton Gaitan MD Addendum Signed By: <Electronically signed by Braxton Gaitan MD in [place]> 09/28/24 1617 Addendum Cosigned By: DD/ TD/TT: 09/28/24 EXAMINATION: XR HAND, RIGHT CLINICAL INFORMATION: pain s/p fall COMPARISON: None available. TECHNIQUE: PA, lateral, and oblique views of the right hand. FINDINGS: Joint spaces are preserved. There are no erosions. No osteophytes are present. There is no joint diastases or malalignment. No fracture line is evident. XR/XR hand RT min 3V IMPRESSION: Unremarkable right hand. Electronically signed by: Braxton Gaitan MD 09/28/2024 12:02 PM EDT RP External Record Review External record reviewed: Inpatient record Prescription Management I considered prescription management with: Pain Medication Social Determinants Patient?s care significantly limited by Social Determinants of Health including: Other Social Determinant of Health Procedures Orthopedic Splinting/Casting Injury #1: Side: right Upper Extremity Injury Location: finger Upper Extremity Immobilizer: aluminum form splint Critical Care Time Critical Care Time Critical Care Time: No Discharge Plan Discharge Clinical Impression: Finger fracture, right Patient Disposition: Home, Self-Care Instructions: Finger Fracture (ED) Additional Instructions: You were seen in the ED today for finger pain after a fall. You have a finger fracture. Please wear the finger splint 29/10. You may change the tape as needed. Make sure to wear the splint until you follow up with [facility] Orthopedic Team. Call them to establish care, they will not call you. Taken Tylenol and/or Ibuprofen as needed for pain. Rest and ice the finger as this can help with swelling and pain. Return with new or worsening symptoms. In the case of an emergency call 911. Prescriptions: No Action hydrocodone-acetaminophen 5-325 mg tablet 1 tab PO Q4-6H PRN (Reason: pain) Qty: 30 0RF Rx Instructions: Partial Fill upon patient request. cyanocobalamin (vitamin B-12) 1,000 mcg/mL solution 1,000 mcg IM QWEEK 90 Days Qty: 10 1RF Rx Instructions: Inject 1000 mcg or 1 mL intramuscularly once a week for 4 weeks and then once a month thereafter ferrous sulfate 325 mg (65 mg iron) tablet,delayed release (DR/EC) 325 mg PO DAILY Qty: 90 1RF cholecalciferol (vitamin D3) 1,250 mcg (50,000 unit) capsule 1,250 mcg PO QWEEK 90 Days Qty: 13 1RF (DME) BD Integra Syringe 3 mL 25 gauge x 1 syringe See Rx Instructions .Route Qty: 100 0RF Rx Instructions: Use IM once a week, then once a month thereafter Referrals: [facility] Orthopedic Surgeons [Provider Group] Tracey Goff MD [Primary Care Provider, Internal Medicine] Stand Alone Forms: Work/School Release Print Language: Nepali
[2024-09-28 13:40] VITALS: BP 105/36; PULSE 81; RESP 18; TEMP 36.1; O2SAT 99
[2024-09-28] MEDS: Acetaminophen 325 MG TABLET 975 MG PO (13:43)
[2024-09-28 16:10] VITALS: BP 106/51; PULSE 71; RESP 18; TEMP 36.7; O2SAT 98
[2024-09-28] MEDS: Ketorolac Tromethamine 30 MG/ML VIAL IM (16:45)
[2024-09-28 16:50] VITALS: BP 106/51; PULSE 71; RESP 18; TEMP 36.7; O2SAT 98
--- OUTSIDE RECORDS SUMMARY | 2024-09-28 17:22 | XMS_ITS | Clinical Summary ---
Author Organization [facility] Address [address] [place] [address] Care Team Providers Care Delivery And Installation Subcontractor Name Role Phone Drea Mckeon MD Primary Care Provider Unava ilable Surgical History Surgery Date Site/Laterality Comments LAPAROSCOPIC GASTRIC BANDING 07/2011 PROCEDURE: LAP ADJUSTABLE GASTRIC BAND BELT ABDOMINOPLASTY 08/2013 PROCEDURE: HISTORICAL TUMMY TUCK; COMMENT: [facility] Family History Medical History Relation [...] this topic Medical Devices Implanted Type Area International Affairs Vice President Device Identifier Shelf Expiration Date Model / Serial / Lot Kit Evicel 40sq Cm 2ml Sealant Fibrin Tissue Closure - [id number] Implanted:Qty: 1 on 04/05/2018 by Vinayak Deutsch MD N/A: Abdomen [employer] 07/08/2019 [id number] / / [id number] Care Teams Delivery And Installation Subcontractor Relationship Specialty Start Date End Date Drea Mckeon MD PCP - General Internal Medicine 05/04/11
== END 2024-09-28 16:51 | disposition home or self-care (01) ==
PROVIDERS: Emergency Provider Emergency Medicine; PCP Internal Medicine
DX: S62.622A Displaced fracture of middle phalanx of right middle finger, initial encounter for closed fracture (principal); M25.531 Pain in right wrist; X50.0XXA Overexertion from strenuous movement or load, initial encounter; X50.1XXA Overexertion from prolonged static or awkward postures, initial encounter; Y93.9 Activity, unspecified; Y92.9 Unspecified place or not applicable; Y99.8 Other external cause status
CPT/HCPCS: 29130; 73110; 73130; 96372; 99284; J1885

== ENCOUNTER → 2024-09-28 11:31 | Outpatient (BNV) | payer OTHER, SELFPAY | PROVIDERS: PCP Internal Medicine; Visit Provider Radiology Diagnostic Radiology | DX: M79.641 Pain in right hand (principal); M25.531 Pain in right wrist; W19.XXXA Unspecified fall, initial encounter | CPT/HCPCS: 73110 ==

== ENCOUNTER 2024-10-06 14:32 | Outpatient (REF) | payer OTHER, SELFPAY ==
--- NOTE | ~2024-10-06 | XR_ITS ---
EXAMINATION: XR HAND 3 OR MORE VIEWS RIGHT HISTORY: M79.641 - Pain in right hand COMPARISON: Comparison is made with the prior examination dated 09/28/2024. FINDINGS: Three views of the right hand are submitted. Osseous mineralization is normal. Again seen is a mildly displaced avulsion fracture of the base of the middle phalanx of the 4th finger. No additional fracture is seen. There is no dislocation. The joint spaces are preserved. The soft tissues are unremarkable. XR/XR hand RT min 3V IMPRESSION: Avulsion fracture of the base of the middle phalanx of the 4th finger without change. Electronically signed by: Kimani Negrete MD 10/06/2024 03:42 PM EDT
--- OUTSIDE RECORDS SUMMARY | 2024-10-06 15:38 | XMS_ITS | Clinical Summary ---
Author Organization [facility] Address [address] [place] [address] Care Team Providers Care Donor Services Team Leader Name Role Phone Drea Mckeon MD Primary Care Provider Unava ilable Surgical History Surgery Date Site/Laterality Comments LAPAROSCOPIC GASTRIC BANDING 07/2011 PROCEDURE: LAP ADJUSTABLE GASTRIC BAND BELT ABDOMINOPLASTY 08/2013 PROCEDURE: HISTORICAL TUMMY TUCK; COMMENT: [facility] Family History Medical History Relation Name [...] this topic Medical Devices Implanted Type Area Textiles And Clothing Teacher Device Identifier Shelf Expiration Date Model / Serial / Lot Kit Evicel 40sq Cm 2ml Sealant Fibrin Tissue Closure - [id number] Implanted:Qty: 1 on 04/05/2018 by Vinayak Deutsch MD N/A: Abdomen [employer] 07/08/2019 [id number] / / [id number] Care Teams Donor Services Team Leader Relationship Specialty Start Date End Date Drea Mckeon MD PCP - General Internal Medicine 05/04/11
--- OUTSIDE RECORDS SUMMARY | 2024-10-06 15:38 | XMS_ITS | Clinical Summary ---
Author Organization [facility] Address [address] [place] [address] Care Team Providers Care Help Desk Specialist Name Role Phone Jennifer Sotomayor APRN Primary [...] 0 11/14/2018 Active ergocalciferol (VITAMIN D2) capsule 37558 units TAKE ONE CAPSULE BY MOUTH ONE [...] Hx of laparoscopic adjustabl e gastric banding ([facility], 2010) 05/24/2017 History of removal [facility] laparo scopic [facility] 05/24/2017 Obesity (BMI [...] 88 10/06/2018 9:26 AM EDT Temperature 37 C (98.6 F) 10/06/2018 9:26 AM EDT Respiratory Rate 16 [...] Td or Tdap) 12/18/2022 12/18/2012 Influenza Vaccine (Season Ended) 2024 01/03/2012, 01/01/2011 RSV Ped < 20 months Aged Out No longe r eligible based on patient's age to complete this topic Medical Devices Implanted Type Area Speech Lang Path Therapist Device Identifier Shelf Expiration Date Model / Serial / Lot Kit Evicel 40sq Cm 2ml Sealant Fibrin Tissue Closure - [id number] - [id number] Implanted:Qty: 1 on 04/05/2018 by Vinayak Deutsch Jr., MD at [facility] and Med N/A: Abdomen [employer] 07/08/2019 [id number] / / [id number] Advance Directives For more information, please contact: [phone] Latest Code Status on File Code Status Date Activated Date Inactivated Comments Full Code 04/03/2018 7:45 PM 04/13/2018 2:27 AM This code status was ascertained in the following way: discussion with patient . Care Teams Help Desk Specialist Relationship Specialty Start Date End Date Jennifer Sotomayor APRN PCP - General Internal Medicine 12/23/17
--- OUTSIDE RECORDS SUMMARY | 2024-10-06 15:39 | XMS_ITS | Clinical Summary ---
Author Organization [facility] Address [address] [place] [address] Care Team Providers Care District Attorney Name Role Phone Brock Downing Primary Care Provider [phone] Allergies Active Allergy Reactions Criticality Noted Date [...] % patch Place on the skin. 03/13/20 18 Active Ergocalciferol (VITAMIN D2 PO) Take by [...] 141 05/23/2018 6:47 PM EST Temperature 36.8 C (98.3 F) 05/23/2018 6:47 PM EST Respiratory Rate 18 05/03/2017 3:25 PM EST [...] Pap Smear (Ages 21-65) 2001 Mammogram 2020 COVID-19 Vaccine ( - 2023-2 5 season) 2023 Influenza Vaccine 11/06/2024 HPV Vaccines Aged Out No longer eligi ble based on patient's age to complete this topic Pneumococcal Vaccine: Pediat lidia (0-5 Years) and At-Risk Patients (6 to 49 Years) Aged Out No longer eligible b ased on patient's age to complete this topic Insurance [facility] [id number] [place] [address] Care Teams District Attorney Relationship Specialty Start Date End Date Brock Downing DO [address] [facility] [address] [place] [id number] PCP - General Internal Medicine 10/30/16
--- OUTSIDE RECORDS SUMMARY | 2024-10-06 15:39 | XMS_ITS | Data Portability ---
Author Organization [place] - [facility], [facility] Address [id number] [place] [address] Assessment No assessment recorded. Plan of Treatment Reminders Order Date Submit Date Provider Last Modified By Organization Details Last Modified Time Details Appointments None recorded. Lab test, urine 2018 019 [email or web address] 1 In-Office Order, Internal Use Only DO Not Attach Compendium DO Not Attach Compendium, Do Not Delete/merge, [id number] 9 09:36:35 urinalysis , dipstick 2018 019 [email or web address] In-Office Order, Internal Use Only DO Not Attach Compendium DO Not Attach Compendium, Do Not Delete/merge, [id number] 9 09:13:27 beta-HCG, quantitati ve, serum or plasma 2018 019 [facility], [address] [place], [address] 9 09:05:07 Referral None recorded. Procedures None recorded. Surgeries None recorded. Imaging None recorded. Medication Orders medroxypro gesterone 150 mg/mL intramuscu lar syringe 2018 019 [email or web address] [id number], [address] [place], [address], 9 09:52:47 medroxypro gesterone 150 mg/mL intramuscu lar suspension 2018 019 [email or web address] 1 [facility], [address] [place], [address], 9 09:36:35 medroxypro gesterone 150 mg/mL intramuscu lar syringe 2018 019 [email or web address] 6 Not available 9 09:57:49 Depo-Prove ra 150 mg/mL intramuscu lar syringe 2018 019 INTERFACE [facility], [address] [place], [address], 9 09:13:22 Depo-Prove ra 150 mg/mL intramuscu lar suspension 2017 018 [email or web address] [facility], [address] [place], [address], 9 08:41:42 Patient TargetsNo targets recorded. Patient InstructionsNo instructions recorded. Reason for Referral None Reported. Results Created Date Observation Date Name Description Value Unit Range Abnormal Flag Note LastModifiedBy Organization Detail LastModifiedTime 11/15/1911/14/2018 pregn sommer test, urine Result negati ve Not Available In-Office Order Internal Use Only DO Not Attach Compendium DO Not Attach Compendium, Do Not Delete/merge, [id number] 11/14/2018 08:48:13 09/12/19 18 09/12/2017 beta- HCG, quant itati ve, serum or plasm a beta-HCG, quantitative <5 mIU/m L <5 Not Available [facility] [address] [place], [address] 09/12/2017 10:21:14 06/25/1906/24/2018 urina lysis , dipst ick Interpretati on negati ve Not Available In-Office Order Internal Use Only DO Not Attach Compendium DO Not Attach Compendium, Do Not Delete/merge, [id number] 06/24/2018 08:47:52 08/13/19 19 08/13/2018 beta- HCG, quant itati ve, serum or plasm a beta-HCG, quantitative <5 mIU/m L <5 Not Available [facility] [address], [place], [address] 08/13/2018 09:05:07 Result Notes None recorded. Problems Name Problem SNOMED Code Status Onset Date Resolution Date Notes Provider Name and Address Organization Details Recorded Time Abscess of Bartholin' s gland 50939791 Active 2017 s/p I&D of Bartholins x 2 (2011, 2016) FRANC SANDHU, DO [address] [facility], [address], [place], [address] [place] [address] 8 10:31:57 Diabetes mellitus 27192097 Active 2017 Type 2 Andreina Hale null, [facility] 8 08:22:08 Depressive disorder 24134428 Active 2017 Andreina Hale null, [facility] 8 08:22:27 Acid reflux 768936527 Active 2017 Andreina Alexia null, [facility] 8 08:22:51 Problem Notes None recorded. Procedures Surgical History Date Name Laterality Status Provider Name and Address Organization Details Recorded Time 04/05/20 18 Gastric Bypass completed Kristi Alas [facility] 06/24/2018 08:44:34 05/28/19 18 B4Y-GVE completed Sierra Rand [facility] 05/28/2017 09:06:24 05/28/19 18 Date of Last Pap Smear completed Kristi Alas [facility] 06/23/2018 11:41:04 04/08/19 15 Abdominoplasty completed Sierra Rand [facility] 05/28/2017 09:04:06 04/08/19 14 Appendectomy completed Sierra Rand [facility] 05/28/2017 09:03:53 04/08/19 11 Other completed Sierra Rand [facility] 05/28/2017 09:03:39 Imaging Results None recorded. Procedure Notes None recorded. Medical Equipment None Reported. Allergies Allergen ID Allergen Name Allergen Category Reaction Reaction Severity Criticality Documentation Date Start Date Code Code System Note Provider Name and Address Organization Details Recorded Time 6733110 acetamino phen / oxycodone medicatio n hives Not available Not available 05/28/2017 70073 3 RxNorm Sierra Rand [place], [place] - [facility] 8 09:00:49 Medications Name Sig [...] e Juanita Pen Needle 32 gauge x 32 06/24 completed Not Available Not Available Not [...] Updated DateTime 06/24/2018 163.83 cm 31.8 kg/m2 25607.37 g 122 mm[Hg] 68 mm[Hg] Kristi Alas [place] - [facility] 9 08:41:32 Date Recorded Body height Body mass index (BMI) Body weight Systolic blood pressure Diastolic blood pressure Provider Name and Address Organization Details Last Updated DateTime 09/13/2017 163.83 cm 37.7 kg/m2 004252.1 g 110 mm[Hg] 76 mm[Hg] Sierra Rand [facility] 8 12:57:58 Date Recorded Body height Body mass index (BMI) Body weight Systolic blood pressure Diastolic blood pressure Provider Name and Address Organization Details Last Updated DateTime 02/11/2019 163.83 cm 31.4 kg/m2 86336.18 g 120 mm[Hg] 78 mm[Hg] Alma Archer [facility] 9 09:38:28 Social History Question Answer Notes LastModified by Qwaya Details LastModified Time Tobacco Smoking Status Never Smoker Sierra Rand [facility], [facility] 05/27/2017 06:44:00 Does Your Partner Physically Hurt You Or [...] Functional Status Question Answer Note LastModified by Qwaya Details LastModified Time What is your level of alcohol consumption? None Information not available 05/28/2017 What is your exercise level? Occasional Information [...] N Blood clots N Breast Cancer N Colon cancer N Benign breast disease N Depression Y Lung Disease N Defects [...] N Sexual Dysfunction N Autoimmune disorder N Kidney or Bladder Problems N Thyroid Problems N GI Problems N Eating Disorder [...] SNOMED-CT Code Diagnosis ICD10 Code Diagnosis Note [id number] FRANC SANDHU DO [facility] [place] [address] 05/28/2017 08:56:05 05/29/2017 10:21:03 Gynecologic examination 86749001 Z01.419 Normal BUSINESS LAW TEACHER 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 CA Risk Assessment reviewed at length - normal risk. Return for annual in one year. Vaginitis 33143004 N76.0 One day vaginal itching, will check Affirm, treat any positive findings. Venereal d isease screening 117075442 Z11.3 GC/CL, Affirm sent today. Lab slip given for serum screening. Menorrhagia 675313392 N9 2.0 Periods heavier and more painful x 1 year. Will schedule pelvic USN for evaluation . Patient planning to begin depo for contracept ion, aware this will help with cycle control as well. Contraception care 60214 5005 Z30.40 Reviewed available forms of contracept [...] return with next period for first injection. [id number] RICHAR POOLE APRN [facility]G[address] [place] [address] 06/11/2017 10:23:03 06/12/2017 11:10:42 Uses depot contraception 333586870 Z30.42 Here for Depo F/up 12 weeks [id number] RICHAR POOLE APRN [facility] [place] [address] 09/13/2017 12:50:01 09/16/2017 08:01:09 Contraception care 866480044 Z30.40 F/up 12 weeks for Depo [id number] FRANC SANDHU DO G[address] [place] [address] 06/24/2018 08:32:59 06/24/2018 10:37:22 Gynecologic examination 74813603 Z01.419 Normal BUSINESS LAW TEACHER exam - pap deferred (pap/HPV neg 05/2017), reviewed self breast exam. CA Risk Assessment reviewed at length - normal risk. Return for annual in one year. Amenorrhea 32000823 N91. 2 Planning depo injection, LMP 06/06/18, may wait until next menses for injection or may go to lab to confirm negative BHCG then return for injection. Contraception care 26665 5004 Z30.40 Reviewed available forms of contracept ion [...] calcium, vit D. One year prescribed . [id number] FRANC SANDHU DO [facility] [address] [place] [address] 08/14/2018 09:32:52 08/15/2018 12:18:01 Surveillance of depot contraception done 7826742844 9104 Z30.42 [id number] HAIDER SMALL DO [facility] [address] [place] [address] 11/14/2018 08:44:33 11/20/2018 13:09:24 Surveillance of depot contraception done 0841465093 9104 Z30.42 Depo injection given. Negative Preg Test. [id number] RICHAR POOLE APRN G[address] [place] [address] 02/11/2019 09:17:01 02/12/2019 08:08:49 Surveillance of depot contraception done 8512216239 9104 Z30.42 Depo 150mg given F/up 12 weeks for next injection Health Concerns Section Related Observation LastModified by Organization Detai ls LastModified Time None Recorded Concern Status LastModified by Organization Details LastModified Time None Recorded Advance Directives Directive None Recorded Payers Insurance Date Sequence Insurance Name Policy Number Policy Roth Covered Member ID Roth Member ID Guarantor Name 02/08/2019 1 [place] JACOB Paz [id number] Amber Paz Notes Date Note Type Note Provider Name and Address Organization Details Recorded Time 06/24/2018 text/html [facility] Annual GYNReported bypatient.History:n o gynecologic complaints; [...] typingNotes:New patient here for annual exam. No BUSINESS LAW TEACHER complaints. + sexually active, using condoms, [...] still not healing well. FRANC SANDHU, [address] [facility], [address] [address], [phone], [facility] - [facility] 06/24/2018 09:13:24 02/11/2019 text/html Patient present for depo provera injection, administered and tolerated well. TR YANIRA POOLE, THREAD INSPECTOR [address] [facility], [address] [place] [address], [place], [address], [facility] - [facility] 02/11/2019 10:54:51 OBGyn Episode No OBEpisode recorded.
--- OUTSIDE RECORDS SUMMARY | 2024-10-06 15:39 | XMS_ITS | Clinical Summary ---
Author Organization [employer] Address [address] [facility] [address] [place] [address] Care Team Providers Care Edge Inker Uppers Name Role Phone Unavailable Primary Care Provider Unavailabl e Immunizations Immunization Administration Dates Next Due Pfizer Covid-19 Vaccine [...] 1980 Lipid Panel 1980 SDOH Screening 1980 Disability Screening 1980 Alcohol/Substance Use Screening 1992 Tobacco Screening 1992 Family Planning (PISQ) 11/02/1995 Hepatitis C Screening 1998 Pap Smear 2001 Cervical Cancer Screening 2010 HPV/Cotest 2010 Mammogram 2020 COVID-19 Vaccine ( season) 2023 03/27/2022, 08/11/2020, 07/20/2020 Influenza Vaccine (Season Ended) 2024 01/19/2022, 05/23/2020, 03/06/2015, Additional history exists DTaP/Tdap/Td Vaccines [...] Years) and At-Risk Patients (6 to 49) Years Aged Out No longer eligible based on patient's age to complete this topic RSV under 20 months Aged Out No longe r eligible based on patient's age to complete this topic Rotavirus Vaccines Aged Out No longer eligible based on patient's age to complete this topic Insurance [facility]
== END 2024-10-06 14:33 | disposition home or self-care (01) ==
LOC: HO.HOSX 14:32
DX: S63.43 Traumatic rupture of volar plate of finger at metacarpophalangeal and interphalangeal joint (principal); S62.604A Fracture of unspecified phalanx of right ring finger, initial encounter for closed fracture
CPT/HCPCS: 73130; 99202

== ENCOUNTER 2024-10-06 15:28 | Outpatient (AMB) | payer OTHER, SELFPAY ==
[2024-10-06 15:36] VITALS: BMI 31.6
--- NOTE | 2024-10-06 15:36 | MHC.OFFVIS ---
Vital Signs 10/06/24 15:36 Height 5 ft 4 in Weight 184 lb BMI 31.6 Intake Visit Reasons: FC-Rt 3rd and 4th digit FOOSH fx Intake Note: Amber is a 43 year old right hand dominant female who presents today for a fracture care visit for her right hand 3rd and 4th digit FOOSH injury. She was seen at [facility] on 09/28/24. She attempted to stop her fall with her right hand out. She reports immediately feeling a pain in her right 3rd and 4th digits of the hand after her fall. Reports pain and tingling up into her right wrist. Denies sustaining any other injury during the fall. States she is now having CTS that comes and goes thought out the day. Allergies acetaminophen (From Percocet) Allergy (Mild, Verified 10/06/24 15:42) hives oxycodone Allergy (Mild, Verified 10/06/24 15:42) Nausea HPI HPI FC-Rt 3rd and 4th digit FOOSH fx: Details: Amber is a 43 year old right hand dominant female who presents today for a fracture care visit for her right hand 3rd and 4th digit FOOSH injury. She was seen at [facility] on 09/28/24. She attempted to stop her fall with her right hand out. She reports immediately feeling a pain in her right 3rd and 4th digits of the hand after her fall. Reports pain and tingling up into her right wrist. Denies sustaining any other injury during the fall. Patient reports that most of her pain is in her middle finger, although she was told she only had a fracture in her ring finger. No other acute complaints or concerns at this time. [facility] Medical History History of cholelithiasis Vitamin D deficiency Vitamin B12 deficiency Vaccine refused by patient Mild intermittent asthma Iron deficiency anemia Impingement syndrome of left shoulder region Cubital tunnel syndrome on left Obesity (BMI 35.0-39.9 without comorbidity) Environmental and seasonal allergies Depot contraception History of vitamin D deficiency Hx of non anemic vitamin B12 deficiency Hx of menorrhagia Surgical History History of laparoscopic cholecystectomy Hx of abdominoplasty History of removal of laparoscopic gastric banding device History of esophagogastroduodenoscopy (EGD) (~03/2019) Hx of gastric bypass (2019) Hx of appendectomy Family History Father Stroke HTN (hypertension) Diabetes mellitus Mother Diabetes mellitus with nephropathy Kidney failure HTN (hypertension) Brother Diabetes mellitus Sister Fibromyalgia Arthritis Depression Sister No problems noted. Son No problems noted. Son No problems noted. Son No problems noted. Daughter No problems noted. 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 Neuro: Normal sensation of the tips of all digits of the right hand at this time Vascular: Cap refill brisk Pain: Tenderness to palpation noted of the volar aspect of the PIP joint of both of the right middle and ring fingers Pain with range of motion of the digits ROM: Patient is able to weakly make a closed fist with the right hand Skin: No lacerations or abrasions. General: No ecchymosis, erythema, or evidence of infection. Psych: Appears grossly normal Affect normal Attitude cooperative Office Procedures AMB Fracture Care Fracture Billing Code: Fracture Billing Code Assessment & Plan Assessment & Plan (1) Traumatic rupture of volar plate of interphalangeal joint of finger: Code(s): S63.439A - Traumatic rupture of volar plate of unspecified finger at metacarpophalangeal and interphalangeal joint, initial encounter Category: Medical (2) Fracture of phalanx of right ring finger: Code(s): S62.604A - Fracture of unspecified phalanx of right ring finger, initial encounter for closed fracture Category: Medical Plan 1. Non bony volar plate injury of right middle finger 2. Avulsion fracture of middle phalanx of right ring finger Date of injury 09/27/2024 Patient is educated about this injury Patient is educated about the typical treatment course At this time, patient is informed that there is no splinting or casting necessary for these fractures, and that the treatment of choice is jazzy taping Patient states understanding of this Patient is referred to occupational therapy to begin working on gentle range of motion of the digits If patient is still experiencing numbness and tingling at follow-up visit, we will order EMG and nerve conduction study to assess the health of the nerves of the right hand Patient is amenable To This plan Follow-up in 4 weeks for reassessment, sooner with any acute concerns Orders: Orders XR hand RT min 3V 10/06/24 M79.641 - Pain in right hand OT Evaluation and Treatment 10/06/24 S63.439A - Traumatic rupture of volar plate of unspecified finger at metacarpophalangeal and interphalangeal joint, initial encounter Coding Level of Care Code New Pt Level 3 (98741) Diagnoses Traumatic rupture of volar plate of interphalangeal joint of finger S63.439A Fracture of phalanx of right ring finger S62.604A CPT Codes Fracture Care - Fracture Billing Code: Fracture Billing Code ([id number])
== END 2024-10-06 16:00 | disposition home or self-care (01) ==
LOC: HO.HOS 15:28
PROVIDERS: PCP Internal Medicine
DX: S63.432A Traumatic rupture of volar plate of right middle finger at metacarpophalangeal and interphalangeal joint, initial encounter (principal); S62.604A Fracture of unspecified phalanx of right ring finger, initial encounter for closed fracture
CPT/HCPCS: 99203

== ENCOUNTER → 2024-10-06 15:30 | Outpatient (BNV) | payer OTHER, SELFPAY | PROVIDERS: Visit Provider Radiology Diagnostic Radiology | DX: S62.624A Displaced fracture of middle phalanx of right ring finger, initial encounter for closed fracture (principal) | CPT/HCPCS: 73130 ==

== ENCOUNTER 2024-11-03 15:24 | Outpatient (REF) | payer OTHER, SELFPAY ==
--- NOTE | ~2024-11-03 | XR_ITS ---
EXAMINATION: XR HAND 3 OR MORE VIEWS RIGHT HISTORY: M79.641 - Pain in right hand COMPARISON: Comparison is made with the prior examination dated 10/06/2024. FINDINGS: Three views of the right hand are submitted. Osseous mineralization is normal. Again seen is an avulsion fracture of the base of the middle phalanx of the 4th finger, best seen on the oblique view. The joint spaces are preserved. The soft tissues are unremarkable. XR/XR hand RT min 3V IMPRESSION: Avulsion fracture of the base of the middle phalanx of the 4th finger without change. Electronically signed by: Kimani Negrete MD 11/03/2024 03:40 PM EDT
== END 2024-11-03 15:25 | disposition home or self-care (01) ==
LOC: HO.HOSX 15:24
PROVIDERS: PCP Internal Medicine
DX: S62.624D Displaced fracture of middle phalanx of right ring finger, subsequent encounter for fracture with routine healing (principal); S63.43 Traumatic rupture of volar plate of finger at metacarpophalangeal and interphalangeal joint; M79.641 Pain in right hand; W19.XXXD Unspecified fall, subsequent encounter
CPT/HCPCS: 73130; 99212

== ENCOUNTER 2024-11-03 15:24 | Outpatient (AMB) | payer OTHER, SELFPAY ==
--- NOTE | 2024-11-03 15:35 | A.OFFVIS_ITS ---
Vital Signs 11/03/24 15:44 Height 5 ft 4 in Weight 181 lb BMI 31.1 Handedness Right Intake Visit Reasons: OV: Rt 3rd & 4th digit fx DOI 09/27/24 w xray Intake Note: Amber is a 43 year old right hand dominant female who presents today for follow up of a non bony volar plate injury to the right middle finger and avulsion fracture of the right ring finger status post fall on outstretched hand, DOI: 09/27/2024. At her last visit she was referred to occupational therapy to begin working on gentle range of motion of the digits. Patient repor ts she is having continued pain in the right 3rd and 4th digits of left hand with movement and at rest. She states her pain is worse after a day of work. She states she has an increase of pain on the lateral aspect of the 3rd digit of her left hand with a weird burning pain. She is unable to make a full closed fist. She reports working on hand exercises at home. Allergies acetaminophen (From Percocet) Allergy (Mild, Verified 11/03/24 15:44) hives oxycodone Allergy (Mild, Verified 11/03/24 15:44) Nausea HPI HPI OV: Rt 3rd & 4th digit fx DOI 09/27/24 w xray: Details: Amber is a 43 year old right hand dominant female who presents today for follow up of a non bony volar plate injury to the right middle finger and avulsion fracture of the right ring finger status post fall on outstretched hand, DOI: 09/27/2024. At her last visit she was referred to occupational therapy to begin working on gentle range of motion of the digits. Patient reports she is having continued, but improved pain in the right 3rd and 4th digits of left hand with movement and at rest. She states her pain is worse after a day of work. She states she has an increase of pain on the lateral aspect of the 3rd digit of her left hand with a weird burning pain., however this is occasional and not all the time. She is unable to make a full closed fist. She reports working on hand exercises at home. [facility] Medical History Traumatic rupture of volar plate of interphalangeal joint of finger (~09/27/24) Fracture of phalanx of right ring finger (~09/27/24) History of cholelithiasis Vitamin D deficiency Vitamin B12 deficiency Vaccine refused by patient Mild intermittent asthma Iron deficiency anemia Impingement syndrome of left shoulder region Cubital tunnel syndrome on left Obesity (BMI 35.0-39.9 without comorbidity) Environmental and seasonal allergies Depot contraception History of vitamin D deficiency Hx of non anemic vitamin B12 deficiency Hx of menorrhagia Surgical History History of laparoscopic cholecystectomy Hx of abdominoplasty History of removal of laparoscopic gastric banding device History of esophagogastroduodenoscopy (EGD) (~03/2019) Hx of gastric bypass (2019) Hx of appendectomy Family History Father Stroke HTN (hypertension) Diabetes mellitus Mother Diabetes mellitus with nephropathy Kidney failure HTN (hypertension) Brother Diabetes mellitus Sister Fibromyalgia Arthritis Depression Sister No problems noted. Son No problems noted. Son No problems noted. Son No problems noted. Daughter No problems noted. 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 Neuro: Normal sensation of the tips of all digits of the right hand at this time Vascular: Cap refill brisk Pain: Tenderness to palpation noted of the volar aspect of the PIP joint of both of the right middle and ring fingers, improved from previous visit Pain with range of motion of the digits ROM: Patient is able to weakly make a closed fist with the right hand Skin: No lacerations or abrasions. General: No ecchymosis, erythema, or evidence of infection. Psych: Appears grossly normal Affect normal Attitude cooperative Assessment & Plan Assessment & Plan (1) Traumatic rupture of volar plate of interphalangeal joint of finger: Onset Date: ~09/27/24 Code(s): S63.439A - Traumatic rupture of volar plate of unspecified finger at metacarpophalangeal and interphalangeal joint, initial encounter Category: Medical (2) Fracture of phalanx of right ring finger: Onset Date: ~09/27/24 Code(s): S62.604A - Fracture of unspecified phalanx of right ring finger, initial encounter for closed fracture Category: Medical Plan 1. Non bony volar plate injury of right middle finger 2. Avulsion fracture of middle phalanx of right ring finger Date of injury 09/27/2024 Patient is educated about this injury Patient is educated about the typical treatment course At this time, patient is informed that there is no splinting or casting necessary for these fractures, and that the treatment of choice is jazzy taping Patient states understanding of this Patient should go to occupational therapy to begin working on gentle range of motion of the digits , as she has not attended any visits so far Follow-up in 4 weeks for reassessment, sooner with any acute concerns Orders: Orders XR hand RT min 3V Today M79.641 - Pain in right hand Coding Level of Care Code Global (71839) Diagnoses Traumatic rupture of volar plate of interphalangeal joint of finger S63.439A Fracture of phalanx of right ring finger S62.604A
[2024-11-03 15:44] VITALS: BMI 31.1
--- OUTSIDE RECORDS SUMMARY | 2024-11-03 16:13 | XMS_ITS | Clinical Summary ---
Author Organization [facility] Address [address] [facility] 7[address] [place] [address] Care Team Providers Care Manual Tester Name Role Phone Unavailable Primary Care Provider [...] Tobacco Screening 1992 Family Planning (PISQ) 11/02/1995 HPV Vaccines (1 - 3-dose series) 11/02/1995 Hepatitis C Screening 1998 Pap Smear 2001 Cervical Cancer Screening 2010 HPV/Cotest 2010 Mammogram 2020 COVID-19 Vaccine ( season) 2023 03/27/2022, 08/11/2020, 07/20/2020 Influenza Vaccine (#1) 2024 , 05/23/2020, 03/06/2015, Additional history exists DTaP/Tdap/Td [...]
--- OUTSIDE RECORDS SUMMARY | 2024-11-03 16:13 | XMS_ITS | Clinical Summary ---
Author Organization [facility] Address [address] [place] [address] Care Team Providers Care Mammalogist Name Role Phone Brock Downing Primary Care Provider [phone] Allergies Active Allergy Reactions Criticality Noted Date [...] patient's age to complete this topic Insurance [facility] [id number] [place] [address] Care Teams Mammalogist Relationship Specialty Start Date End Date Brock Downing DO 3 [facility] [address] [place] [address] PCP - General Internal Medicine 10/30/16
--- OUTSIDE RECORDS SUMMARY | 2024-11-03 16:13 | XMS_ITS | Data Portability ---
Author Organization [place] [facility], [facility] Address [address] [place] [address] Assessment No assessment recorded. Plan of Treatment Reminders Order Date Submit Date Provider Last Modified By Organization Details Last Modified Time Details Appointments None recorded. Lab test, urine 2018 019 [email or web address] 1 In-Office Order, Internal Use Only DO Not Attach Compendium DO Not Attach Compendium, Do Not Delete/merge, [id number] 9 09:36:35 urinalysis , dipstick 2018 [email or web address] In-Office Order, Internal Use Only DO Not Attach Compendium DO Not Attach Compendium, Do Not Delete/merge, [id number] 9 09:13:27 beta-HCG, quantitati ve, serum or plasma 2018 019 [facility], [address] [place], [address] 9 09:05:07 Referral None recorded. Procedures None recorded. Surgeries None recorded. Imaging None recorded. Medication Orders medroxypro gesterone 150 mg/mL intramuscu lar syringe 2018 019 [id number], [address] [place], [address], 9 09:52:47 medroxypro gesterone 150 mg/mL intramuscu lar suspension 2018 019 [email or web address] 1 [id number], [address] [place], [address], 9 09:36:35 medroxypro gesterone 150 mg/mL intramuscu lar syringe 2018 019 [email or web address] 6 Not available 9 09:57:49 Depo-Prove ra 150 mg/mL intramuscu lar syringe 2018 019 INTERFACE [id number], [address] [place], [address], 9 09:13:22 Depo-Prove ra 150 mg/mL intramuscu lar suspension 2017 018 [email or web address] [id number], [address] [place], [address], 9 08:41:42 Patient TargetsNo targets recorded. Patient InstructionsNo instructions recorded. Reason for Referral None Reported. Results Created Date Observation Date Name Description Value Unit Range Abnormal Flag Note LastModifiedBy Organization Detail LastModifiedTime 11/15/1911/14/2018 pregn sommer test, urine Result negati ve Not Available In-Office Order Internal Use Only DO Not Attach Compendium DO Not Attach Compendium, Do Not Delete/merge, [id number] 11/14/2018 08:48:13 09/12/19 18 09/12/2017 beta- HCG, quant itati ve, serum or plasm a beta-HCG, quantitative <5 mIU/m L <[address] [facility] [address] [place], [address] 09/12/2017 10:21:14 06/25/1906/24/2018 urina lysis , dipst ick Interpretati on negati ve Not Available In-Office Order Internal Use Only DO Not Attach Compendium DO Not Attach Compendium, Do Not Delete/merge, [id number] 06/24/2018 08:47:52 08/13/19 19 08/13/2018 beta- HCG, quant itati ve, serum or plasm a beta-HCG, quantitative <5 mIU/m L <[address] [facility] [address], [place], [address] 08/13/2018 09:05:07 Result Notes None recorded. Problems Name Problem SNOMED Code Status Onset Date Resolution Date Notes Provider Name and Address Organization Details Recorded Time Abscess of Bartholin' s gland 43918571 Active 2017 s/p I&D of Bartholins x 2 (2011, 2016) FRANC SANDHU, DO [address] [facility], 3[address], [place], [address] [place] [address] 8 10:31:57 Diabetes mellitus 42654504 Active 2017 Type 2 Andreina Hale null, [facility] 8 08:22:08 Depressive disorder 66362321 Active 2017 Andreina Hale null, [facility] 8 08:22:27 Acid reflux 372357004 Active 2017 Andreina Alexia null, [facility] 8 08:22:51 Problem Notes None recorded. Procedures Surgical History Date Name Laterality Status Provider Name and Address Organization Details Recorded Time 04/05/20 18 Gastric Bypass completed Kristi Alas [facility] 06/24/2018 08:44:34 05/28/19 18 J2E-DVJ completed Sierra Rand [facility] 05/28/2017 09:06:24 05/28/19 18 Date of Last Pap Smear completed Kristi Alas [facility] 06/23/2018 11:41:04 04/08/19 15 Abdominoplasty completed Sierra Rand [facility] 05/28/2017 09:04:06 04/08/19 14 Appendectomy completed Sierra Rand [facility] 05/28/2017 09:03:53 04/08/19 11 Other completed Sierra Rand [facility] 05/28/2017 09:03:39 Imaging Results None recorded. Procedure Notes None recorded. Medical Equipment None Reported. Allergies Allergen ID Allergen Name Allergen Category Reaction Reaction Severity Criticality Documentation Date Start Date Code Code System Note Provider Name and Address Organization Details Recorded Time 8969412 acetamino phen / oxycodone medicatio n hives Not available Not available 05/28/2017 05259 3 RxNorm Sierra Rand [place], [place] - [facility] 8 09:00:49 Medications Name Sig Start Date [...] Body mass index (BMI) Body weight Systolic And Diastolic Provider Name and Address Organization Details Last Updated DateTime 06/24/2018 163.83 cm 31.8 kg/m2 77452.37 g 122/68 mm[Hg] Kristi Alas [facility] 06/24/2018 08:41:32 Date Recorded Body height Body mass index (BMI) Body weight Systolic And Diastolic Provider Name and Address Organization Details Last Updated DateTime 09/13/2017 163.83 cm 37.7 kg/m2 326103.1 g 110/76 mm[Hg] Sierra Rand [facility] 09/13/2017 12:57:58 Date Recorded Body height Body mass index (BMI) Body weight Systolic And Diastolic Provider Name and Address Organization Details Last Updated DateTime 02/11/2019 163.83 cm 31.4 kg/m2 51173.18 g 120/78 mm[Hg] Alma Archer [facility] 02/11/2019 09:38:28 Social History Question Answer Notes LastModified by [employer] Video Details LastModified Time Tobacco Smoking Status Never Smoker Sierra Rand [facility] 05/27/2017 06:44:00 Does Your Partner Physically [...] Functional Status Question Answer Note LastModified by [employer] Video Details LastModified Time What is your level [...] N Arthritis N HSV N Infertility N Abnormal pap N Interstitial [...] SNOMED-CT Code Diagnosis ICD10 Code Diagnosis Note [id number] FRANC SANDHU DO [facility] [place] [address] 05/28/2017 08:56:05 05/29/2017 10:21:03 Gynecologic examination 34024108 Z01.419 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 CA Risk Assessment reviewed at length - normal risk. Return for annual in one year. Vaginitis 74918168 N76.0 One day vaginal itching, will check Affirm, treat any positive findings. Venereal d isease screening 625910692 Z11.3 GC/CL, Affirm sent today. Lab slip given for serum screening. Menorrhagia 260002723 N9 2.0 Periods heavier and more painful x 1 year. Will schedule pelvic USN for evaluation . Patient planning to begin depo for contracept ion, aware this will help with cycle control as well. Contraception care 11121 5005 Z30.40 Reviewed available forms of contracept [...] return with next period for first injection. 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 CA Risk Assessment reviewed at length - normal risk. Return for annual in one year. Amenorrhea 53679073 N91. 2 Planning depo injection, LMP 06/06/18, may wait until next menses for injection or may go to lab to confirm negative BHCG then return for injection. Contraception care 60329 5005 Z30.40 Reviewed available forms of contracept [...] calcium, vit D. One year prescribed . [id number] FRANC SANDHU DO [facility] [address] [place] [address] 08/14/2018 09:32:52 08/15/2018 12:18:01 Surveillance of depot contraception done 6740144233 9104 Z30.42 [id number] HAIDER SMALL DO [facility] [address] [place] [address] 11/14/2018 08:44:33 11/20/2018 13:09:24 Surveillance of depot contraception done 3118002144 9104 Z30.42 Depo injection given. Negative Preg Test. [id number] RICHAR POOLE APRN G[address] [place] [address] 02/11/2019 09:17:01 02/12/2019 08:08:49 Surveillance of depot contraception done 6344126906 9104 Z30.42 Depo 150mg given F/up 12 weeks for next injection Health Concerns Section Related Observation LastModified by Organization Detai ls LastModified Time None Recorded Concern Status LastModified by Organization Details LastModified Time None Recorded Advance Directives Directive None Recorded Payers Insurance Date Sequence Insurance Name Policy Number Policy Roth Covered Member ID Roth Member ID Guarantor Name 02/08/2019 1 [place] SAVANNAH Paz [id number] Amber Paz OBGyn Episode No OBEpisode recorded.
--- OUTSIDE RECORDS SUMMARY | 2024-11-03 16:13 | XMS_ITS | Clinical Summary ---
Author Organization [facility] Address [address] [place] [address] Care Team Providers Care Scaffold Erector Name Role Phone Jennifer Sotomayor APRN Primary [...] 0 11/14/2018 Active ergocalciferol (VITAMIN D2) capsule 07291 units TAKE ONE CAPSULE BY MOUTH ONE [...] of laparoscopic adjustabl e gastric banding ([facility], 2010) 05/24/2017 History of removal [facility]aro scopic [facility] 05/24/2017 Obesity (BMI 30-39.9) [...] or Tdap) 12/18/2022 12/18/2012 Influenza Vaccine (#1) 2024 2, 01/01/2011 RSV Ped < 20 months Aged Out No longe r eligible based on patient's age to complete this topic Medical Devices Implanted Type Area Environmental Services Attendant Device Identifier Shelf Expiration Date Model / Serial / Lot Kit Evicel 40sq Cm 2ml Sealant Fibrin Tissue Closure - [id number] - [id number] Implanted:Qty: 1 on 04/05/2018 by Vinayak Deutsch Jr., MD at [facility] and Med N/A: Abdomen [employer] 07/08/2019 [id number] / / [id number] Advance Directives For more information, please contact: [phone] Latest Code Status on File Code Status Date Activated Date Inactivated Comments Full Code 04/03/2018 7:45 PM 04/13/2018 2:27 AM This code status was ascertained in the following way: discussion with patient . Care Teams Scaffold Erector Relationship Specialty Start Date End Date Jennifer Sotomayor APRN PCP - General Internal Medicine 12/23/17
--- OUTSIDE RECORDS SUMMARY | 2024-11-03 16:13 | XMS_ITS | Clinical Summary ---
Author Organization [facility] Address [address] [place] [address] Care Team Providers Care Hospitalist Nocturnist Physician Name Role Phone Drea Mckeon MD Primary Care Provider Unava ilable Surgical History Surgery Date Site/Laterality Comments LAPAROSCOPIC GASTRIC BANDING 07/2011 PROCEDURE: LAP ADJUSTABLE GASTRIC BAND BELT ABDOMINOPLASTY 08/2013 PROCEDURE: HISTORICAL TUMMY TUCK; COMMENT: [facility] Family History Medical History Relation Name [...] Vaccine (1 - 2023-2 5 season) 2023 Depression Screening 04/08/2024 Influenza Vaccine (#1) 2024 2, 01/01/2011 HIB Vaccines Aged Out No [...] 5 Years) and At-Risk Patients (6 to 49 Years) Aged Out No longer eligible b ased on patient's age to complete this topic RSV Immunization Patients Under 20 months Aged Out No longer eligible b ased on patient's age to complete this topic Varicella Vaccines Aged Out No longer eligible based on patient's age to complete this topic Medical Devices Implanted Type Area Technical Staff Engineer Device Identifier Shelf Expiration Date Model / Serial / Lot Kit Evicel 40sq Cm 2ml Sealant Fibrin Tissue Closure - [id number] Implanted:Qty: 1 on 04/05/2018 by Vinayak Deutsch MD N/A: Abdomen [employer] 07/08/2019 [id number] / / [id number] Care Teams Hospitalist Nocturnist Physician Relationship Specialty Start Date End Date Drea Mckeon MD PCP - General Internal Medicine 05/04/11
== END 2024-11-03 15:56 | disposition home or self-care (01) ==
LOC: HO.HOS 15:25
PROVIDERS: PCP Internal Medicine
DX: S63.43 Traumatic rupture of volar plate of finger at metacarpophalangeal and interphalangeal joint (principal); S62.604A Fracture of unspecified phalanx of right ring finger, initial encounter for closed fracture
CPT/HCPCS: 99213

== ENCOUNTER → 2024-11-03 15:29 | Outpatient (BNV) | payer OTHER, SELFPAY | PROVIDERS: PCP Internal Medicine; Visit Provider Radiology Diagnostic Radiology | DX: M79.641 Pain in right hand (principal) | CPT/HCPCS: 73130 ==

== ENCOUNTER 2025-01-16 10:05 | Emergency (ER) | payer SELFPAY ==
[2025-01-16 10:11] VITALS: BP 134/63; PULSE 85; RESP 15; TEMP 36.6; O2SAT 100; BMI 31.9
[2025-01-16 10:26] LABS: MANUAL DIFF FLAG NO
[2025-01-16 10:27] LABS: Hematocrit 32.4 % (37.0-47.0); Hemoglobin 9.5 g/dl (12.0-16.0); Imm Gran Abs Auto 0.02 X10*3/uL (0.00-0.03); Imm Gran Pct Auto 0.3 % (0.0-0.4); Lymphocytes Absolute Auto 1.9 X10*3/uL (1.2-4.9); Mean Corpuscular HGB Conc 29.3 g/dl (31.0-35.0); Mean Corpuscular Hemoglobin 20.6 pg (27.0-33.0); Mean Corpuscular Volume 70.1 fL (80.0-98.0); NRBC Abs Auto 0.000 X10*3/uL (0.0-0.012); NRBC Pct Auto 0.0 /100WBC (0.0-0.2); Platelet Count 392 X10*3/uL (160-400); Red Blood Count 4.62 X10*6/uL (4.20-5.50); White Blood Count 7.1 X10*3/uL (4.8-10.8)
[2025-01-16 10:49] LABS: Anion Gap 9 (12-20); Blood Urea Nitrogen 10 mg/dL (9-16); Carbon Dioxide 24 mmol/L (22-29); Chloride 110 mmol/L (96-108); Potassium 3.7 mmol/L (3.3-5.1); Sodium 139 mmol/L (135-145)
[2025-01-16 10:50] LABS: Alanine Aminotransferase 16 U/L (0-31); Albumin Level 4.2 g/dL (3.5-5.0); Alkaline Phosphatase 95 U/L (39-117); Aspartate Amino Transferase 22 U/L (5-31); Calcium 8.8 mg/dL (8.4-10.2); Creatinine Clr Calc Pharmacy 104.6; Estimated Glomerular Filt Rate > 60; Magnesium 1.9 mg/dL (1.6-2.6); Total Protein 7.4 g/dL (6.5-8.0)
--- OUTSIDE RECORDS SUMMARY | 2025-01-16 11:02 | XMS_ITS | Clinical Summary ---
Author Organization [facility] Address [address] [place] [address] Care Team Providers Care Specification Consultant Name Role Phone Drea Mckeon MD Primary Care Provider Unava ilable Surgical History Surgery Date Site/Laterality Comments LAPAROSCOPIC GASTRIC BANDING 07/2011 PROCEDURE: LAP ADJUSTABLE GASTRIC BAND BELT ABDOMINOPLASTY 08/2013 PROCEDURE: HISTORICAL TUMMY TUCK; COMMENT: [facility] Family History Medical History Relation Name Comments [...] [place]; mimi ealthy Son 2 Alive 1999; [place]; lubna ild CP Son 3 Alive 2006; Adis; [...] Cervical Cancer Screening: P ap Smear 2001 HPV Vaccines (1 - 3-dose SCD M series) 11/02/2007 DTaP,Tdap,and Td Vaccines (3 - Td or Tdap) 12/18/2022 12/18/2012, 04/08/2008 Depression Screening 04/08/2024 COVID-19 Vaccine (1 - 2023-2 5 season) 2024 Influenza Vaccine (#1) 2024 2, 01/01/2011 RSV Immunization Adult Patients (1 - 1-dose 75+ series) 11/02/2055 HIB Vaccines Aged Out No longer eligi [...] this topic Medical Devices Implanted Type Area Hand Salter Device Identifier Shelf Expiration Date Model / Serial / Lot Kit Evicel 40sq Cm 2ml Sealant Fibrin Tissue Closure - [id number] Implanted:Qty: 1 on 04/05/2018 by Vinayak Deutsch MD N/A: Abdomen J [employer] 07/08/2019 [id number] / / [id number] Care Teams Specification Consultant Relationship Specialty Start Date End Date Drea Mckeon MD PCP - General Internal Medicine 05/04/11
--- OUTSIDE RECORDS SUMMARY | 2025-01-16 11:02 | XMS_ITS | Clinical Summary ---
Author Organization [facility] Address [address] [place] [address] Care Team Providers Care Melt Superintendant Name Role Phone Brock Downing Primary Care Provider [phone] Allergies Active Allergy Reactions Criticality Noted Date [...] (Ages 21-65) 2001 Mammogram 2020 Influenza Vaccine 11/06/2024 COVID-19 Vaccine ( - 2023-2 5 season) 2024 HPV Vaccines (No Doses Required) Completed Pneumococcal Vaccine: Pediat lidia (0-5 Years) and At-Risk Patients (6 to 49 Years) Aged Out No longer eligible b ased on patient's age to complete this topic Insurance [facility] Care Teams Melt Superintendant Relationship Specialty Start Date End Date Brock Downing DO [address] [facility] [address] [place] [phone] PCP - General Internal Medicine 10/30/16
--- OUTSIDE RECORDS SUMMARY | 2025-01-16 11:02 | XMS_ITS | Clinical Summary ---
Author Organization [facility] Address [address] [facility] [address] [place] [address] Care Team Providers Care Reading Tutor Name Role Phone Unavailable Primary Care Provider [...] 2010 Mammogram 2020 COVID-19 Vaccine ( season) 2024 03/27/2022, 08/11/2020, 07/20/2020 Influenza Vaccine (#1) 2024 [...] patient's age to complete this topic Insurance [facility]
--- OUTSIDE RECORDS SUMMARY | 2025-01-16 11:02 | XMS_ITS | Clinical Summary ---
Author Organization [facility] Address [address] [place] [address] Care Team Providers Care Rn Triage Name Role Phone Jennifer Sotomayor APRN Primary Care Provider [phone] Allergies Active Allergy Reactions Criticality Noted Date [...] 0 11/14/2018 Active ergocalciferol (VITAMIN D2) capsule 83849 units TAKE ONE CAPSULE BY MOUTH ONE [...] removal [facility] laparo scopic [facility] banding device [facility] 05/24/2017 Obesity (BMI [...] this topic Medical Devices Implanted Type Area Office System Analyst Device Identifier Shelf Expiration Date Model / Serial / Lot Kit Evicel 40sq Cm 2ml Sealant Fibrin Tissue Closure - [id number] - [id number] Implanted:Qty: 1 on 04/05/2018 by Vinayak Deutsch Jr., [place] [facility] [place]A: Abdomen [employer] 07/08/2019 [id number] / / [id number] Advance Directives For more information, please contact: [phone] Latest Code Status on File Code Status Date Activated Date Inactivated Comments Full Code 04/03/2018 7:45 PM 04/13/2018 2:27 AM This code status was ascertained in the following way: discussion with patient . Care Teams Rn Triage Relationship Specialty Start Date End Date Jennifer Sotomayor APRN PCP - General Internal Medicine 12/23/17
--- NOTE | 2025-01-16 11:32 | ED.NECK ---
HPI - Neck Pain/Injury General Chief Complaint: Neck Pain/Injury Stated Complaint: pain back of neck Time Seen by Provider: 01/16/25 11:20 Source: patient Mode of arrival: ambulatory Limitations: no limitations History of Present Illness ED Provider: HPI Narrative: 44-year-old woman presenting with atraumatic neck pain, no fevers or chills no nausea no vomiting no visual changes no weakness in upper or lower extremities. Related Data Previous Rx's ?Medication ?Instructions ?Recorded BD Integra Syringe 3 mL 25 gauge x #100 ea 05/25/24 1 (syringe with needle, safety) cholecalciferol (vitamin D3) 1,250 1,250 mcg PO QWEEK 3 months #13 05/25/24 mcg (50,000 unit) capsule caps cyanocobalamin (vitamin B-12) 1,000 mcg IM QWEEK 3 months #10 mL 05/25/24 1,000 mcg/mL injection solution ferrous sulfate 325 mg (65 mg 325 mg PO DAILY #90 tabs 05/25/24 iron) tablet,delayed release diazepam 2 mg tablet (Valium) 2 mg PO TID PRN spasms 2 days #6 01/16/25 tabs methylprednisolone 4 mg tablets in 4 mg PO DAILY #21 ea 01/16/25 a dose pack (Medrol (Jim)) Allergies Allergy/AdvReac Type Severity Reaction Status Date / Time acetaminophen (From Percocet) Allergy Mild hives Verified 01/16/25 10:12 oxycodone Allergy Mild Nausea Verified 01/16/25 10:12 Review of Systems Constitutional: Constitutional: Reports as per [facility] Past Medical History Medical History Traumatic rupture of volar plate of interphalangeal joint of finger (~09/27/24) Fracture of phalanx of right ring finger (~09/27/24) History of cholelithiasis Vitamin D deficiency Vitamin B12 deficiency Vaccine refused by patient Mild intermittent asthma Iron deficiency anemia Impingement syndrome of left shoulder region Cubital tunnel syndrome on left Obesity (BMI 35.0-39.9 without comorbidity) Environmental and seasonal allergies Depot contraception History of vitamin D deficiency Hx of non anemic vitamin B12 deficiency Hx of menorrhagia Surgical History History of laparoscopic cholecystectomy Hx of abdominoplasty History of removal of laparoscopic gastric banding device History of esophagogastroduodenoscopy (EGD) (~03/2019) Hx of gastric bypass (2019) Hx of appendectomy Family History Family History Father Stroke HTN (hypertension) Diabetes mellitus Mother Diabetes mellitus with nephropathy Kidney failure HTN (hypertension) Brother Diabetes mellitus Sister Fibromyalgia Arthritis Depression Sister No problems noted. Son No problems noted. Son No problems noted. Son No problems noted. Daughter No problems noted. 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 Neck: Tenderness along the occipital area right over the nuchal line bilaterally slightly worse to the right as well as trapezius tenderness bilaterally ? ?CV: S1-S2 radial pulses +2 bilaterally ? ?Resp: ?No wheezing rales rhonchi no stridor moving air well ? ?MSK: FROM, strength 5/5 all extremities, distally spreading fingers, he trigger thumb, squeeze my hand ? Skin: Warm, dry, intact, ? ?Neuro: ?Alert and oriented x3, moving upper and lower extremities symmetrically, no obvious facial asymmetry noted, cranial nerves 2-12 intact Medications Administered Discontinued Medications Generic Name Dose Route Start Last Admin Trade Name Kayleen PRN Reason Stop Dose Admin Dexamethasone 6 mg 01/16/25 11:37 01/16/25 11:49 Dexamethasone 6 Mg Tablet PO 01/16/25 11:38 6 mg ONCE ONE Administration Ketorolac Tromethamine 15 mg 01/16/25 11:32 01/16/25 11:49 Ketorolac Tromethamine 15 Mg/Ml Vial IM 01/16/25 11:33 15 mg ONCE ONE Administration Lidocaine HCl 2 ml 01/16/25 11:32 01/16/25 11:49 Lidocaine Hcl 2 % 20 Ml Vial INFILTRATI 01/16/25 11:33 2 ml ONCE ONE Administration Medical Decision Making Medical Decision Making MDM Narrative: 11:41 AM 01/16/2025 (Dr. Sarbjit Zuleta): Presenting with atraumatic torticollis without neurovascular compromise, without any evidence for underlying infectious etiology, trigger point injections were performed with improvement, we will continue anti-inflammatories some muscle relaxants at home did not feel further imaging such as CT of the cervical x-rays are indicated Differential Diagnosis Differential Diagnoses: The differential diagnosis associated with the presentation includes (Traumatic torticollis, atraumatic torticollis, cervical myelopathy, vascular compromise) Admission/Observation Consideration of admission/observation: Escalation of care including admission/observation considered Lab Data 01/16/25 10:23 01/16/25 10:23 Labs: Lab Results 01/16/25 Range/Units 10:23 WBC 7.1 (4.8-10.8) X10*3/uL RBC 4.62 (4.20-5.50) X10*6/uL Hgb 9.5 L (12.0-16.0) g/dl Hct 32.4 L (37.0-47.0) % MCV 70.1 L (80.0-98.0) fL MCH 20.6 L (27.0-33.0) pg MCHC 29.3 L (31.0-35.0) g/dl RDW 16.1 H (11.0-16.0) % Plt Count 392 D (160-400) X10*3/uL MPV 9.8 (9.4-12.3) fL Immature Gran % (Auto) 0.3 (0.0-0.4) % Neut % (Auto) 62.8 (45-73) % Lymph % (Auto) 27.0 (20-40) % [place] % (Auto) 8.4 (2-11) % Eos % (Auto) 0.7 (0-4) % Baso % (Auto) 0.8 (0-2) % Lymph # (Auto) 1.9 (1.2-4.9) X10*3/uL [place] # (Auto) 0.6 (0.1-1.2) X10*3/uL Eos # (Auto) 0.1 (0.0-0.4) X10*3/uL Baso # (Auto) 0.1 (0.0-0.2) X10*3/uL Abs Immat Gran (auto) 0.02 (0.00-0.03) X10*3/uL Absolute Neuts (auto) 4.5 (2.0-8.3) x10*3/uL Absolute Nucleated RBC 0.000 (0.0-0.012) X10*3/uL Nucleated RBC % (auto) 0.0 (0.0-0.2) /100WBC Sodium 139 (135-145) mmol/L Potassium 3.7 (3.3-5.1) mmol/L Chloride 110 H (96-108) mmol/L Carbon Dioxide 24 (22-29) mmol/L Anion Gap 9 L (12-20) BUN 10 (9-16) mg/dL Creatinine 0.72 (0.5-1.4) mg/dL Estim Creat Clear Calc 104.6 Estimated GFR > 60 Random Glucose 66 (60-115) mg/dL Calcium 8.8 (8.4-10.2) mg/dL Magnesium 1.9 (1.6-2.6) mg/dL Total Bilirubin 0.5 (0.0-1.0) mg/dL AST 22 (5-31) U/L ALT 16 (0-31) U/L Alkaline Phosphatase 95 (39-117) U/L Total Protein 7.4 (6.5-8.0) g/dL Albumin 4.2 (3.5-5.0) g/dL Tests considered The following testing was considered but not selected: CT cervical spine Prescription Management I considered prescription management with: Pain Medication Procedures Procedure Narrative Procedure Narrative: CPT 59825: ? CPT 19966: 3 or more muscle group injected Time-out: A time-out was performed to confirm the correct patient, procedure, site, and consent. Technique: The patient was placed in a [sitting] position. The skin overlying the trigger points was cleansed with [alcohol prep pad]. The trigger points were palpated and marked. Stabilization and Injection: The provider stabilized the muscle tissue by pinching the trigger point between their fingers. Using [21-gauge, 1.5-inch needle], the medication was injected with a fanning motion into the affected muscles. Medication: A solution of ?[ 10 mL of 2% lidocaine ] was injected. Muscles Injected: A total of [ >3] muscles were injected on the [bilateral] side, including the: [Trapezius, a rectus capitis minor major, sternocleidomastoid, semispinalis capitis Post-Procedure: Patient Response: The patient tolerated the procedure well and reported improvement in their pain. Follow-up: The injection sites were cleaned, and a bandage was applied. The patient was instructed to [apply ice for 15 minutes as needed] and advised on potential post-injection soreness. Assessment and Plan: The injection was successful, resulting in ?decreased pain and improved range of motion. Follow-up will be scheduled as needed. Discharge Plan Discharge Clinical Impression: Acute torticollis Additional Instructions: Continue icing the areas of injection, you can also use heat as well, continue gentle [id number] exercises, continue steroids starting tomorrow, for today Tylenol 975 mg every 6 hours around the clock, also brick picker capsaicin patch, cut into strips and apply over your upper back Worsening issues or concerns come back to the ER Valium you can take 2-4 mg every 8 hours needed for spasms I am only giving her a few days' worth, do not drive or mix with alcohol as it can make you drowsy Prescriptions: New diazepam [Valium] 2 mg tablet 2 mg PO TID PRN (Reason: spasms) 2 Days Qty: 6 0RF methylprednisolone [Medrol (Jim)] 4 mg tablets,dose pack 4 mg PO DAILY Qty: 21 0RF Rx Instructions: Day 1: 24 mg on day 1 administered as 8 mg before breakfast, 4 mg after lunch, 4 mg after supper, and 8 mg at bedtime or 24 mg as a single dose or divided into 2 or 3 doses upon initiation. Day 2: 20 mg on day 2 administered as 4 mg before breakfast, 4 mg after lunch, 4 mg after supper, and 8 mg at bedtime. Day 3: 16 mg on day 3 administered as 4 mg before breakfast, 4 mg after lunch, 4 mg after supper, and 4 mg at bedtime. Day 4: 12 mg on day 4 administered as 4 mg before breakfast, 4 mg after lunch, and 4 mg at bedtime. Day 5: 8 mg on day 5 administered as 4 mg before breakfast and 4 mg at bedtime. Day 6: 4 mg on day 6 administered as 4 mg before breakfast. No Action cyanocobalamin (vitamin B-12) 1,000 mcg/mL solution 1,000 mcg IM QWEEK 90 Days Qty: 10 1RF Rx Instructions: Inject 1000 mcg or 1 mL intramuscularly once a week for 4 weeks and then once a month thereafter ferrous sulfate 325 mg (65 mg iron) tablet,delayed release (DR/EC) 325 mg PO DAILY Qty: 90 1RF cholecalciferol (vitamin D3) 1,250 mcg (50,000 unit) capsule 1,250 mcg PO QWEEK 90 Days Qty: 13 1RF (DME) BD Integra Syringe 3 mL 25 gauge x 1 syringe See Rx Instructions .Route Qty: 100 0RF Rx Instructions: Use IM once a week, then once a month thereafter Print Language: Citizen Of [place]
--- NOTE | 2025-01-16 11:38 | PC.NURSE ---
Lidocaine medication requested from pharmacy
[2025-01-16] MEDS: Lidocaine HCl 2 % 20 ML VIAL INFILTRATI (11:49)
[2025-01-16 12:10] VITALS: BP 134/63; PULSE 85; RESP 15; TEMP 36.6; O2SAT 100
== END 2025-01-16 12:14 | disposition home or self-care (01) ==
PROVIDERS: Emergency Provider Emergency Medicine; PCP Internal Medicine
DX: M43.6 Torticollis (principal); M54.2 Cervicalgia
CPT/HCPCS: 36415; 80053; 83735; 85025; 96372; 99284; J1885; J2003; J8540